=== PATIENT | female | born 1985 | race Caucasian/White ===

== ENCOUNTER 2022-12-08 10:40 | Emergency (ER) | payer MEDICAID, SELFPAY ==
[2022-12-08 10:57] VITALS: BP 109/76; PULSE 78; RESP 18; TEMP 36.9; O2SAT 99; BMI 34.8
[2022-12-08 11:38] LABS: Basophils Absolute Auto 0.1 10^3/uL (0.0-0.1); Basophils Percent Auto 0.9 % (0.2-2.0); Eosinophils Absolute Auto 0.1 10^3/uL (0.0-0.7); Eosinophils Percent Auto 1.9 % (0.9-7.0); Hematocrit 39.5 % (36.0-48.0); Hemoglobin 13.2 g/dL (12.0-16.0); Immature Granulocytes Abs Auto 0.02 10^3/uL (0.00-0.03); Immature Granulocytes Pct Auto 0.3 % (0.0-0.5); Lymphocytes Absolute Auto 1.8 10^3/uL (1.2-3.8); Lymphocytes Percent Auto 26.2 % (20.5-60.0); Mean Corpuscular HGB Conc 33.4 g/dL (29.9-35.2); Mean Corpuscular Hemoglobin 32.4 pg (26.7-34.0); Mean Corpuscular Volume 96.8 fL (81.0-99.0); Mean Platelet Volume 9.4 fL (9.5-13.5); Monocytes Absolute Auto 0.5 10^3/uL (0.3-0.8); Monocytes Percent Auto 7.5 % (1.7-12.0); Neutrophils Absolute Auto 4.2 10^3/uL (1.4-6.5); Neutrophils Percent Auto 63.2 % (43.0-75.0); Platelet Count 359 10^3/uL (150-450); Red Blood Count 4.08 10^6/uL (4.20-5.40); Red Cell Distribution Width 11.9 % (11.0-15.0); White Blood Count 6.7 10^3/uL (4.0-11.0)
[2022-12-08 11:55] LABS: Alanine Aminotransferase 17 U/L (14-59); Albumin Globulin Ratio 0.9; Albumin Level 3.6 g/dL (3.4-5.0); Alkaline Phosphatase 73 U/L (46-116); Aspartate Amino Transferase 15 U/L (15-37); BUN Creatinine Ratio 9.9; Bilirubin Total 0.8 mg/dL (0.2-1.0); Calcium 9.1 mg/dL (8.5-10.1); Carbon Dioxide 28.8 mmol/L (21.0-32.0); Chloride 105 mmol/L (98-107); Estimated GFR (African America >60 (>=60); Estimated GFR (Non-African Ame 51 (>=60); Globulin 3.9 g/dL; Glucose 95 mg/dL (74-106); Potassium 3.8 mmol/L (3.5-5.1); Sodium 139 mmol/L (136-145); Total Protein 7.5 g/dL (6.4-8.2)
--- NOTE | 2022-12-08 12:35 | ED.GENADUL1 ---
HPI - General Adult General Chief complaint: Urogenital-Female Stated complaint: VAGINAL PAIN NUMBNESS IN HANDS & ARMS Time Seen by Provider: 12/08/22 12:35 Source: patient Mode of arrival: walk-in Limitations: no limitations History of Present Illness HPI narrative: Patient is a 37-year-old female who is presenting to the Emergency Room with chief complaint of dysfunctional uterine bleeding since August. Patient had an IUD taken out in August. Patient on no blood thinners, she is on no hormone therapy or control. Patient is a , 3 vaginal deliveries with no complications. She's had 3 miscarriages as well. Patient's been having heavier bleeding since August, she is Already had her menses once today and she is starting to bleed again yesterday and today with more pain and cramping. Patient denies any type of trauma. No traumatic intercourse. No falls, car accidents, or any other type of pelvic trauma. Patient Is not lightheaded or dizzy. Patient is getting intermittent Numbness and tingling in her arms or hands, intermittent cramping. Patient says that she is not hyperventilating. Patient's concern is that she is bleeding more and more to the months, becoming more painful. Chief concern from patient and cousin at bedside as cancer. There has been different types of female cancers in the family. Related Data Previous Rx's Medication Instructions Recorded hydrocodone 5 mg-acetaminophen 325 1 tab PO Q6H PRN pain #7 tabs 12/08/22 mg tablet megestrol 20 mg tablet 20 mg PO BID #30 tabs 12/08/22 Allergies Allergy/AdvReac Type Severity Reaction Status Date / Time Penicillins Allergy Unknown Verified 12/08/22 10:56 prednisolone Allergy Unknown Verified 12/08/22 10:56 Review of Systems ROS Narrative All systems are negative except as noted/marked. All systems reviewed and otherwise negative. Exam Narrative Exam Narrative: Nurses note and vital signs reviewed and patient is not hypoxic. General: The patient appears well and in no apparent distress. Patient is resting comfortably on cart. Patient is not toxic, lethargic, or listless Skin: Warm, dry, no pallor noted. There is no rash noted. No petechiae, purpura. Head: Normocephalic, atraumatic Eye: Normal conjunctiva, no drainage, EOMI. PERRL Ears, Nose, Mouth, and Throat: oral mucosa is moist. Cardiovascular: Regular Rate and Rhythm, no murmur, gallop, rub Respiratory: Patient is in no distress, no accessory muscle use, lungs are clear to auscultation, no wheezing, rales or rhonchi Back: non-tender, no CVA tenderness bilaterally to percussion. No CT LS midline pain GI: soft, Mild to moderate diffuse tenderness to palpation, Slightly more localized to the right and left lower quadrant and suprapubic area, no flank pain bilateral, no CVA tenderness bilateral, no masses appreciated. No rebound, guarding, or rigidity noted. No flank pain bilateral, No distention Musculoskeletal: Patient has full range of motion of all of the extremities, no motor, sensory, or focal neurological deficits Neurological: A&O x3, normal speech Psychiatric: Cooperative Constitutional Vital Signs - 24 hr 12/08/22 10:57 Temperature 98.4 F Pulse Rate [Monitor] 78 Respiratory Rate 18 Blood Pressure [Left Arm] 109/76 Pulse Oximetry 99 Oxygen Delivery Method Room Air Course Vital Signs Vital signs: Vital Signs Temperature 98.4 F 12/08/22 10:57 Pulse Rate 78 12/08/22 10:57 Respiratory Rate 18 12/08/22 10:57 Blood Pressure 109/76 12/08/22 10:57 Pulse Oximetry 99 12/08/22 10:57 Oxygen Delivery Method Room Air 12/08/22 10:57 Temperature 98.4 F 12/08/22 10:57 Pulse Rate 78 12/08/22 10:57 Respiratory Rate 18 12/08/22 10:57 Blood Pressure 109/76 12/08/22 10:57 Pulse Oximetry 99 12/08/22 10:57 Oxygen Delivery Method Room Air 12/08/22 10:57 Medical Decision Making [facility] Narrative Medical decision making narrative: [address] Raymundo, patient's [employer]. Patient was recommended to start Megace 20 mg a day for 30 days until she is seen in the office. Patient also was recommended to have ultrasound of the pelvis since patient will not be seen for another month in the office. Patient's labs show no acute changes, creatinine is 1.21. 1340 Patient's ultrasound showed a small fibroid, otherwise no acute findings.Patient was given a prescription for Megace 20 mg daily until she follows up with Dr. Raymundo in the office, #30 has been prescribed. Patient be sent home and [place] to use if needed. No questions at discharge. Patient feels better after 1 L of IV fluid as well. Lab Data Lab results reviewed: Yes I reviewed the patient's lab results Labs: Lab Results 12/08/22 12/08/22 12/08/22 Range/Units 11:30 12:38 12:49 WBC 6.7 (4.0-11.0) 10^3/uL RBC 4.08 L (4.20-5.40) 10^6/uL Hgb 13.2 (12.0-16.0) g/dL Hct 39.5 (36.0-48.0) % MCV 96.8 (81.0-99.0) fL MCH 32.4 (26.7-34.0) pg MCHC 33.4 (29.9-35.2) g/dL RDW 11.9 (11.0-15.0) % Plt Count 359 (150-450) 10^3/uL MPV 9.4 L (9.5-13.5) fL Neut % (Auto) 63.2 (43.0-75.0) % Lymph % (Auto) 26.2 (20.5-60.0) % [place] % (Auto) 7.5 (1.7-12.0) % Eos % (Auto) 1.9 (0.9-7.0) % Baso % (Auto) 0.9 (0.2-2.0) % Neut # (Auto) 4.2 (1.4-6.5) 10^3/uL Lymph # (Auto) 1.8 (1.2-3.8) 10^3/uL [place] # (Auto) 0.5 (0.3-0.8) 10^3/uL Eos # (Auto) 0.1 (0.0-0.7) 10^3/uL Baso # (Auto) 0.1 (0.0-0.1) 10^3/uL Abs Immat Gran (auto) 0.02 (0.00-0.03) 10^3/uL Imm/Tot Granulo (auto) 0.3 (0.0-0.5) % Sodium 139 (136-145) mmol/L Potassium 3.8 (3.5-5.1) mmol/L Chloride 105 (98-107) mmol/L Carbon Dioxide 28.8 (21.0-32.0) mmol/L Anion Gap 9.0 BUN 12.0 (7.0-18.0) mg/dL Creatinine 1.21 H (0.55-1.02) mg/dL Est GFR ( Amer) >60 (>=60) Est GFR (Non-Af Amer) 51 L (>=60) BUN/Creatinine Ratio 9.9 Glucose 95 (74-106) mg/dL Calcium 9.1 (8.5-10.1) mg/dL Total Bilirubin 0.8 (0.2-1.0) mg/dL AST 15 (15-37) U/L ALT 17 (14-59) U/L Alkaline Phosphatase 73 (46-116) U/L Total Protein 7.5 (6.4-8.2) g/dL Albumin 3.6 (3.4-5.0) g/dL Globulin 3.9 g/dL Albumin/Globulin Ratio 0.9 Urine Color Lt. yellow (YELLOW) Urine Clarity Sl cloudy (CLEAR) Urine pH 7.5 (5.0-9.0) Ur Specific [place] 1.020 (1.005-1.025) Urine Protein Negative (NEG/TRACE) mg/dL Urine Glucose (UA) Negative (NEGATIVE) mg/dL Urine Ketones Negative (NEGATIVE) mg/dL Urine Occult Blood Large A (NEGATIVE) Urine Nitrite Negative (NEGATIVE) Urine Bilirubin Negative (NEGATIVE) Urine Urobilinogen 0.2 (0.2-1.0) EU/dL Ur Leukocyte Esterase Negative (NEGATIVE) Urine RBC >100 A (0-2) #/HPF Urine WBC 0-2 A (NONE SEEN) #/HPF Ur Squamous Epith Cells Rare (NONE/RARE) #/LPF Urine Crystals None seen (None Seen) #/HPF Urine Bacteria None seen (NONE SEEN) #/HPF Urine Casts None seen (NONE SEEN) #/LPF Urine Mucus None seen (NONE SEEN) Ur Culture Indicated? No Discharge Plan Discharge Chief Complaint: Urogenital-Female Clinical Impression: DUB (dysfunctional uterine bleeding), Pelvic pain, Dehydration Patient Disposition: Home, Self-Care Time of Disposition Decision: 13:41 Condition: Fair Prescriptions / Home Meds: New megestrol 20 mg tablet 20 mg PO BID Qty: 30 0RF hydrocodone-acetaminophen 5-325 mg tablet 1 tab PO Q6H PRN (Reason: pain) Qty: 7 0RF Instructions: Abnormal (Dysfunctional) Uterine Bleeding (ED), Dehydration (ED) Additional Instructions: Start taking Megace today. Use [place] as needed. Follow-up with Dr. Raymundo if any other acute concerns. Continue to increase fluids. Here creatinine level was slightly elevated at 1.21, uric given 1 bag of IV fluids to help hydrate. Do not take [place] with Tylenol, he could actually take too much [place] together. Stand Alone Forms: Portal Instructions Referrals: Gabriela Craig [Primary Care Provider] - 1 week
--- NOTE | 2022-12-08 12:40 | US_ITS ---
The [address] [address] Patient Name: STACY SHELDON MRN: [id number] date: 1985 Sex: F Assigned Patient Location: ER Current Patient Location: Accession/Order Number: [id number] Exam Date: 12/08/2022 13:00 Report Date: 12/08/2022 14:09 At the request of: LETICIA WHEATLEY Procedure: US pelvis transvaginal US pelvis transvaginal CLINICAL HISTORY: Dysfunctional uterine bleeding. Intrauterine device thickening of several months ago with heavy cycles. Pain. COMPARISON: None Available. TECHNIQUE: Transvaginal transverse and longitudinal real-time grayscale echograms of the pelvis is performed. Color duplex and doppler spectral analysis performed. FINDINGS: The uterus measures 7.7 x 4.2 x 4.5 cm in size. Uterus is retroverted. The endometrial stripe thickness is 4 mm. Hypoechoic rounded focus in the posterior uterine fundus measures 1.2 x 1.1 x 1.3 cm and lies near the endometrial stripe. Nonvascular and probable fibroid. The right ovary measures 3.2 x 2.3 x 2.0 cm and has normal appearance for age with a few tiny follicles. Normal intraovarian blood flow. The left ovary measures 1.7 x 1.5 x 1.6 cm and has normal appearance for age with a few tiny follicles. Normal intraovarian blood flow. There is no free fluid in the posterior cul-de-sac. IMPRESSION: Hypoechoic rounded focus in the uterine fundus posteriorly lies near the upper endometrial stripe and probably represents a submucosal fibroid. Recommend follow-up. Endometrial stripe itself is normal thickness. Otherwise normal for age pelvic ultrasound. Ovaries unremarkable. Electronically authenticated by: IVAN NEGRETE Date: 12/08/2022 14:09
[2022-12-08 12:49] LABS: Bilirubin Urine NEGATIVE (NEGATIVE); Blood Urine LARGE (NEGATIVE); Clarity Urine SL CLOUDY (CLEAR); Color Urine LT. YELLOW (YELLOW); Glucose Urine UA NEGATIVE (NEGATIVE); Ketones Urine NEGATIVE (NEGATIVE); Leukocyte Esterase Urine NEGATIVE (NEGATIVE); Nitrite Urine NEGATIVE (NEGATIVE); Protein Urine NEGATIVE (NEG/TRACE); Urine Microscopic Indicated YES; Urobilinogen Urine 0.2 EU/dL (0.2-1.0); pH Urine 7.5 (5.0-9.0)
[2022-12-08] MEDS: 0.9 % SODIUM CHLORIDE 1,000 ML 1000 ML IV (12:52)
[2022-12-08] MEDS: HYDROCODONE/ACETAMINOPHEN 5-325 MG TABLET 1 TAB PO (12:52)
[2022-12-08 12:57] LABS: Bacteria Urine NONE SEEN #/HPF (NONE SEEN); Cast Seen? NONE SEEN #/LPF (NONE SEEN); Crystals Seen? None Seen #/HPF (None Seen); Mucus Urine NONE SEEN (NONE SEEN); RBC Urine >100 #/HPF (0-2); Squamous Epithelial Cell Urine RARE #/LPF (NONE/RARE); Urine Culture Indicated NO; WBC Urine 0-2 #/HPF (NONE SEEN)
== END 2022-12-08 13:56 | disposition home or self-care (01) ==
PROVIDERS: Emergency Provider Emergency Medicine; PCP Nurse Practitioner
DX: E86.0 Dehydration (principal); N93.8 Other specified abnormal uterine and vaginal bleeding; R10.2 Pelvic and perineal pain
CPT/HCPCS: 36415; 76830; 80048; 80053; 81003; 81015; 85025; 99284

== ENCOUNTER 2023-01-11 10:04 | Outpatient (OUT) | payer MEDICAID, SELFPAY ==
--- NOTE | 2023-01-11 10:07 | US_ITS ---
The [address] [address] Patient Name: STACY SHELDON MRN: [id number] date: 1985 Sex: F Assigned Patient Location: US Current Patient Location: US Accession/Order Number: [id number] Exam Date: 01/11/2023 10:28 Report Date: 01/11/2023 14:14 At the request of: TAMMY BARRIGA Procedure: US pelvis w/ transvaginal EXAMINATION: US pelvis w/ transvaginal HISTORY: Irregular Cycle N92.6 COMPARISON: No relevant comparison available. FINDINGS: The uterus is normal in size, contour and echotexture measuring 7.9 x 4.5 x 4.5 cm. Retroverted. Area of hypoechogenicity in the posterior myometrium measuring 1.1 x 1.3 x 0.9 cm, a fibroid is favored. The endometrium measures 7 mm, normal. The right ovary measures 3.2 x 2.7 x 1.8 cm. Areas of anechoic echogenicity, normal follicles. Normal color and Doppler flow The left ovary measures 3.1 x 2.5 x 1.9 cm. Cystic area with peripheral hypoechogenicity and central anechoic echogenicity measuring 2.3 x 2.2 x 1.6 cm. Normal color and Doppler flow in the ovary No free fluid US/US pelvis w/ transvaginal IMPRESSION: 2.3 cm left ovarian complex cystic structure. A collapsing functional cyst is favored Electronically authenticated by: EVAN NAQVI Date: 01/11/2023 14:14
[2023-01-11 11:24] LABS: Basophils Absolute Auto 0.1 10^3/uL (0.0-0.1); Eosinophils Absolute Auto 0.1 10^3/uL (0.0-0.7); Eosinophils Percent Auto 1.5 % (0.9-7.0); Immature Granulocytes Abs Auto 0.03 10^3/uL (0.00-0.03); Immature Granulocytes Pct Auto 0.4 % (0.0-0.5); Lymphocytes Absolute Auto 1.9 10^3/uL (1.2-3.8); Lymphocytes Percent Auto 25.3 % (20.5-60.0); Mean Corpuscular HGB Conc 33.3 g/dL (29.9-35.2); Mean Corpuscular Hemoglobin 31.9 pg (26.7-34.0); Mean Corpuscular Volume 95.7 fL (81.0-99.0); Mean Platelet Volume 9.3 fL (9.5-13.5); Monocytes Absolute Auto 0.6 10^3/uL (0.3-0.8); Monocytes Percent Auto 8.2 % (1.7-12.0); Neutrophils Absolute Auto 4.7 10^3/uL (1.4-6.5); Neutrophils Percent Auto 63.6 % (43.0-75.0); Platelet Count 362 10^3/uL (150-450); Red Blood Count 4.39 10^6/uL (4.20-5.40); Red Cell Distribution Width 11.7 % (11.0-15.0); White Blood Count 7.3 10^3/uL (4.0-11.0)
[2023-01-11 11:39] LABS: INR <0.93; Partial Thromboplastin Time 27.1 sec (22.3-36.2); Prothrombin Time 9.8 sec (9.0-11.6)
[2023-01-11 12:20] LABS: Estimated Average Glucose 105 mg/dL; Glycohemoglobin A1C 5.3 % (4.5-6.2)
[2023-01-11 12:28] LABS: HCG Quantitative <1 mIU/mL
[2023-01-11 12:30] LABS: Free T4 0.94 ng/dL (0.76-1.46)
== END 2023-01-11 10:05 | disposition home or self-care (01) ==
LOC: US 10:05
PROVIDERS: PCP Nurse Practitioner; Visit Provider Obstetrics & Gynecology
DX: N92.6 Irregular menstruation, unspecified (principal); N83.292 Other ovarian cyst, left side
CPT/HCPCS: 36415; 76830; 76856; 83036; 84439; 84443; 84702; 85025; 85610; 85730

== ENCOUNTER 2023-02-09 11:00 | Outpatient (OUT) | payer MEDICAID, SELFPAY ==
--- NOTE | 2023-02-09 11:03 | ECG_ITS ---
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
[2023-02-09 13:33] LABS: Anion Gap 12.5; BUN Creatinine Ratio 18.6; Calcium 8.9 mg/dL (8.5-10.1); Carbon Dioxide 26.6 mmol/L (21.0-32.0); Chloride 102 mmol/L (98-107); Estimated GFR (African America >60 (>=60); Estimated GFR (Non-African Ame >60 (>=60); Glucose 94 mg/dL (74-106); Potassium 4.1 mmol/L (3.5-5.1); Sodium 137 mmol/L (136-145)
== END 2023-02-09 11:01 | disposition home or self-care (01) ==
LOC: PST 11:00
PROVIDERS: PCP Nurse Practitioner; Visit Provider Obstetrics & Gynecology
DX: Z01.810 Encounter for preprocedural cardiovascular examination (principal); Z01.812 Encounter for preprocedural laboratory examination; N92.0 Excessive and frequent menstruation with regular cycle; N93.9 Abnormal uterine and vaginal bleeding, unspecified; R10.2 Pelvic and perineal pain; I10 Essential (primary) hypertension
CPT/HCPCS: 36415; 80048; 93005

== ENCOUNTER 2023-02-15 20:37 | Outpatient (REF) | payer MEDICAID, SELFPAY ==
[2023-02-22 12:09] LABS: Age Gdln ACOG Testing Note (.); HPV Aptima Negative (Negative); IGP, Aptima HPV, rfx 16/18,45 Note (.)
== END 2023-02-15 20:38 | disposition home or self-care (01) ==
LOC: LAB 20:37
PROVIDERS: PCP Nurse Practitioner; Visit Provider Obstetrics & Gynecology
DX: Z12.4 Encounter for screening for malignant neoplasm of cervix (principal)
CPT/HCPCS: 87624; G0145

== ENCOUNTER 2023-02-23 07:39 | Day surgery (SDC) | payer MEDICAID, SELFPAY ==
[2023-02-09 11:22] VITALS: BP 112/79; PULSE 76; RESP 14; TEMP 36.4; O2SAT 98; BMI 36.1
[2023-02-23] VITALS (11 sets, daily range): BP systolic 97–117; BP diastolic 63–76; PULSE 54–82; RESP 12–16; TEMP 36–36.2; O2SAT 93–99; BMI 36.4
[2023-02-23] MEDS: LACTATED RINGER'S SOLUTION 1,000 ML 50 ML IV (08:04)
[2023-02-23 08:12] LABS: HCG Quantitative <1 mIU/mL
[2023-02-23 08:49] LABS: Basophils Absolute Auto 0.1 10^3/uL (0.0-0.1); Basophils Percent Auto 0.9 % (0.2-2.0); Eosinophils Absolute Auto 0.1 10^3/uL (0.0-0.7); Eosinophils Percent Auto 2.1 % (0.9-7.0); Hematocrit 40.3 % (36.0-48.0); Hemoglobin 13.2 g/dL (12.0-16.0); Immature Granulocytes Abs Auto 0.03 10^3/uL (0.00-0.03); Immature Granulocytes Pct Auto 0.4 % (0.0-0.5); Lymphocytes Absolute Auto 2.8 10^3/uL (1.2-3.8); Lymphocytes Percent Auto 40.9 % (20.5-60.0); Mean Corpuscular HGB Conc 32.8 g/dL (29.9-35.2); Mean Corpuscular Hemoglobin 31.3 pg (26.7-34.0); Mean Corpuscular Volume 95.5 fL (81.0-99.0); Mean Platelet Volume 9.4 fL (9.5-13.5); Monocytes Absolute Auto 0.6 10^3/uL (0.3-0.8); Monocytes Percent Auto 8.9 % (1.7-12.0); Neutrophils Absolute Auto 3.2 10^3/uL (1.4-6.5); Neutrophils Percent Auto 46.8 % (43.0-75.0); Platelet Count 377 10^3/uL (150-450); Red Blood Count 4.22 10^6/uL (4.20-5.40); White Blood Count 6.8 10^3/uL (4.0-11.0)
--- NOTE | 2023-02-23 10:07 | PM.ONB ---
Brief Operative Note Date of procedure: 02/23/23 Pre-op diagnosis: menorrhagia Post-op diagnosis: same as pre-op Procedure: NAME OF PROCEDURE:[ blanquita endometrial ablation with hysteroscopy] PROCEDURE: The patient was taken back to the OR where she was prepped and draped in the normal sterile fashion after being placed in the dorsal lithotomy position, after being placed under general anesthesia without difficulty. The anterior lip was grasped with a single tooth tenaculum. The patient was then gently sounds. The patient was gently sounded using Hegar dilators and the hysteroscope was passed through the cervix into the uterus where both ostia were seen. No gross evidence of polyps, fibroids or malignancy. A weighted speculum was placed in the patient?s vagina, the anterior tip of the cervix was identified and grasped with a single tooth tenaculum. The patient was gently sounded to roughly 10 cm. The cervical length was noted to be 5 cm. The Blanquita ablation apparatus was set to approximately 5 in length. This was placed in through the cervix and into the uterus. After the seal was tested, at that time the total ablation of 120 seconds was performed with the Blanquita without difficulty. All instruments were removed from the vagina. Anesthesia: BUSHRA Surgeon: Orlando Raymundo Estimated blood loss (mL): 5 Pathology: none sent Condition: stable Disposition: PACU
== END 2023-02-23 11:44 | disposition home or self-care (01) ==
PROVIDERS: PCP Nurse Practitioner; Visit Provider Obstetrics & Gynecology
PROC: (CPT 952; principal; 2023-02-23 09:05)
DX: N92.0 Excessive and frequent menstruation with regular cycle (principal); R10.2 Pelvic and perineal pain; N93.9 Abnormal uterine and vaginal bleeding, unspecified; I10 Essential (primary) hypertension; Z90.49 Acquired absence of other specified parts of digestive tract; Z98.51 Tubal ligation status
CPT/HCPCS: 58563; 36415; 84702; 85025; J2704

== ENCOUNTER 2023-03-24 08:42 | Outpatient (OUT) | payer MEDICAID, SELFPAY ==
--- NOTE | 2023-03-24 | CT_ITS ---
The [address] [address] Patient Name: STACY SHELDON MRN: [id number] date: 1985 Sex: F Assigned Patient Location: CT Current Patient Location: Accession/Order Number: [id number] Exam Date: 03/24/2023 09:01 Report Date: 03/26/2023 08:43 At the request of: MEGAN AKERS Procedure: CT chest w con CT chest w con CLINICAL HISTORY: lung nodule R91.1 COMPARISON: 07/26/[address] abdomen/pelvis. 07/08/2022 CT abdomen/pelvis. TECHNIQUE: Axial CT images obtained from lung apices through lung bases, following intravenous administration of 99 mL of Omnipaque 300. Coronal and sagittal MIP reconstructions performed. Dose reduction techniques were achieved by using automated exposure control and/or adjustment of mA and/or kV according to patient size and/or use of iterative reconstruction technique. FINDINGS: Lower thyroid unremarkable. No axillary adenopathy. Minimal thoracic spondylosis without acute bony process. Visualized upper abdomen unremarkable except for a small unchanged probable flash fill hemangioma at the right hepatic dome of approximately 8 mm vaguely seen on exam from July 2022. Liver is not cirrhotic. No splenomegaly or ascites. Normal heart and great vessel sizes. No pericardial effusion. No mediastinal adenopathy. A few unchanged partially calcified subcarinal nodes. Posteromedial right middle lobe 12 mm nodule is stable in size and exhibits central calcification. A miniscule adjacent satellite nodularities are stable. Overall most consistent with benign granuloma not requiring further follow-up. Tiny linear scarring at the left lower lobe is stable. No active airspace opacities or effusions. No chronic interstitial lung disease or pulmonary emphysema. CT/CT chest w con IMPRESSION: Old benign right middle lobe granuloma is centrally calcified and does not require further follow-up. Minimal scarring left lower lobe without acute process. Enhancing nodule at the right hepatic dome similar to July 2022 in a noncirrhotic liver and probably represents flash filling hemangioma. Electronically authenticated by: IVAN NEGRETE Date: 03/26/2023 08:43
== END 2023-03-24 08:43 | disposition home or self-care (01) ==
LOC: CT 08:42
PROVIDERS: PCP Nurse Practitioner; Visit Provider Nurse Practitioner
DX: R91.1 Solitary pulmonary nodule (principal); K76.9 Liver disease, unspecified
CPT/HCPCS: 71260; Q9967

== ENCOUNTER 2023-04-11 13:35 | Emergency (ER) | payer OTHER, MEDICAID, SELFPAY ==
[2023-04-11 13:42] VITALS: BP 119/72; PULSE 82; RESP 18; O2SAT 99; BMI 37.2
--- NOTE | 2023-04-11 13:52 | ED_ITS ---
HPI - Female Genitourinary General Chief complaint: Urogenital-Female Stated complaint: UTI SYMPTOMS Time Seen by Provider: 04/11/23 13:36 Source: patient and family Mode of arrival: walk-in Limitations: no limitations History of Present Illness HPI Narrative: 37-year-old female presents for hematuria. She has had two urinary tract infection in the past few months and is scheduled to see her doctor tomorrow. She states when she urinates blood comes out but it's deftly not vaginal bleeding. She has some mild lower back pain but no fever or vomiting. She had a CAT scan a few months ago at another hospital. Related Data Home Medications Medication Instructions Recorded Confirmed hydrochlorothiazide 25 mg tablet 25 mg PO QDAY 02/09/23 02/23/23 lisinopril 10 mg tablet 10 mg PO QDAY 02/09/23 02/23/23 Allergies Allergy/AdvReac Type Severity Reaction Status Date / Time Penicillins Allergy Unknown Hives Verified 04/11/23 13:47 prednisolone Allergy Unknown dyspnea Verified 04/11/23 13:47 azithromycin Allergy Hives Verified 04/11/23 13:47 Review of Systems ROS Narrative A ten point review of systems is negative except as noted above. [facility] Medical History (Updated 04/11/23 @ 14:42 by Arden Mejia MD) Abnormal uterine bleeding ?N93.9 - Abnormal uterine and vaginal bleeding, unspecified (ICD-10) Anxiety ?F41.9 - Anxiety disorder, unspecified (ICD-10) Back pain ?M54.9 - Dorsalgia, unspecified (ICD-10) COVID-19 ?U07.1 - COVID-19 (ICD-10) Depression ?F32.A - Depression, unspecified (ICD-10) Fibromyalgia ?M79.7 - Fibromyalgia (ICD-10) Hypertension ?I10 - Essential (primary) hypertension (ICD-10) Irregular heart beat ?I49.9 - Cardiac arrhythmia, unspecified (ICD-10) Kidney stones ?N20.0 - Calculus of kidney (ICD-10) Menorrhagia ?N92.0 - Excessive and frequent menstruation with regular cycle (ICD-10) Postoperative nausea and vomiting ?R11.2 - Nausea with vomiting, unspecified (ICD-10) ?Z98.890 - Other specified postprocedural states (ICD-10) Surgical History (Updated 02/09/23 @ 11:18 by Lakesha Knight NP) H/O lumpectomy ?Z98.890 - Other specified postprocedural states (ICD-10) History of cholecystectomy ?Z90.49 - Acquired absence of other specified parts of digestive tract (ICD- 10) History of hernia repair ?Z98.890 - Other specified postprocedural states (ICD-10) ?Z87.19 - Personal history of other diseases of the digestive system (ICD-10) History of surgical removal of ganglion cyst ?Z98.890 - Other specified postprocedural states (ICD-10) History of tubal ligation ?Z98.51 - Tubal ligation status (ICD-10) Family History (Updated 02/09/23 @ 11:18 by Lakesha Knight NP) Other Family history of DVT Family history of bleeding or clotting disorder Family history of breast cancer Family history of diabetes mellitus Family history of heart disease Family history of hypertension Family history of kidney cancer Family history of lung cancer Family history of myocardial infarction Social History (Updated 02/09/23 @ 11:13 by Lakesha Knight NP) Within the past year, how often did you have a drink containing alcohol: monthly or less Smoking status: Never smoker Non-prescribed substance use: denies use Previous occupational history: [employer] Highest level of school completed/degree received: high school graduate Exam Narrative Exam Narrative: Nurses note and vital signs reviewed and patient is not hypoxic. General: The patient appears well and in no apparent distress. Patient is resting comfortably on cart. Skin: Warm, dry, no pallor noted. There is no rash noted. Head: Normocephalic, atraumatic Eye: Normal conjunctiva, no drainage Ears, Nose, Mouth, and Throat: oral mucosa is moist. Nares patent. Cardiovascular: Regular Rate and Rhythm Respiratory: Patient is in no distress, no accessory muscle use, lungs are clear to auscultation, no wheezing, rales or rhonchi Back: non-tender, no CVA tenderness bilaterally to percussion. GI: soft and nontender Musculoskeletal: The patient has no evidence of calf tenderness, no pitting edema, symmetrical pulses noted bilaterally Neurological: A&O, normal speech Psychiatric: Cooperative Constitutional Vital Signs, click to edit/add: Last Vital Signs Pulse 82 04/11/23 13:42 Resp 18 04/11/23 13:42 BP 119/72 04/11/23 13:42 Pulse Ox 99 04/11/23 13:42 O2 Del Method Room Air 04/11/23 13:42 Course Vital Signs Vital signs: Vital Signs Pulse Rate 82 04/11/23 13:42 Respiratory Rate 18 04/11/23 13:42 Blood Pressure 119/72 04/11/23 13:42 Pulse Oximetry 99 04/11/23 13:42 Oxygen Delivery Method Room Air 04/11/23 13:42 Pulse Rate 82 04/11/23 13:42 Respiratory Rate 18 04/11/23 13:42 Blood Pressure 119/72 04/11/23 13:42 Pulse Oximetry 99 04/11/23 13:42 Oxygen Delivery Method Room Air 04/11/23 13:42 MDM - Female Genitourinary MDM Narrative Medical decision making narrative: Urinalysis is negative. No RBCs or WBCs present. CAT scan report obtained from 01/21/2023 from [facility]. She had aa negative CAT scan. For five years ago the patient had urethral rupture and dilatation and at that time of course it seen a urologist. She is going to see her PCP tomorrow and will discuss referral to urology at that point. Treatment diagnosis and follow-up were discussed with the patient. No further treatment is needed at this point. Differential Diagnosis Differential diagnosis: Likely urinary tract infection and other (kidney stone, hematuria) Lab Data Attestation: I reviewed the patient's lab results. Labs: Lab Results 04/11/23 04/11/23 Range/Units 13:53 14:00 WBC 6.4 (4.0-11.0) 10^3/uL RBC 4.06 L (4.20-5.40) 10^6/uL Hgb 12.8 (12.0-16.0) g/dL Hct 39.0 (36.0-48.0) % MCV 96.1 (81.0-99.0) fL MCH 31.5 (26.7-34.0) pg MCHC 32.8 (29.9-35.2) g/dL RDW 11.8 (11.0-15.0) % Plt Count 344 (150-450) 10^3/uL MPV 9.2 L (9.5-13.5) fL Neut % (Auto) 58.2 (43.0-75.0) % Lymph % (Auto) 32.1 (20.5-60.0) % [place] % (Auto) 7.4 (1.7-12.0) % Eos % (Auto) 1.4 (0.9-7.0) % Baso % (Auto) 0.6 (0.2-2.0) % Neut # (Auto) 3.7 (1.4-6.5) 10^3/uL Lymph # (Auto) 2.1 (1.2-3.8) 10^3/uL [place] # (Auto) 0.5 (0.3-0.8) 10^3/uL Eos # (Auto) 0.1 (0.0-0.7) 10^3/uL Baso # (Auto) 0.0 (0.0-0.1) 10^3/uL Abs Immat Gran (auto) 0.02 (0.00-0.03) 10^3/uL Imm/Tot Granulo (auto) 0.3 (0.0-0.5) % Sodium 139 (136-145) mmol/L Potassium 3.3 L (3.5-5.1) mmol/L Chloride 100 (98-107) mmol/L Carbon Dioxide 30.0 (21.0-32.0) mmol/L Anion Gap 12.3 BUN 10.0 (7.0-18.0) mg/dL Creatinine 0.84 (0.55-1.02) mg/dL Est GFR ( Amer) >60 (>=60) Est GFR (Non-Af Amer) >60 (>=60) BUN/Creatinine Ratio 11.9 Glucose 103 (74-106) mg/dL Calcium 9.1 (8.5-10.1) mg/dL Urine Color Straw (YELLOW) Urine Clarity Clear (CLEAR) Urine pH 6.5 (5.0-9.0) Ur Specific [place] <=1.005 A (1.005-1.025) Urine Protein Negative (NEG/TRACE) mg/dL Urine Glucose (UA) Negative (NEGATIVE) mg/dL Urine Ketones Negative (NEGATIVE) mg/dL Urine Occult Blood Small A (NEGATIVE) Urine Nitrite Negative (NEGATIVE) Urine Bilirubin Negative (NEGATIVE) Urine Urobilinogen 0.2 (0.2-1.0) EU/dL Ur Leukocyte Esterase Negative (NEGATIVE) Urine RBC None seen (0-2) #/HPF Urine WBC None seen (NONE SEEN) #/HPF Ur Squamous Epith Cells Rare (NONE/RARE) #/LPF Urine Crystals None seen (None Seen) #/HPF Urine Bacteria None seen (NONE SEEN) #/HPF Urine Casts None seen (NONE SEEN) #/LPF Urine Mucus None seen (NONE SEEN) Urine HCG, Qual Negative (NEGATIVE) Discharge Plan Discharge Chief Complaint: Urogenital-Female Clinical Impression: Hematuria Patient Disposition: Home, Self-Care Time of Disposition Decision: 14:42 Condition: Good Mode of Transportation: Private Vehicle Prescriptions / Home Meds: No Action hydrochlorothiazide 25 mg tablet 25 mg PO QDAY lisinopril 10 mg tablet 10 mg PO QDAY Instructions: Hematuria (ED) Stand Alone Forms: Portal Instructions Referrals: Gabriela Craig [Primary Care Provider] - 1 week
[2023-04-11 14:08] LABS: Basophils Percent Auto 0.6 % (0.2-2.0); Eosinophils Absolute Auto 0.1 10^3/uL (0.0-0.7); Eosinophils Percent Auto 1.4 % (0.9-7.0); Hemoglobin 12.8 g/dL (12.0-16.0); Immature Granulocytes Abs Auto 0.02 10^3/uL (0.00-0.03); Immature Granulocytes Pct Auto 0.3 % (0.0-0.5); Lymphocytes Absolute Auto 2.1 10^3/uL (1.2-3.8); Lymphocytes Percent Auto 32.1 % (20.5-60.0); Mean Corpuscular HGB Conc 32.8 g/dL (29.9-35.2); Mean Corpuscular Hemoglobin 31.5 pg (26.7-34.0); Mean Corpuscular Volume 96.1 fL (81.0-99.0); Mean Platelet Volume 9.2 fL (9.5-13.5); Monocytes Absolute Auto 0.5 10^3/uL (0.3-0.8); Monocytes Percent Auto 7.4 % (1.7-12.0); Neutrophils Absolute Auto 3.7 10^3/uL (1.4-6.5); Neutrophils Percent Auto 58.2 % (43.0-75.0); Platelet Count 344 10^3/uL (150-450); Red Blood Count 4.06 10^6/uL (4.20-5.40); Red Cell Distribution Width 11.8 % (11.0-15.0); White Blood Count 6.4 10^3/uL (4.0-11.0)
[2023-04-11 14:10] LABS: Bilirubin Urine NEGATIVE (NEGATIVE); Blood Urine SMALL (NEGATIVE); Clarity Urine CLEAR (CLEAR); Glucose Urine UA NEGATIVE (NEGATIVE); Ketones Urine NEGATIVE (NEGATIVE); Leukocyte Esterase Urine NEGATIVE (NEGATIVE); Nitrite Urine NEGATIVE (NEGATIVE); Protein Urine NEGATIVE (NEG/TRACE); Specific Gravity Urine <=1.005 (1.005-1.025); Urobilinogen Urine 0.2 EU/dL (0.2-1.0); pH Urine 6.5 (5.0-9.0)
[2023-04-11 14:11] LABS: Color Urine STRAW (YELLOW)
[2023-04-11 14:12] LABS: HCG Qualitative Urine* NEGATIVE (NEGATIVE)
[2023-04-11 14:17] LABS: Anion Gap 12.3; BUN Creatinine Ratio 11.9; Calcium 9.1 mg/dL (8.5-10.1); Chloride 100 mmol/L (98-107); Estimated GFR (African America >60 (>=60); Estimated GFR (Non-African Ame >60 (>=60); Glucose 103 mg/dL (74-106); Potassium 3.3 mmol/L (3.5-5.1); Sodium 139 mmol/L (136-145)
[2023-04-11 14:19] LABS: Bacteria Urine NONE SEEN #/HPF (NONE SEEN); Cast Seen? NONE SEEN #/LPF (NONE SEEN); Crystals Seen? None Seen #/HPF (None Seen); Mucus Urine NONE SEEN (NONE SEEN); RBC Urine NONE SEEN #/HPF (0-2); Squamous Epithelial Cell Urine RARE #/LPF (NONE/RARE); WBC Urine NONE SEEN #/HPF (NONE SEEN)
== END 2023-04-11 14:52 | disposition home or self-care (01) ==
PROVIDERS: Emergency Provider Emergency Medicine; PCP Nurse Practitioner
DX: R31.9 Hematuria, unspecified (principal); Z79.899 Other long term (current) drug therapy; F41.9 Anxiety disorder, unspecified; Z86.16 Personal history of COVID-19; F32.A Depression, unspecified; M79.7 Fibromyalgia; I10 Essential (primary) hypertension; Z87.442 Personal history of urinary calculi; Z90.49 Acquired absence of other specified parts of digestive tract; Z98.51 Tubal ligation status; Z98.890 Other specified postprocedural states
CPT/HCPCS: 36415; 80048; 81001; 84703; 85025; 87086; 99284

== ENCOUNTER 2024-02-20 19:39 | Outpatient (REF) | payer OTHER, MEDICAID, SELFPAY ==
--- OUTSIDE RECORDS SUMMARY | 2024-02-20 19:45 | XMS_ITS | CCD ---
Author Organization [facility] Care Team Providers Care Habilitative Interventionist Name Role Phone NAGARAJA, RAYNE Unavailable Unavailable NAGARAJA, RAYNE Unavailable Unavailable NAGARAJA, RAYNE Unavailable Unavailable [facility] Unavailable Unavailable AICHHOLZ, MASH GRINDER GABRIELA Admitting Unavailable AICHHOLZ, MASH GRINDER GABRIELA Attending Unavailable AICHHOLZ, MASH GRINDER GABRIELA Primary Care Unavailable AICHHOLZ, MASH GRINDER GABRIELA Consulting Unavailable DR OSWALD GAR Consulting Unavailable AICHHOLZ, MASH GRINDER GABRIELA Admitting Unavailable AICHHOLZ, MASH GRINDER GABRIELA Attending Unavailable AICHHOLZ, MASH GRINDER GABRIELA Primary Care Unavailable AICHHOLZ, MASH GRINDER GABRIELA Consulting Unavailable AICHHOLZ, MASH GRINDER GABRIELA Admitting Unavailable AICHHOLZ, MASH GRINDER GABRIELA Attending Unavailable AICHHOLZ, MASH GRINDER GABRIELA Primary Care Unavailable AICHHOLZ, MASH GRINDER GABRIELA Consulting Unavailable AICHHOLZ, MASH GRINDER GABRIELA Primary Care Unavailable DR SALAS HARRIS Admitting Unavailvannessa HARRIS, DR SALAS Borrego Attending Unavailabl e KIMBERLY, DR SALAS Borrego Consulting UnavailGABY Jiang Consulting Unavailable FLO DODD Consulting Unavailable Aichholz ON SITE MANAGER-Gabriela FARIAS Primary Care Provider AICHHOLZ, GABRIELA Attending Unavailable AICHHOLZ, GABRIELA Attending Unavailable AICHHOLZ, GABRIELA Attending Unavailable AICHHOLZ, GABRIELA Attending Unavailable Allergies Allergy Classification Reported Allergen(s) Allergy Type Date of Onset Reaction(s) Facility (1 source) erythromycin Drug Allergy 4 [facility]ository (2 sources) Penicillins Drug allergy (disorder) 4 [facility] (1 source) predniSONE Drug Allergy 4 [facility] (1 source) Erythromycin Drug Allergy [facility] (1 source) predniSONE Drug Allergy [facility] (1 source) Erythromycin Drug Allergy 7 [facility] (1 source) Penicillins Propensity to adverse reactions to drug 7 [facility] (1 source) predniSONE Drug Allergy 7 [facility] Medications Current Medications Medication Drug Class(es) Dates Sig (Normalized) Sig (Original) acetaminophen 500 mg oral tablet (1 source) Start: 02-02-20 22 take 2 tablets by mouth every six hours as needed for pain acetaminophen (TYLENOL EXTRA STRENGTH) 500 mg tablet Take 2 tablets (1,000 mg total) by mouth every 6 (six) hours as needed for pain. 30 tablet 0 02/01/2022 Active benzonatate 100 mg oral capsule (1 source) Non-narcotic Antitussive Start: 02-02-20 22 take 1 capsule by mouth every eight hours benzonatate (TESSALON PERLES) 100 mg capsule Take 1 capsule (100 mg total) by mouth every 8 (eight) hours. 21 capsule 0 02/01/2022 Active hydroCHLOROthiazide 25 mg oral tablet (1 source) Thiazide Diuretic take 1 tablet by mouth once daily hydroCHLOROthiazide (HYDRODIURIL) 25 mg tablet Take 1 tablet (25 mg total) by mouth daily. 0 Active ketorolac tromethamine 10 mg oral tablet (1 source) Nonsteroidal Anti-inflammatory Drug, Cyclooxygenase Inhibitor take 1 tablet by mouth every six hours as needed for pain ketorolac (TORADOL) 10 mg tablet Take 1 tablet (10 mg total) by mouth every 6 (six) hours as needed for pain. 0 Active lisinopril 10 mg oral tablet (1 source) Angiotensin Converting Enzyme Inhibitor take 1 tablet by mouth in the morning lisinopriL (PRINIVIL,ZESTRIL) 10 mg tablet Take 1 tablet (10 mg total) by mouth in the morning. 0 Active tamsulosin hydrochloride 0.4 mg oral capsule (1 source) alpha-Adrenergic Gold take 1 capsule by mouth in the morning tamsulosin (FLOMAX) 0.4 mg capsule Take 1 capsule (0.4 mg total) by mouth in the morning. 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; Translations: [OTH HALFWAY CURRENT DRUG THERAPY] Onset: 2022 Episodic Other female genital disorders (4 sources) Abnormal uterine and vaginal bleeding, unspecified; Translations: [ABNORMAL UTERINE VAGINAL BLEED UNS] Onset: 07-08-2022 Chronic Other lower respiratory disease (4 sources) Solitary pulmonary nodule; Translations: [SOLITARY PULMONARY NODULE] Onset: 07-26-2022 Episodic Other screening for suspected conditions (not mental disorders or infectious disease) (2 sources) Abnormal findings on diagnostic imaging of other abdominal regions, including retroperitoneum; Translations: [Other specified abnormal findings of blood chemistry] Onset: 02-22-2022 Episodic Unclassified (1 source) COUGH, UNSPECIFIED; Translations: [COUGH, UNSPECIFIED] Onset: 07-29-2022 Past or Other Problems Problem Classification Problem Date Documented Da te Episodic/Chronic Diabetes mellitus without complication (1 source) Hyperglycemia, unspecified; Translations: [HYPERGLYCEMIA UNSPECIFIED] Onset: 02-22-2022 Episodic Genitourinary symptoms and ill-defined conditions (1 source) Zay hematuria; Translations: [Gross hematuria] Onset: 12-29-2020 05-16-2023 Episodic Results Test Name Value Interpretation Reference Range Facil ity CT CHEST W CONon 07-26-2022 CT CHEST W CON EXAMINATION: CT CHEST W CON, CT ABD/PELV W CON HISTORY: Solitary nodule of lung ; acute intermittent cough, consider for pancreatic head mass on prior study COMPARISON: CT abdomen pelvis 07/08/2022 TECHNIQUE: Axial, Coronal, and Sagittal CT images were obtained without and/or with IV contrast as indicated by examination type. Dose reduction techniques were achieved by using automated exposure control and/or adjustment of mA and/or kV according to patient size and/or use of iterative reconstruction technique. FINDINGS: LUNGS: Stable 12 mm nodule within right middle lobe adjacent the mediastinum and diaphragm. Lungs are otherwise clear. PLEURA: No mass or effusion. VASCULATURE: No visible pulmonary arterial thrombus or attenuation. ESTELLA: No mass or adenopathy. MEDIASTINUM: No mass or adenopathy. CARDIAC: No enlargement, pericardial thickening, or pericardial effusion. CHEST WALL: No mass or axillary adenopathy. LIVER: No enlargement, atrophy, abnormal density, or significant focal lesion. BILIARY: Cholecystectomy. PANCREAS: No lesion, fluid collection, ductal dilatation, or atrophy. SPLEEN: No enlargement or focal lesion. ADRENALS: No mass or enlargement. KIDNEYS: No mass, obstruction, or calcification. BOWEL/MESENTERY: No visible mass, obstruction, or bowel wall thickening. AORTA/VASCULAR: No aneurysm. RETROPERITONEUM: No mass or adenopathy. LYMPH NODES: No adenopathy. URINARY BLADDER: No visible focal wall thickening, lesion, or calculus. PELVIC ORGANS: IUD within endometrial cavity. No visible mass. Pelvic organs appropriate for patient age. ABDOMINAL WALL: No mass or hernia. BONES: No bony lesion or fracture. OTHER: Negative. IMPRESSION: 1. Nonspecific 12 mm nodule within right middle lobe, but not overtly suspicious. Given patient's age this most likely represents a noncalcified granuloma. Consider follow-up imaging in 6-12 months to document stability. 2. Unremarkable pancreas. No mass or suspicious findings. Electronically authenticated by: OSWALD GAR Date: 2022-07-26 14:23 Normal [facility] CBC AUTO DIFFon 07-08-2022 BASO # 0.1 103/ul Normal 0.0-0.1 [facility] Comment on above: Performed By: #### C BC ####[facility] [address] [place] [id number]. Joseph Edwards Basophils/100 WBC (Bld) 0.7 % Normal 0.2-2.0 [facility] Comment on above: Performed By: #### C BC ####[facility] [address] [place] [id number]. Joseph Edwards EO # 0.1 103/ul Normal 0.0-0.7 [facility] Comment on above: Performed By: #### C BC ####[facility] [address] [place] [id number]. Joseph Edwards Eosinophils/100 WBC (Bld) 1.7 % Normal 0.9-7.0 [facility] Comment on above: Performed By: #### C BC ####[facility] [address] [place] [address]Dr. Joseph Edwards Erythrocyte distribution width (RBC) [Ratio] 12.2 % Normal 11.0-15.0 [facility] Comment on above: Performed By: #### C BC ####[facility] [address] [place], [place] [address]Dr. Joseph Edwards Hematocrit (Bld) [Volume fraction] 37.0 % Normal 36.0-48.0 [facility] Comment on above: Performed By: #### C BC ####[facility] [address] [place], [place] [address]Dr. Joseph Edwards Hemoglobin (Bld) [Mass/Vol] 12.5 g/dL Normal 12.0-16.0 [facility] Comment on above: Performed By: #### C BC ####[facility] [address] [place], [place] [address]Dr. Joseph Edwards IG # 0.02 10e3/ul Normal 0.00-0.03 [facility] Comment on above: Performed By: #### C BC ####[facility] [address] [place], [place] [address]Dr. Joseph Edwards IG % 0.3 % Normal 0.0-0.5 [facility] Comment on above: Performed By: #### C BC ####[facility] [address] [place], [place] [address]Dr. Joseph Edwards LYMPH # 2.7 103/ul Normal 1.2-3.8 [facility] Comment on above: Performed By: #### C BC ####[facility] [address] [place], [place] [address]Dr. Joseph Edwards Lymphocytes/100 WBC (Bld) 37.4 % Normal 20.5-60.0 [facility] Comment on above: Performed By: #### C BC ####[facility] [address] [place], [place] [address]Dr. Joseph Edwards MANUAL DIFF REQ NO Normal [facility] Comment on above: Performed By: #### C BC ####[facility] [address] [place] [address]Dr. Joseph Edwards MCH (RBC) [Entitic mass] 32.3 pg Normal 26.7-34.0 [facility] Comment on above: Performed By: #### C BC ####[facility] [address] [place] [address]Dr. Joseph Edwards MCHC (RBC) [Mass/Vol] 33.8 g/dL Normal 29.9-35.2 [facility] Comment on above: Performed By: #### C BC ####[facility] [address] [place], [place] [id number]. Joseph Edwards MCV (RBC) [Entitic vol] 95.6 fL Normal 81.0-99.0 [facility] Comment on above: Performed By: #### C BC ####[facility] [address] [place], [place] [address]Dr. Joseph Edwards MONO # 0.6 103/ul Normal 0.3-0.8 [facility] Comment on above: Performed By: #### C BC ####[facility] [address] [place], [place] [address]Dr. Joseph Jerry Monocytes/100 WBC (Bld) 7.8 % Normal 1.7-12.0 [facility] Comment on above: Performed By: #### C BC ####[facility] [address] [place], [place] [address]Dr. Joseph Edwards NEUT # 3.7 103/ul Normal 1.4-6.5 [facility] Comment on above: Performed By: #### C BC ####[facility] [address] [place], [place] [id number]. Joseph Edwards Neutrophils/100 WBC (Bld) 52.1 % Normal 43.0-75.0 [facility] Comment on above: Performed By: #### C BC ####[facility] [address] [place], [place] [address]Dr. Joseph Edwards Platelet mean volume (Bld) [Entitic vol] 9.2 fL Critically low 9.5-13.5 [facility] Comment on above: Performed By: #### C BC ####[facility] [address] [place], [place] [address]Em. Joseph Edwards PLT 332 103/ul Normal 150-450 [facility] Comment on above: Performed By: #### C BC ####[facility] [address] [place], [place] [address]Ld. Joseph Edwards RBC 3.87 106/ul Critically low 4.20-5.40 [facility] Comment on above: Performed By: #### C BC ####[facility] [address] [place], [place] [address]Xn. Joseph Edwards WBC 7.1 103/ul Normal 4.0-11.0 [facility] Comment on above: Performed By: #### C BC ####[facility] [address] [place], [place] [address]Hv. Joseph Edwards CT ABD/PELVIS WO CONon 07-08 CT ABD/PELVIS WO CON EXAM: CT SCAN OF E ABDOMEN AND PELVIS WITHOUT IV CONTRAST DATE OF EXAM: 07/08/2022 7:26 PM EST HISTORY: 36-year-old female with low back pain bilateral flank pain, vaginal spotting abdominal pressure for 3 days. Patient has a Mirena. Patient is not . Patient has a history of kidney stones. COMPARISON: Ultrasound dated 06/13/2020 TECHNIQUE: CT examination of the abdomen and pelvis with sagittal and coronal reformations was performed without intravenous contrast. CT dose lowering techniques were used, to include: automated exposure control, adjustment for patient size, and/or use of iterative reconstruction. CONTRAST: None. Note: The exam is limited because some types of pathology may not be adequately demonstrated due to lack of contrast enhancement. FINDINGS: Lower Chest: On axial image 4 of series 4, within the right middle lobe there is a nodule that measures 9.5 x 12.4 mm. Free Air: None. Liver: The liver is enlarged Gallbladder: Removed Common Bile Duct: Normal Pancreas: On axial image 58 of series 4, and coronal image 32 of series 6, the pancreatic head is mildly prominent (although this is most likely due to volume averaging from unopacified duodenum overlying the pancreatic head) underlying pathology cannot be excluded. Spleen: Normal Adrenal Glands: Normal Kidneys: Right Kidney: Normal. Right Ureter: Portions of the right ureter which are visualized measure within normal. Left Kidney: Normal. Left Ureter: Portions of the left ureter which are visualized measure within normal limits. GI Tract: Stomach: Normal Small Bowel: Normal Appendix: Normal on coronal image 38 Large Bowel: There is moderate retention of stool seen throughout the large bowel. Mesentery/Peritoneum : Normal Vasculature: Normal Lymph Nodes: Subcentimeter lymph nodes are demonstrated in the mesentery. Abdominal Wall: Normal Bladder: Normal for the amount of distention. Reproductive: Uterus is retroflexed with a IUD. Evaluation of ovaries is limited due to overlying bowel gas. Musculoskeletal: Normal Free Fluid: None. IMPRESSION: 1. 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 Please correlate with patient's clinical history. If patient is a smoker or if there is any other clinical concern, outpatient low dose CT scan of the chest as an outpatient is recommended to better evaluate for other nodules. 2. Moderate retention of stool throughout the large bowel. 3. Normal appendix. 4. Hepatomegaly with mild intrahepatic biliary prominence. Please correlate with patient's LFTs. 5. Pancreatic head is mildly prominent (on axial image 58 of series 4, and coronal image 32 of series 6) although this is most likely due to volume averaging from unopacified duodenum overlying the pancreatic head. (Although underlying pathology can not be excluded.) Please correlate with patient's medical history and pancreatic labs. If clinically indicated, follow-up imaging with oral contrast and IV contrast is recommended. No significant alannah-pancreatic inflammation. Electronically authenticated by: FLO DODD Date: 2022-07-08 20:54 Normal [facility] ER URINE PROFILEon 3 Bilirubin Ql (U) Negative Normal NEGATIVE [facility] Comment on above: Performed By: #### E FOREST LIENRO #### [facility] [address] [place], [place] [address] Dr. Joseph Edwards Clarity (U) CLEAR Normal CLEAR [facility] Comment on above: Performed By: #### E FOREST FLORENTIN #### [facility] [address] [place], [place] [address] Dr. Joseph Edwards Color (U) LT. YELLOW Normal YELLOW [facility] Comment on above: Performed By: #### JEROD JEREZICRO #### [facility] [address] [place] [address] Dr. Joseph HOUSE A micrscopic examination will be performed if indicated. Normal [facility] Comment on above: Performed By: #### JEROD JEREZICRO #### [facility] [address] [place] [address] Dr. Joseph Edwards Glucose Ql (U) Negative Normal NEGATIVE [facility] Comment on above: Performed By: #### Jay GARG UMICRO #### [facility] [address] [place] [address] Dr. Joseph Edwards Hemoglobin Ql (U) SMALL Abnormal NEGATIVE [facility] Comment on above: Performed By: #### Jay GARG UMICRO #### [facility] [address] [place] [address] Dr. Joseph Edwards Ketones Ql (U) Negative Normal NEGATIVE [facility] Comment on above: Performed By: #### Jay GARG UMICRO #### [facility] [address] [place] [address] Dr. Joseph Edwards LEUKOCYTES Negative Normal NEGATIVE [facility] Comment on above: Performed By: #### LUCIE JEREZRO #### [facility] [address] [place] [address] Dr. Joseph Edwards Nitrite Ql (U) Negative Normal NEGATIVE [facility] Comment on above: Performed By: #### JEROD JEREZICRO #### [facility] [address] [place] [address] Dr. Joseph Edwards pH (U) 5.5 [pH] Normal 5-9 [facility] Comment on above: Performed By: #### JEROD JEREZICRO #### [facility] [address] [place] [address] Dr. Joseph Edwards SPEC GRAVITY 1.015 Normal 1.005-<=1.025 [facility] Comment on above: Performed By: #### LUCIE JEREZRO #### [facility] [address] [place] [address] Dr. Joseph Edwards UA PROTEIN Negative Normal NEGATIVE/ TRACE [facility] Comment on above: Performed By: #### VANNESA JEREZ #### [facility] [address] [place] [address] Dr. Joseph Edwards UR MICRO IND INDICATED Normal [facility] Comment on above: Performed By: #### LUCIE JEREZRO #### [facility] [address] [place] [address] Dr. Joseph Edwards Urobilinogen Qn (U) 0.2 {Ijeoma'U}/dL Normal 0.2 - 1. 0 [facility] Comment on above: Performed By: #### VANNESA JEREZ #### [facility] [address] [place] [address] Dr. Joseph Edwards LIPASEon 07-08-2022 Lipase [Catalytic activity/Vol] 94.0 U/L Normal 73.0-393.0 [facility] Comment on above: Performed By: #### L IPA, BMP #### [facility] [address] [place] [address] Dr. Joseph Edwards LIVER PROFILEon 07-08-2022 Albumin [Mass/Vol] 3.7 g/dL Normal 3.4-5.0 [facility] Comment on above: Performed By: #### L IVER ####[facility] [address] [place] [address]DrAlis Edwards Albumin/Globulin [Mass ratio] 1.1 {ratio} Normal [facility] Comment on above: Performed By: #### L IVER ####[facility] [address] [place] [address]DrAlis Edwards ALP [Catalytic activity/Vol] 79 U/L Normal 46-116 [facility] Comment on above: Performed By: #### L IVER ####[facility] [address] [place] [address]DrAlis Edwards ALT [Catalytic activity/Vol] 16 U/L Normal 14-59 [facility] Comment on above: Performed By: #### L IVER ####[facility] [address] [place] [id number]. Joseph Edwards AST [Catalytic activity/Vol] 14 U/L Critically low 15-37 [facility] Comment on above: Performed By: #### L IVER ####[facility] [address] [place] [id number]. Joseph Edwards BILI, CONJUGATED 0.1 mg/dL Normal 0.0-0.2 [facility] Comment on above: Performed By: #### L IVER ####[facility] [address] [place] [id number] Edwards Bilirubin [Mass/Vol] 0.6 mg/dL Normal 0.2-1.0 [facility] Comment on above: Performed By: #### L IVER ####[facility] [address] [place] [id number] Edwards Globulin (S) [Mass/Vol] 3.4 g/dL Normal [facility] Comment on above: Performed By: #### L IVER ####[facility] [address] [place] [id number] Edwards Protein [Mass/Vol] 7.1 g/dL Normal 6.4-8.2 [facility] Comment on above: Performed By: #### L IVER ####[facility] [address] [place] [id number] Edwards URon 07-08-2022 , QUAL Negative Normal NEGATIVE [facility] Comment on above: Performed By: #### P REGU ####[facility] [address] [place] [id number] Edwards PROF CHEM 8 (BAS METB)on Anion gap [Moles/Vol] 10.0 mmol/L Normal [facility] Comment on above: Performed By: #### L IPA, BMP #### [facility] [address] [place], [place] [address] Dr. Joseph Edwards Calcium [Mass/Vol] 9.4 mg/dL Normal 8.5-10.1 [facility] Comment on above: Performed By: #### L IPA, BMP #### [facility] [address] [place] [address] [address] Joseph Edwards Chloride [Moles/Vol] 102 mmol/L Normal 98-107 [facility] Comment on above: Performed By: #### L IPA, BMP #### [facility] [address] [place] [address] [address] Joseph Edwards CO2 [Moles/Vol] 30.3 mmol/L Normal 21.0-32.0 [facility] Comment on above: Performed By: #### L IPA, BMP #### [facility] [address] [place] [address] [address] Joseph Edwards Creatinine [Mass/Vol] 0.79 mg/dL Normal 0.55-1.02 [facility] Comment on above: Performed By: #### L IPA, BMP #### [facility] [address] [place] [address] [address] Joseph Edwards EGFR-AF ARMENIAN >60 Normal >=60 [facility] Comment on above: Performed By: #### L IPA, BMP #### [facility] [address] [place] [address] [address] Joseph Edwards EGFR-NON AF ARMENIAN >60 Normal >=60 [facility] Comment on above: Performed By: #### L IPA, BMP #### [facility] [address] [place] [address] [address] Joseph Edwards Glucose [Mass/Vol] 105 mg/dL Normal 74-106 [facility] Comment on above: Performed By: #### L IPA, BMP #### [facility] [address] [place] [address] [address] Joseph Edwards Potassium [Moles/Vol] 3.3 mmol/L Critically low 3.5-5.1 [facility] Comment on above: Performed By: #### L IPA, BMP #### [facility] [address] [place] [address] [address] Joseph Edwards Sodium [Moles/Vol] 139 mmol/L Normal 136-145 [facility] Comment on above: Performed By: #### L IPA, BMP #### [facility] [address] [place] [address] [address] Joseph Edwards Urea nitrogen [Mass/Vol] 15.0 mg/dL Normal 7.0-18.0 [facility] Comment on above: Performed By: #### L IPA, BMP #### [facility] [address] [place] [address] [address] Joseph Edwards Urea nitrogen/Creatinine [Mass ratio] 19.0 mg/mg Normal [facility] Comment on above: Performed By: #### L IPA, BMP #### [facility] [address] [place] [address] [address] Joseph Edwards URINE MICROSCOPIC ONLYon BACTERIA NONE SEEN Normal NONE SEEN [facility] Comment on above: Performed By: #### Jay GARG UMICRO ####[facility] [address] [place] [address]Dr. Joseph Edwards Bacteria identified Cx Nom (U) NOT INDICATED Normal [facility] Comment on above: Performed By: #### Jay GARG UMICRO ####[facility] [address] [place] [address]Dr. Joseph Edwards CAST NONE SEEN Normal NONE SEEN [facility] Comment on above: Performed By: #### Jay GARG UMICRO ####[facility] [address] [place] [address]Dr. Joseph Edwards Crystals LM Nom (Urine sed) NONE SEEN Normal NONE SEEN [facility] Comment on above: Performed By: #### Jay GARG UMICRO ####[facility] [address] [place] [address]Dr. Joseph Edwards Epithelial cells LM Ql (Urine sed) FEW Abnormal NONE SEEN /RARE [facility] Comment on above: Performed By: #### Jay GARG UMICRO ####[facility] [address] [place] [address]Dr. Joseph Edwards MUCOUS NONE SEEN Normal NONE SEEN [facility] Comment on above: Performed By: #### Jay GARG UMICRO ####[facility] [address] [place] [address]Dr. Joseph Edwards RBC 0-2 Normal 0-2 [facility] Comment on above: Performed By: #### VANNESA JEREZ ####[facility] Esqkerzsrx[address] [place], [place] [address]Dr. Joseph Edwards WBC 0-2 Abnormal NONE SEEN [facility] Comment on above: Performed By: #### VANNESA JEREZ ####[facility] Utyjnuf[address] [place], [place] [address]Dr. Joseph Edwards PROF CHEM 8 (BAS METB)on Anion gap [Moles/Vol] 8.8 mmol/L Normal [facility] Comment on above: Performed By: #### B MP ####[facility] F[address] [place], [place] [address]Dr. Joseph Edwards Calcium [Mass/Vol] 8.9 mg/dL Normal 8.5-10.1 [facility] Comment on above: Performed By: #### B MP ####[facility] Antcdj[address] [place], [place] [address]Dr. Joseph Edwards Chloride [Moles/Vol] 104 mmol/L Normal 98-107 [facility] Comment on above: Performed By: #### B MP ####[facility] Zaodplwyis[address] [place], [place] [address]Dr. Joseph Edwards CO2 [Moles/Vol] 30.8 mmol/L Normal 21.0-32.0 The [facility] Comment on above: Performed By: #### B MP ####[facility] [address] [place], [place] [address]Dr. Joseph Edwards Creatinine [Mass/Vol] 0.75 mg/dL Normal 0.55-1.02 [facility] Comment on above: Performed By: #### B MP ####[facility] [address] [place], [place] [address]Dr. Joseph Edwards EGFR-AF ARMENIAN >60 Normal >=60 The [facility] Comment on above: Performed By: #### B MP ####[facility] [address] [place], [place] [address]Dr. Joseph Edwards EGFR-NON AF ARMENIAN >60 Normal >=60 [facility] Comment on above: Performed By: #### B MP ####[facility] [address] [place] [address]DrAlis Edwards Glucose [Mass/Vol] 97 mg/dL Normal 74-106 [facility] Comment on above: Performed By: #### B MP ####[facility] [address] [place] [address]DrAlis Edwards Potassium [Moles/Vol] 3.6 mmol/L Normal 3.5-5.1 [facility] Comment on above: Performed By: #### B MP ####[facility] [address] [place] [address]DrAlis Edwards Sodium [Moles/Vol] 140 mmol/L Normal 136-145 [facility] Comment on above: Performed By: #### B MP ####[facility] [address] [place] [address]DrAlis Edwards Urea nitrogen [Mass/Vol] 7.0 mg/dL Normal 7.0-18.0 [facility] Comment on above: Performed By: #### B MP ####[facility] [address] [place], [place] [address]DrAlis Edwards Urea nitrogen/Creatinine [Mass ratio] 9.3 mg/mg Normal [facility] Comment on above: Performed By: #### B MP ####[facility] [address] [place] [address]Dr. Joseph Edwards CBC AUTO DIFFon 02-21-2022 BASO # 0.1 103/ul Normal 0.0-0.1 [facility] Comment on above: Performed By: #### C BC #### [facility] [address] [address] [address] Joseph Edwards Basophils/100 WBC (Bld) 0.9 % Normal 0.2-2.0 [facility] Comment on above: Performed By: #### C BC #### [facility] [address] [address] [address] Joseph Edwards EO # 0.1 103/ul Normal 0.0-0.7 [facility] Comment on above: Performed By: #### C BC #### [facility] [address] [place] [address] Dr. Joseph Edwards Eosinophils/100 WBC (Bld) 1.4 % Normal 0.9-7.0 [facility] Comment on above: Performed By: #### C BC #### [facility] [address] [place] [address] Dr. Joseph Edwards Erythrocyte distribution width (RBC) [Ratio] 11.6 % Normal 11.0-15.0 [facility] Comment on above: Performed By: #### C BC #### [facility] [address] [place] [address] Dr. Joseph Edwards Hematocrit (Bld) [Volume fraction] 41.0 % Normal 36.0-48.0 [facility] Comment on above: Performed By: #### C BC #### [facility] [address] [place] [address] Dr. Joseph Edwards Hemoglobin (Bld) [Mass/Vol] 13.6 g/dL Normal 12.0-16.0 [facility] Comment on above: Performed By: #### C BC #### [facility] [address] [place] [address] Dr. Joseph Edwards IG # 0.04 10e3/ul Critically high 0.00-0.03 [facility] Comment on above: Performed By: #### C BC #### [facility] [address] [place] [address] Dr. Joseph Edwards IG % 0.5 % Normal 0.0-0.5 [facility] Comment on above: Performed By: #### C BC #### [facility] [address] [place] [address] Dr. Joseph Edwards LYMPH # 2.5 103/ul Normal 1.2-3.8 [facility] Comment on above: Performed By: #### C BC #### [facility] [address] [place] [address] Dr. Joseph Edwards Lymphocytes/100 WBC (Bld) 28.1 % Normal 20.5-60.0 [facility] Comment on above: Performed By: #### C BC #### [facility] [address] [place] [address] Dr. Joseph Edwards MANUAL DIFF REQ NO Normal [facility] Comment on above: Performed By: #### C BC #### [facility] [address] [place] [address] Dr. Joseph Edwards MCH (RBC) [Entitic mass] 32.0 pg Normal 26.7-34.0 [facility] Comment on above: Performed By: #### C BC #### [facility] [address] [place] [address] Dr. Joseph Edwards MCHC (RBC) [Mass/Vol] 33.2 g/dL Normal 29.9-35.2 [facility] Comment on above: Performed By: #### C BC #### [facility] [address] [place] [address] Dr. Joseph Edwards MCV (RBC) [Entitic vol] 96.5 fL Normal 81.0-99.0 [facility] Comment on above: Performed By: #### C BC #### [facility] [address] [place] [address] Dr. Joseph Edwards MONO # 0.5 103/ul Normal 0.3-0.8 [facility] Comment on above: Performed By: #### C BC #### [facility] [address] [place] [address] Dr. Joseph Edwards Monocytes/100 WBC (Bld) 6.2 % Normal 1.7-12.0 [facility] Comment on above: Performed By: #### C BC #### [facility] [address] [place] [address] Dr. Joseph Edwards NEUT # 5.5 103/ul Normal 1.4-6.5 [facility] Comment on above: Performed By: #### C BC #### [facility] [address] [place] [address] Dr. Joseph Edwards Neutrophils/100 WBC (Bld) 62.9 % Normal 43.0-75.0 [facility] Comment on above: Performed By: #### C BC #### [facility] [address] [address] [address] Joseph Edwards Platelet mean volume (Bld) [Entitic vol] 10.0 fL Normal 9.5-13.5 [facility] Comment on above: Performed By: #### C BC #### [facility] [address] [address] [address] Joseph Edwards PLT 357 103/ul Normal 150-450 [facility] Comment on above: Performed By: #### C BC #### [facility] [address] [address] [address] Joseph Edwards RBC 4.25 106/ul Normal 4.20-5.40 [facility] Comment on above: Performed By: #### C BC #### [facility] [address] [address] [address] Joseph Edwards WBC 8.8 103/ul Normal 4.0-11.0 [facility] Comment on above: Performed By: #### C BC #### [facility] [address] [place] [address] Dr. Joseph Edwards FREE T4on 02-21-2022 Free T4 [Mass/Vol] 0.96 ng/dL Normal 0.76-1.46 [facility] Comment on above: Performed By: #### F T4 ####[facility] [address] [id number]. Joseph Edwards GLYCOHEMOGLOBIN A1Con 2021 ADA RECOMMENDATION SEE BELOW Normal [facility] Comment on above: Result Comment: ADA RECOMMENDED LIMIT 4.0 - 6.0 ADA THERAPEUTIC TARGET < 7.0 ACTION SUGGESTED > 7.0 Performed By: #### A 1C #### [facility] [address] [address] [address] Joseph Edwards Glucose [Mass/Vol] 111 mg/dL Normal [facility] Comment on above: Performed By: #### A 1C #### [facility] [address] [place] [address] Dr. Joseph Edwards HbA1c (Bld) [Mass fraction] 5.5 % Normal 4.5-6.2 [facility] Comment on above: Performed By: #### A 1C #### [facility] [address] [address] [address] Joseph Edwards LIPID PROFILEon 02-21-2022 CHOL-HDL RATIO NORM SEE BELOW Normal [facility] Comment on above: Result Comment: 3.3 - 4.4 LOW RISK 4.4 - 7.1 AVERAGE RISK 7.1 - 11.0 MODERATE RISK >11.0 HIGH RISK Performed By: #### L IPID, CMP, TSH #### [facility] [address] [address] [address] Joseph Edwards Cholesterol [Mass/Vol] 153 mg/dL Normal <=200 [facility] Comment on above: Performed By: #### L IPID, CMP, TSH #### [facility] [address] [address] [address] Joseph Edwards Cholesterol in HDL [Mass/Vol] 66 mg/dL Critically high 40-60 [facility] Comment on above: Performed By: #### L IPID, CMP, TSH #### [facility] [address] [address] [address] Joseph Edwards Cholesterol in LDL [Mass/Vol] 71.0 mg/dL Normal [facility] Comment on above: Performed By: #### L IPID, CMP, TSH #### [facility] [address] [address] [address] Joseph Edwards Cholesterol.total/Cho lesterol in HDL [Mass ratio] 2.3 {ratio} Normal [facility] Comment on above: Performed By: #### L IPID, CMP, TSH #### [facility] [address] [address] [address] Joseph Edwards HDL NORMAL > or = 60 mg/dl - LOW CARDIOVASCULAR RISK <40 mg/dl - HIGH CARDIOVASCULAR RISK Normal [facility] Comment on above: Performed By: #### L IPID, CMP, TSH #### [facility] [address] [address] [address] Joseph Edwards LDL CALC NORMAL SEE BELOW Normal [facility] Comment on above: Result Comment: <100 mg/dl OPTIMAL 100 - 129 mg/dl NEAR OR ABOVE OPTIMAL 130 - 159 mg/dl BORDERLINE HIGH 160 - 189 mg/dl HIGH >190 mg/dl VERY HIGH Performed By: #### L IPID, CMP, TSH #### [facility] [address] [address] [address] Joseph Edwards Triglyceride [Mass/Vol] 80 mg/dL Normal <=150 [facility] Comment on above: Performed By: #### L IPID, CMP, TSH #### [facility] [address] [address] [address] Joseph Edwards VLDL CALC 16.0 mg/dL Normal [facility] Comment on above: Performed By: #### L IPID, CMP, TSH #### [facility] [address] [address] [address] Joseph Edwards PROF 14(COMP METB)on 022 Albumin [Mass/Vol] 4.0 g/dL Normal 3.4-5.0 [facility] Comment on above: Performed By: #### L IPID, CMP, TSH #### [facility] [address] [address] [address] Joseph Edwards Albumin/Globulin [Mass ratio] 1.1 {ratio} Normal [facility] Comment on above: Performed By: #### L IPID, CMP, TSH #### [facility] [address] [address] [address] Joseph Edwards ALP [Catalytic activity/Vol] 89 U/L Normal 46-116 [facility] Comment on above: Performed By: #### L IPID, CMP, TSH #### [facility] [address] [address] [address] Joseph Edwards ALT [Catalytic activity/Vol] 19 U/L Normal 14-59 [facility] Comment on above: Performed By: #### L IPID, CMP, TSH #### [facility] [address] [address] [address] Joseph Edwards Anion gap [Moles/Vol] 11.3 mmol/L Normal [facility] Comment on above: Performed By: #### L IPID, CMP, TSH #### [facility] [address] [address] [address] Joseph Edwards AST [Catalytic activity/Vol] 12 U/L Critically low 15-37 [facility] Comment on above: Performed By: #### L IPID, CMP, TSH #### [facility] [address] [address] [address] Joseph Edwards Bilirubin [Mass/Vol] 1.3 mg/dL Critically high 0.2-1.0 [facility] Comment on above: Performed By: #### L IPID, CMP, TSH #### [facility] [address] [place] [address] Dr. Joseph Edwards Calcium [Mass/Vol] 8.9 mg/dL Normal 8.5-10.1 [facility] Comment on above: Performed By: #### L IPID, CMP, TSH #### [facility] [address] [address] [address] Joseph Edwards Chloride [Moles/Vol] 104 mmol/L Normal 98-107 [facility] Comment on above: Performed By: #### L IPID, CMP, TSH #### [facility] [address] [address] [address] Joseph Edwards CO2 [Moles/Vol] 27.7 mmol/L Normal 21.0-32.0 [facility] Comment on above: Performed By: #### L IPID, CMP, TSH #### [facility] [address] [address] [address] Joseph Edwards Creatinine [Mass/Vol] 0.86 mg/dL Normal 0.55-1.02 [facility] Comment on above: Performed By: #### L IPID, CMP, TSH #### [facility] [address] [place] [address] Dr. Joseph Edwards EGFR-AF ARMENIAN >60 Normal >=60 [facility] Comment on above: Performed By: #### L IPID, CMP, TSH #### [facility] [address] [place] [address] Dr. Joseph Edwards EGFR-NON AF ARMENIAN >60 Normal >=60 [facility] Comment on above: Performed By: #### L IPID, CMP, TSH #### [facility] [address] [address] [address] Joseph Edwards Globulin (S) [Mass/Vol] 3.5 g/dL Normal [facility] Comment on above: Performed By: #### L IPID, CMP, TSH #### [facility] [address] [address] [address] Joseph Edwards Glucose [Mass/Vol] 93 mg/dL Normal 74-106 [facility] Comment on above: Performed By: #### L IPID CMP, TSH #### [facility] [address] [address] [address] Joseph Edwards Potassium [Moles/Vol] 4.0 mmol/L Normal 3.5-5.1 [facility] Comment on above: Performed By: #### L IPID, CMP, TSH #### [facility] [address] [place] [address] Dr. Joseph Edwards Protein [Mass/Vol] 7.5 g/dL Normal 6.4-8.2 [facility] Comment on above: Performed By: #### L IPID CMP, TSH #### [facility] [address] [address] [address] Joseph Edwards Sodium [Moles/Vol] 139 mmol/L Normal 136-145 [facility] Comment on above: Performed By: #### L IPID, CMP, TSH #### [facility] [address] [address] [address] Joseph Edwards Urea nitrogen [Mass/Vol] 12.0 mg/dL Normal 7.0-18.0 [facility] Comment on above: Performed By: #### L IPID, CMP, TSH #### [facility] [address] [address] [address] Joseph Edwards Urea nitrogen/Creatinine [Mass ratio] 14.0 mg/mg Normal [facility] Comment on above: Performed By: #### L IPID, CMP, TSH #### [facility] [address] [address] [address] Joseph Edwards TSHon 02-21-2022 TSH 1.879 uIU/mL Normal 0.358-3.740 [facility] Comment on above: Performed By: #### L IPID, CMP, TSH #### [facility] [address] [address] [address] Joseph Edwards UA RANDOM W/MICROSCOPICon BACTERIA NONE SEEN Normal NONE SEEN [facility] Comment on above: Performed By: #### U AMIC ####[facility] [address] [place] [address]Dr. Joseph Edwards Bilirubin Ql (U) Negative Normal NEGATIVE [facility] Comment on above: Performed By: #### U AMIC ####[facility] [address] [place] [address]Dr. Joseph Edwards CAST NONE SEEN Normal NONE SEEN [facility] Comment on above: Performed By: #### U AMIC ####[facility] [address] [place] [address]Dr. Joseph Edwards Clarity (U) CLEAR Normal CLEAR [facility] Comment on above: Performed By: #### U AMIC ####[facility] [address] [place] [address]Dr. Joseph Edwards Color (U) LT. YELLOW Normal YELLOW [facility] Comment on above: Performed By: #### U AMIC ####[facility] [address] [place] [address]Dr. Joseph Edwards Crystals LM Nom (Urine sed) NONE SEEN Normal NONE SEEN [facility] Comment on above: Performed By: #### U AMIC ####[facility] [address] [place] [address]Dr. Joseph Edwards Epithelial cells LM Ql (Urine sed) FEW Abnormal NONE SEEN /RARE [facility] Comment on above: Performed By: #### U AMIC ####[facility] [address] [place] [address]Dr. Joseph Edwards Glucose Ql (U) Negative Normal NEGATIVE [facility] Comment on above: Performed By: #### U AMIC ####[facility] [address] [place] [address]Dr. Joseph Edwards Hemoglobin Ql (U) TRACE-INTACT Abnormal NEGATIVE [facility] Comment on above: Performed By: #### U AMIC ####[facility] [address] [place] [address]Dr. Joseph Edwards Ketones Ql (U) Negative Normal NEGATIVE [facility] Comment on above: Performed By: #### U AMIC ####[facility] [address] [place], [place] [address]Dr. Joseph Edwards LEUKOCYTES Negative Normal NEGATIVE [facility] Comment on above: Performed By: #### U AMIC ####[facility] [address] [place], [place] [address]Dr. Joseph Edwards MUCOUS NONE SEEN Normal NONE SEEN [facility] Comment on above: Performed By: #### U AMIC ####[facility] [address] [place], [place] [address]Dr. Joseph Edwards Nitrite Ql (U) Negative Normal NEGATIVE [facility] Comment on above: Performed By: #### U AMIC ####[facility] [address] [place], [place] [address]Dr. Joseph Edwards pH (U) 6.0 [pH] Normal 5-9 [facility] Comment on above: Performed By: #### U AMIC ####[facility] [address] [place], [place] [address]Dr. Joseph Edwards RBC 0-2 Normal 0-2 [facility] Comment on above: Performed By: #### U AMIC ####[facility] [address] [place], [place] [address]Dr. Joseph Edwards SPEC GRAVITY 1.020 Normal 1.005-<=1.025 [facility] Comment on above: Performed By: #### U AMIC ####[facility] [address] [place], [place] [address]Dr. Joseph Edwards UA PROTEIN Negative Normal NEGATIVE/ TRACE [facility] Comment on above: Performed By: #### U AMIC ####[facility] [address] [place], [place] [address]Nl. Joseph Edwards Urobilinogen Qn (U) 0.2 {Ijeoma'U}/dL Normal 0.2 - 1. 0 [facility] Comment on above: Performed By: #### U AMIC ####[facility] [address] [place], [place] [address]Fp. Cheriruba Edwards WBC NONE SEEN Normal NONE SEEN [facility] Comment on above: Performed By: #### U AMIC ####[facility] [address] [place], [place] [address]Yb. Joseph Jerry Encounters Encounter Date Encounter Type Care Provider Facility Start: 10-25-2023 End: 10-25-2023 ambulatory GABRIELA AICHHOLZ Not Available Start: 09-13-2023 End: 09-13-2023 ambulatory GABRIELA AICHHOLZ Not Available Start: 08-16-2023 End: 08-16-2023 ambulatory GABRIELA AICHHOLZ Not Available Start: 06-28-2023 End: 06-28-2023 ambulatory GABRIELA AICHHOLZ Not Available Start: 05-21-2023 End: 05-21-2023 ambulatory GABRIELA AICHHOLZ Not Available Start: 05-16-2023 Telephone encounter Zina TEE Work Phone: [facility] Start: 07-26-2022 End: 07-27-2022 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 MASH GRINDER GABRIELA AICHHOLZ Facility:[facility] Start: 07-08-2022 End: 07-09-2022 ambulatory MASH GRINDER GABRIELA AICHHOLZ Facility:[facility] Start: 03-15-2022 End: 03-16-2022 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 MASH GRINDER GABRIELA AICHHOLZ Facility:[facility] Start: 02-21-2022 End: 02-22-2022 ambulatory MASH GRINDER GABRIELA AICHHOLZ Facility:[facility] Start: 08-02-2016 End: 08-03-2016 Ambulatory RAYNE COREAS Facility:[facility] Plan of Treatment Date Care Activity Detail Author Start: 01-06-2027 DTaP,Tdap and Td Vaccines (3 - Td or Tdap) DTaP,Tdap and Td Vaccines (3 - Td or Tdap) [facility] Start: 05-16-2024 Adult BMI Screening Adult BMI Screen ing [facility] Start: 05-16-2024 Tobacco Screening Tobacco Screening [facility] Start: 02-23-2023 Influenza vaccination Influenza Vacc ine [facility] Start: 2008 Screening for malign ant neoplasm of cervix Pap Smear [facility] Start: 2005 Adult BMI Follow Up Plan Adult BMI Follow Up Plan [facility] Start: 1999 Depression Screening Depression Scre ening [facility] Immunizations Immunization Date Immunization Notes Care Provider Fa matt 01-06-2017 tetanus toxoid, redu johnnie diphtheria toxoid, and acellular pertussis vaccine, adsorbed Zina TEE Work Phone: [facility] Payers Date Payer Category Payer Private Health Insurance [facility] PLUS [id number] 2023-Present [phone] [address] [address] [place] [address] [id number] 2023 Private Health Insurance [id number] 2022 Medicaid [id number] 2022 Medicaid [facility] MEDICAID [id number] 2022-Present [address] [place] [address] [id number] 1987 Unknown [id number]. 593 1987 Unknown [id number] [id number]. 593 1987 Unknown [id number] [id number]. 593 1987 Unknown [id number] [id number]. 593 1987 Unknown [id number] [id number]. 1259 1987 Unknown [id number] [id number]. 1259 1987 Unknown [id number] [id number]. 1259 1987 Unknown [id number] [id number]. 1259 1987 Unknown [id number] [id number]. 1259 1959 Unknown [id number] Unknown [id number] Social History Date Type Detail Facility Start: 05-16-2023 Tobacco smoking stat [facility] Never smoked tobacco [facility] Start: 05-16-2023 Tobacco use and exposure Smokeless tobacco non-user [facility] Start: 05-16-2023 Alcohol intake Current drinke r of alcohol (finding) [facility] Start: 08-05-2020 End: 05-16-2023 History of Social function [facility] Start: 08-05-2020 End: 05-16-2023 Tobacco use panel [facility] Childcare Unknown [facility] Start: 07-23-2018 Alcohol Comment Occassional [facility] Start: 1987 Sex Assigned At Not on file P [facility] Medical Equipment Procedure Code Equipment Code Equipment Origin al Text Equipment Identifier Dates Mesh Pco Vntrl P tch 8.6cm Rpl [id number] - [facility] - [id number] Start: 12-03-2018 Note 05-16-2023 Telephone Encounter - RANDAL Benitez - 05/16/2023 4:42 PM ESTTelephone Encounter - Elizabeth Dominguez - 05/16/2023 4:42 PM ESTTelephone Encounter - Elizabeth Dominguez - 05/16/2023 4:42 PM EST Note Date & Type Note Facility 05-16-2023 Miscellaneous Notes Formattin g of this note might be different from the original. Please schedule her for cystoscopy/bilateral retrograde pyelograms/possible biopsy/U of M instillation under MAC anesthesia with Dr. Brown in [place]. Diagnosis: Gross hematuria LMOM 05/24/2023 @ 351PM Lmom 07/06/2023 @ 338pm Pt has not returned messages to schedule Please send a letter. If she still does not respond, send a certified letter. Thank you Letter mailed 07/27/2023 Faxed to pcp documented in this encounter [employer] [facility] Telephone encounter Note 05-16-2023 Telephone Encounter - RANDAL Benitez - 05/16/2023 4:42 PM EST Note Date & Type Note Facility 05-16-2023 Telephone encounter Note Please schedule her for cystoscopy/bilateral retrograde pyelograms/possible biopsy/[facility] of M instillation under MAC anesthesia with Dr. Brown in [place]. Diagnosis: Gross hematuria [facility] Telephone encounter Note 05-16-2023 Telephone Encounter - Elizabeth Dominguez - 05/16/2023 4:42 PM EST Note Date & Type Note Facility 05-16-2023 Telephone encount er Note LMOM 05/24/2023 @ 351PM [facility] Telephone encounter Note 05-16-2023 Telephone Encounter - Elizabeth Dominguez - 05/16/2023 4:42 PM EST Note Date & Type Note Facility 05-16-2023 Telephone encount er Note Lmom 07/06/2023 @ 338pm [facility] Telephone encounter Note 05-16-2023 Telephone Encounter - Elizabeth Dominguez - 05/16/2023 4:42 PM EST Note Date & Type Note Facility 05-16-2023 Telephone encount er Note Pt has not returned messages to schedule [facility] Telephone encounter Note 05-16-2023 Telephone Encounter - RANDAL Benitez - 05/16/2023 4:42 PM EST Note Date & Type Note Facility 05-16-2023 Telephone encount er Note Please send a letter. If she still does not respond, send a certified letter. Thank you [facility] Telephone encounter Note 05-16-2023 Telephone Encounter - Elizabeth Ellises - 05/16/2023 4:42 PM EST Note Date & Type Note Facility 05-16-2023 Telephone encount er Note Letter mailed 07/27/2023 Faxed to pcp [facility] Instructions Note Date & Type Note Facility Instructions Not on filedocumented in this en counter [facility] Summary Purpose Family History No Family History Records FoundNo Family History Records FoundNo Family History Records Found Advance Directives No Advanced Directives Records FoundNo Advanced Directives Records FoundNo Advanced Directives Records Found Additional Source Comments INFORMATION SOURCE (unrecogn ized section and content) DATE CREATED AUTHOR 12/17/2017 [facility] DATE CREATED AUTHOR 'S ORGANIZ ATION 07/31/2022 [facility] DATE CREATED AUTHOR AUTHOR'S ORGANBREN ATION 10/27/2023 [facility] Care Teams (unrecognized sec tion and content) Habilitative Interventionist Relationship Specialty Start Date End Date Gabriela Craig, [employer]ITE MANAGER[employer] [address] [place] [phone] PCP - General Nurse Practitioner 12/27/20 FOR RECORDS PERTAINING TO PATIENTS WHO ARE OR HAVE BEEN ENROLLED IN A CHEMICAL DEPENDENCY/SUBSTANCEABUSE PROGRAM, SOME INFORMATION MAY BE OMITTED. This clinical summary was aggregated from multiple sources. Caution should be exercised in using it in the provision of clinical care. This summary normalizes information from multiple sources, and as a consequence, information in this document may materially change the coding, format and clinical context of patient data. In addition, data may be omitted in some cases. CLINICAL DECISIONS SHOULD BE BASED ON THE PRIMARY CLINICAL RECORDS. [employer] provides no warranty or guarantee of the accuracy or completeness of information in this document.
[2024-02-25 10:07] LABS: Age Gdln ACOG Testing Note (.); HPV Aptima Negative (Negative); IGP, Aptima HPV, rfx 16/18,45 Note (.)
== END 2024-02-20 19:40 | disposition home or self-care (01) ==
LOC: LAB 19:39
PROVIDERS: PCP Nurse Practitioner; Visit Provider Physician Assistant
DX: Z01.419 Encounter for gynecological examination (general) (routine) without abnormal findings (principal)
CPT/HCPCS: 87624; 88175

== ENCOUNTER 2024-06-20 08:44 | Outpatient (OUT) | payer OTHER, MEDICAID, SELFPAY ==
--- NOTE | 2024-06-20 08:52 | ECG_ITS ---
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
--- OUTSIDE RECORDS SUMMARY | 2024-06-20 08:58 | XMS_ITS | CCD ---
Author Organization [facility] Care Team Providers Care Snuff Drier Name Role Phone NAGARAJA, RAYNE Unavailable Unavailable NAGARAJA, RAYNE Unavailable Unavailable NAGARAJA, RAYNE Unavailable Unavailable [facility] Unavailable Unavailable AICHHOLZ, PHOTOGRAPHIC EQUIPMENT TECHNICIAN GABRIELA Admitting Unavailable AICHHOLZ, PHOTOGRAPHIC EQUIPMENT TECHNICIAN GABRIELA Attending Unavailable AICHHOLZ, PHOTOGRAPHIC EQUIPMENT TECHNICIAN GABRIELA Primary Care Unavailable AICHHOLZ, PHOTOGRAPHIC EQUIPMENT TECHNICIAN GABRIELA Consulting Unavailable DR OSWALD GAR Consulting Unavailable AICHHOLZ, PHOTOGRAPHIC EQUIPMENT TECHNICIAN GABRIELA Admitting Unavailable AICHHOLZ, PHOTOGRAPHIC EQUIPMENT TECHNICIAN GABRIELA Attending Unavailable AICHHOLZ, PHOTOGRAPHIC EQUIPMENT TECHNICIAN GABRIELA Primary Care Unavailable AICHHOLZ, PHOTOGRAPHIC EQUIPMENT TECHNICIAN GABRIELA Consulting Unavailable AICHHOLZ, PHOTOGRAPHIC EQUIPMENT TECHNICIAN GABRIELA Admitting Unavailable AICHHOLZ, PHOTOGRAPHIC EQUIPMENT TECHNICIAN GABRIELA Attending Unavailable AICHHOLZ, PHOTOGRAPHIC EQUIPMENT TECHNICIAN GABRIELA Primary Care Unavailable AICHHOLZ, PHOTOGRAPHIC EQUIPMENT TECHNICIAN GABRIELA Consulting Unavailable AICHHOLZ, PHOTOGRAPHIC EQUIPMENT TECHNICIAN GABRIELA Primary Care Unavailable KIMBERLY, DR SALAS Borrego Admitting Unavailabl e KIMBERLY, DR SALAS Borrego Attending Unavailabl e KIMBERLY, DR SALAS Borrego Consulting Unavailabl e GABY WOODS Consulting Unavailable FLO DODD Consulting Unavailable [employer] COMPUTER SYSTEMS TECHNOLOGY INSTRUCTOR-JARRETT, Gabriela Angel Primary Care Provider Philip Milligan MD Primary Care Provider [phone] AICHHOLZ, GABRIELA Attending Unavailable AICHHOLZ, GABRIELA Attending Unavailable AICHHOLZ, GABRIELA Attending Unavailable NOHEMI GOODWIN Attending Unavailable TAMMY RAYMUNDO Attending Unavailable Allergies Allergy Classification Reported Allergen(s) Allergy Type Date of Onset Reaction(s) Facility (1 source) erythromycin Drug Allergy 4 [facility] Repository (2 sources) Penicillins Drug allergy (disorder) 4 [facility]ository (1 source) predniSONE Drug Allergy 4 [facility] Repository (1 source) Erythromycin Drug Allergy [facility] Repository (1 source) predniSONE Drug Allergy [facility] Repository (9 sources) Erythromycin Drug Allergy 7 Hives, Anaphylaxis [facility] (1 source) Penicillins Propensity to adverse reactions to drug 7 Hives [facility] (1 source) predniSONE Drug Allergy 7 Tachycardia [facility] (8 sources) Azithromycin Drug Allergy 3 [facility] (8 sources) Penicillins Drug Allergy 7 Anaphylaxis [facility] (8 sources) Prednisone Allergy to substance 7 Palpitations [facility] Medications Current Medications Medication Drug Class(es) Dates Sig (Normalized) Sig (Original) acetaminophen 500 mg oral tablet (1 source) Start: 2 take 2 tablets by mouth every six hours as needed for pain acetaminophen (TYLENOL EXTRA STRENGTH) 500 mg tablet Take 2 tablets (1,000 mg total) by mouth every 6 (six) hours as needed for pain. 30 tablet 0 02/01/2022 Active [id number] 200 actuat albuterol 0.09 mg/actuat metered dose inhaler (7 sources) beta2-Adrenergi c Agonist Start: 4 albuterol HFA 90 mcg/act inhaler 01/29/2024 Active benzonatate 100 mg oral capsule (1 source) Non-narcotic Antitussive Start: 2 take 1 capsule by mouth every eight hours benzonatate (TESSALON PERLES) 100 mg capsule Take 1 capsule (100 mg total) by mouth every 8 (eight) hours. 21 capsule 0 02/01/2022 Active hydroCHLOROthiazide 25 mg oral tablet (17 sources) Thiazide Diuretic Start: 4 hydroCHLOROthiazide (HYDRODiuril) 12.5 MG tablet Indications: Bilateral lower extremity edema May take dose 1 pill up to three times per week for swelling in legs 12 tablet 1 08/16/2023 Active Start: 05-28-2023 End: 09-11-2024 take 1 tablet by mouth once daily hydroCHLOROthiazide (HYDRODiuril) 25 MG tablet Indications: Primary hypertension (CMS/HCC) Take 1 tablet (25 mg) by mouth Daily 90 tablet 06/13/2024 09/11/2024 Active ketorolac tromethamine 10 mg oral tablet (1 source) Nonsteroidal Anti-inflammatory Drug, Cyclooxygenase Inhibitor take 1 tablet by mouth every six hours as needed for pain ketorolac (TORADOL) 10 mg tablet Take 1 tablet (10 mg total) by mouth every 6 (six) hours as needed for pain. 0 Active lisinopril 10 mg oral tablet (9 sources) Angiotensin Converting Enzyme Inhibitor Start: 08-16-19 End: 09-12-19 take 1 tablet by mouth once daily lisinopril 10 MG tablet Indications: Primary hypertension (CMS/HCC) Take 1 tablet (10 mg) by mouth 1 (one) time each day at the same time Take 10 mg by mouth 1 (one) time each day at the same time. 90 tablet 06/13/2024 09/11/2024 Active take 1 tablet by michaela th in the morning lisinopriL (PRINIVIL,ZESTRIL) 10 mg tabl et Take 1 tablet (10 mg total) by mouth in the morning. 0 Active oseltamivir 75 mg oral capsule (7 sources) Neuraminidase Inhibitor Start: 09-03-2023 oseltamivir (Tamiflu) 75 MG capsule 09/03/2023 Active phentermine hydrochloride 37.5 mg oral tablet (3 sources) Sympathomimetic Amine Anorectic Start: 10-29-2023 End: 02-20-2024 take 1 tablet by mouth before mealtime phentermine (Adipex-P) 37.5 MG tablet Indications: Abnormal weight gain , Obesity (BMI 30-39.9) Take 1 tablet (37.5 mg) by mouth in the morning. Take before meals. 30 tablet 10/29/2023 02/20/2024 Discontinued (Other) tamsulosin hydrochloride 0.4 mg oral capsule (1 source) alpha-Adrenergic Gold take 1 capsule by mouth in the morning tamsulosin (FLOMAX) 0.4 mg capsule Take 1 capsule (0.4 mg total) by mouth in the morning. 0 Active valACYclovir 1000 mg oral tablet (7 sources) Herpesvirus Nucleoside Analog DNA Polymerase Inhibitor, Herpes Simplex Virus Nucleoside Analog DNA Polymerase Inhibitor, Herpes Zoster Virus Nucleoside Analog DNA Polymerase Inhibitor Start: 02-14-2024 valACYclovir (Valtrex) 1 g tablet 02/14/2024 Active Problems Active Problems Problem Classification Problem Date Documented Da te Episodic/Chronic Abdominal pain (2 sources) Unspecified abdominal pain; Translations: [Pain in female pelvis] Onset: 2022 06-05-2024 Episodic Essential hypertension (13 sources) Essential (primary) hypertension; Translations: [Hypertensive disorder] Onset: 03-15-2022 Chronic Joint disorders and dislocations; trauma-related (8 sources) Derangement of knee; Translations: [Unspecified internal derangement of unspecified knee] Onset: 03-07-2014 05-21-2023 Chronic Menstrual disorders (10 sources) Menometrorrhagia; Translations: [Excessive and frequent menstruation with irregular cycle] Onset: 08-16-2023 08-16-2023 Chronic Other aftercare (1 source) Other terminal supervisor (current) drug therapy; Translations: [OTH [facility] CURRENT DRUG THERAPY] Onset: 2022 Episodic Other female genital disorders (4 sources) Abnormal uterine and vaginal bleeding, unspecified; Translations: [ABNORMAL UTERINE VAGINAL BLEED UNS] Onset: 07-08-2022 Chronic Other female genital disorders (1 source) Pain in female genitalia on intercourse; Translations: [Unspecified dyspareunia] 06-05-2024 Chronic Other lower respiratory disease (4 sources) Solitary pulmonary nodule; Translations: [SOLITARY PULMONARY NODULE] Onset: 07-26-2022 Episodic Other nutritional; endocrine; and metabolic disorders (8 sources) Body mass index 30+ - obesity; Translations: [Obesity, unspecified] Onset: 05-21-2023 05-21-2023 Chronic Other screening for suspected conditions (not mental disorders or infectious disease) (2 sources) Abnormal findings on diagnostic imaging of other abdominal regions, including retroperitoneum; Translations: [Other specified abnormal findings of blood chemistry] Onset: 02-22-2022 Episodic Other upper respiratory disease (8 sources) Seasonal allergy; Translations: [Other seasonal allergic rhinitis] Onset: 05-21-2023 05-21-2023 Chronic Other upper respiratory disease (8 sources) Allergic disposition; Translations: [Other allergic rhinitis] Onset: 08-16-2023 08-16-2023 Chronic Residual codes; unclassified (8 sources) Obstructive sleep apnea syndrome; Translations: [Obstructive sleep apnea (adult) (pediatric)] Onset: 05-21-2023 3 Chronic Rheumatoid arthritis and related disease (8 sources) Inflammatory polyarthropathy; Translations: [Inflammatory polyarthropathy] Onset: 05-21-2023 05-21-2023 Chronic Thyroid disorders (8 sources) Hypothyroidism; Translations: [Hypothyroidism, unspecified] Onset: 05-21-2023 05-21-2023 Chronic Unclassified (1 source) COUGH, UNSPECIFIED; Translations: [COUGH, UNSPECIFIED] Onset: 07-29-2022 Past or Other Problems Problem Classification Problem Date Documented Date Episodic/Chronic Biliary tract disease (8 sources) Gallbladder calculus with acute cholecystitis and no obstruction; Translations: [Calculus of gallbladder with acute and chronic cholecystitis without obstruction] Onset: 05-21-2023 05-21-2023 Episodic Calculus of urinary tract (8 sources) Kidney stone; Translations: [Calculus of kidney] Onset: 08-16-2023 08-16-2023 Episodic Diabetes mellitus without complication (1 source) Hyperglycemia, unspecified; Translations: [HYPERGLYCEMIA UNSPECIFIED] Onset: 02-22-2022 Episodic Genitourinary symptoms and ill-defined conditions (9 sources) Zay hematuria; Translations: [Gross hematuria] Onset: 12-29-2020 05-16-2023 Episodic Nonmalignant breast conditions (8 sources) Lump of axillary tail of left breast; Translations: [Unspecified lump in axillary tail of the left breast] Onset: 05-21-2023 05-21-2023 Episodic Other connective tissue disease (8 sources) Primary fibromyalgia syndrome; Translations: [Fibromyalgia] Onset: 05-21-2023 05-21-2023 Episodic Other infections; including parasitic (8 sources) H/O: viral illness; Translations: [Personal history of other infectious and parasitic diseases] Onset: 05-21-2023 05-21-2023 Episodic Other lower respiratory disease (8 sources) Nodule of lung; Translations: [Solitary pulmonary nodule] Onset: 05-21-2023 05-21-2023 Episodic Other non-traumatic joint disorders (8 sources) Joint pain; Translations: [Pain in unspecified joint] Onset: 03-04-2014 05-21-2023 Episodic Other nutritional; endocrine; and metabolic disorders (8 sources) Abnormal weight gain; Translations: [Abnormal weight gain] Onset: 06-28-2023 06-28-2023 Episodic Residual codes; unclassified (8 sources) Bilateral lower limb edema; Translations: [Localized edema] Onset: 08-16-2023 08-16-2023 Episodic Spondylosis; intervertebral disc disorders; other back problems (8 sources) Low back pain; Translations: [Low back pain] Onset: 03-07-2014 05-21-2023 Episodic Results Test Name Value Interpretation Reference Range Facility IGP,APTIMA HPV,AGE GDLNon AGE GDLN ACOG TESTING Note . [facility] Comment on above: TESTS RESULT FLAG UN ITS REF RANGE LAB Clinician Provided Cytology Information Source.............Cervix;Endocervix No. of containers..01 ThinPrep Vial Age Algo ACOG Aixa... 30-65 01 FLAG LEGEND: L-Low Normal,H-High Normal,LL-Alert Low,HH-Alert High <-Panic Low,>-Panic High,A-Abnormal,AA-Critical Abnormal Performed at: 01 =G [address] [id number] Shirley Roblero MD, HPV APTIMA Negative Negative [facility] Comment on above: This nucleic acid am plification test detects fourteen high- risk HPV types (16,18,31,33,35,39,45,51,52,56,58,59,66,68) without differentiation. Performed at: =G - [facility] [address], [place] [id number] Account Manager Trainee: Shirley Roblero MD, Phone: [phone] Performed at: - [facility], [place] [id number] Account Manager Trainee: Shirley Roblero MD, Phone: [phone] IGP, APTIMA HPV, RFX 16/18,45 Note . [facility] Comment on above: TESTS RESULT FLAG UN ITS REF RANGE LAB DIAGNOSIS: 02 NEGATIVE FOR INTRAEPITHELIAL LESION OR MALIGNANCY. FUNGAL ORGANISMS MORPHOLOGICALLY CONSISTENT WITH KARAN SPECIES ARE PRESENT. Specimen adequacy: 02 Satisfactory for evaluation. No endocervical component is identified. Performed by: 02 Malinda Munoz, Student Accounts Coordinator ([facility]) . 02 Note: Note 02 The Pap smear is a screening test designed to aid in the detection of premalignant and malignant conditions of the uterine cervix. It is not a diagnostic procedure and should not be used as the sole means of detecting cervical cancer. Both false-positive and false-negative reports do occur. Test Methodology: Note 02 This liquid based ThinPrep(R) pap test was screened with the use of an image guided system. HPV Genotype Reflex Note 02 Criteria not met, HPV Genotype not performed. FLAG LEGEND: L-Low Normal,H-High Normal,LL-Alert Low,HH-Alert High <-Panic Low,>-Panic High,A-Abnormal,AA-Critical Abnormal Performed at: [address] [facility] [place] [address] Shirley Roblero MD, BRUSH-SPATULA CERVIX ENDOCERVIX [facility] CT CHEST W CONon 07-26-2022 CT CHEST W CON EXAMINATION: CT CHES T W CON, CT ABD/PELV W CON HISTORY: [...] OSWALD GAR Date: 2022-07-26 14:23 Normal [facility] CBC AUTO DIFFon 07-08-2022 BASO # 0.1 103/ul Normal 0.0-0.[address] [facility] Comment on above: Performed By: #### C BC ####[facility] [address] [place] [address]Dr. Joseph Edwards Basophils/100 WBC (Bld) 0.7 % Normal 0.2-2.[address] [facility] Comment on above: Performed By: #### C BC ####[facility] [address] [place], [place] [address]Dr. Cheriruba Jerry EO # 0.1 103/ul Normal 0.0-0.[address] [facility] Comment on above: Performed By: #### C BC ####[facility] [address] [place], [place] [address]Dr. Joseph Jerry Eosinophils/100 WBC (Bld) 1.7 % Normal 0.9-7.[address] [facility] Comment on above: Performed By: #### C BC ####[facility] [address] [place], [place] [address]Dr. Joseph Edwards Erythrocyte distribution width (RBC) [Ratio] 12.2 % Normal 11.0-15.[address] [facility] Comment on above: Performed By: #### C BC ####[facility] [address] [place], [place] [address]Dr. Joseph Edwards Hematocrit (Bld) [Volume fraction] 37.0 % Normal 36.0-48.[address] [facility] Comment on above: Performed By: #### C BC ####[facility] [address] [place], [place] [address]Dr. Cheriruba Edwards Hemoglobin (Bld) [Mass/Vol] 12.5 g/dL Normal 12.0-16.[address] [facility] Comment on above: Performed By: #### C BC ####[facility] I[address] [place], [place] [address]Dr. Joseph Edwards IG # 0.02 10e3/ul Normal 0.00-0.[address] [facility] Comment on above: Performed By: #### C BC ####[facility] [address] [place] [address]Dr. Joseph Edwards IG % 0.3 % Normal 0.0-0.5 [facility] Comment on above: Performed By: #### C BC ####[facility] [address] [address]Dr. Joseph Edwards LYMPH # 2.7 103/ul Normal 1.2-3.[address] [facility] Comment on above: Performed By: #### C BC ####[facility] [address] [place], [place] [address]Dr. Joseph Edwards Lymphocytes/100 WBC (Bld) 37.4 % Normal 20.5-60.[address] [facility] Comment on above: Performed By: #### C BC ####[facility] T[address] [place], [place] [address]DrAlis Edwards MANUAL DIFF REQ NO Normal [facility] Comment on above: Performed By: #### C BC ####[facility] [address] [place], [place] [address]Dr. Joseph Edwards MCH (RBC) [Entitic mass] 32.3 pg Normal 26.7-34.[address] [facility] Comment on above: Performed By: #### C BC ####[facility] O[address] [place], [place] [address]DrAlis Cheriruba Edwards MCHC (RBC) [Mass/Vol] 33.8 g/dL Normal 29.9-35.[address] [facility] Comment on above: Performed By: #### C BC ####[facility] [address] [place], [place] [address]DrAlis Edwards MCV (RBC) [Entitic vol] 95.6 fL Normal 81.0-99.[address] [facility] Comment on above: Performed By: #### C BC ####[facility] [address] [place], [place] [address]DrAlis Edwards MONO # 0.6 103/ul Normal 0.3-0.[address] [facility] Comment on above: Performed By: #### C BC ####[facility] [address] [place], [place] [address]DrAlis Edwards Monocytes/100 WBC (Bld) 7.8 % Normal 1.7-12.[address] [facility] Comment on above: Performed By: #### C BC ####[facility] [address] [place] [place] [address]Dr. Joseph Edwards NEUT # 3.7 103/ul Normal 1.4-6.[address] [facility] Comment on above: Performed By: #### C BC ####[facility] [address] [place] [address]Dr. Joseph Edwards Neutrophils/100 WBC (Bld) 52.1 % Normal 43.0-75.[address] [facility] Comment on above: Performed By: #### C BC ####[facility] [address] [place] [address]Dr. Joseph Edwards Platelet mean volume (Bld) [Entitic vol] 9.2 fL Critically low 9.5-13.[address] [facility] Comment on above: Performed By: #### C BC ####[facility] [address] [place] [place] [address]Dr. Joseph Edwards PLT 332 103/ul Normal 150-[address] [facility] Comment on above: Performed By: #### C BC ####[facility] [address] [place], [place] [address]Dr. Joseph Edwards RBC 3.87 106/ul Critically low 4.20-5.40 The [facility] Comment on above: Performed By: #### C BC ####[facility] [address] [place], [place] [address]Dr. Joseph Edwards WBC 7.1 103/ul Normal 4.0-11.[address] [facility] Comment on above: Performed By: #### C BC ####[facility] Ysz[address]inflc[address] [place], [place] [address]Dr. Joseph Edwards CT ABD/PELVIS WO CONon 07-08 CT ABD/PELVIS WO CON EXAM: CT SCAN OF TH E ABDOMEN AND PELVIS WITHOUT IV CONTRAST [...] of stool seen throughout the large bowel. Mesentery/Peritoneum: Normal Vasculature: Normal Lymph Nodes: Subcentimeter lymph [...] FLO DODD Date: 2022-07-08 20:54 Normal [facility] ER URINE PROFILEon 3 Bilirubin Ql (U) Negative Normal NEGATIVE The [facility] Comment on above: Performed By: #### Jay GARG UMICRO #### [facility] [address] [place] [address] Dr. Joseph Edwards Clarity (U) CLEAR Normal CLEAR [facility] Comment on above: Performed By: #### Jay GARG UMICRO #### [facility] [address] [place] [address] Dr. Joseph Edwards Color (U) LT. YELLOW Normal YELLOW [facility] Comment on above: Performed By: #### Jay GARG UMICRO #### [facility] [address] [place] [address] Dr. Joseph Edwards ERUAHD A micrscopic examination will be performed if indicated. Normal [facility] Comment on above: Performed By: #### Jay GARG UMICRO #### [facility] [address] [place] [address] Dr. Joseph Edwards Glucose Ql (U) Negative Normal NEGATIVE [facility] Comment on above: Performed By: #### Jay GARG UMICRO #### [facility] [address] [place] [address] Dr. Joseph Edwards Hemoglobin Ql (U) SMALL Abnormal NEGATIVE [facility] Comment on above: Performed By: #### Jay GARG UMICRO #### [facility] [address] [place] [address] Dr. Joseph Edwards Ketones Ql (U) Negative Normal NEGATIVE [facility] Comment on above: Performed By: #### Jay GARG UMICRO #### [facility] [address] [place] [address] Dr. Joseph Edwards LEUKOCYTES Negative Normal NEGATIVE The [facility] Comment on above: Performed By: #### E FOREST, UMICRO #### [facility] [address] [place] [address] Dr. Joseph Edwards Nitrite Ql (U) Negative Normal NEGATIVE [facility] Comment on above: Performed By: #### E FOREST, UMICRO #### [facility] [address] [place] [address] Dr. Joseph Edwards pH (U) 5.5 [pH] Normal 5-9 [facility] Comment on above: Performed By: #### E FOREST UMICRO #### [facility] [address] [place] [address] Dr. Joseph Edwards SPEC GRAVITY 1.015 Normal 1.005-<=1.025 [facility] Comment on above: Performed By: #### Jay GARG, UMICRO #### [facility] [address] [place] [address] Dr. Joseph Edwards UA PROTEIN Negative Normal NEGATIVE/ TRACE [facility] Comment on above: Performed By: #### Jay GARG UMICRO #### [facility] [address] [place] [address] Dr. Joseph Edwards UR MICRO IND INDICATED Normal [facility] Comment on above: Performed By: #### E FOREST, UMICRO #### [facility] [address] [place] [address] Dr. Joseph Edwards Urobilinogen Qn (U) 0.2 {Ijeoma'U}/dL Normal 0.2 - 1. 0 [facility] Comment on above: Performed By: #### E FOREST UMICRO #### [facility] [address] [place] [address] Dr. Joseph Edwards LIPASEon 07-08-2022 Lipase [Catalytic activity/Vol] 94.0 U/L Normal 73.0-393.0 [facility] Comment on above: Performed By: #### L IPA, BMP #### [facility] [address] [place] [address] Dr. Joseph Edwards LIVER PROFILEon 07-08-2022 Albumin [Mass/Vol] 3.7 g/dL Normal 3.4-5.0 [facility] Comment on above: Performed By: #### L IVER ####[facility] [address] [place], [place] [address]Dr. Joseph Edwards Albumin/Globulin [Mass ratio] 1.1 {ratio} Normal [facility] Comment on above: Performed By: #### L IVER ####[facility] [address] [place], [place] [address]Dr. Joseph Edwards ALP [Catalytic activity/Vol] 79 U/L Normal 46-[address] [facility] Comment on above: Performed By: #### L IVER ####[facility] [address] [place], [place] [address]Dr. Joseph Edwards ALT [Catalytic activity/Vol] 16 U/L Normal 14-59 [facility] Comment on above: Performed By: #### L IVER ####[facility] [address] [place], [place] [address]Dr. Joseph Edwards AST [Catalytic activity/Vol] 14 U/L Critically low 15-37 [facility] Comment on above: Performed By: #### L IVER ####[facility] Ez[address] [place], [place] [address]Dr. Joseph Edwards BILI, CONJUGATED 0.1 mg/dL Normal 0.0-0.2 [facility] Comment on above: Performed By: #### L IVER ####[facility] [address] [place], [place] [address]Dr. Joseph Edwards Bilirubin [Mass/Vol] 0.6 mg/dL Normal 0.2-1.0 [facility] [facility] Comment on above: Performed By: #### L IVER ####[facility] [address] [place], [place] [address]Dr. Joseph Edwards Globulin (S) [Mass/Vol] 3.4 g/dL Normal [facility] Comment on above: Performed By: #### L IVER ####[facility] [address] [place], [place] [address]Dr. Joseph Edwards Protein [Mass/Vol] 7.1 g/dL Normal 6.4-8.2 [facility] Comment on above: Performed By: #### L IVER ####[facility] [address] [address]Dr. Joseph Edwards URon 07-08-2022 , QUAL Negative Normal NEGATIVE [facility] Comment on above: Performed By: #### P REGU ####[facility] [address] [address]Dr. Joseph Edwards PROF CHEM 8 (BAS METB)on Anion gap [Moles/Vol] 10.0 mmol/L Normal [facility] Comment on above: Performed By: #### L IPA, BMP #### [facility] [address] [address] [address] Joseph Edwards Calcium [Mass/Vol] 9.4 mg/dL Normal 8.5-10.1 [facility] Comment on above: Performed By: #### L IPA, BMP #### [facility] [address] [address] [address] Joseph Edwards Chloride [Moles/Vol] 102 mmol/L Normal 98-[address] [facility] Comment on above: Performed By: #### L IPA, BMP #### [facility] [address] [address] [address] Joseph Edwards CO2 [Moles/Vol] 30.3 mmol/L Normal 21.0-32.0 The [facility] Comment on above: Performed By: #### L IPA, BMP #### [facility] [address] [address] [address] Joseph Edwards Creatinine [Mass/Vol] 0.79 mg/dL Normal 0.55-1.[address] [facility] Comment on above: Performed By: #### L IPA, BMP #### [facility] [address] [address] [address] Joseph Edwards EGFR-AF UZBEK >60 Normal >=60 [facility] Comment on above: Performed By: #### L IPA, BMP #### [facility] [address] [address] [address] Joseph Edwards EGFR-NON AF UZBEK >60 Normal >=60 [facility] Comment on above: Performed By: #### L IPA, BMP #### [facility] [address] [address] [address] Joseph Edwards Glucose [Mass/Vol] 105 mg/dL Normal 74-106 [facility] Comment on above: Performed By: #### L IPA, BMP #### [facility] [address] [address] [address] Joseph Edwards Potassium [Moles/Vol] 3.3 mmol/L Critically low 3.5-5.1 [facility] Comment on above: Performed By: #### L IPA, BMP #### [facility] [address] [place] [address] Dr. Joseph Edwards Sodium [Moles/Vol] 139 mmol/L Normal 136-145 [facility] Comment on above: Performed By: #### L IPA, BMP #### [facility] [address] [place] [address] Dr. Joseph Edwards Urea nitrogen [Mass/Vol] 15.0 mg/dL Normal 7.0-18.0 [facility] Comment on above: Performed By: #### L IPA, BMP #### [facility] [address] [place] [address] Dr. Joseph Edwards Urea nitrogen/Creatinine [Mass ratio] 19.0 mg/mg Normal [facility] Comment on above: Performed By: #### L IPA, BMP #### [facility] [address] [place] [address] Dr. Joseph Edwards URINE MICROSCOPIC ONLYon BACTERIA NONE SEEN Normal NONE SEEN The [facility] Comment on above: Performed By: #### VANNESA JEREZ ####[facility] [address] [address]Dr. Joseph Edwards Bacteria identified Cx Nom (U) NOT INDICATED Normal [facility] Comment on above: Performed By: #### LUCIE JEREZRO ####[facility] [address] [id number]. Joseph Edwards CAST NONE SEEN Normal NONE SEEN The [facility] Comment on above: Performed By: #### Jay GARG UMICRO ####[facility] [address] [address]Dr. Joseph Edwards Crystals LM Nom (Urine sed) NONE SEEN Normal NONE SEEN The [facility] Comment on above: Performed By: #### Jay GARG UMICRO ####[facility] [address] [address]Dr. Joseph Edwards Epithelial cells LM Ql (Urine sed) FEW Abnormal NONE SEEN /RARE The [facility] Comment on above: Performed By: #### Jay GARG UMICRO ####[facility] [address] [address]Dr. Joseph Edwards MUCOUS NONE SEEN Normal NONE SEEN The [facility] Comment on above: Performed By: #### Jay GARG UMICRO ####[facility] [address] [address]Dr. Joseph Edwards RBC 0-2 Normal 0-2 [facility] Comment on above: Performed By: #### Jay GARG UMICRO ####[facility] [address] [address]Dr. Joseph Edwards WBC 0-2 Abnormal NONE SEEN The [facility] Comment on above: Performed By: #### Jay GARG UMICRO ####[facility] [address] [address]Dr. Joseph Edwards PROF CHEM 8 (BAS METB)on Anion gap [Moles/Vol] 8.8 mmol/L Normal [facility] Comment on above: Performed By: #### B MP ####[facility] [address] [place], [place] [address]Dr. Joseph Edwards Calcium [Mass/Vol] 8.9 mg/dL Normal 8.5-10.1 [facility] Comment on above: Performed By: #### B MP ####[facility] [address] [address]Dr. Joseph Edwards Chloride [Moles/Vol] 104 mmol/L Normal 98-[address] [facility] Comment on above: Performed By: #### B MP ####[facility] [address] [address]Dr. Joseph Edwards CO2 [Moles/Vol] 30.8 mmol/L Normal 21.0-32.0 [facility] Comment on above: Performed By: #### B MP ####[facility] [address] [address]Dr. Cheriruba Jerry Creatinine [Mass/Vol] 0.75 mg/dL Normal 0.55-1.[address] [facility] Comment on above: Performed By: #### B MP ####[facility] [address] [place], [place] [address]Dr. Cheriruba Jerry EGFR-AF UZBEK >60 Normal >=60 [facility] Comment on above: Performed By: #### B MP ####[facility] [address] [place], [place] [address]Dr. Joseph Edwards EGFR-NON AF UZBEK >60 Normal >=[address] [facility] Comment on above: Performed By: #### B MP ####[facility] [address] [place], [place] [address]Dr. Cheriruba Jerry Glucose [Mass/Vol] 97 mg/dL Normal 74-106 [facility] Comment on above: Performed By: #### B MP ####[facility] [address] [place], [place] [address]Dr. Joseph Edwards Potassium [Moles/Vol] 3.6 mmol/L Normal 3.5-5.[address] [facility] Comment on above: Performed By: #### B MP ####[facility] [address] [place], [place] [address]Dr. Joseph Edwards Sodium [Moles/Vol] 140 mmol/L Normal 136-145 [facility] Comment on above: Performed By: #### B MP ####[facility] [address] [place], [place] [address]Dr. Joseph Edwards Urea nitrogen [Mass/Vol] 7.0 mg/dL Normal 7.0-18.[address] [facility] Comment on above: Performed By: #### B MP ####[facility] [address] [place] [id number]. Joseph Edwards Urea nitrogen/Creatinine [Mass ratio] 9.3 mg/mg Normal [facility] Comment on above: Performed By: #### B MP ####[facility] [address] [place] [id number]. Joseph Edwards CBC AUTO DIFFon 02-21-2022 BASO # 0.1 103/ul Normal 0.0-0.1 [facility] Comment on above: Performed By: #### C BC #### [facility] [address] [address] [address] Joseph Edwards Basophils/100 WBC (Bld) 0.9 % Normal 0.2-2.0 [facility] Comment on above: Performed By: #### C BC #### [facility] [address] [address] [address] Joseph Edwards EO # 0.1 103/ul Normal 0.0-0.7 [facility] Comment on above: Performed By: #### C BC #### [facility] [address] [address] [address] Joseph Edwards Eosinophils/100 WBC (Bld) 1.4 % Normal 0.9-7.0 [facility] Comment on above: Performed By: #### C BC #### [facility] [address] [address] [address] Joseph Edwards Erythrocyte distribution width (RBC) [Ratio] 11.6 % Normal 11.0-15.0 [facility] Comment on above: Performed By: #### C BC #### [facility] [address] [address] [address] Joseph Edwards Hematocrit (Bld) [Volume fraction] 41.0 % Normal 36.0-48.0 [facility] Comment on above: Performed By: #### C BC #### [facility] [address] [address] [address] Joseph Edwards Hemoglobin (Bld) [Mass/Vol] 13.6 g/dL Normal 12.0-16.0 [facility] Comment on above: Performed By: #### C BC #### [facility] [address] [address] [address] Joseph Edwards IG # 0.04 10e3/ul Critically high 0.00-0.03 [facility] Comment on above: Performed By: #### C BC #### [facility] [address] [place] [address] Dr. Joseph Edwards IG % 0.5 % Normal 0.0-0.5 [facility] Comment on above: Performed By: #### C BC #### [facility] [address] [place] [address] Dr. Joseph Edwards LYMPH # 2.5 103/ul Normal 1.2-3.8 [facility] Comment on above: Performed By: #### C BC #### [facility] [address] [place] [address] Dr. Joseph Edwards Lymphocytes/100 WBC (Bld) 28.1 % Normal 20.5-60.0 [facility] Comment on above: Performed By: #### C BC #### [facility] [address] [place] [address] Dr. Joseph Edwards MANUAL DIFF REQ NO Normal [facility] Comment on above: Performed By: #### C BC #### [facility] [address] [place] [address] Dr. Joseph Edwards MCH (RBC) [Entitic mass] 32.0 pg Normal 26.7-34.0 [facility] Comment on above: Performed By: #### C BC #### [facility] [address] [place] [address] Dr. Joseph Edwards MCHC (RBC) [Mass/Vol] 33.2 g/dL Normal 29.9-35.2 [facility] Comment on above: Performed By: #### C BC #### [facility] [address] [place] [address] Dr. Joseph Edwards MCV (RBC) [Entitic vol] 96.5 fL Normal 81.0-99.0 [facility] Comment on above: Performed By: #### C BC #### [facility] [address] [place] [address] Dr. Joseph Edwards MONO # 0.5 103/ul Normal 0.3-0.8 [facility] Comment on above: Performed By: #### C BC #### [facility] [address] [place] [address] Dr. Joseph Edwards Monocytes/100 WBC (Bld) 6.2 % Normal 1.7-12.0 [facility] Comment on above: Performed By: #### C BC #### [facility] [address] [place] [address] Dr. Joseph Edwards NEUT # 5.5 103/ul Normal 1.4-6.5 [facility] Comment on above: Performed By: #### C BC #### [facility] [address] [place] [address] Dr. Joseph Edwards Neutrophils/100 WBC (Bld) 62.9 % Normal 43.0-75.0 [facility] Comment on above: Performed By: #### C BC #### [facility] [address] [place] [address] Dr. Joseph Edwards Platelet mean volume (Bld) [Entitic vol] 10.0 fL Normal 9.5-13.5 [facility] Comment on above: Performed By: #### C BC #### [facility] [address] [place] [address] Dr. Joseph Edwards PLT 357 103/ul Normal 150-[address] [facility] Comment on above: Performed By: #### C BC #### [facility] [address] [place] [address] Dr. Joseph Edwards RBC 4.25 106/ul Normal 4.20-5.[address] [facility] Comment on above: Performed By: #### C BC #### [facility] [address] [place] [address] Dr. Joseph Edwards WBC 8.8 103/ul Normal 4.0-11.0 [facility] Comment on above: Performed By: #### C BC #### [facility] [address] [place] [address] Dr. Joseph Edwards FREE T4on 02-21-2022 Free T4 [Mass/Vol] 0.96 ng/dL Normal 0.76-1.46 [facility] Comment on above: Performed By: #### F T4 ####[facility] [address] [address]Dr. Joseph Edwards GLYCOHEMOGLOBIN A1Con 2021 ADA RECOMMENDATION SEE BELOW Normal [facility] Comment on above: Result Comment: ADA RECOMMENDED LIMIT 4.0 - 6.0 ADA THERAPEUTIC TARGET < 7.0 ACTION SUGGESTED > 7.0 Performed By: #### A 1C #### [facility] [address] [address] [address] Joseph Edwards Glucose [Mass/Vol] 111 mg/dL Normal [facility] Comment on above: Performed By: #### A 1C #### [facility] [address] [address] [address] Joseph Edwards HbA1c (Bld) [Mass fraction] 5.5 % Normal 4.5-6.2 [facility] Comment on above: Performed By: #### A 1C #### [facility] [address] [address] [address] Joseph Edwards LIPID PROFILEon 02-21-2022 CHOL-HDL RATIO NORM SEE BELOW Normal [facility] Comment on above: Result Comment: 3.3 - 4.4 LOW RISK 4.4 - 7.1 AVERAGE RISK 7.1 - 11.0 MODERATE RISK >11.0 HIGH RISK Performed By: #### L IPID, CMP, TSH #### [facility] [address] [address] [address] Joseph Edwards Cholesterol [Mass/Vol] 153 mg/dL Normal <=200 [facility] Comment on above: Performed By: #### L IPID, CMP, TSH #### [facility] [address] [address] [address] Joseph Edwards Cholesterol in HDL [Mass/Vol] 66 mg/dL Critically high 40-60 [facility] Comment on above: Performed By: #### L IPID, CMP, TSH #### [facility] [address] [address] [address] Joseph Edwards Cholesterol in LDL [Mass/Vol] 71.0 mg/dL Normal [facility] Comment on above: Performed By: #### L IPID, CMP, TSH #### [facility] [address] [address] [address] Joseph Edwards Cholesterol.total/Ch olesterol in HDL [Mass ratio] 2.3 {ratio} Normal [facility] Comment on above: Performed By: #### L IPID, CMP, TSH #### [facility] [address] [address] [address] Joseph Edwards HDL NORMAL > or = 60 mg/dl - LO W CARDIOVASCULAR RISK <40 mg/dl - HIGH CARDIOVASCULAR RISK Normal [facility] Comment on above: Performed By: #### L IPID, CMP, TSH #### [facility] [address] [address] [address] Joseph Edwards LDL CALC NORMAL SEE BELOW Normal [facility] Comment on above: Result Comment: <100 mg/dl OPTIMAL 100 - 129 mg/dl NEAR OR ABOVE OPTIMAL 130 - 159 mg/dl BORDERLINE HIGH 160 - 189 mg/dl HIGH >190 mg/dl VERY HIGH Performed By: #### L IPID, CMP, TSH #### [facility] [address] [address] [address] Joseph Edwards Triglyceride [Mass/Vol] 80 mg/dL Normal <=150 [facility] Comment on above: Performed By: #### L IPID, CMP, TSH #### [facility] [address] [address] [address] Joseph Edwards VLDL CALC 16.0 mg/dL Normal [facility] Comment on above: Performed By: #### L IPID, CMP, TSH #### [facility] [address] [address] [address] Joseph Edwards PROF 14(COMP METB)on 022 Albumin [Mass/Vol] 4.0 g/dL Normal 3.4-5.0 [facility] Comment on above: Performed By: #### L IPID, CMP, TSH #### [facility] [address] [address] [address] Joseph Edwards Albumin/Globulin [Mass ratio] 1.1 {ratio} Normal [facility] Comment on above: Performed By: #### L IPID, CMP, TSH #### [facility] [address] [address] [address] Joseph Edwards ALP [Catalytic activity/Vol] 89 U/L Normal 46-116 [facility] Comment on above: Performed By: #### L IPID, CMP, TSH #### [facility] [address] [address] [address] Joseph Edwards ALT [Catalytic activity/Vol] 19 U/L Normal 14-59 [facility] Comment on above: Performed By: #### L IPID, CMP, TSH #### [facility] [address] [place] [address] Dr. Joseph Edwards Anion gap [Moles/Vol] 11.3 mmol/L Normal [facility] Comment on above: Performed By: #### L IPID, CMP, TSH #### [facility] [address] [address] [address] Joseph Edwards AST [Catalytic activity/Vol] 12 U/L Critically low 15-37 [facility] Comment on above: Performed By: #### L IPID, CMP, TSH #### [facility] [address] [address] [address] Joseph Edwards Bilirubin [Mass/Vol] 1.3 mg/dL Critically high 0.2-1.0 [facility] Comment on above: Performed By: #### L IPID, CMP, TSH #### [facility] [address] [address] [address] Joseph Edwards Calcium [Mass/Vol] 8.9 mg/dL Normal 8.5-10.1 [facility] Comment on above: Performed By: #### L IPID, CMP, TSH #### [facility] [address] [address] [address] Joseph Edwards Chloride [Moles/Vol] 104 mmol/L Normal 98-107 [facility] Comment on above: Performed By: #### L IPID, CMP, TSH #### [facility] [address] [address] [address] Joseph Edwards CO2 [Moles/Vol] 27.7 mmol/L Normal 21.0-32.0 [facility] Comment on above: Performed By: #### L IPID, CMP, TSH #### [facility] [address] [address] [address] Joseph Edwards Creatinine [Mass/Vol] 0.86 mg/dL Normal 0.55-1.02 [facility] Comment on above: Performed By: #### L IPID, CMP, TSH #### [facility] [address] [address] [address] Joseph Edwards EGFR-AF UZBEK >60 Normal >=60 [facility] Comment on above: Performed By: #### L IPID, CMP, TSH #### [facility] [address] [address] [address] Joseph Edwards EGFR-NON AF UZBEK >60 Normal >=60 [facility] Comment on above: Performed By: #### L IPID, CMP, TSH #### [facility] [address] [address] [address] Joseph Edwards Globulin (S) [Mass/Vol] 3.5 g/dL Normal [facility] Comment on above: Performed By: #### L IPID, CMP, TSH #### [facility] [address] [address] [address] Joseph Edwards Glucose [Mass/Vol] 93 mg/dL Normal 74-106 [facility] Comment on above: Performed By: #### L IPID, CMP, TSH #### [facility] [address] [address] [address] Joseph Edwards Potassium [Moles/Vol] 4.0 mmol/L Normal 3.5-5.1 [facility] Comment on above: Performed By: #### L IPID, CMP, TSH #### [facility] [address] [address] [address] Joseph Edwards Protein [Mass/Vol] 7.5 g/dL Normal 6.4-8.2 [facility] Comment on above: Performed By: #### L IPLUKE CMP, TSH #### [facility] [address] [address] [address] Joseph Edwards Sodium [Moles/Vol] 139 mmol/L Normal 136-145 [facility] Comment on above: Performed By: #### L IPID CMP, TSH #### [facility] [address] [address] [address] Joseph Edwards Urea nitrogen [Mass/Vol] 12.0 mg/dL Normal 7.0-18.0 [facility] Comment on above: Performed By: #### L IPSHASHANK BUTLER, TSH #### [facility] [address] [address] [address] Joseph Edwards Urea nitrogen/Creatinine [Mass ratio] 14.0 mg/mg Normal [facility] Comment on above: Performed By: #### L SHASHANK KNIGHT, TSH #### [facility] [address] [address] [address] Joseph Edwards TSHon 02-21-2022 TSH 1.879 uIU/mL Normal 0.358-3.740 [facility] Comment on above: Performed By: #### L SHASHANK KNIGHT, TSH #### [facility] [address] [place] [address] Dr. Joseph Edwards UA RANDOM W/MICROSCOPICon BACTERIA NONE SEEN Normal NONE SEEN [facility] Comment on above: Performed By: #### U AMIC ####[facility] [address] [address]Dr. Joseph Edwards Bilirubin Ql (U) Negative Normal NEGATIVE [facility] Comment on above: Performed By: #### U AMIC ####[facility] [address] [address]Dr. Joseph Edwards CAST NONE SEEN Normal NONE SEEN [facility] Comment on above: Performed By: #### U AMIC ####[facility] [address] [address]Dr. Yilan Edwards Clarity (U) CLEAR Normal CLEAR [facility] Comment on above: Performed By: #### U AMIC ####[facility] [address] [address]Dr. Joseph Edawrds Color (U) LT. YELLOW Normal YELLOW [facility] Comment on above: Performed By: #### U AMIC ####[facility] [address] [address]Dr. Joseph Edwards Crystals LM Nom (Urine sed) NONE SEEN Normal NONE SEEN [facility] Comment on above: Performed By: #### U AMIC ####[facility] [address] [address]Dr. Joseph Edwards Epithelial cells LM Ql (Urine sed) FEW Abnormal NONE SEEN /RARE [facility] Comment on above: Performed By: #### U AMIC ####[facility] [address] [place], [place] [address]Dr. Joseph Edwards Glucose Ql (U) Negative Normal NEGATIVE [facility] Comment on above: Performed By: #### U AMIC ####[facility] [address] [place], [place] [address]Dr. Joseph Edwards Hemoglobin Ql (U) TRACE-INTACT Abnormal NEGATIVE [facility] Comment on above: Performed By: #### U AMIC ####[facility] [address] [place], [place] [address]Dr. Joseph Edwards Ketones Ql (U) Negative Normal NEGATIVE [facility] Comment on above: Performed By: #### U AMIC ####[facility] [address] [place], [place] [address]Dr. Joseph Edwards LEUKOCYTES Negative Normal NEGATIVE [facility] Comment on above: Performed By: #### U AMIC ####[facility] [address] [place], [place] [address]Dr. Joseph Edwards MUCOUS NONE SEEN Normal NONE SEEN [facility] Comment on above: Performed By: #### U AMIC ####[facility] X[address] [place], [place] [address]Dr. Joseph Edwards Nitrite Ql (U) Negative Normal NEGATIVE [facility] Comment on above: Performed By: #### U AMIC ####[facility] [address] [place] [id number]. Joseph Edwards pH (U) 6.0 [pH] Normal 5-[address] [facility] Comment on above: Performed By: #### U AMIC ####[facility] [address] [place] [address]Dr. Joseph Edwards RBC 0-2 Normal 0-[address] [facility] Comment on above: Performed By: #### U AMIC ####[facility] [address] [place] [address]Dr. Joseph Edwards SPEC GRAVITY 1.020 Normal 1.005-<=1.025 The [facility] Comment on above: Performed By: #### U AMIC ####[facility] [address] [place] [address]Dr. Joseph Edwards UA PROTEIN Negative Normal NEGATIVE/ TRACE [facility] Comment on above: Performed By: #### U AMIC ####[facility] [address] [place] [address]Dr. Joseph Edwards Urobilinogen Qn (U) 0.2 {Ijeoma'U}/dL Normal 0.2 - 1. [address] [facility] Comment on above: Performed By: #### U AMIC ####[facility] [address] [place] [address]Dr. Joseph Edwards WBC NONE SEEN Normal NONE SEEN The [facility] Comment on above: Performed By: #### U AMIC ####[facility] N[address] [place], [place] [address]Dr. Joseph Edwards Vital Signs Date Time Vital Sign Value Performing Clinician Vilma reyes 06-05-2024 09:03-0500 Body mass index (BMI) [Ratio] 38.94 kg/m2 [facility] Zackary Loftware Work Phone: [facility] 06-05-2024 09:03-0500 Body weight 99.7 kg Tammy Zackary Loftware Work Phone: [facility] 06-05-2024 09:03-0500 Diastolic blood pressure 74 mm[Hg] Tammy Zackary DO Work Phone: [facility] 06-05-2024 09:03-0500 Systolic blood pressure 114 mm[Hg] Tammy Zackary DO Work Phone: [facility] 02-20-2024 10:03-0400 Body mass index (BMI) [Ratio] 38.16 kg/m2 Nohemi TEE Work Phone: [facility] 02-20-2024 10:03-0400 Body weight 97.7 kg Nohemi TEE Work Phone: [facility] 02-20-2024 10:03-0400 Diastolic blood pressure 80 mm[Hg] Nohemi TEE Work Phone: [facility] 02-20-2024 10:03-0400 Systolic blood pressure 116 mm[Hg] Nohemi TEE Work Phone: [facility] Encounters Encounter Date Encounter Type Care Provider Facility Start: 06-13-2024 End: 06-13-2024 Refill Gabriela Craig NP Work Phone: [facility] Comment on above: Primary hypertension (CMS/HCC) Start: 06-05-2024 End: 06-05-2024 Bamboo flowsheet Tammy Zackary DO Work Phone: [facility] Start: 06-05-2024 End: 06-05-2024 Bamboo flowsheet Tammy Zackary DO Work Phone: [facility] Start: 06-05-2024 End: 06-05-2024 Office outpatient visit 15 minutes Tammy Zackary DO Work Phone: [facility] Comment on above: Preop examination; Menorrhagia with regular cycle; Pelvic pain in female; Dyspareunia in female; Dysmenorrhea Start: 06-05-2024 End: 06-05-2024 Preprocedural examination done Tammy Zackary DO Work Phone: [facility] Work Phone: Start: 06-05-2024 End: 06-05-2024 ambulatory TAMMY HENSONO Not Available Start: 05-14-2024 End: 05-14-2024 Telephone encounter Gabriela Craig BAG MACHINE SET UP OPERATOR Work Phone: [facility] Start: 02-20-2024 End: 02-20-2024 Bamboo flowsheet Nohemi TEE Work Phone: [facility] Start: 02-20-2024 End: 02-25-2024 Clinisync Result Encounter Generic External Data Provider [facility] Unsolicited Start: 02-20-2024 End: 02-25-2024 Clinisync Result Encounter Generic External Data Provider [facility] Unsolicited Start: 02-20-2024 End: 02-20-2024 Patient encounter procedure Nohemi TEE Work Phone: [facility] Work Phone: Start: 02-20-2024 End: 02-20-2024 Periodic preventive med est patient 18-39 yrs Nohemi ETE Work Phone: [facility] Comment on above: Well woman exam with routine gynecological exam Start: 02-20-2024 End: 02-20-2024 ambulatory NOHEMI GOODWIN Not Available Start: 10-25-2023 End: 10-25-2023 ambulatory GABRIELA AICHHOLZ Not Available Start: 09-13-2023 End: 09-13-2023 ambulatory GABRIELA AICHHOLZ Not Available Start: 08-16-2023 End: 08-16-2023 ambulatory GABRIELA AICHHOLZ Not Available Start: 06-28-2023 End: 06-28-2023 ambulatory GABRIELA AICHHOLZ Not Available Start: 05-16-2023 Telephone encounter Zina TEE Work Phone: [facility] Start: 07-26-2022 End: 07-27-2022 ambulatory PHOTOGRAPHIC EQUIPMENT TECHNICIAN GABRIELA AICHHOLZ Facility:[facility] Start: 07-08-2022 End: 07-09-2022 ambulatory PHOTOGRAPHIC EQUIPMENT TECHNICIAN GABRIELA AICHHOLZ Facility:[facility] Start: 03-15-2022 End: 03-16-2022 ambulatory PHOTOGRAPHIC EQUIPMENT TECHNICIAN GABRIELA AICHHOLZ Facility:[facility] Start: 02-21-2022 End: 02-22-2022 ambulatory PHOTOGRAPHIC EQUIPMENT TECHNICIAN GABRIELA CRAIG Facility:[facility] Start: 08-02-2016 End: 08-03-2016 Ambulatory RAYNE COREAS Facility:[facility] Procedures Date Procedure Procedure Detail Performing Clinician Start: 02-20-2024 IGP,APTIMA HPV,AGE GDLN Nohemi Goodwin PA Work Phone: Start: 02-20-2024 Microscopic observat ion [Identifier] in Cervix by Cyto stain Gabriela Dubosereaganneel BAG MACHINE SET UP OPERATOR Work Phone: Plan of Treatment Date Care Activity Detail Author Start: 02-19-2027 Screening for malign ant neoplasm of cervix [facility] Start: 01-06-2027 DTaP,Tdap and Td Vaccines (3 - Td or Tdap) DTaP,Tdap and Td Vaccines (3 - Td or Tdap) [facility] Start: 06-23-2024 End: 06-23-2024 Patient encounter procedure 06/23/2024 5:30 PM EST Office Visit [facility] [address] [place] [address] Gabriela Craig, RASHAAD [address] [place] [address] [facility] Start: 06-05-2024 End: 06-05-2024 Patient encounter procedure [facility] Comment on above: Arrived Start: 05-16-2024 Adult BMI Screening Adult BMI Screen ing [facility] Start: 05-16-2024 Tobacco Screening Tobacco Screening [facility] Start: 02-24-2024 Influenza vaccination Influenza Vacc ine (#1) [facility] Start: 02-20-2024 End: 02-20-2024 Patient encounter procedure 02/20/2024 10:00 AM EDT Office Visit [facility] [address] [place] [id number] Nohemi Goodwin, PA [address] [place] [address] Arrived [facility] Comment on above: Arrived Start: 02-23-2023 Influenza vaccination Influenza Vacc ine [facility] Start: 2017 Screening for malign ant neoplasm of cervix [facility] Start: 2008 Screening for malign ant neoplasm of cervix Pap Smear [facility] Start: 2005 Adult BMI Follow Up Plan Adult BMI Follow Up Plan [facility] Start: 1999 Depression Screening Depression Scre ening [facility] Cytology Cervical or vaginal smear or scraping study Pap Smear Pathology and Cytology Routine Well woman exam with routine gynecological exam Ordered: 02/20/2024 [facility] Work Phone: Comment on above: Ordered: 02/20/2024 Human papilloma viru s DNA [Presence] in Unspecified specimen by Probe with amplification HPV DNA probe, amplified Microbiology Routine Well woman exam with routine gynecological exam Ordered: 02/20/2024 [facility] Comment on above: Ordered: 02/20/2024 Immunizations Immunization Date Immunization Notes Care Provider Fa [facility] 01-06-2017 tetanus toxoid, redu johnnie diphtheria toxoid, and acellular pertussis vaccine, adsorbed Zina Cantrell PA Work Phone: [facility] 11-05-2014 tetanus toxoid, redu johnnie diphtheria toxoid, and acellular pertussis vaccine, adsorbed Nohemi TEE Work Phone: [facility] Payers Date Payer Category Payer Private Health Insurance [id number] 2023 Private Health Insurance [id number] 2022 Medicaid [id number] 2022 Medicaid [id number] 1987 Unknown [id number] 2.16.84 [id number] 1987 Unknown [id number] 2.16.84 [id number] 1987 Unknown [id number] 2.16.84 [id number] 1987 Unknown [id number] 2.16.84 [id number] 1987 Unknown [id number] 2.16.84 [id number] 1987 Unknown [id number] 2.16.84 [id number] 1987 Unknown [id number] 2.16.84 [id number] 1987 Unknown [id number] 2.16.84 [id number] 1987 Unknown [id number] 2.16.84 [id number] 1987 Unknown [id number] 1959 Unknown [id number] Unknown [id number] Social History Date Type Detail Facility Start: 05-16-2023 End: 05-21-2023 Tobacco smoking status KYIS Never smoked tobacco [facility] Start: 05-16-2023 End: 05-21-2023 Tobacco use and exposure Smokeless tobacco non-user [facility] Start: 05-16-2023 Alcohol intake Current drinker of alcohol (finding) [facility] Start: 05-16-2023 End: 06-21-2023 History of Social function [facility] Start: 05-16-2023 End: 06-21-2023 Tobacco use panel [facility] Childcare Unknown [facility] Start: 07-23-2018 Alcohol Comment Occassional [facility] Start: 1987 Sex Assigned At Not on file [facility] Start: 09-13-2023 End: 06-05-2024 Alcoholic beverage intake Defer [facility] Within the last year , have you been afraid of your partner or ex-partner? No [facility] Do you belong to any clubs or organizations such as orthodox groups, unions, fraternal or athletic groups, or school groups? Yes [facility] Are you now , , , , never or living with a partner? [facility] How often to you hav e a drink containing alcohol? Monthly or less [facility] How many standard dr inks containing alcohol do you have on a typical day? 1 or 2 [facility] How often do you hav e 6 or more drinks on 1 occasion? Never [facility] How hard is it for y ou to pay for the very basics like food, housing, medical care, and heating Not very hard [facility] Do you feel stress - tense, restless, nervous, or anxious, or unable to sleep at night because your mind is troubled all the time - these days [OSQ] Only a little [facility] (I/We) worried wheth er (my/our) food would run out before (I/we) got money to buy more. Never true [facility] Start: 01-24-2023 Alcohol Comment Caffeine: 2-3 cups/day [facility] Medical Equipment Procedure Code Equipment Code Equipment Origin al Text Equipment Identifier Dates Mesh Pco Vntrl P tch 8.6cm [facility] [id number] - Sna - [id number] Start: 12-03-2018 Clinical Notes 05-16-2023 to 06-05-2024 Ritu Donahue - 06/05/2024 8:40 AM ESTTelephone Encounter - Gabriela Craig NP - 05/14/2024 6:55 PM ESTTelephone Encounter - Gabriela Craig NP - 05/14/2024 6:55 PM EST Note Date & Type Note Facility 06-05-2024 History of Presen t illness Narrative Reason for Appointment: Patient ID: Emily Klein is a 38 y.o. female who presents for Pre-op Visit Patient presents today for Pre Op appointment. Patient is scheduled to undergo Da Sarmad assisted Laparoscopic Hysterectomy, possible exploratory laparotomy, possible BSO, possible cystoscopy on 07/02/[address] Raymundo at [facility]. MEDICATIONS Current Outpatient Medications Medication Instructions albuterol HFA 90 mcg/act inhaler hydroCHLOROthiazide (HYDRODiuril) 12.5 MG tablet May take dose 1 pill up to three times per week for swelling in legs hydroCHLOROthiazide (HYDRODIURIL) 25 mg, Oral, Daily lisinopril 10 mg, Oral, Every 24 hours, Take 10 mg by mouth 1 (one) time each day at the same time. oseltamivir (Tamiflu) 75 MG capsule valACYclovir (Valtrex) 1 g tablet ALLERGIES Allergies Allergen Reactions Erythromycin Anaphylaxis Other Reaction(s): Hives Penicillins Anaphylaxis Other Reaction(s): Hives, Skin Rashes Zithromax [Azithromycin] Prednisone Palpitations Other Reaction(s): Comments: tachycardia PROBLEMS Active Ambulatory Problems Diagnosis Date Noted Calculus of gallbladder with acute on chronic cholecystitis without obstruction 05/21/2023 Derangement of knee 03/07/2014 Hematuria, gross 12/29/2020 Inflammatory polyarthropathy (CMS/HCC) 05/21/2023 Joint pain 03/04/2014 Low back pain 03/07/2014 Primary fibromyalgia syndrome 05/21/2023 HTN (hypertension) (CMS/HCC) 05/21/2023 Seasonal allergies 05/21/2023 Hypothyroid (CMS/HCC) 05/21/2023 Mass of axillary tail of left breast 05/21/2023 Lung nodule 05/21/2023 KEKE (obstructive sleep apnea) 05/21/2023 H/O cold sores 05/21/2023 Obesity (BMI 30-39.9) 05/21/2023 Abnormal weight gain 06/28/2023 Kidney stone 08/16/2023 Menometrorrhagia 08/16/2023 Environmental and seasonal allergies 08/16/2023 Bilateral lower extremity edema 08/16/2023 Resolved Ambulatory Problems Diagnosis Date Noted No Resolved Ambulatory Problems Past Medical History: Diagnosis Date Abdominal hernia Abnormal computed tomography angiography (CTA) of abdomen and pelvis Abnormal thyroid blood test Chest pain DUB (dysfunctional uterine bleeding) Elevated blood uric acid level Elevated serum glucose Fibromyalgia Headache History of abnormal cervical Pap smear History of hernia repair Hypothyroidism (CMS/HCC) IUD check up Left anterior shoulder pain Lump of axillary tail of left breast Recurrent cold sores HISTORY PAST MEDICAL HISTORY SOCIAL HISTORY Past Medical History: Diagnosis Date Abdominal hernia Abnormal computed tomography angiography (CTA) of abdomen and pelvis Abnormal thyroid blood test Abnormal weight gain Chest pain DUB (dysfunctional uterine bleeding) Elevated blood uric acid level Elevated serum glucose Environmental and seasonal allergies 08/16/2023 Fibromyalgia Headache Hematuria, gross History of abnormal cervical Pap smear ASCUS History of hernia repair HTN (hypertension) (CMS/HCC) Hypothyroidism (CMS/HCC) IUD check up Kidney stone 08/16/2023 Left anterior shoulder pain Lump of axillary tail of left breast Lung nodule Menometrorrhagia 08/16/2023 Recurrent cold sores Social History Tobacco Use Smoking status: Never Smokeless tobacco: Never Vaping Use Vaping status: Never Used Substance Use Topics Alcohol use: Defer Comment: Caffeine: 2-3 cups/day Drug use: Never FAMILY HISTORY Family History Problem Relation Name Age of Onset Lung cancer Mother Heart disease Mother No Known Problems Father Cancer Maternal Grandmother Breast cancer Maternal Grandmother SURGICAL HISTORY Past Surgical History: Procedure Laterality Date ABDOMINAL HERNIA REPAIR 12/03/2018 BREAST LUMPECTOMY Left 02/2019 Not malignant CHOLECYSTECTOMY 06/2018 CYSTOSCOPY W/ RETROGRADES Bilateral 01/31/2021 Bilateral retrograde pyelogrmas, urethral dilation GANGLION CYST EXCISION Left hand HM MAMMOGRAPHY 11/27/2018 bx of left breast PAP SMEAR 11/14/2017 negative MD LAP,CHOLECYSTECTOMY 2019 TUBAL LIGATION REVIEW OF SYSTEMS Review of Systems: Review of Systems Constitutional: Negative. HENT: Negative. Eyes: Negative. Respiratory: Negative. Cardiovascular: Negative. Gastrointestinal: Negative. Genitourinary: Positive for dyspareunia, menstrual problem and pelvic pain. Musculoskeletal: Negative. Skin: Negative. Neurological: Negative. All other systems reviewed and are negative. Hematological: Negative. Endocrine: Negative. Allergic/Immunologic: Negative. OBJECTIVE Objective: Physical Exam Constitutional: Appearance: Normal appearance. She is well-developed. Cardiovascular: Rate and Rhythm: Normal rate and regular rhythm. Pulmonary: Effort: Pulmonary effort is normal. Breath sounds: Normal breath sounds. Abdominal: General: Bowel sounds are normal. There is no distension. Palpations: Abdomen is soft. Tenderness: There is no abdominal tenderness. There is no guarding or rebound. Musculoskeletal: General: No swelling. Normal range of motion. Right lower leg: No edema. Left lower leg: No edema. Neurological: Mental Status: She is alert and oriented to person, place, and time. Skin: General: Skin is warm and dry. Psychiatric: Mood and Affect: Mood normal. Behavior: Behavior normal. Vitals and nursing note reviewed. Exam conducted with a solar installation technician present. Vitals: Estimated body mass index is 38.94 kg/m as calculated from the following: Height as of 24: 5' 3 . Weight as of this encounter: 219 lb 12.8 oz. BP: 114/74 No LMP recorded. ASSESSMENT & PLAN ICD-10-CM 1. Preop examination Z01.818 2. Menorrhagia with regular cycle N92.0 3. Pelvic pain in female R10.2 4. Dyspareunia in female N94.10 5. Dysmenorrhea N94.6 Pre Op: Patient is doing well but has complaints of pelvic pain, menorrhagia, dyspareunia, and dysmenorrhea. I have discussed conservative management vs. surgical management with the patient in detail and patient desires surgical management at this time. Patient will undergo Da Sarmad assisted Laparoscopic Hysterectomy, possible exploratory laparotomy, possible BSO, possible cystoscopy on 07/02/2024. Surgical consents were signed, mmc was reviewed, and patient is to proceed to [facility]. Follow Up: Patient is to follow up at 1 & 6 weeks post operative to assess proper healing and recovery from procedure. Documented by Radha Ferrera LPN on behalf of: Tammy Raymundo DO documented in this encounter [facility] 05-14-2024 Telephone encount er Note Needs scheduled an appt for her chronic conditions and blood pressure [place] [facility] 05-14-2024 Miscellaneous Notes Formattin g of this note might be different from the original. Needs scheduled an appt for her chronic conditions and blood pressure [place] documented in this encounter [facility] 02-20-2024 History of Presen t illness Narrative Reason for Appointment: Patient ID: Emily Klein is a 38 y.o. female who presents for Well Women Visit Patient presents today for Annual Exam. MEDICATIONS Current Outpatient Medications Medication Instructions albuterol HFA 90 mcg/act inhaler hydroCHLOROthiazide (HYDRODiuril) 12.5 MG tablet May take dose 1 pill up to three times per week for swelling in legs hydroCHLOROthiazide (HYDRODIURIL) 25 mg, Oral, Daily lisinopril 10 mg, Oral, Every 24 hours, Take 10 mg by mouth 1 (one) time each day at the same time. oseltamivir (Tamiflu) 75 MG capsule valACYclovir (Valtrex) 1 g tablet ALLERGIES Allergies Allergen Reactions Erythromycin Anaphylaxis Other Reaction(s): Hives Penicillins Anaphylaxis Other Reaction(s): Hives, Skin Rashes Zithromax [Azithromycin] Prednisone Palpitations Other Reaction(s): Comments: tachycardia PROBLEMS Active Ambulatory Problems Diagnosis Date Noted Calculus of gallbladder with acute on chronic cholecystitis without obstruction 05/21/2023 Derangement of knee 03/07/2014 Hematuria, gross 12/29/2020 Inflammatory polyarthropathy (CMS/HCC) 05/21/2023 Joint pain 03/04/2014 Low back pain 03/07/2014 Primary fibromyalgia syndrome 05/21/2023 HTN (hypertension) (CMS/HCC) 05/21/2023 Seasonal allergies 05/21/2023 Hypothyroid (CMS/HCC) 05/21/2023 Mass of axillary tail of left breast 05/21/2023 Lung nodule 05/21/2023 KEKE (obstructive sleep apnea) 05/21/2023 H/O cold sores 05/21/2023 Obesity (BMI 30-39.9) 05/21/2023 Abnormal weight gain 06/28/2023 Kidney stone 08/16/2023 Menometrorrhagia 08/16/2023 Environmental and seasonal allergies 08/16/2023 Bilateral lower extremity edema 08/16/2023 Resolved Ambulatory Problems Diagnosis Date Noted No Resolved Ambulatory Problems Past Medical History: Diagnosis Date Abdominal hernia Abnormal computed tomography angiography (CTA) of abdomen and pelvis Abnormal thyroid blood test Chest pain DUB (dysfunctional uterine bleeding) Elevated blood uric acid level Elevated serum glucose Fibromyalgia Headache History of abnormal cervical Pap smear History of hernia repair Hypothyroidism (CMS/HCC) IUD check up Left anterior shoulder pain Lump of axillary tail of left breast Recurrent cold sores HISTORY PAST MEDICAL HISTORY SOCIAL HISTORY Past Medical History: Diagnosis Date Abdominal hernia Abnormal computed tomography angiography (CTA) of abdomen and pelvis Abnormal thyroid blood test Abnormal weight gain Chest pain DUB (dysfunctional uterine bleeding) Elevated blood uric acid level Elevated serum glucose Environmental and seasonal allergies 08/16/2023 Fibromyalgia Headache Hematuria, gross History of abnormal cervical Pap smear ASCUS History of hernia repair HTN (hypertension) (CMS/HCC) Hypothyroidism (CMS/HCC) IUD check up Kidney stone 08/16/2023 Left anterior shoulder pain Lump of axillary tail of left breast Lung nodule Menometrorrhagia 08/16/2023 Recurrent cold sores Social History Tobacco Use Smoking status: Never Smokeless tobacco: Never Vaping Use Vaping status: Never Used Substance Use Topics Alcohol use: Defer Comment: Caffeine: 2-3 cups/day Drug use: Never FAMILY HISTORY Family History Problem Relation Name Age of Onset Lung cancer Mother Heart disease Mother No Known Problems Father Cancer Maternal Grandmother Breast cancer Maternal Grandmother SURGICAL HISTORY Past Surgical History: Procedure Laterality Date ABDOMINAL HERNIA REPAIR 12/03/2018 BREAST LUMPECTOMY Left 02/2019 Not malignant CHOLECYSTECTOMY 06/2018 CYSTOSCOPY W/ RETROGRADES Bilateral 01/31/2021 Bilateral retrograde pyelogrmas, urethral dilation GANGLION CYST EXCISION Left hand HM MAMMOGRAPHY 11/27/2018 bx of left breast PAP SMEAR 11/14/2017 negative MD LAP,CHOLECYSTECTOMY 2019 TUBAL LIGATION REVIEW OF SYSTEMS Review of Systems: Review of Systems Constitutional: Negative. HENT: Negative. Eyes: Negative. Respiratory: Negative. Cardiovascular: Negative. Gastrointestinal: Negative. Musculoskeletal: Negative. Skin: Negative. Neurological: Negative. Psychiatric/Behavioral: Negative. All other systems reviewed and are negative. Hematological: Negative. Endocrine: Negative. OBJECTIVE Objective: Physical Exam Constitutional: Appearance: Normal appearance. Genitourinary: Right Adnexa: not tender and no mass present. Left Adnexa: not tender and no mass present. No cervical discharge. Breasts: Breasts are soft. Right: Normal. Left: Normal. HENT: Head: Normocephalic. Nose: Nose normal. Mouth/Throat: Mouth: Mucous membranes are moist. Cardiovascular: Rate and Rhythm: Normal rate. Pulmonary: Effort: Pulmonary effort is normal. Abdominal: General: Bowel sounds are normal. Palpations: Abdomen is soft. Musculoskeletal: General: Normal range of motion. Cervical back: Normal range of motion. Neurological: General: No focal deficit present. Mental Status: She is alert. Skin: General: Skin is warm and dry. Psychiatric: Mood and Affect: Mood normal. Vitals and nursing note reviewed. Exam conducted with a solar installation technician present. Vitals: Estimated body mass index is 38.16 kg/m as calculated from the following: Height as of 24: 5' 3 . Weight as of this encounter: 215 lb 6.4 oz. BP: 116/80 No LMP recorded. ASSESSMENT & PLAN ICD-10-CM 1. Well woman exam with routine gynecological exam Z01.419 Pap Smear HPV DNA probe, amplified Annual Exam: Patient presents today for an annual exam. Patient states she is doing well but states her periods are still abnormal and she is experiencing more breast pain and hormonal issues. Patient desires a total hysterectomy as her ablation has failed after a year. Pap was obtained without difficulty. Orders Placed This Encounter Procedures HPV DNA probe, amplified Follow Up: Patient is to return for preop hyterectomy Documented by Elise Herrera LPN on behalf of: RANDAL Mackay documented in this encounter [facility] 05-16-2023 Miscellaneous Notes Formattin g of this note might be different from the original. Please schedule her for cystoscopy/bilateral retrograde pyelograms/possible biopsy/U of M instillation under MAC anesthesia with Dr. Brown in [place]. Diagnosis: Gross hematuria LMOM 05/24/2023 @ 351PM Lmom 07/06/2023 @ 338pm Pt has not returned messages to schedule Please send a letter. If she still does not respond, send a certified letter. Thank you Letter mailed 07/27/2023 Faxed to pcp documented in this encounter [facility] 05-16-2023 Telephone encount er Note Please schedule her for cystoscopy/bilateral retrograde pyelograms/possible biopsy/U of M instillation under MAC anesthesia with Dr. Brown in [place]. Diagnosis: Gross hematuria [facility] 05-16-2023 Telephone encount er Note LMOM 05/24/2023 @ 351PM [facility] 05-16-2023 Telephone encount er Note Lmom 07/06/2023 @ 338pm [facility] 05-16-2023 Telephone encount er Note Pt has not returned messages to schedule [facility] 05-16-2023 Telephone encount er Note Please send a letter. If she still does not respond, send a certified letter. Thank you [facility] 05-16-2023 Telephone encount er Note Letter mailed 07/27/2023 Faxed to pcp [facility] Evaluation note Diagnosis Hematuria, gross- Primary Gross hematuria Obesity (BMI 30-39.9) Primary hypertension (CMS/HCC) Unspecified essential hypertension Inflammatory polyarthropathy (CMS/HCC) Unspecified inflammatory polyarthropathy Abnormal weight gain- Primary Obesity (BMI 30-39.9) Bilateral lower extremity edema- Primary Primary hypertension (CMS/HCC) Unspecified essential hypertension Obesity (BMI 30-39.9) Abnormal weight gain Primary hypertension (CMS/HCC)- Primary Unspecified essential hypertension Bilateral lower extremity edema Abnormal weight gain Obesity (BMI 30-39.9) Preop examination Unspecified pre-operative examination Menorrhagia with regular cycle Pelvic pain in female Unspecified symptom associated with female genital organs Dyspareunia in female Dysmenorrhea documented in this encounter [facility] HealthcareEvaluation note* Diagnosis Well woman exam with routine gynecological exam Routine gynecological examination documented in this encounter [facility] HealthcareEvaluation note* Diagnosis Hematuria, gross- Primary Gross hematuria Obesity (BMI 30-39.9) Primary hypertension (CMS/HCC) Unspecified essential hypertension Inflammatory polyarthropathy (CMS/HCC) Unspecified inflammatory polyarthropathy Abnormal weight gain- Primary Obesity (BMI 30-39.9) Bilateral lower extremity edema- Primary Primary hypertension (CMS/HCC) Unspecified essential hypertension Obesity (BMI 30-39.9) Abnormal weight gain Primary hypertension (CMS/HCC)- Primary Unspecified essential hypertension Bilateral lower extremity edema Abnormal weight gain Obesity (BMI 30-39.9) Primary hypertension (CMS/HCC) Unspecified essential hypertension documented in this encounter [facility] Purpose Family History No Family History Records FoundNo Family History Records FoundNo Family History Records Found Advance Directives No Advanced Directives Records FoundNo Advanced Directives Records FoundNo Advanced Directives Records Found Additional Source Comments INFORMATION SOURCE (unrecogn ized section and content) DATE CREATED AUTHOR 12/17/2017 [facility] DATE CREATED AUTHOR AUTHOR'S ORGANIZ ATION 07/31/2022 [facility] DATE CREATED AUTHOR AUTHOR'S ORGANIZ ATION 06/08/2024 [facility] EPIC Care Teams (unrecognized sec tion and content) Snuff Drier Relationship Specialty Start Date End Date Gabriela Craig, COMPUTER SYSTEMS TECHNOLOGY INSTRUCTOR-PHOTOGRAPHIC EQUIPMENT TECHNICIAN [address] [place] [address] PCP - General Nurse Practitioner 12/27/20 Snuff Drier Relationship Specialty Start Date End Date Philip Milligan MD [address] [place] [address] PCP - General [facility] 08/16/23 Snuff Drier Relationship Specialty Start Date End Date Philip Milligan MD [address] [place] [phone] PCP - [facility] 08/16/23 Snuff Drier Relationship Specialty Start Date End Date Philip Milligan MD [address] [place] [phone] PCP - [facility] 08/16/23 Snuff Drier Relationship Specialty Start Date End Date [place] Milligan MD [address] [place] [phone] PCP - [facility] 08/16/23 Snuff Drier Relationship Specialty Start Date End Date Philip Milligan MD [address] [place] [phone] PCP - [facility] 08/16/23 Snuff Drier Relationship Specialty Start Date End Date Philip Milligan MD [address] [place] [phone] PCP - [facility] Medicine 08/16/23 Reason for Visit (unrecogniz ed section and content) Reason Comments Pre-op Visit Reason Comments Well Women Visit Reason Onset Date Comments Med Refill 06/13/2024 FOR RECORDS PERTAINING TO PATIENTS WHO ARE [...] BE BASED ON THE PRIMARY CLINICAL RECORDS. [facility]. provides no warranty or guarantee of the accuracy or completeness of information in this document.
[2024-06-20 09:45] LABS: Basophils Absolute Auto 0.1 10^3/uL (0.0-0.1); Basophils Percent Auto 0.9 % (0.2-2.0); Eosinophils Absolute Auto 0.1 10^3/uL (0.0-0.7); Eosinophils Percent Auto 1.3 % (0.9-7.0); Hematocrit 40.7 % (36.0-48.0); Hemoglobin 13.7 g/dL (12.0-16.0); Immature Granulocytes Abs Auto 0.03 10^3/uL (0.00-0.03); Immature Granulocytes Pct Auto 0.4 % (0.0-0.5); Lymphocytes Percent Auto 28.7 % (20.5-60.0); Mean Corpuscular HGB Conc 33.7 g/dL (29.9-35.2); Mean Corpuscular Hemoglobin 32.5 pg (26.7-34.0); Mean Corpuscular Volume 96.7 fL (81.0-99.0); Mean Platelet Volume 9.3 fL (9.5-13.5); Monocytes Absolute Auto 0.5 10^3/uL (0.3-0.8); Monocytes Percent Auto 7.9 % (1.7-12.0); Neutrophils Absolute Auto 4.1 10^3/uL (1.4-6.5); Neutrophils Percent Auto 60.8 % (43.0-75.0); Platelet Count 343 10^3/uL (150-450); Red Blood Count 4.21 10^6/uL (4.20-5.40); Red Cell Distribution Width 11.8 % (11.0-15.0); White Blood Count 6.8 10^3/uL (4.0-11.0)
[2024-06-20 09:56] LABS: INR 0.98; Partial Thromboplastin Time 29.3 sec (22.3-36.2); Prothrombin Time 10.4 sec (9.0-11.6)
[2024-06-20 10:17] LABS: Alanine Aminotransferase 19 U/L (14-59); Albumin Level 3.7 g/dL (3.4-5.0); Alkaline Phosphatase 71 U/L (46-116); Anion Gap 12.4; Aspartate Amino Transferase 14 U/L (15-37); BUN Creatinine Ratio 9.1; Bilirubin Direct 0.2 mg/dL (0.0-0.2); Bilirubin Total 1.1 mg/dL (0.2-1.0); Calcium 8.9 mg/dL (8.5-10.1); Carbon Dioxide 27.8 mmol/L (21.0-32.0); Chloride 104 mmol/L (98-107); Estimated GFR (African America >60 (>=60 mL/min/1.73m^2); Estimated GFR (Non-African Ame >60 (>=60 mL/min/1.73m^2); Globulin 3.6 g/dL; Glucose 106 mg/dL (74-106); Potassium 4.2 mmol/L (3.5-5.1); Sodium 140 mmol/L (136-145); Total Protein 7.3 g/dL (6.4-8.2)
== END 2024-06-20 08:45 | disposition home or self-care (01) ==
LOC: PST 08:45
PROVIDERS: PCP Nurse Practitioner; Visit Provider Obstetrics & Gynecology
DX: Z01.810 Encounter for preprocedural cardiovascular examination (principal); Z01.812 Encounter for preprocedural laboratory examination; N92.0 Excessive and frequent menstruation with regular cycle; R10.2 Pelvic and perineal pain; N94.6 Dysmenorrhea, unspecified
CPT/HCPCS: 36415; 80048; 80076; 85610; 85730; 86850; 86900; 86901; 93005

== ENCOUNTER 2024-07-02 14:57 | Inpatient (IN) | payer OTHER, MEDICAID, SELFPAY ==
[2024-06-20 09:32] VITALS: BP 114/77; PULSE 76; TEMP 36.4; O2SAT 99; BMI 38.3
[2024-07-02] VITALS (23 sets, daily range): BP systolic 96–126; BP diastolic 59–75; PULSE 71–120; TEMP 36.1–36.7; O2SAT 94–100; BMI 38.6
[2024-07-02 06:24] LABS: Basophils Absolute Auto 0.1 10^3/uL (0.0-0.1); Eosinophils Absolute Auto 0.1 10^3/uL (0.0-0.7); Eosinophils Percent Auto 1.5 % (0.9-7.0); Hematocrit 39.7 % (36.0-48.0); Hemoglobin 13.1 g/dL (12.0-16.0); Immature Granulocytes Abs Auto 0.02 10^3/uL (0.00-0.03); Immature Granulocytes Pct Auto 0.3 % (0.0-0.5); Lymphocytes Absolute Auto 2.2 10^3/uL (1.2-3.8); Lymphocytes Percent Auto 30.3 % (20.5-60.0); Mean Corpuscular Hemoglobin 31.6 pg (26.7-34.0); Mean Corpuscular Volume 95.7 fL (81.0-99.0); Mean Platelet Volume 9.3 fL (9.5-13.5); Monocytes Absolute Auto 0.7 10^3/uL (0.3-0.8); Monocytes Percent Auto 9.6 % (1.7-12.0); Neutrophils Absolute Auto 4.1 10^3/uL (1.4-6.5); Neutrophils Percent Auto 57.3 % (43.0-75.0); Platelet Count 353 10^3/uL (150-450); Red Blood Count 4.15 10^6/uL (4.20-5.40); Red Cell Distribution Width 11.4 % (11.0-15.0); White Blood Count 7.2 10^3/uL (4.0-11.0)
[2024-07-02] MEDS: LACTATED RINGER'S SOLUTION 1,000 ML 50 ML IV ×3 (06:47→11:19)
[2024-07-02] MEDS: CIPROFLOXACIN 400 MG/200 ML D5W PREMIX 200 MG IV (06:48)
[2024-07-02 07:18] LABS: HCG Quantitative <1 mIU/mL
[2024-07-02] MEDS: FAMOTIDINE/PF 20 MG/2 ML VIAL IV (07:27)
[2024-07-02] MEDS: SCOPOLAMINE 1 MG/3 DAYS TRANSDERM PATCH 1 PATCH TD (07:27)
[2024-07-02] MEDS: METRONIDAZOLE/SODIUM CHLORIDE 500 MG/100 ML PREMIX 100 MG IV ×2 (07:27→14:21)
--- NOTE | 2024-07-02 10:55 | PM.ONB ---
Brief Operative Note Date of procedure: 07/02/24 Pre-op diagnosis general: menorrhagia, pelvic pain, dyspareunia, dysmenorrhea Post-op diagnosis: same as pre-op Procedure: NAME OF PROCEDURE: ? Robotic assisted laparoscopic hysterectomy with cystoscopy, partial bilateral salpingectomy was converted to total abdominal hysterectomy with partial bilateral tubal ligation with cystoscopy PROCEDURE:? The patient was taken back to the operating room, where she was prepped and draped in the normal sterile fashion after being placed in the dorsal lithotomy position.? Patient?s anesthesia was found to be adequate.? Surgical timeout was performed using two patient identifiers.? SCDs were on and in place.? Two grams of Ancef were given prior to the surgery.? Sterile Maguire catheter was inserted.? Standard size VCare was secured to the uterine cervix and the surgeon changed gloves.? Attention then was turned to the patient's abdomen, where a supraumbilical incision was then made.? Two S retractors were used to identify the patient?s fascia.? The fascia was then tented up using Jimmy clamps and the patient?s fascia was incised sharply.? Patient?s abdomen was identified and entered bluntly.? The patient had the trocar placed and a pneumoperitoneum was obtained.? Approximately 4 liters of CO2 gas was used.? The camera was then placed through the trocar.? At this time, two robot trocars were placed in the patient?s left and right side, two hand widths from the midline, and this was placed under direct visualization.? Due to significant adhesions and prior hernia repair with mesh visualization was very difficult and needed to be converted to open hysterectomy, . A Pfannenstiel skin incision was then made 2 cm above the symphysis and pubis and carried down to underlying rectus fascia using a Bovie. The fascia was incised in the midline and extended bilaterally using Cook scissors. Two Jimmy clamps were placed on the superior aspect of the fascia and dissected off the underlying rectus muscle. The same was performed on the inferior aspect as well. The muscle was then in the midline. The peritoneum was identified and entered bluntly. Peritoneum was then extended superiorly and inferiorly with good visualization of the bladder. An Maricruz'Fiohsflv-Z-Aqeybx retractor was placed into the patient's abdomen. The bowel was packed away with moist laparotomy sponges and the bladder blade was inserted. A Leahey tenaculum was placed on the patient's uterus and used for retraction. LigaSure apparatus was then used to come across the mesosalpingx from the fimbriated end to the uteroovarian ligament on the patient's right side which was then cauterized and transected. TThis wascarried down serially through the broad ligament and across the round ligament. The bladder flap was then created using the Metzenbaum scissors, and thebladder was easily dissected off the patient's lower uterine segment. A curved Estefany was placed across the uterine artery on the right side which was clamped, transected, and suture ligated using #0 Monocryl. This was performed on the contralateral side as well. The bladder was further dissected and a Zeppelin clamp was then placed across the uterosacral and cardinal ligaments. This was transected and suture ligated using #0 Monocryl. This was performed on the contralateral side as well. The uterus was then amputated using Neto scissors. The patient's cuff was closed using #0 PDS in a running locked fashion and this was transfixed to the ipsilateral uterosacral and cardinal ligaments. Excellent hemostasis was assured. The patient's abdomen wascopiously irrigated using warm saline. Cystoscopy was performed. Bladder was intact. Efflux was noted from both ostia. Cystoscope was removed.After excellent hemostasis was assured, all instruments were removed from the patient's abdomen. The patient's peritoneum was closed using 3-0 Vicryl in a running fashion. The patient's fascia was closed using #0 Vicryl in a running fashion. The patient's skin was closed using 4-0 vicryl on a ciro needle. The patient tolerated the procedure well. Sponge, lap, and needle counts were correct times two. Patient taken to the Recovery Room in stable condition Anesthesia: BUSHRA Surgeon: Orlando Raymundo Electronic Systems Technician: Meka Tyler Estimated blood loss (mL): 50 Pathology: other (cervix uterus and tubes) Condition: stable Disposition: PACU Urinary Catheter Management Urinary Catheter Management Urethral: Cath placed during this visit: no
[2024-07-02] MEDS: ONDANSETRON PF 4 MG/2 ML VIAL IV (11:46)
--- NOTE | 2024-07-02 11:54 | PC.NURSE ---
2112 PATIENT HAD AND EMESIS MEDIUM AFTER TAKING SIPS OF WATER. GAVE ZOFRAN ORDERED BY DR PIPER. PATIENT IS SLEEPING AT THIS TIME
[2024-07-02] MEDS: HALOPERIDOL LACTATE 5 MG/ML VIAL IV (12:00)
--- NOTE | 2024-07-02 12:06 | PC.NURSE ---
ADMINISTERED HALDOL AT [address] PIPER FOR NAUSEA STILL HAD AFTER ZOFRAN. PATIENT IS ASLEEP NOW
[2024-07-02] MEDS: HYDROMORPHONE HCL 0.5 MG/0.5 ML SYRINGE IV (12:13)
[2024-07-02] MEDS: KETOROLAC TROMETHAMINE 30 MG/ML VIAL IVP (14:22)
[2024-07-02] MEDS: HYDROCODONE/ACET 5-325 MG TABLET 2 TAB PO (15:48)
[2024-07-02] MEDS: CIPROFLOXACIN IN 5 % DEXTROSE 400 MG/200 ML PREMIX 125 MG IV (17:05)
[2024-07-02] MEDS: SIMETHICONE 80 MG TAB.CHEW PO ×2 (17:53→21:39)
[2024-07-02] MEDS: LACTATED RINGER'S SOLUTION 1,000 ML 125 ML IV (18:03)
[2024-07-02] MEDS: HYDROCODONE/ACET 5-325 MG TABLET 1 TAB PO (23:20)
[2024-07-03 04:38] VITALS: BP 116/75; PULSE 77; TEMP 36.8; O2SAT 95
[2024-07-03] MEDS: ENOXAPARIN SODIUM 40 MG/0.4 ML SYRINGE SUBQ (06:11)
[2024-07-03] MEDS: HYDROCODONE/ACET 5-325 MG TABLET 1 TAB PO (06:13)
[2024-07-03 06:22] LABS: Basophils Percent Auto 0.2 % (0.2-2.0); Eosinophils Percent Auto 0.2 % (0.9-7.0); Hematocrit 37.9 % (36.0-48.0); Hemoglobin 12.4 g/dL (12.0-16.0); Immature Granulocytes Abs Auto 0.05 10^3/uL (0.00-0.03); Immature Granulocytes Pct Auto 0.5 % (0.0-0.5); Lymphocytes Absolute Auto 2.2 10^3/uL (1.2-3.8); Lymphocytes Percent Auto 19.9 % (20.5-60.0); Mean Corpuscular HGB Conc 32.7 g/dL (29.9-35.2); Mean Corpuscular Hemoglobin 31.5 pg (26.7-34.0); Mean Corpuscular Volume 96.2 fL (81.0-99.0); Mean Platelet Volume 9.5 fL (9.5-13.5); Monocytes Absolute Auto 0.8 10^3/uL (0.3-0.8); Monocytes Percent Auto 7.2 % (1.7-12.0); Neutrophils Absolute Auto 7.8 10^3/uL (1.4-6.5); Platelet Count 332 10^3/uL (150-450); Red Blood Count 3.94 10^6/uL (4.20-5.40); Red Cell Distribution Width 11.8 % (11.0-15.0); White Blood Count 10.8 10^3/uL (4.0-11.0)
[2024-07-03 07:44] VITALS: BP 110/64; PULSE 72; TEMP 36.7; O2SAT 96
[2024-07-03] MEDS: MAGNESIUM HYDROXIDE 2,400 MG/10 ML ORAL.SUSP 2400 MG PO (08:56)
[2024-07-03] MEDS: SIMETHICONE 80 MG TAB.CHEW PO ×2 (08:56→11:36)
[2024-07-03] MEDS: KETOROLAC TROMETHAMINE 30 MG/ML VIAL IVP (12:32)
[2024-07-03] MEDS: DOCUSATE SODIUM 100 MG CAPSULE PO (12:40)
[2024-07-03 12:42] VITALS: BP 118/73; PULSE 69; TEMP 36.9; O2SAT 99
--- NOTE | 2024-07-03 12:54 | PM.GYNPN2 ---
SHIELD INSTALLER - PN: Subj Post-Op Subjective: patient has no complaints, patient desires discharge, pain is well controlled and patient is tolerating oral intake Exam Constitutional Vital Signs, click to edit/add: Last Vital Signs Temp 98.5 F 07/03/24 12:42 Pulse 69 07/03/24 12:42 Resp 18 07/03/24 12:42 BP 118/73 07/03/24 12:42 Pulse Ox 99 07/03/24 12:42 O2 Del Method Room Air 07/03/24 12:42 Documenting provider has reviewed patient's vital signs: yes Common normals: no apparent distress Respiratory Common normals: normal respiratory effort and clear to auscultation bilaterally Cardio Common normals: regular rate and regular rhythm GI Common normals: Normal to inspection, nondistended, normoactive bowel sounds present Extremity Common normals: no clubbing, cyanosis or edema and no calf tenderness Results Labs Labs: Short CBC 07/03/24 Range/Units 05:50 WBC 10.8 (4.0-11.0) 10^3/uL Hgb 12.4 (12.0-16.0) g/dL Hct 37.9 (36.0-48.0) % Plt Count 332 (150-450) 10^3/uL SHIELD INSTALLER - A/P Postoperative Procedures: Procedures Operation Date: 07/02/24 07:30 Actual Procedure Side Surgeon p Laparoscopic Davinci assisted Hysterectomy diverted to Open Hysterectomy, partial bilateral salpingectomy, cystoscopy Not Applicable Orlando Raymundo DO Postoperative day: 1 Postoperative status SHIELD INSTALLER: doing well Post-operative plan SHIELD INSTALLER: routine post-op care, discharge and other (precautions given, rx on chart, fu 1wk) Fall Risk Details Perez fall scale risk level: Low Fall Risk Current medications: Current Medications Hydrocodone Bitart/Acetaminophen (Hydrocodone/Acet 5-325 Mg Tablet) 2 tab PO Q6H PRN PRN Reason: Pain Scale 7-10 Last Admin: 07/02/24 15:48 Dose: 2 tab Hydrocodone Bitart/Acetaminophen (Hydrocodone/Acet 5-325 Mg Tablet) 1 tab PO Q6H PRN PRN Reason: Pain Last Admin: 07/03/24 06:13 Dose: 1 tab Docusate Sodium (Docusate Sodium 100 Mg Capsule) 100 mg PO BID PRN PRN Reason: Constipation Last Admin: 07/03/24 12:40 Dose: 100 mg Enoxaparin Sodium (Enoxaparin Sodium 40 Mg/0.4 Ml Syringe) 40 mg SUBQ Q24H [facility] Last Admin: 07/03/24 06:11 Dose: 40 mg Lactated Ringer's (Lactated Ringers) 1,000 mls @ 125 mls/hr IV .Q8H [facility] Last Admin: 07/03/24 11:19 Dose: Not Given Promethazine HCl 25 mg/ Sodium (Chloride) 51 mls @ 204 mls/hr IV Q6H PRN PRN Reason: Nausea And Vomiting Ibuprofen (Ibuprofen 400 Mg Tablet) 800 mg PO Q6H PRN PRN Reason: Pain Ketorolac Tromethamine (Ketorolac Tromethamine 30 Mg/Ml Vial) 30 mg IVP Q6H PRN PRN Reason: Pain Last Admin: 07/03/24 12:32 Dose: 30 mg Ondansetron HCl (Ondansetron Pf 4 Mg/2 Ml Vial) 4 mg IV Q6H PRN PRN Reason: Nausea Simethicone (Simethicone 80 Mg Tab.Chew) 80 mg PO PCHS PRN PRN Reason: Abdominal Distention Last Admin: 07/03/24 11:36 Dose: 80 mg Temazepam (Temazepam 15 Mg Capsule) 30 mg PO QHS PRN PRN Reason: Sleep Time Spent With Patient Time: Total time spent is greater than 50% in coordination of care (as documented) at patient's floor/unit and/or counseling patient: Time with patient: less than 15 minutes Urinary Catheter Management Urinary Catheter Management Urethral: Cath placed during this visit: yes, but has since been removed by the nurse Removal date: 07/03/24 Removal time: 05:14
[2024-07-03] MEDS: BISACODYL 10 MG RECTAL SUPPOSITORY PR (13:32)
== END 2024-07-03 15:18 | disposition home or self-care (01) | DRG 743 ==
LOC: SURGOUT 07-03 07:48 → MS 07-03 07:48
PROVIDERS: Admitting Provider Obstetrics & Gynecology; PCP Nurse Practitioner; Visit Provider Obstetrics & Gynecology
PROC: 0UT90ZZ Resection of Uterus, Open Approach (ICD-10-PCS; principal; 2024-07-02 07:30)
DX: N92.0 Excessive and frequent menstruation with regular cycle (principal); R10.2 Pelvic and perineal pain; N94.10 Unspecified dyspareunia; N94.6 Dysmenorrhea, unspecified; Z53.31 Laparoscopic surgical procedure converted to open procedure; Z90.49 Acquired absence of other specified parts of digestive tract; Z98.51 Tubal ligation status; E03.9 Hypothyroidism, unspecified; I10 Essential (primary) hypertension; J45.909 Unspecified asthma, uncomplicated
CPT/HCPCS: 36415; 84702; 85025; 88307; 94667; J0131; J0744; J1100; J1171; J1630; J1650; J1836; J1885; J2250; J2371; J2405; J2704; J3010

== ENCOUNTER 2025-05-19 20:53 | Outpatient (OUT) | payer OTHER, MEDICAID, SELFPAY ==
--- OUTSIDE RECORDS SUMMARY | 2024-08-06 10:15 | XMS_ITS ---
Author Organization [facility] Address [facility] [place] [facility] [place] [id number] Care Team Providers Care Poly Operator Name Role Phone Madhu Alfredo Unavailable [phone] Maryse Sapp Unavailable [phone] REASON FOR VISIT CANCEL- Rest #14-OL Social History Sex Assigned At : Social History Observation Description Sex Assigned At Female Encounters Encounter Location Date Provider Diagnosis [facility] [address] [place] [phone] 08/06/2024 Maryse Sapp Plan Of Treatment Next Appt Details Provider Name:Maryse Sapp , 07/17/2025 03:00:00 PM, [address] [place] [address], [phone], Progress Notes * ERNIEEmily MERCERDOB:1985 ( 39 yo F)Acc No.[id number]:08/06/2024 Patient:?Emily Klein :?Maryse Sapp DMDDOB:1985???Age:39 Y ???Sex:FemaleDate:08/06/2024Phone:[phone]:[facility] [id number] Subjective: * Chief Complaints: * C ANCEL- Rest #14-OL * Electronic signature of Maryse Sapp DMD on 05/19/2025 at 09:00 PM ESTSign off status: Pending * Provider: Angel Sapp DMD Date: 0 08/06/2024 Generated for Printing/Faxing/eTransmitting on:?05/19/2025 09:00 PM EST
--- OUTSIDE RECORDS SUMMARY | 2025-05-06 12:36 | XMS_ITS | Continuity of Care Document ---
Author Organization [facility] Address [address] [place] [address] Phone Care Team Providers Care Librarian School Name Role Phone Gabriela Craig [employer]TER OPERATOR-C Primary Care Provider [phone] Gabriela Craig [employer] OPERATOR-C Attending Provider Care Teams Patient Care Team Team Status: Active Member Role/Relationship Status Dates Gabriela Craig [employer] OPERATOR-C Primary Care Provider Active Visit Care Team Team Status: Inactive Member Role/Relationship Status Dates Gabriela Craig [employer]TER OPERATOR-C Primary Care Provider Active Start: March 25, 2025 End: March 25, 2025Gabriela Craig C[employer]TER OPERATOR-CAttending ProviderActiveStart: March 25, 2025 End: March 25, 2025 Patient Care Team Team Status: Inactive Member Role/Relationship Status Dates Gabriela Craig [employer] OPERATOR-C Primary Care Provider Active Start: May 06, 2025 End: May 06, 2025Gabriela Craig C[employer]TER OPERATOR-CAttenbecca ProviderActiveStart: May 06, 2025 End: May 06, 2025 Chief Complaint and Reason for Visit Chief Complaint Admit Date 6W March 25, 2025 5: 31pm 6W May 06, 2025 4:56pm Reason for Visit Admit Date Edema of both lower extremities March 25, 2025 5:31pm Fatigue March 25, 2025 5: 31pm Hypertension March 25, 2025 5: 31pm Hypothyroidism March 25, 2025 5: 31pm Obesity March 25, 2025 5: 31pm Tachycardia March 25, 2025 5: 31pm Edema of both lower extremities May 06, 2025 4:56pm Hypertension May 06, 2025 4:56pm Hypothyroidism May 06, 2025 4:56pm Obesity May 06, 2025 4:56pm Tachycardia May 06, 2025 4:56pm Thyroid antibody positive May 06, 2025 4:56pm Allergies, Adverse Reactions, Alerts Allergen Type Severity Reaction Last Updated Verified Status erythromycin base Allergy Severe Anaphylaxis 2024 12:43pm Yes Active Penicillins Allergy Severe Anaphylaxis March 222024 12:43pm Yes Active azithromycin Allergy Unknown Unknown Reaction 2024 12:43pm Yes Active prednisone Allergy Unknown Palpitations March 222024 12:43pm Yes Active Social History Smoking Status Unknown if ever smoked Observation Status Observation Response Date of Response Legal Sex [facility] (finding) [facility] Problems Active Problems Problem Diagnosis/Recorded Date Onset Date Stat Edema of both lower extremities March 09, 2025 1 2:04pm Unknown Active Liver lesion March 22, 2025 12:45pm Unknown Active KEKE (obstructive sleep apnea) March 22, 2025 12: 45pm Unknown Active Calculus of gallbladder March 22, 2025 12:44pm U nknown Active Herpes labialis March 22, 2025 12:44pm Unknown Active Fatigue March 25, 2025 5:06pm Unknown Act babatunde Colitis March 22, 2025 12:44pm Unknown Active Fibromyalgia March 22, 2025 12:45pm Unknown Active Hypothyroidism March 22, 2025 12:45pm Unknown Active Kidney stone March 22, 2025 12:45pm Unknown Active Pulmonary nodule March 22, 2025 12:45pm Unknown Active Environmental and seasonal allergies March 22, 025 12:44pm Unknown Active Gross hematuria March 22, 2025 12:44pm Unknown Active Thyroid antibody positive April 08, 2025 11:43am U nknown Active Tachycardia March 22, 2025 12:46pm Unknown Active Hypertension March 09, 2025 12:04pm Unknown Active Obesity March 09, 2025 12:05pm Unknown Active Medications Medication Status Dose Units Route Directions Qty Days Refills S tart Date Stop Date End Date Reason(s) Instructions Adherence Lisinopril 10 mg tablet Active 10 MG PO Daily 90 1Sept2024 11:00pmHypertension Essential (primary) hypertensionComplies with drug therapyHydrochlorothiazide 25 mg luaaffKtuvtd84HNKJFssol963Jbyexzjjn 2024 11:00pmHypertension Edema of both lower extremities Essential (primary) hypertension Localized edemaComplies with drug therapyPhentermine (Adipex-P) 37.5 mg tablet Dyarllfvlsuw06.3OQXIAdool25941Gzknlcfmu 2024 11:00pmOctober 2024 5:11pmObesity Obesity, unspecifiedmust administer 30 minutes before or 1-2 hours after breakfastAlbuterol Sulfate 90 mcg/actuation HFA aerosol ykawnxbZonjab2OPOG INHALATIONEVERY 4-6 HOURS as neededSeptember 2024 11:00pmComplies with drug therapyCholecalciferol (Vitamin D3) 25 mcg (1,000 unit) bzbevsMpwrho20DMDHA DailySept2024 11:00pmComplies with drug therapyHydrochlorothiazide 12.5 mg heftkeQjzgaa45.5MGPOEvery morning as neededSept2024 11:00pm Complies with drug therapyPhentermine (Adipex-P) 37.5 mg txwpakNtisgs79.5MGPO Dzame98291Idinown 2024 5:10pmObesity Obesity, unspecifiedmust administer 30 minutes before or 1-2 hours after breakfastComplies with drug therapyAtenolol 25 mg mspznlLdsjxdwezdku90KQDGClfmu 900Sept2024 11:00pmNovember 2024 5:30pmTachycardia Tachycardia, unspecified Vital Signs Vital Reading Result Reference Range Collection Date/Time Height 63 [in_i] March 25, 2025 4:30seLkayez06.72 kgOctober 2024 4:47pmBody Temperature 97.5 [degF]97.6-99.0October 2024 4:47pmHeart Rate83 /jwh23-083Hqzterw 1st, 2025 4:47pmRespiratory rate16 /zmn75-44Tmdjibp 1st, 2025 4:47pmOxygen saturation by Pulse uadexwya27 %95-100October 2024 4:47pmBP Slxjigqu951 mm[Hg]100-140 March 25, 2025 4:47pmBP Supxfapif83 mm[Hg]60-100October 2024 4:47pmBMI (Body Mass Index)37.8 kg/x0Ipfggph2024 4:34hgZfizzg39 [in_i]May 06, 2025 5:06htDbvfxe80.57 kgMay 06, 2025 5:07pmBody Xbuvgvayxqc77.5 [degF] 97.6-99.0May 06, 2025 5:07pmHeart Rate75 /phw42-048LrpsbbfnMay 06, 2025 5:07pmRespiratory rate18 /bnr90-71OgwsdwvxMay 06, 2025 5:07pmOxygen saturation by Pulse yljulsvn56 %95-100May 06, 2025 5:07pmBP Ghdbhztz656 mm[Hg]100-140 May 06, 2025 5:07pmBP Hjfkdsyai66 mm[Hg]60-100Nov2024 5:07pm BMI (Body Mass Index)38.1 kg/h8Qgmgquwm2024 5:07pm Advance Directives Advance Directive Response Recorded Date/ Time Advance Directives No July 31, 2024 7:34am Insurance Providers Guarantor Emily Klein Address [address] [place], [place] [address]Contact Info.Home Phone: Coverage Status Update:2025 Payer Group Member ID Coverage Type Subscriber Relationship to Subscriber Effective Date Expiration Date [facility] [id number] Noé Klein Id: [id number] [address] [place] [id number] Home Phone: Email: [email or web address] Encounters Encounter Location(s) Arrival/Admit Date Discharge/Departure Date Discharge/Departure Disposition Provider(s) Departed Physician/ Provider Office Visit -[facility] [place] March 25, 2025 5:31pm March 25, 2025 6:10pm Discharged to home care or self care (routine discharge) MARIA FERNANDA Carrillo Departed Physician/ Provider Office Visit -[facility] May 06, 2025 4:56pm May 06, 2025 5:36pm Discharged to home care or self care (routine discharge) MARIA FERNANDA Carrillo Recent Diagnosis Onset Date Admit Date Edema of both lower extremities Unknown March 25, 2025 5:31pm Fatigue Unknown March 25 5:31pm Hypertension Unknown March 25 5:31pm Hypothyroidism Unknown March 25 5:31pm Obesity Unknown March 25 5:31pm Tachycardia Unknown March 25 5:31pm Edema of both lower extremities Unknown May 06, 2025 4:56pm Hypertension Unknown May 06, 025 4:56pm Hypothyroidism Unknown May 06, 4:56pm Obesity Unknown May 06, 4:56pm Tachycardia Unknown May 06 4:56pm Thyroid antibody positive Unknown Novemb er 2024 4:56pm Assessments Diagnosis Onset Date Resolution Status Admit Date Edema of both lower extremities acuteOctober 2024 5:31pmFatigueacuteOctober 2024 5:31pmHypertension acuteOctober 2024 5:31pmHypothyroidismacuteOctober 2024 5:31pmObesity acuteOctober 2024 5:31pmTachycardiaacuteOctober 2024 5:31pmEdema of both lower extremitiesacuteNovember 2024 4:56pmHypertensionacuteNovember 2024 4:56pmHypothyroidismacuteNovember 2024 4:56pmObesityacute May 06, 2025 4:56pmTachycardiaacuteNovember 2024 4:56pmThyroid antibody positiveacuteNovember 2024 4:56pm Plan of Treatment Author Gabriela Craig [facility] CenterAuthoredOctober 2024 5:18pmPlease check blood pressure daily and record DASH diet Limit caffeine Take medication as directed Contact office if chest pain, pressures, dizziness, shortness of breath, swelling in the legs Recommend slow position changes if you develop dizziness with position changes current meds: HCTZ, lisinopril metoprolol review of holter monitor showed ST 41% of time, range 61-160 no afib/svt did not tolerate metoprolol d/t fatigue worsening we will trial atenolol Discussed with patient their BMI (actual vs recommended). We have discussed lifestyle modifications: attempts to perform phsyical activity as chronic conditions allow, monitor dietary intake: increasing protein/fruits/veggies and lowering carb intake (unless contraindicated). Limit sodas, juices, sugary drinks, as well as alcohol consumption. Pt meets qualifications of OAC 4731-04-28 for weight loss. BMI >30 or >27 with comorbid conditions. Notify office with any symptoms of chest pain, dyspnea, heart palpitations, or any anxiety symptoms. F/U in 4 weeks to document weight loss. Increase physical activity as tolerated, and lower caloric intake to 1600 calories daily if no contraindications. months completed: 4 start weight 225 today's weight: 213 OARRS reviewed will prescribe month #5 on HCTZ hx of this, no recent meds for this will check TSH, free t4 and t3, as well as antibodies check labs, check sleep study again Author Gabriela Craig [facility] CenterAuthoredNovember 2024 7:11amPlease check blood pressure daily and record DASH diet Limit caffeine Take medication as directed Contact office if chest pain, pressures, dizziness, shortness of breath, swelling in the legs Recommend slow position changes if you develop dizziness with position changes current meds: HCTZ, lisinopril metoprolol review of holter monitor showed ST 41% of time, range 61-160 no afib/svt did not tolerate metoprolol d/t fatigue worsening we will trial atenolol Discussed with patient their BMI (actual vs recommended). We have discussed lifestyle modifications: attempts to perform phsyical activity as chronic conditions allow, monitor dietary intake: increasing protein/fruits/veggies and lowering carb intake (unless contraindicated). Limit sodas, juices, sugary drinks, as well as alcohol consumption. Pt meets qualifications of OAC 4731-04-28 for weight loss. BMI >30 or >27 with comorbid conditions. Notify office with any symptoms of chest pain, dyspnea, heart palpitations, or any anxiety symptoms. F/U in 4 weeks to document weight loss. Increase physical activity as tolerated, and lower caloric intake to 1600 calories daily if no contraindications. months completed: 4 start weight 225 today's weight: OARRS reviewed will prescribe month on HCTZ hx of this, no recent meds for this did have + antibody was referred to endo was referred to endo Future Tests Future scheduled test information is unavailable Pending Tests Pending diagnostic test information is unavailable Future Visits Future appointment information is unavailable Future Procedures Procedure Name Ordered Date Scheduled Date Basic Metabolic Panel March 25, 2025 5:13pm Complete Blood Count Auto DiffOct5 5:13pmErythrocyte Sedimentation RateOctober 2024 5:13pmIronOctober 2024 5:13pmHepatic PanelOctober 2024 5:13pmMagnesiumOctober 2024 5:13pmTriiodothyronine (T3) Free March 25, 2025 5:13pmFree T4 (Free Thyroxine)March 25, 2025 5:13pmThyroid Antibodies TPO+Tg AbOctober 2024 5:13pmThyroid Stimulating HormoneOctober 2024 5:13pmVit. B12/Folate ProfileOctober 2024 5:13pm Future Medications Future medication information is unavailable Patient Instructions Patient instructions are unavailable
--- OUTSIDE RECORDS SUMMARY | 2025-05-13 15:10 | XMS_ITS | Encounter Summary ---
Author Organization [facility] Address [address] [place] [address] Care Team Providers Care Senior Copywriter Name Role Phone Philip Milligan MD Primary Care Provider [phone] Reason for Visit * ReasonCommentsThyroid ProblemNEW REF/LAB * Other Medical (Routine) - ClosedSpecialtyDiagnoses / ProceduresReferred By ContactReferred To ContactEndocrinology Diagnoses Other specified abnormal immunological findings in serum Other specified abnormal findings of blood chemistry Procedures SD OFFICE/OUTPATIENT NEW MODERATE MDM 45 MINUTES Gabriela Craig, RASHAAD [address] [place] [place] [address] Phone: tel: fax: Shani Dunaway MD [address] [place] [address] Phone: tel: fax: Referral IDStatusReasonStart DateExpiration DateVisits RequestedVisits [id number]/22/20254/ Encounter Details DateTypeDepartmentCare Team (Latest Contact Info)Ljdbfbuwvdo09/19/2025 3:10 PM ESTOffice Visit [facility] [address] [place] [address] Shani Dunaway MD [address] [place] [address] Nonspecific abnormal results of thyroid function study (Primary Dx); Primary hypertension Social History Tobacco UseTypesPacks/DayYears UsedDateSmoking Tobacco: NeverSmokeless Tobacco: NeverAlcohol UseStandard Drinks/WeekCommentsDefer0 (1 standard drink = 0.6 oz pure alcohol)Caffeine: 2-3 cups/repJ6185 Health LiteracyAnswerDate RecordedHow often do you need to have someone help you when you read instructions, pamphlets, or other written material from your doctor or pharmacy?Never 11/19/2024Humiliation, Afraid, Rape, and Kick questionnaireAnswerDate Recorded Within the last year, have you been afraid of your partner or ex-partner?No 11/19/2024Within the last year, have you been humiliated or emotionally abused in other ways by your partner or ex-partner?No11/19/2024Within the last year, have you been kicked, hit, slapped, or otherwise physically hurt by your partner or ex-partner?No11/19/2024Within the last year, have you been raped or forced to have any kind of sexual activity by your partner or ex-partner?No11/19/2024 Social Connection and Isolation PanelAnswerDate RecordedIn a typical week, how many times do you talk on the phone with family, friends, or neighbors?Three times a week11/19/2024How often do you get together with friends or relatives? Twice a week11/19/2024How often do you attend rastafarian or jainism services?1 to 4 times per year11/19/2024Do you belong to any clubs or organizations such as rastafarian groups, unions, fraternal or athletic groups, or school groups?Yes 11/19/2024How often do you attend meetings of the clubs or organizations you belong to?More than 4 times per year11/19/2024re you , , , , never , or living with a partner?Yazeqhkw65/28/2025 AUDIT-CAnswerDate RecordedQ1: How often do you have a drink containing alcohol? 2-4 times a month11/19/2024Q2: How many drinks containing alcohol do you have on a typical day when you are drinking?1 or Q3: How often do you have six or more drinks on one occasion?Less than yvivtsk4911/19/2024Overall Financial Resource Strain (CARDIA)AnswerDate RecordedHow hard is it for you to pay for the very basics like food, housing, medical care, and heating?Not hard at all 11/19/2024Finintermountain medical center [place] of Occupational Health - Occupational Stress QuestionnaireAnswerDate RecordedDo you feel stress - tense, restless, nervous, or anxious, or unable to sleep at night because yourmind is troubled all the time - these days?To some whqpsb8411/19/2024Exercise Vital SignAnswerDate Recorded On average, how many days per week do you engage in moderate to strenuous exercise (like a brisk walk)?3 days11/19/2024On average, how many minutes do you engage in exercise at this level?60 min11/19/2024Hunger Vital SignAnswerDate RecordedWithin the past 12 months, you worried that your food would run out before you got the money to buymore.Never true11/19/2024Within the past 12 months, the food you bought just didn't last and you didn't have money to get more.Never true11/19/2024PRAPARE - TransportationAnswerDate RecordedIn the past 12 months, has lack of transportation kept you from medical appointments or from getting medications?No11/19/2024In the past 12 months, has lack of transportation kept you from meetings, work, or from getting things needed for daily living?No11/19/2024Housing Stability Vital SignAnswerDate RecordedIn the last 12 months, was there a time when you were not able to pay the mortgage or rent on time?No06/21/2023In the last 12 months, how many places have you lived?1 06/21/2023In the last 12 months, was there a time when you did not have a steady place to sleep or slept in [place] (including now)?No06/21/2023Housing Stability Vital SignAnswerDate RecordedIn the last 12 months, was there a time when you were not able to pay the mortgage or rent on time?No11/19/2024Number of Times Moved in the Last YearNot on file11/19/2024t any time in the past 12 months, were you homeless or living in a long-term (including now)?No11/19/2024 CommentsUnknownSex and Gender InformationValueDate RecordedSex Assigned at BirthNot on fileLegal ZfdNgmjvq29/15/2023 8:28 PM EDTGender IdentityNot on fileSexual OrientationNot on filedocumented as of this encounter Last Filed Vital Signs Vital SignReadingTime TakenCommentsBlood Havfzgig206/7005/13/2025 2:56 PM EST Juqer480905/13/2025 2:56 PM ESTTemperature--Respiratory Xjfb280707/13/2024 2:56 PM ESTOxygen Qkjuzmwgtm35%05/13/2025 2:56 PM ESTInhaled Oxygen Concentration-- Jywsig07.5 kg (215 lb)05/13/2025 2:56 PM CUXCrjrzy861 cm (5' 3 )05/13/2025 2:56 PM ESTBody Mass Index38.0905/13/2025 2:56 PM ESTdocumented in this encounter Progress Notes * Shani Dunaway MD - 05/13/2025 3:10 PM EST Emily Klein is a 39 y.o. female Gabriela Craig NP presents with chief complaint of Thyroid Problem (NEW REF/LAB) HPI: 04/2025 History of Present Illness The patient is a 39-year-old female who presents as a new patient referred by Gabriela RODRIGUEZ for abnormal thyroid antibodies, TG antibodies 5 (less than normal 4) and TPO 1. TSH 1.39, free T4 0.95 (normal range 0.61 to 1.6), free T3 2.93. She has extensive family history of thyroid disease with mother having possible Graves' disease and niece also having thyroid issues. She came because of more mixed symptoms. She has signs of agitation and palpitation. She is on blood pressure medication and also she is complaining of fatigue and weight gain. FAMILY HISTORY She has an extensive family history of thyroid disease, with her mother possibly having Graves' disease and her niece also having thyroid issues. Results Laboratory Studies TG antibodies 5 (less than normal 4) and TPO 1. TSH 1.39, free T4 0.95 (normal range 0.61 to 1.6), free T3 2.93. SUBJECTIVE: MEDICATIONS: Current Outpatient Medications Medication Instructions albuterol HFA 90 mcg/act inhaler 2 puffs, Inhalation, Every 6 hours PRN cholecalciferol (VITAMIN D-3) 25 mcg, Daily cyanocobalamin (VITAMIN B-12) 1,000 mcg, Daily hydroCHLOROthiazide (HYDRODiuril) 12.5 MG tablet May take dose 1 pill up to three times per week for swelling in legsMay take dose 1 pill up to three times per week for swelling in legs hydroCHLOROthiazide (HYDRODIURIL) 25 mg, Oral, Daily ibuprofen 800 MG tablet lisinopril 10 mg, Oral, Every 24 hours metoprolol succinate XL (TOPROL-XL) 12.5 mg, Daily RT phentermine (ADIPEX-P) 37.5 mg, Oral, Daily before breakfast triamcinolone (Kenalog) 0.1 % cream ALLERGIES: Allergies[1] Medical History[2] Surgical History[3] REVIEW OF SYMPTOMS: 14 POINT OF SYSTEM REVIEWED AND NEGATIVE OBJECTIVE: 08/20/2024 5:12 PM 11/19/2024 5:32 PM 12/22/2024 5:40 PM 01/29/2025 11:27 AM 01/29/2025 12:02 PM 02/09/2025 6:15 PM 05/13/2025 2:56 PM Vitals BMI 39.79 kg/m2 39.89 kg/m2 39.11 kg/m2 37.8 kg/m2 38.16 kg/m2 38.09 kg/m2 BSA (m2) 2.13 m2 2.13 m2 2.11 m2 2.07 m2 2.08 m2 2.08 m2 Systolic 108 106 120 112 104 102 Diastolic 80 76 80 82 78 70 Heart Rate 88 72 75 97 84 75 85 SpO2 97 % 97 % 98 % 98 % 99 % 95 % Temp 99.2 ??F 97.8 ??F 97.5 ??F 98.5 ??F 97.8 ??F Resp 18 18 18 18 Height (in) 5' 3 Weight (lb) 224.6 225.2 220.8 213.4 215.4 215 Visit Report Report Report Report Report Report Report Report Physical Exam Constitutional: Appearance: Normal appearance. She is normal weight. HENT: Head: Normocephalic and atraumatic. Right Ear: External ear normal. Nose: Nose normal. Mouth/Throat: Pharynx: Oropharynx is clear. Eyes: Extraocular Movements: Extraocular movements intact. Pupils: Pupils are equal, round, and reactive to light. Cardiovascular: Rate and Rhythm: Normal rate and regular rhythm. Pulmonary: Effort: Pulmonary effort is normal. Abdominal: General: Abdomen is flat. Palpations: Abdomen is soft. Musculoskeletal: General: Normal range of motion. Skin: General: Skin is warm. Neurological: General: No focal deficit present. Mental Status: She is alert. Psychiatric: Mood and Affect: Mood normal. Behavior: Behavior normal. ASSESSMENT AND PLAN: Assessment/Plan Diagnoses and all orders for this visit: Nonspecific abnormal results of thyroid function study - T3, free; Future - T4, free; Future - TSH; Future Primary hypertension Assessment & Plan 1. Abnormal thyroid antibodies: - Mixed symptoms including agitation, palpitations, fatigue, and weight gain. Extensive family history of thyroid disease. - TSH 1.39, Free T4 0.95, Free T3 2.93. TG antibodies <5, TPO <1. - No need for medication. Repeat thyroid function test in 1 year. Contact office if symptoms worsen. - Symptoms of hypothyroidism and hyperthyroidism explained. Follow-up: Repeat thyroid function test in 1 year. Follow up in about 1 year (around 05/13/2026). [1] Allergies Allergen Reactions Erythromycin Anaphylaxis Other Reaction(s): Hives Penicillins Anaphylaxis Other Reaction(s): Hives, Skin Rashes Zithromax [Azithromycin] Prednisone Palpitations Other Reaction(s): Comments: tachycardia [2] Past Medical History: Diagnosis Date Abdominal hernia Abnormal computed tomography angiography (CTA) of abdomen and pelvis Abnormal thyroid blood test Abnormal weight gain Chest pain DUB (dysfunctional uterine bleeding) Elevated blood uric acid level Elevated serum glucose Environmental and seasonal allergies 08/16/2023 Fibromyalgia Headache Hematuria, gross History of abnormal cervical Pap smear ASCUS History of hernia repair HTN (hypertension) Hypothyroidism IUD check up Kidney stone 08/16/2023 Left anterior shoulder pain Lump of axillary tail of left breast Lung nodule Menometrorrhagia 08/16/2023 Recurrent cold sores [3] Past Surgical History: Procedure Laterality Date ABDOMINAL HERNIA REPAIR 12/03/2018 BREAST LUMPECTOMY Left 02/2019 Not malignant CHOLECYSTECTOMY 06/2018 CYSTOSCOPY W/ RETROGRADES Bilateral 01/31/2021 Bilateral retrograde pyelogrmas, urethral dilation GANGLION CYST EXCISION Left hand HM MAMMOGRAPHY 11/27/2018 bx of left breast PAP SMEAR 11/14/2017 negative SD LAP,CHOLECYSTECTOMY 2019 TUBAL LIGATION documented in this encounter Plan of Treatment DateTypeDepartmentCare Team (Latest Contact Info)Nyyvyikzayq07/18/2026 3:00 PM ESTOffice Visit [facility] [address] [place] [address] Shani Dunaway MD [address] [place] [address] NameTypePriorityAssociated DiagnosesOrder ScheduleT3, freeLabRoutine Nonspecific abnormal results of thyroid function study Expected: 05/13/2025 (Approximate), Expires: 05/13/2026T4, freeLabRoutine Nonspecific abnormal results of thyroid function study Expected: 05/13/2025 (Approximate), Expires: 05/13/2026TSHLabRoutine Nonspecific abnormal results of thyroid function study Expected: 05/13/2025 (Approximate), Expires: 05/13/2026documented as of this encounter Visit Diagnoses Diagnosis Nonspecific abnormal results of thyroid function study- Primary Primary hypertension Unspecified essential hypertension documented in this encounter Care Teams Team MemberRelationshipSpecialtyStart DateEnd Date Philip Milligan MD [address] [place] [address] PCP - GeneralFamily Medicine08/16/23documented as of this encounter
--- OUTSIDE RECORDS SUMMARY | 2025-05-19 20:59 | XMS_ITS | CCD ---
Author Organization [facility] Care Team Providers Care Clinical Pharmacy Specialist Name Role Phone NAGARAJA, RAYNE Unavailable Unavailable NAGARAJA, RAYNE Unavailable Unavailable NAGARAJA, RAYNE Unavailable Unavailable [facility] Unavailable Unavailable AICHHOLZ, ELECTRIC ORGAN CHECKER GABRIELA Admitting Unavailable AICHHOLZ, ELECTRIC ORGAN CHECKER GABRIELA Attending Unavailable AICHHOLZ, ELECTRIC ORGAN CHECKER GABRIELA Primary Care Unavailable AICHHOLZ, ELECTRIC ORGAN CHECKER GABRIELA Consulting Unavailable DR OSWALD GAR Consulting Unavailable AICHHOLZ, ELECTRIC ORGAN CHECKER GABRIELA Admitting Unavailable AICHHOLZ, ELECTRIC ORGAN CHECKER GABRIELA Attending Unavailable AICHHOLZ, ELECTRIC ORGAN CHECKER GABRIELA Primary Care Unavailable AICHHOLZ, ELECTRIC ORGAN CHECKER GABRIELA Consulting Unavailable AICHHOLZ, ELECTRIC ORGAN CHECKER GABRIELA Admitting Unavailable AICHHOLZ, ELECTRIC ORGAN CHECKER GABRIELA Attending Unavailable AICHHOLZ, ELECTRIC ORGAN CHECKER GABRIELA Primary Care Unavailable AICHHOLZ, ELECTRIC ORGAN CHECKER GABRIELA Consulting Unavailable AICHHOLZ, ELECTRIC ORGAN CHECKER GABRIELA Primary Care Unavailable DR SALAS HARRIS Admitting Unavailvannessa HARRIS, DR SALAS Borrego Attending Unavailvannessa HARRIS, DR SALAS Borrego Consulting UnavailGABY Jiang Consulting Unavailable FLO DODD Consulting Unavailable Philip Milligan MD Primary Care Provider Orlando Raymundo DO Attending Provider [phone] Orlando Raymundo Attending Unavailable Orlando Raymundo Admitting Unavailable Aichholz GRAPE PICKER-JARRETT, Gabriela Angel Primary Care Provider Aichholz GRAPE PICKER-JARRETT, Gabriela J Primary Care Provider MARYSE MOREJON Attending Unavailable RAFA GABRIELA J Referring Unavailable AICHHOLZ, GABRIELA J Primary Care Unavailable Aichholz GRAPE PICKER-JARRETT, Gabriela J Primary Care Provider NOHEMI SUAREZ Attending Unavailable AICHHOLZ, GABRIELA Attending Unavailable AICHHOLZ, GABRIELA Attending Unavailable AICHHOLZ, GABRIELA Attending Unavailable AICHHOLZ, GABRIELA Attending Unavailable AICHHOLZ, GABRIELA Attending Unavailable NOHEMI SUAREZ Attending Unavailable ORLANDO RAYMUNDO Attending Unavailable AICHHOLZ, GABRIELA Attending Unavailable NOHEMI SUAREZ Attending Unavailable Aichholz GRAPE PICKER-ELECTRIC ORGAN CHECKER, Gabriela Ortiz Primary Care Provider Aichholz BOIL OFF MACHINE OPERATOR CLOTH-C, Gabriela J Primary Care Provider Aichholz BOIL OFF MACHINE OPERATOR CLOTH-C, Gabriela J Attending Provider AICHHOLZ, GABRIELA J Primary Care Unavailable CLAUDIA CORTEZ Attending Unavailable AICHHOLZ, GABRIELA J Referring Unavailable AICHHOLZ, GABRIELA J Primary Care Unavailable AICHHOLZ, GABRIELA J Referring Unavailable AICHHOLZ, GABRIELA J Primary Care Unavailable SHERMAN KAUR Admitting Unavailable SHERMAN KAUR Attending Unavailable SHERMAN KAUR M Referring Unavailable AICHHOLZ, GABRIELA J Primary Care Unavailable AICHHOLZ, GABRIELA J Primary Care Unavailable SHAY FLORES Attending Unavailable AICHHOLZ, GABRIELA Angel Primary Care Unavailable SHAY FLORES Attending Unavailable SHAY FLORES Referring Unavailable AICHHOLZ, GABRIELA Angel Primary Care Unavailable AICHHOLZ, GABRIELA J Referring Unavailable AICHHOLZ, GABRIELA J Primary Care Unavailable Philip Milligan MD Primary Care Provider Allergies Allergy ClassificationReported Allergen(s)Allergy TypeDate of OnsetReaction(s) Facility (3 sources)erythromycin; Translations: [ERYTHROMYCIN]Drug Vsllbnj46-67-5721Eor [facility] Repository (7 sources)Penicillins; Translations: [PENICILLINS]Drug allergy (disorder) 63-35-2065GqeqdZmj [facility] Repository (4 sources)predniSONE; Translations: [PREDNISONE]Drug Cviztqr16-10-3735 PalpitationsThe [facility] (2 sources)ErythromycinDrug Vsiruun40-03-0056DohoaxyzrvvUyr [facility] Repository (1 source)predniSONEDrug AllergyThe [facility] (20 sources)AzithromycinDrug Ebwudhz38-22-0368Opywmwf ReactionChildren's Mercy Northland (20 sources)ErythromycinDrug Vcaprzg67-79-3839Lwohpzvtzso, HivesChildren's Mercy Northland Work Phone: (20 sources)PenicillinsDrug Zimymsh17-84-3294QuxkwolcypkNCYB Healthcare (20 sources)PrednisoneAllergy to qptgruviv23-06-8616ImqwnnsgixjyICZO Healthcare (1 source)PenicillinsPropensity to adverse reactions to luow94-19-8940Mwpxt [facility] (4 sources)predniSONEDrug Wiovxqz66-16-4049JyghhbrqyzwWgzHaudto [facility] (1 source)PenicillinsPropensity to adverse reactions to mevt24-05-9304Okdbw [facility] Medications Current Medications MedicationDrug Class(es)DatesSig (Normalized)Sig (Original)[id number] 200 actuat albuterol 0.09 mg/actuat metered dose inhaler (20 sources)beta2-Adrenergic AgonistStart: 72-11-0225qzkw 1 puff(s) by inhalation every four to six hours as neededAlbuterol Sulfate 90 mcg/actuation HFA aerosol inhaler Active 2 PUFF INHALATION EVERY 4-6 HOURS as needed March 22, 2025 12:00am Complies with drug therapyStart: 08-20-2024 End: 13-54-2705ortl 2 puff(s) by inhalation every six hours for wheezing albuterol HFA 90 mcg/act inhaler Indications: Flu-like symptoms Inhale 2 puffs every 6 (six) hours if needed for wheezing or shortness of breath 18 g 08/20/2024 ActiveStart: 08-20-2024 End: 76-51-7602nwft 2 puff(s) by inhalation every six hours as neededalbuterol (PROVENTIL HFA;VENTOLIN HFA) 90 mcg/actuation inhaler Inhale 2 puffs every 6 (six) hours as needed. 08/20/2024 09/19/2024 ActiveStart: 01-29-2024 End: 04-98-5401lswjgdcyd HFA 90 mcg/act inhaler 01/29/2024 08/20/2024 Discontinued (Reorder)cephalexin 500 mg oral capsule (3 sources)Cephalosporin AntibacterialStart: 01-20-2025 End: 89-66-6084gurl 1 capsule by mouth in the morningcephalexin (Keflex) 500 MG capsule Take 500 mg by mouth in the morning and 500 mg in the evening. 01/29/2025 Discontinued (Therapy completed)cholecalciferol 0.025 mg oral tablet (20 sources)Vitamin DStart: 36-56-5826iyud 1 tablet by mouth once daily Cholecalciferol (Vitamin D3) 25 mcg (1,000 unit) tablet Active 25 MCG PO Daily March 222:00am Complies with drug therapytake 1 tablet by mouth in the morningcholecalciferol 1,000 units tablet Take 1 tablet (1,000 Units total) by mouth in the morning. Activetake 1 tablet by mouth once dailycholecalciferol (Vitamin D-3) 25 MCG tablet Take 25 mcg by mouth Daily Activecyanocobalamin, vitamin B-12, (VITAMIN B-12 ORAL) (3 sources)take 1 tablet by mouth in the morningcyanocobalamin, vitamin B-12, (VITAMIN B-12 ORAL) Take 1 tablet by mouth in the morning. Active hydroCHLOROthiazide 12.5 mg oral tablet (20 sources)Thiazide DiureticStart: 66-18-4106tuaq 1 tablet by mouth once daily in the morning as neededHydrochlorothiazide 12.5 mg tablet Active 12.5 MG PO Every morning as needed March 22, 2025 12:00am Complies with drug therapy Start: 38-31-5158ztrf 1 tablet by mouth once dailyHydrochlorothiazide 25 mg tablet Active 25 MG PO Daily 90 March 09, 2025 12:00am Complies with drug therapyStart: 08-16-2023 End: 82-82-6824tpkrkLZFZMWahgwsdft (HYDRODiuril) 12.5 MG tablet Indications: Bilateral lower extremity edema May take dose 1 pill up to three times per week for swelling in legsMay take dose 1 pill up to three times per week for swelling in legs 12 tablet 1 12/24/2024 ActiveStart: 05-28-2023 End: 32-06-0416wobg 1 tablet by mouth once dailyhydroCHLOROthiazide (HYDRODiuril) 25 MG tablet Indications: Primary hypertension Take 1 tablet (25 m g) by mouth Daily 90 tablet 1 11/19/2024 02/17/2025 Activeibuprofen 800 mg oral tablet (20 sources)Nonsteroidal Anti-inflammatory DrugStart: 78-16-2834mhrbmnrgv 800 MG tablet 07/03/2024 Activelisinopril 10 mg oral tablet (20 sources)Angiotensin Converting Enzyme InhibitorStart: 63-36-5777itkm 1 tablet by mouth once dailyLisinopril 10 mg tablet Active 10 MG PO Daily March 09, 2025 12:00am Complies with drug therapyStart: 08-16-2023 End: 74-84-5569sooo 1 tablet by mouth once dailylisinopril 10 MG tablet Indications: Primary hypertension Take 1 tablet (10 mg) by mouth 1 (one) time each day at the same time 90 tablet 1 11/19/2024 02/17/2025 Qdyvnk65 hr metoprolol succinate 25 mg extended release oral tablet (7 sources)beta-Adrenergic BlockerStart: 01-19-2025 End: 25-25-1067urgn 1 tablet by mouth every twenty-four hours in the morning metoprolol succinate XL (Toprol-XL) 25 MG 24 hr tablet Take 12.5 mg by mouth in the morning. 01/19/2025 02/18/2025 Activepeg 3350-sod sulf,goab-ehs-wfu 178.7-7.3-0.5 gram recon soln (1 source)Start: 09-11-2024 End: 79-17-3941sik 3350-sod sulf,duit-ety-bhn 178.7-7.3-0.5 gram recon soln Indications: Abnormal CT scan, gastrointestinal tract , Colitis Take 1 kit by mouth once daily for 1 dose. Please see instructional sheet given by physicians office. 1 each 09/11/2024 09/12/2024 Activephentermine hydrochloride 37.5 mg oral tablet (20 sources)Sympathomimetic Amine AnorecticStart: 11-19-2024 End: 36-98-8548bubh 1 tablet by mouth once daily 30 minutes after breakfast Phentermine (Adipex-P) 37.5 mg tablet Active 37.5 MG PO Daily March 09, 2025 12:00am must administer 30 minutes before or 1-2 hours after breakfast Complies with drug therapyStart: 10-29-2023 End: 07-23-1038xvio 1 tablet by mouth before mealtimephentermine (Adipex-P) 37.5 MG tablet Indications: Abnormal weight gain , Obesity (BMI 30-39.9) Take 1 tablet (37.5 mg) by mouth in the morning. Take before meals. 30 tablet 10/29/2023 02/20/2024 Discontinued (Other)triamcinolone acetonide 1 mg/ml topical cream (16 sources)CorticosteroidStart: 06-24-1863vlamjzneuijfb (Kenalog) 0.1 % cream 11/03/2024 ActivevalACYclovir 1000 mg oral tablet (20 sources)Herpesvirus Nucleoside Analog DNA Polymerase Inhibitor, Herpes Simplex Virus Nucleoside Analog DNA Polymerase Inhibitor, Herpes Zoster Virus Nucleoside Analog DNA Polymerase InhibitorStart: 11-19-2024 End: 99-78-4719ybjq 2 tablets by mouth in the morningvalACYclovir (Valtrex) 1 g tablet Indications: Herpes labialis Take 2 tablets (2,000 mg) by mouth in the morning and 2 tablets (2,000 mg) before bedtime. Do all this for 1 day. 4 tablet 2 11/19/2024 11/20/2024 ActiveStart: 02-14-2024 End: 26-18-6723cgyYREmqzsqw (Valtrex) 1 g tablet 02/14/2024 11/19/2024 Discontinued (Reorder)vitamin b12 1 mg oral tablet (16 sources)Vitamin V07mxkm 1 tablet by mouth once dailycyanocobalamin (Vitamin B-12) 1000 MCG tablet Take 1,000 mcg by mouth Daily Active Completed/Discontinued Medications MedicationDrug Class(es)DatesSig (Normalized)Sig (Original)acetaminophen 500 mg oral tablet (2 sources)Start: 02-01-2022 End: 02-56-3696jthr 2 tablets by mouth every six hours as needed for pain acetaminophen (TYLENOL EXTRA STRENGTH) 500 mg tablet Take 2 tablets (1,000 mg total) by mouth every6 (six) hours as needed for pain. 30 tablet 02/01/2022 09/11/2024 Discontinued (Therapy completed)acetaminophen 325 mg / HYDROcodone bitartrate 5 mg oral tablet (6 sources)Opioid AgonistStart: 08-10-2024 End: 09-79-5428NWSWHgbydcm-acetaminophen (Riggins) 5-325 MG tablet 08/10/2024 11/19/2024 Discontinued (Therapy completed)benzonatate 100 mg oral capsule (2 sources)Non-narcotic AntitussiveStart: 02-01-2022 End: 66-34-3146waoc 1 capsule by mouth every eight hoursbenzonatate (TESSALON PERLES) 100 mg capsule Take 1 capsule (100 mg total) by mouth every 8 (eight) hours. 21 capsule 02/01/2022 09/11/2024 Discontinued (Therapy completed) ciprofloxacin 500 mg oral tablet (5 sources)Quinolone AntimicrobialStart: 08-09-2024 End: 22-54-4725xjshcuwxvbtha (Cipro) 500 MG tablet 08/09/2024 08/20/2024 Discontinued (Therapy completed)doxycycline hyclate 100 mg oral tablet (8 sources)Tetracycline-class DrugStart: 01-27-2025 End: 17-60-3127hjzn 1 tablet by mouth in the morningdoxycycline (Vibra-Tabs) 100 MG tablet Indications: URI, acute Take 1 tablet (100 mg) by mouth in the morning and 1 tablet (100 mg) before bedtime. Do all this for 10 days. Take with a full glass of water and do not lie down for at least 30 minutes after. 20 tablet 01/27/2025 02/09/2025 Discontinued (Therapy completed)Start: 08-20-2024 End: 50-16-4720nrmivqlaumz (Vibra-Tabs) 100 MG tablet Indications: Acute non- recurrent maxillary sinusitis Take 1 tablet (100 mg) by mouth in the morning and 1 tablet (100 mg) before bedtime. Do all this for 7 days. Take with a full glass of water and do not lie down for at least 30 minutes after.. 14 tablet 08/20/2024 08/27/2024 Activeketorolac tromethamine 10 mg oral tablet (2 sources)Nonsteroidal Anti-inflammatory Drug, Cyclooxygenase Inhibitor End: 91-67-6300aiwz 1 tablet by mouth every six hours as needed for pain ketorolac (TORADOL) 10 mg tablet Take 1 tablet (10 mg total) by mouth every 6 (six) hours as neededfor pain. 09/11/2024 Discontinued (Therapy completed) metroNIDAZOLE 500 mg oral tablet (4 sources)Nitroimidazole AntimicrobialStart: 08-09-2024 End: 64-48-9547xxxnrSKAWCYQG (Flagyl) 500 MG tablet Take 500 mg by mouth in the morning and 500 mg at noon and 500mg in the evening. 08/09/2024 08/20/2024 Discontinued (Therapy completed)ondansetron 4 mg disintegrating oral tablet (6 sources)Serotonin-3 Receptor AntagonistStart: 07-03-2024 End: 80-84-3938bdtjusxhamz ODT (Zofran-ODT) 4 MG disintegrating tablet 07/03/2024 11/19/2024 Discontinued (Therapycompleted)oseltamivir 75 mg oral capsule (10 sources)Neuraminidase InhibitorStart: 09-03-2023 End: 04-77-2115mqneqidiavw (Tamiflu) 75 MG capsule 09/03/2023 06/23/2024 Discontinued (Therapy completed)tamsulosin hydrochloride 0.4 mg oral capsule (2 sources)alpha-Adrenergic Adriane End: 23-49-3223qupv 1 capsule by mouth in the morningtamsulosin (FLOMAX) 0.4 mg capsule Take 1 capsule (0.4 mg total) by mouth in the morning. 09/11/2024 Discontinued (Therapy completed) Problems Active Problems Problem ClassificationProblemDateDocumented DateEpisodic/ChronicCardiac dysrhythmias (15 sources)Tachycardia; Translations: [Tachycardia, unspecified]Onset: 022292-07-0753KbfttehfNcqogejee hypertension (20 sources)Essential (primary) hypertension; Translations: [Hypertensive disorder]Onset: 49-49-1287PvrzyrlChiucwbg; including migraine (1 source)HeadacheOnset: 58-25-4242AvxvrqneNttcf disorders and dislocations; trauma-related (20 sources)Derangement of knee; Translations: [Unspecified internal derangement of unspecified knee]Onset: 170881-11-8972WjxdvxkBskwsoe and fatigue (3 sources)Fatigue; Translations: [Other fatigue]Onset: 771595-66-1742 EpisodicMenstrual disorders (20 sources)Menometrorrhagia; Translations: [Excessive and frequent menstruation with irregular cycle]Onset: 669530-08-9697SpkmhnlHazuj aftercare (1 source)Other custodial (current) drug therapy; Translations: [OTH CUTTING AND BONING SUPERVISOR CURRENT DRUG THERAPY]Onset: 09-66-4574BfwvfaypGddyt aftercare (4 sources)Surgical follow-up; Translations: [Encounter for follow-up examination after completed treatment for conditions other than malignant neoplasm]43-82-1865MgxtxkziEtjhd connective tissue disease (1 source)Fibromyalgia; Translations: [Fibromyalgia]89-50-4078HwpczvevFdqgi female genital disorders (4 sources)Abnormal uterine and vaginal bleeding, unspecified; Translations: [ABNORMAL UTERINE VAGINAL BLEED UNS]Onset: 20-65-7983WcbtkmqYiape female genital disorders (1 source)Pain in female genitalia on intercourse; Translations: [Unspecified dyspareunia]14-98-4007AzsnxraNurlf liver diseases (20 sources)Lesion of liver; Translations: [Liver disease, unspecified]Onset: 133131-82-4780TgtbxhcCshga liver diseases (1 source)Liver disease, unspecified; Translations: [Liver disease, unspecified] Onset: 11-81-9541IbgoedgPorzi lower respiratory disease (4 sources)Solitary pulmonary nodule; Translations: [SOLITARY PULMONARY NODULE] Onset: 78-13-6399HqwyvndnEjwox lower respiratory disease (1 source)Shortness of breathOnset: 75-96-6090SkrxdbazAfkcz nervous system disorders (1 source)NumbnessOnset: 90-24-9555SxwcxlesOherb nutritional; endocrine; and metabolic disorders (20 sources)Body mass index 30+ - obesity; Translations: [Obesity, unspecified] Onset: 977948-00-8750DvzuqgeHpavn nutritional; endocrine; and metabolic disorders (20 sources)Obesity caused by energy imbalance; Translations: [Morbid (severe) obesity due to excess calories]Onset: 942221-27-1039SbmajlqYlxcd nutritional; endocrine; and metabolic disorders (2 sources)Obesity; Translations: [Obesity, unspecified]22-66-2973TgwstjyIyyas nutritional; endocrine; and metabolic disorders (1 source)Obesity, unspecified; Translations: [Obesity, unspecified]Onset: 92-95-3403GmyvjutVposb screening for suspected conditions (not mental disorders or infectious disease) (4 sources)Abnormal findings on diagnostic imaging of other abdominal regions, including retroperitoneum; Translations: [Other specified abnormal findings of blood chemistry]Onset: 380554-41-8602ColtrhiiAwtab upper respiratory disease (20 sources)Seasonal allergy; Translations: [Other seasonal allergic rhinitis] Onset: 765597-29-1485YotiketQlbzk upper respiratory disease (20 sources)Allergic disposition; Translations: [Other allergic rhinitis]Onset: 362235-85-0058WhmzvmsVzsei upper respiratory disease (1 source)Pain in throatOnset: 02-88-6738VwpqtjezNhurz upper respiratory infections (20 sources)Acute maxillary sinusitis; Translations: [Acute maxillary sinusitis, unspecified]Onset: 210443-44-2848PmdcwqnrZizkfbrq enteritis and ulcerative colitis (1 source)Ulcerative colitisOnset: 74-07-6199YyobgfaBycpcxcq codes; unclassified (20 sources)Obstructive sleep apnea syndrome; Translations: [Obstructive sleep apnea (adult) (pediatric)]Onset: 002071-60-8392LlgxgufEgmojsbb codes; unclassified (1 source)Localized edema; Translations: [Localized edema]Onset: 04-06-2025 EpisodicResidual codes; unclassified (1 source)Personal history of other specified conditions; Translations: [Personal history of other specified conditions]Onset: 12-95-6763Wuexunnv Rheumatoid arthritis and related disease (20 sources)Inflammatory polyarthropathy; Translations: [Inflammatory polyarthropathy]Onset: 861046-93-9103QucaxtpJvddjgq disorders (20 sources)Hypothyroidism; Translations: [Hypothyroidism, unspecified]Onset: 828908-94-8029AxwdjiwWabxklhkurlv (1 source)COUGH, UNSPECIFIED; Translations: [COUGH, UNSPECIFIED]Onset: 07-29-2022 Past or Other Problems Problem ClassificationProblemDateDocumented DateEpisodic/ChronicAbdominal pain (4 sources)Unspecified abdominal pain; Translations: [Pain in female pelvis] Onset: 274064-31-8289LbvdiqytDmiqpwt tract disease (20 sources)Gallbladder calculus with acute cholecystitis and no obstruction; Translations: [Calculus of gallbladder with acute and chronic cholecystitis without obstruction]Onset: 586674-83-9465PilyhpnbVtbmfnyz of urinary tract (20 sources)Kidney stone; Translations: [Calculus of kidney]Onset: 08-16-2023 55-48-7725YkczvtjfYiadrapp mellitus without complication (1 source)Hyperglycemia, unspecified; Translations: [HYPERGLYCEMIA UNSPECIFIED] Onset: 18-73-7311ApgjtdfjMtiruyscjqbxo symptoms and ill-defined conditions (20 sources)Zay hematuria; Translations: [Gross hematuria]Onset: 12-29-2020 31-80-9537CvdkspajIcsaweuvxzjku gastroenteritis (20 sources)Colitis; Translations: [Noninfective gastroenteritis and colitis, unspecified]Onset: 659388-45-2486NguewzchYqdntscayufr breast conditions (20 sources)Lump of axillary tail of left breast; Translations: [Unspecified lump in axillary tail of the left breast]Onset: 219537-21-0738Oyyusodr Other connective tissue disease (20 sources)Primary fibromyalgia syndrome; Translations: [Fibromyalgia]Onset: 684578-54-3306XntvhsosHgmkx gastrointestinal disorders (1 source)ConstipationOnset: 79-06-8649JdnypnzkEjcie infections; including parasitic (20 sources)H/O: viral illness; Translations: [Personal history of other infectious and parasitic diseases]Onset: 784046-75-4567IrofwdyjThdqi lower respiratory disease (20 sources)Nodule of lung; Translations: [Solitary pulmonary nodule]Onset: 660069-04-2247CelihpqzXyvpd non-traumatic joint disorders (20 sources)Joint pain; Translations: [Pain in unspecified joint]Onset: 182164-91-3368YrfgusosSejil nutritional; endocrine; and metabolic disorders (20 sources)Abnormal weight gain; Translations: [Abnormal weight gain]Onset: 895406-14-3510NaawailxPykjcxff codes; unclassified (20 sources)Bilateral lower limb edema; Translations: [Localized edema]Onset: 949741-90-4159TpmtiieoLncacvky codes; unclassified (20 sources)Viral syndrome; Translations: [Other general symptoms and signs] Onset: 692909-86-5454OueaefmoFhcbjkqjnna; intervertebral disc disorders; other back problems (20 sources)Low back pain; Translations: [Low back pain]Onset: 03-07-2014 44-64-1202GmkkkfwyOfxlo infection (20 sources)Herpes labialis; Translations: [Herpesviral vesicular dermatitis] Onset: 264569-62-8668Cwanfedf Results Test NameValueInterpretationReference RangeFacilityBASIC METABOLIC PANELon 72-67-6899Mjena gap [Moles/Vol]6 mmol/LNormal5-15[facility] Comment on above:Performed By: #### NUM #### [facility] ([id number]) [address] [place] [address], [place] [address]Cgjgylc [Mass/Vol]9.5 mg/dLNormal8.5-10.5PHarrison Community HospitalComment on above:Performed By: #### NUM #### [facility] ([id number]) [address] [place] [address], [place] [address]Afxursae [Moles/Vol]101 mmol/EKkhvya52-938UhxWtewksBaylor Scott & White Medical Center – MckinneyComment on above:Performed By: #### NUM #### [facility] ([id number]) [address] [place] [address], [place] [address]TK9 [Moles/Vol]31 mmol/AKuxdwl91-48KtuJrioliHarrison Community Hospital Comment on above:Performed By: #### NUM #### [facility] ([id number]) [address] [place] [address], [place] [address]Tqwbrecflr [Mass/Vol]0.82 mg/dLNormal0.40-1.00[facility] HospitalComment on above:Result Comment: METHOD TRACEABLE TO IDMS STANDARD Performed By: #### NUM #### [facility] ([id number]) [address] [place] [address] 33649BHPD (CKD-EPI) NON-RACE DEPENDENT>^90Normal>=60[facility] HospitalComment on above:Result Comment: Reported eGFR is based on the CKD-EPI 2020 equation that does not use a race coefficient.Performed By: #### NUM #### [facility] ([id number]) [address] [place] [address] 587[address]Fdywuxn [Mass/Vol]117 mg/jLMxwb35-91GkpGpbxmjBrecksville VA [facility] Comment on above:Performed By: #### NUM #### [facility] ([id number]) [address] [place] [address] 284[address]Hbswikmnh [Moles/Vol]3.6 mmol/LNormal3.5-5.0ProBaylor Scott & White Medical Center – MckinneyComment on above:Performed By: #### NUM #### [facility] ([id number]) [address] [place] [address] 11783Xcwsos [Moles/Vol]138 mmol/YOmtbgn409-750PctEshgtu [facility] HospitalComment on above:Performed By: #### NUM #### [facility] ([id number]) [address] [place] [address] 95248Fmpi nitrogen [Mass/Vol]12 mg/dLNormal5-23ProBaylor Scott & White Medical Center – MckinneyComment on above:Performed By: #### NUM #### [facility] ([id number]) [address] [place] [address] 86850LCD WITH AUTO DIFFERENTIALon 09-16-6686JMOTJJSCI ABSOLUTE COUNT (10*3/UL) BY AUTOMATED COUNT0.1 10*3/uLNormal0.0-0.2PHarrison [facility] Comment on above:Performed By: #### NUM #### [facility] ([id number]) [address] [place] [address] 06709VSODWZTYG RELATIVE PERCENT BY AUTOMATED COUNT0.8 %Normal [facility] HospitalComment on above:Performed By: #### NUM #### [facility] ([id number]) [address] [place] [address] 44339DUJCWGLVLNZ DIFFERENTIAL TYPEAUTOMATED DIFFERENTIALNormal [facility] HospitalComment on above:Performed By: #### NUM #### [facility] ([id number]) [address] [place] [address] 33767Qilltexfkzk (Bld) [#/Vol]0.1 10*3/uLNormal0.0-0.4[facility] HospitalComment on above:Performed By: #### NUM #### [facility] ([id number]) [address] [place] [address] 10117FKERSMFCXIU RELATIVE PERCENT BY AUTOMATED COUNT0.9 %Normal [facility] Crille HospitalComment on above:Performed By: #### NUM #### [facility] ([id number]) [address] [place] [address] 35331Teiaxoavxwa distribution width (RBC) [Ratio]12.4 %Rlorxf92.5-15 [facility] Crille HospitalComment on above:Performed By: #### NUM #### [facility] ([id number]) [address] [place] [address] 21926Bupjcexzyu (Bld) [Volume fraction]37.5 %Illgdy19-57PtvXqmtsjBaylor Scott & White Medical Center – MckinneyComment on above:Performed By: #### NUM #### [facility] ([id number]) [address] [place] [address] 51032Rhkftqqdpl (Bld) [Mass/Vol]12.6 g/hWHvdkdb28.7-15.5ProMedica [facility] Regional Medical CenterComment on above:Performed By: #### NUM #### [facility] ([id number]) [address] [place] [address] 32731XHOORWIQIWF ABSOLUTE COUNT (10*3/UL) BY AUTOMATED COUNT2.0 10*3/uLNormal1.0-3.5PHarrison Community HospitalComment on above:Performed By: #### NUM #### [facility] ([id number]) [address] [place] [address] 60349KDGMJORJHFT RELATIVE PERCENT BY AUTOMATED COUNT20.9 %Normal [facility]ille HospitalComment on above:Performed By: #### NUM #### [facility] ([id number]) [address] [place] [address] 08785NCK (RBC) [Entitic mass]31.8 ggGphpma26-18TlbHsuvbvBrecksville VA / Crille HospitalComment on above:Performed By: #### NUM #### [facility] ([id number]) [address] [place] [address] 29303ZYBW (RBC) [Mass/Vol]33.6 g/gRUekvyh59-73TcvPqpmlyBaylor Scott & White Medical Center – MckinneyComment on above:Performed By: #### NUM #### [facility] ([id number]) [address] [place] [address] 35890SJH (RBC) [Entitic vol]95 zFEelthe02-830BojOrjgfy [facility] HospitalComment on above:Performed By: #### NUM #### [facility] ([id number]) [address] [place] [address] 20574TAYKWVNDI ABSOLUTE COUNT (10*3/UL) BY AUTOMATED COUNT0.6 10*3/uLNormal0.0-0.9[facility] HospitalComment on above:Performed By: #### NUM #### [facility] ([id number]) [address] [place] [address] 68627NNBBGZWMM RELATIVE PERCENT BY AUTOMATED COUNT5.9 %Normal [facility] HospitalComment on above:Performed By: #### NUM #### [facility] ([id number]) [address] [place] [address] 33122QOOJHYYDOEM ABSOLUTE COUNT BY AUTOMATED COUNT6.9 10*3/uLHigh 1.5-6.6[facility] HospitalComment on above:Performed By: #### NUM #### [facility] ([id number]) [address] [place] [address] 43626FKIBDFDVRGF RELATIVE PERCENT BY AUTOMATED COUNT71.5 %Normal [facility] Cr[facility] HospitalComment on above:Performed By: #### NUM #### [facility] ([id number]) [address] [place] [address] 40232Ojakrmpd mean volume (Bld) [Entitic vol]8.2 fLNormal7-12 [facility] Cr[facility] HospitalComment on above:Performed By: #### NUM #### [facility] ([id number]) [address] [place] [address] 64698Vadtnuoed (Bld) [#/Vol]335 10*3/dGQltpli778-724AlaVqyosx [facility] HospitalComment on above:Performed By: #### NUM #### [facility] ([id number]) [address] [place] [address] 10670VLU COUNT3.96 X10E12/LNormal3.8-5.2PHarrison Community Hospital Comment on above:Performed By: #### NUM #### [facility] ([id number]) [address] [place] [address] 81698SHW (Bld) [#/Vol]9.7 10*3/uLNormal4-11[facility] HospitalComment on above:Performed By: #### NUM #### [facility] ([id number]) [address] [place] [address] 10479UPCCKQSZDAN SEDIMENTATION RATE (ESR)on 22-41-4685ICX, ERYTHROCYTE SEDIMENTATION RATE20 mm/hNormal0-20ProBaylor Scott & White Medical Center – MckinneyComment on above:Performed By: #### NUM #### [facility] ([id number]) [address] [place] [address], [place] [address]CXLZOOKRao 97-91-3394Wpxaoers [Mass/Vol]173 ng/qUUlqovn15-681 ProMVan Ness campusComment on above:Performed By: #### NUM #### [facility] ([id number]) [address] [place] [address], [place] [address]NFPTDFui 57-88-2515SXYPB ACID9.2 ng/mLNormal>5.8ProBaylor Scott & White Medical Center – MckinneyComment on above:Performed By: #### NUM #### [facility] ([id number]) [address] [place] [address], [place] [address]MRWZsh 23-28-0185Flzx [Mass/Vol]51 ug/cEWgkxvt83-774QtjQcuqplBrecksville VA / Crille HospitalComment on above:Performed By: #### NUM #### [facility] ([id number]) [address] [place] [address], [place] [address]VIUHY PANELon 13-99-0648Rinxlok [Mass/Vol]4.1 g/dLNormal3.2-5.3 [facility] HospitalComment on above:Performed By: #### NUM #### [facility] ([id number]) [address] [place] [address], [place] [address]LZH [Catalytic activity/Vol]80 U/YMetmcy09-808RfkQqkblcBaylor Scott & White Medical Center – MckinneyComment on above:Performed By: #### NUM #### [facility] ([id number]) [address] [place] [address], [place] 484[address]WRX [Catalytic activity/Vol]15 U/LNormal<=31ProMedLancaster Community HospitalComment on above:Performed By: #### NUM #### [facility] ([id number]) [address] [place] [address] 64554VUT [Catalytic activity/Vol]16 U/LNormal<=41ProBaylor Scott & White Medical Center – MckinneyComment on above:Performed By: #### NUM #### [facility] ([id number]) [address] [place] [address] 28239Apqsardrj [Mass/Vol]0.5 mg/dLNormal0.3-1.2ProMedLancaster Community HospitalComment on above:Performed By: #### NUM #### [facility] ([id number]) [address] [place] [address] 56753Lpspbmmdn.indirect [Mass/Vol]0.1 mg/dLNormal<=0.4ProBaylor Scott & White Medical Center – MckinneyComment on above:Performed By: #### NUM #### [facility] ([id number]) [address] [place] [address] 55245Zkulxsv [Mass/Vol]7.1 g/dLNormal6.0-8.0ProBaylor Scott & White Medical Center – MckinneyComment on above:Performed By: #### NUM #### [facility] ([id number]) [address] [place] [address] 92944KBPLUNNQGqb 37-56-9339Xdttvhbir [Mass/Vol]2.0 mg/dLNormal 1.8-2.6ProBaylor Scott & White Medical Center – MckinneyComment on above:Performed By: #### NUM #### [facility] ([id number]) [address] [place] [address] 56956R3, FREEon 97-87-1882Hulz T3 [Mass/Vol]2.97 pg/mLNormal 2.50-3.90ProBaylor Scott & White Medical Center – MckinneyComment on above:Performed By: #### NUM #### [facility] ([id number]) [address] [place] [address] 32396QEFMKMB ANTIBODIES INCLUDES TPO AND TGABon 04-06-2025 Thyroglobulin Ab Qn5 [IU]/mLHigh<4ProBaylor Scott & White Medical Center – MckinneyComment on above: Performed By: #### THYRAB ####[facility] ([facility])[address] [address] VIRTPO Ab Qn[IU]/mLNormal<10ProBaylor Scott & White Medical Center – MckinneyComment on above:Performed By: #### THYRAB ####[facility] ([facility])[address] [address] VIRTHYROID PROFILE INCLUDES TSH FT4on 25-54-2961Omgt T4 [Mass/Vol]0.95 ng/dLNormal0.61-1.60 [facility] HospitalComment on above:Performed By: #### NUM #### [facility] ([id number]) [address] [place] [address] 13977ZQU0.39 uIU/mLNormal0.49-4.67ProBaylor Scott & White Medical Center – MckinneyComment on above:Performed By: #### NUM #### [facility] ([id number]) [address] [place] [address] 72143WKVZITM B12on 67-42-0810Znnslicei (Vitamin B12) [Mass/Vol]432 pg/zDZaadox674-183FnhBuuulc [facility] HospitalComment on above:Performed By: #### B12 ####[facility] ([facility])[address] [address] VIRPOCT RAPID STREP Aon 01-20-2025S. pyogenes Ag IA Ql (Unsp spec) NegativeNormalNegativeProBaylor Scott & White Medical Center – MckinneyComment on above:Performed By: #### CMP, CBCA #### [facility] ([id number]) [address] [place] [address] 12417RYHK/FLU A+B/RSV BY NAAT/MOLECULAR (M4RT COLLECTION TUBE)on 96-16-3840LIOU/FLU A+B/RSV BY NAAT/MOLECULAR (M4RT COLLECTION TUBE)FLU A PCR Negative FLU B PCR Negative RSV BY PCR Negative SARS COV 2 BY PCR Not DetectedNormalNot DetectedProBaylor Scott & White Medical Center – MckinneyComment on above:Order Comment: The Xpert Xpress SARS-CoV-2/Flu/RSV Plus test is a rapid, multiplexed real-time RT-PCR test intended for the simultaneous qualitative detection and differentiation of SARS-CoV-2, influenza A, influenza B and respiratory syncytial virus (RSV) viral RNA from individuals suspected of respiratory viral infection consistent with COVID-19 by Their healthcare provider. This test has not been validated in asymptomatic patients. The Xpert Xpress SARS-CoV-2 test is intended for use by qualified and trained operators who are performing tests using either [employer] or [employer] and is limited to laboratories that meet the CLIA requirements to perform high and moderate complexity tests. The Xpert Xpress SARS-CoV-2/Flu/RSV Plus is only for use under the Food and Drug Administration's Emergency Use Authorization. Results are for the simultaneous detection and differentiation of SARS-CoV-2, influenza A, influenza B and RSV nucleic acids in clinical specimens. SARS-CoV-2, influenza A, influenza B and RSV RNA identified by this test are generally detectable in upperrespiratory samples during the acute phase of infection. Positive results are Indicative of the presence of the identified virus, but do not rule out bacterial infection or co-infection with other pathogens not detected by this test. Clinical correlation with patient history and other diagnostic information is necessary to determine patient infection status. The agent detected may not be the definite cause of disease. Negative results do not preclude SARS-CoV-2, influenza A, influenza B and RSVinfection and should not be used as the sole basis for treatment or other patient management decisions. Negative results must be combined with clinical observations, patient history and epidemiological information. An Invalid result may occur with specimen-associated inhibition unable to be resolved with specimen repeat.Fact Sheet for Healthcare Providers:https://www.fda.gov/media/731927/downloadFact Sheet for Patients:https://www.fda.gov/media/266085/downloadPerformed By: #### CMP, CBCA #### [facility] ([id number]) [address] [place] [address]-28-2025aPTT Coag (Bld) [Time]28 tPkgvnp74-70OxfKbzrujBaylor Scott & White Medical Center – MckinneyComment on above:Performed By: #### CMP, CBCA #### [facility] ([id number]) [address] [place] [address], [place], [place] [address]P-EZZY NATRIURETIC PEPTIDEon 93-55-2498Xhldohvxwzy peptide B (Bld) [Mass/Vol]16 pg/mLNormal<=100ProBaylor Scott & White Medical Center – MckinneyComment on above: Performed By: #### CMP, CBCA #### [facility] ([id number]) [address] [place] [address] 64888VOM WITH AUTO DIFFERENTIALon 95-39-9396ZSCYKMGPP ABSOLUTE COUNT (10*3/UL) BY AUTOMATED COUNT0.1 10*3/uLNormal0.0-0.2PHarrison [facility] Hospital Comment on above:Performed By: #### CBCA #### [facility] ([address] [address] VIRBASOPHILS RELATIVE PERCENT BY AUTOMATED COUNT0.6 %Normal [facility] HospitalComment on above:Performed By: #### CBCA #### [facility] ([address] [address] VIRCELLAVISION DIFFERENTIAL TYPEAUTOMATED DIFFERENTIALNormal [facility] HospitalComment on above:Performed By: #### CBCA #### [facility] ([address] [address] VIREosinophils (Bld) [#/Vol]0.0 10*3/uLNormal0.0-0.4ProBaylor Scott & White Medical Center – MckinneyComment on above:Performed By: #### CBCA #### [facility] ([address] [address] VIREOSINOPHILS RELATIVE PERCENT BY AUTOMATED COUNT0.2 %Normal [facility] HospitalComment on above:Performed By: #### CBCA #### [facility] ([address] [place] [address] VIRErythrocyte distribution width (RBC) [Ratio]12.2 %Normal 11.5-15ProChildren'S Hospital For Rehabilitationca [facility]ney Regional Medical CenterComment on above:Performed By: #### CBCA #### [facility] ([address] [place] [address] VIRHematocrit (Bld) [Volume fraction]38.6 %Cswskp83-14 [facility] HospitalComment on above:Performed By: #### CBCA #### [facility] ([address] [place] [address] VIRHemoglobin (Bld) [Mass/Vol]13.2 g/vJLiyjcd25.7-15.5 [facility] HospitalComment on above:Performed By: #### CBCA #### [facility] ([address] [place] [address] VIRLYMPHOCYTES ABSOLUTE COUNT (10*3/UL) BY AUTOMATED COUNT1.9 10*3/uLNormal1.0-3.5Pro[facility] Regional Medical CenterComment on above:Performed By: #### CBCA #### [facility] ([address] [place] [address] VIRLYMPHOCYTES RELATIVE PERCENT BY AUTOMATED COUNT12.7 %Normal [facility] HospitalComment on above:Performed By: #### CBCA #### [facility] ([address] [place] [address] VIRMCH (RBC) [Entitic mass]31.1 daEhegqr76-46FtbRkjrhv [facility] Medical CenterComment on above:Performed By: #### CBCA #### [facility] ([address] [place] [address] VIRMCHC (RBC) [Mass/Vol]34.2 g/kKHriwah36-41BhcKrzzeqBaylor Scott & White Medical Center – MckinneyComment on above:Performed By: #### CBCA #### [facility] ([address] [place] [address] VIRMCV (RBC) [Entitic vol]91 hJPgohnw51-371MzpSlyajm [facility] HospitalComment on above:Performed By: #### CBCA #### [facility] ([address] [place] [address] VIRMONOCYTES ABSOLUTE COUNT (10*3/UL) BY AUTOMATED COUNT0.9 10*3/uLNormal0.0-0.9[facility] Crille HospitalCommclaren thumb region on above:Performed By: #### CBCA #### [facility] ([address] [place] [address] VIRMONOCYTES RELATIVE PERCENT BY AUTOMATED COUNT6.2 %Normal [facility] HospitalComment on above:Performed By: #### CBCA #### [facility] ([address] [place] [address] VIRNEUTROPHILS ABSOLUTE COUNT BY AUTOMATED COUNT11.7 10*3/uL High1.5-6.6ProBaylor Scott & White Medical Center – MckinneyComment on above:Performed By: #### CBCA #### [facility] ([address] [place] [address] VIRNEUTROPHILS RELATIVE PERCENT BY AUTOMATED COUNT80.3 %Normal [facility] HospitalComment on above:Performed By: #### CBCA #### [facility] ([address] [place] [address] VIRPlatelet mean volume (Bld) [Entitic vol]7.6 fLNormal7-12 [facility] HospitalComment on above:Performed By: #### CBCA #### [facility] ([address] [place] [address] VIRPlatelets (Bld) [#/Vol]363 10*3/tUHknbaz438-164ZovEmhefg [facility] HospitalComment on above:Performed By: #### CBCA #### [facility] ([address] [address] VIRRBC COUNT4.24 X10E12/LNormal3.8-5.2PHarrison Community HospitalComment on above:Performed By: #### CBCA #### [facility] ([address] [address] VIRWBC (Bld) [#/Vol]14.6 10*3/uLHigh4-11ProBaylor Scott & White Medical Center – MckinneyComment on above:Performed By: #### CBCA #### [facility] ([address] [place] [address] VIRCOMPREHENSIVE METABOLIC PANELon 45-00-1559Wlmbxpl [Mass/Vol]4.3 g/dLNormal3.2-5.3PHarrison Community HospitalComment on above: Performed By: #### CMP #### [facility] ([address] [place] [address] VIRALP [Catalytic activity/Vol]85 U/PJdoxzg04-041CukKqetzzBaylor Scott & White Medical Center – MckinneyComment on above:Performed By: #### CMP #### [facility] ([address] [address] VIRALT [Catalytic activity/Vol]21 U/LNormal<=31PHarrison Community HospitalComment on above:Performed By: #### CMP #### [facility] ([place] [address] [place] [address] VIRAnion gap [Moles/Vol]12 mmol/LNormal5-15ProBaylor Scott & White Medical Center – MckinneyComment on above:Performed By: #### CMP #### [facility] ([place]) [address] [place] [address] [place] [address] VIRAST [Catalytic activity/Vol]22 U/LNormal<=41ProBaylor Scott & White Medical Center – MckinneyComment on above:Performed By: #### CMP #### [facility] ([facility]) [address] [place] [address] [place] [address] VIRBilirubin [Mass/Vol]1.1 mg/dLNormal0.3-1.2PHarrison Community HospitalComment on above:Performed By: #### CMP #### [facility] ([address] [place] [address] VIRCalcium [Mass/Vol]9.1 mg/dLNormal8.5-10.5PHarrison Community HospitalComment on above:Performed By: #### CMP #### [facility] ([address] [place] [address] VIRChloride [Moles/Vol]96 mmol/FMve01-639HydLoedmvBaylor Scott & White Medical Center – MckinneyComment on above:Performed By: #### CMP #### [facility] ([address] [place] [address] VIRCO2 [Moles/Vol]23 mmol/MYvblbs46-21XxeTxfrveHarrison Community HospitalComment on above:Performed By: #### CMP #### [facility] ([address] [place] [address] VIRCreatinine [Mass/Vol]1.05 mg/dLHigh0.40-1.00ProBaylor Scott & White Medical Center – MckinneyComment on above:Result Comment: METHOD TRACEABLE TO IDMS STANDARDPerformed By: #### CMP #### [facility] ([address] [place] [address] VIRGFR/1.73 sq M.predicted among non-blacks MDRD (S/P/Bld) [Vol rate/Area]70 mL/min/{1.73_m2}Normal>=60ProBaylor Scott & White Medical Center – MckinneyComment on above:Result Comment: eGFR not reported due to non-numeric value for Creatinine. Reported eGFR is based on the CKD-EPI 2020 equation that does not use a race coefficient.Performed By: #### CMP #### [facility] ([address] [place] [address] VIRGlucose [Mass/Vol]148 mg/xEUamz63-57OpvVmoucbBaylor Scott & White Medical Center – MckinneyComment on above:Performed By: #### CMP #### [facility] ([address] [place] [address] VIRPotassium [Moles/Vol]3.3 mmol/LLow3.5-5.0ProBaylor Scott & White Medical Center – MckinneyComment on above:Performed By: #### CMP #### [address] [place] [address] VIRProtein [Mass/Vol]7.8 g/dLNormal6.0-8.0[facility] Crille HospitalComment on above:Performed By: #### CMP #### [facility] ([address] [place] [address] VIRSodium [Moles/Vol]131 mmol/GXjz029-062YipFodxlnBaylor Scott & White Medical Center – MckinneyComment on above:Performed By: #### CMP #### [address] [place] [address] VIRUrea nitrogen [Mass/Vol]12 mg/dLNormal5-23ProBaylor Scott & White Medical Center – MckinneyComment on above:Performed By: #### CMP #### [address] [place] [address] VIRD-DIMERon 01-19-2025D DIMER<^522Sznjgw8-267DfpDivsnk [facility] HospitalComment on above:Result Comment: Results <255 ng/mL DDU: The presensence of a VTE can safely be excluded with a negative D-Dimer result and Wells score. A negative result doesn't exclude the possibility of DIC. The test should be repeated along with other diagnostic tests if the patient's symptoms persist or worsen.Performed By: #### CMP, CBCA #### [facility] ([id number]) [address] [place] [address]YORZGHJ W/ REFLEXon 74-67-8372ISLRPDP W/REFLEX2.6 mmol/LHigh 0.4-2.0ProBaylor Scott & White Medical Center – MckinneyComment on above:Performed By: #### LACTS #### [facility] ([facility]) [address] [place] [address] VIRMAGNESIUMon 74-07-8419Etjwdptoo [Mass/Vol]1.5 mg/dLLow 1.8-2.6ProBaylor Scott & White Medical Center – MckinneyComment on above:Performed By: #### MG #### [facility] ([address] [address] VIRPOCT NURSING URINE MACROSCOPIC UAon 01-13-6598BGFCJZHWU JUAN MIGUEL NegativeNormalNegMercy Health St. Charles HospitalComment on above:Performed By: #### CMP, CBCA #### [facility] ([id number]) [address] [place] [address] 69754PRSSH/HGB NURTraceAbnormalNegMercy Health St. Charles Hospital Comment on above:Performed By: #### CMP, CBCA #### [facility] ([id number]) [address] [place] [address] [place] [address]PRZNLHX NURNegativeNormalNegativeBrecksville VA / Crille Hospital Comment on above:Performed By: #### CMP, CBCA #### [facility] ([id number]) [address] [place] [address] 85356IAIRMFT NURNegativeNormalNegativeBrecksville VA / [facility]ille Hospital Comment on above:Performed By: #### CMP, CBCA #### [facility] ([id number]) [address] [place] [address] [place] [address]BOGFEHAEC ESTERASE NURNegativeNormalNegativeBrecksville VA / Crille HospitalComment on above:Performed By: #### CMP, CBCA #### [facility] ([id number]) [address] [place] [address] 66471VDDGALC NURNegativeNormalNegativeBrecksville VA / [facility]ille Hospital Comment on above:Performed By: #### CMP, CBCA #### [facility] ([id number]) [address] [place] [address] 84[address]JS NUR7.2Sufzvs5.0, 6.0, 6.5, 7.0, 7.5, 8.0, 8.5, 5.5ProMedica Downey Regional Medical CenterComment on above:Performed By: #### CMP, CBCA #### [facility] ([id number]) [address] [place] [address] 92709JFJCETR NURNegativeNormalNegativeBrecksville VA / [facility]ille Hospital Comment on above:Performed By: #### CMP, CBCA #### [facility] ([id number]) [address] [place] [address] 95[address]TIMDUOOX GRAVITY NUR1.567Dmscvn7.010, 1.015, 1.020, 1.025 Pro[facility]ica [facility] Regional Medical CenterComment on above:Performed By: #### CMP, CBCA #### [facility] ([id number]) [address] [place] [address] 40344XQZACOGZCXJP NUR0.2 E.U./dLNormalBrecksville VA / [facility]ille Hospital Comment on above:Performed By: #### CMP, CBCA #### [facility] ([id number]) [address] [place] [address] 09[address]FATN , URINE (NUCG)on 07-17-4611Pajm HCG ( test) Ql (U)NegativeNormalNegative, IndeterminateBrecksville VA / Crille Hospital Comment on above:Performed By: #### CMP, CBCA #### [facility] ([id number]) [address] [place] [address] 706[address]DEGETVD AND INRon 87-15-9736AWB4.4Xzguip8.9-1.2PHarrison Community HospitalComment on above:Performed By: #### SHASHANK, CBCA #### [facility] ([id number]) [address] [place] [address] [id number] Coag (PPP) [Time]12.0 sNormal9.8-13.2PHarrison Community HospitalComment on above:Performed By: #### SHASHANK CBCA #### [facility] ([id number]) [address] [place] [address] [id number] PROFILE INCLUDES TSH FT4on 05-34-5882Oaer T4 [Mass/Vol] 0.88 ng/dLNormal0.61-1.60ProBaylor Scott & White Medical Center – MckinneyComment on above:Performed By: #### SHASHANK, CBCA #### [facility] ([id number]) [address] [place] [address] 08489DUM8.11 uIU/mLNormal0.49-4.67ProBaylor Scott & White Medical Center – MckinneyComment on above:Performed By: #### SHASHANK, CBCA #### [facility] ([id number]) [address] [place] [address] [id number] I, HIGH SENSITIVITY 0 HOURon [id number] I, HIGH SENSITIVITY<^2Normal<16ProBaylor Scott & White Medical Center – MckinneyComment on above:Performed By: #### [id number] #### [facility] ([facility]) [address] [place] [address] [id number] VIRXR CHEST 1 VWon [id number] CHEST 1 VWXR CHEST 1 VW CLINICAL HISTORY: Shortness of breath and numbness Comparison: 02/01/2022 Views: 1 view FINDINGS: * No acute infiltrate. No volume loss nor consolidation. There is no pleural effusion, pneumothorax, nor volume loss. Heart and mediastinal structures are unremarkable. Pulmonary vasculature stable. IMPRESSION: * No active disease nor significant interval change Finalized by Frank Maddox MD on 01/19/2025 7:22 [facility] MR ABDOMEN W WO CONTon [id number] ABDOMEN W WO CONTMR ABDOMEN W WO CONT MR ABDOMEN W WO CONT Clinical history:Liver lesion liver mass Comparison: None. TECHNIQUE: Multiplanar multisequence MRI of the abdomen performed prior to and following demonstration of ProHance intravenous contrast. Findings: No pleural or pericardial effusion. No abdominal ascites. Prior cholecystectomy. There is no biliary dilatation. There is loss of signal within the liver on opposed phase imaging compatible with hepatic steatosis. There is no diffusion-weighted abnormality identified. There is a hypervascular right hepatic dome lesion likely related to a flash filling hemangioma measuring 15 mm there is a subcapsular small right hepatic cyst measuring 3 to 4 mm. No renal collecting system dilatation. The abdominal aorta is normal caliber. Impression: Right hepatic dome lesion most compatible with a flash filling hemangioma. No biliary dilatation postcholecystectomy. No acute process identified. Finalized by Gregory Carreon MD on 09/22/2024 11:24 AMNCleveland Clinic Mercy HospitalLaboratory - Microbiology and Antimicrobial susceptibilityon 08-20-2024 SARS-CoV-2 (COVID-19) RNA TRE+probe Ql (Unsp spec)NegativeNOSalem Memorial District HospitalNo Panel Informationon [id number] ANegativeNOMS HealthcareFLU BNegativeNOPA HealthcareInterpretation and review of laboratory resultsNormalChildren's Mercy Northland NOMS HealthcareCBC AND AUTO DIFFon [id number] BASOPHIL0.0 X10E9/LNormal 0.0-0.2PHarrison Community HospitalComment on above:Performed By: #### CMP CBCA #### [facility] ([id number]) [address] [place] [address], FIRST FLOOR [place], [place] [address]LTSYUGVM NEUTROPHIL5.7 X10E9/LNormal1.5-6.6B[facility]ksville [facility] / Crille HospitalComment on above:Performed By: #### CMP CBCA #### [facility] ([id number]) [address] [place] [address] 55198Vkrycfdwj/100 WBC (Bld)0.5 %NormalBrecksville VA / Crille Hospital Comment on above:Performed By: #### CMP, CBCA #### [facility] ([id number]) [address] [place] [address] 74157Mhdbaklfnby (Bld) [#/Vol]0.1 10*3/uLNormal0.0-0.4Brecksville [facility] / Crille HospitalComment on above:Performed By: #### CMP, CBCA #### [facility] ([id number]) [address] [place] [address] 88544Etpofewdzkt/100 WBC (Bld)0.9 %[facility] Comment on above:Performed By: #### CMP, CBCA #### [facility] ([id number]) [address] [place] [address] 70121Zdhqnuzlyla distribution width (RBC) [Ratio]12.7 %Normal 11.5-15.0Brecksville [facility] / Crille HospitalComment on above:Performed By: #### CMP, CBCA #### [facility] ([id number]) [address] [place] [address] 46895Vpxajfdghw (Bld) [Volume fraction]38.2 %Tpujxo85-07RfrWmmpukBaylor Scott & White Medical Center – MckinneyComment on above:Performed By: #### CMP, CBCA #### [facility] ([id number]) [address] [place] [address] 70835Qzmvoomhnv (Bld) [Mass/Vol]12.9 g/sEFnewxi77.7-15.5PHarrison Community HospitalComment on above:Performed By: #### CMP, CBCA #### [facility] ([id number]) [address] [place] [address] 18996Jiezbnddmyl (Bld) [#/Vol]2.0 10*3/uLNormal1.0-3.5PSt. Charles Parish Hospitalica Downey Regional Medical CenterComment on above:Performed By: #### CMP, CBCA #### [facility] ([id number]) [address] [place] [address] 57345Fvkxzudnjvu/100 WBC (Bld)23.5 %NormalBrecksville VA / Crille Hospital Comment on above:Performed By: #### CMP, CBCA #### [facility] ([id number]) [address] [place] [address] 10380LIR (RBC) [Entitic mass]32.1 ufBjkhys26-56IjjGzmbthBrecksville VA / Crille HospitalComment on above:Performed By: #### CMP, CBCA #### [facility] ([id number]) [address] [place] [address] 84870JDMZ (RBC) [Mass/Vol]33.7 g/oGCyzlyk79-48LkeIetduzBaylor Scott & White Medical Center – MckinneyComment on above:Performed By: #### CMP, CBCA #### [facility] ([id number]) [address] [place] [address] 28303PJT (RBC) [Entitic vol]95 eNEdpcuu42-400FgmFjwgatBrecksville VA / Crille HospitalComment on above:Performed By: #### CMP, CBCA #### [facility] ([id number]) [address] [place] [address] 48128Swhvicfwe (Bld) [#/Vol]0.5 10*3/uLNormal0-0.9Brecksville [facility] / Crille HospitalComment on above:Performed By: #### CMP, CBCA #### [facility] ([id number]) [address] [place] [address] 26578Grgrfglyo/100 WBC (Bld)6.6 %NormalBrecksville VA / Crille Hospital Comment on above:Performed By: #### CMP, CBCA #### [facility] ([id number]) [address] [place] [address] 47806Lescylgyjje/100 WBC (Bld)68.5 %NormalBrecksville VA / Crille Hospital Comment on above:Performed By: #### CMP, CBCA #### [facility] ([id number]) [address] [place] [address] 88670Xxuaoiec mean volume (Bld) [Entitic vol]7.4 fLNormal7-12 ProMedicSierra Nevada Memorial HospitalComment on above:Performed By: #### CMP, CBCA #### [facility] ([id number]) [address] [place] [address] 31925Mjjhaochi (Bld) [#/Vol]382 10*3/gDJbzyex452-875JbqUplnkt [facility] HospitalComment on above:Performed By: #### CMP, CBCA #### [facility] ([id number]) [address] [place] [address] 36539AWG COUNT4.02 X10E12/LNormal3.80-5.20[facility] Comment on above:Performed By: #### CMP, CBCA #### [facility] ([id number]) [address] [place] [address] 92167XSQ (Bld) [#/Vol]8.3 10*3/uLNormal4.0-11.0Brecksville [facility] / Crille HospitalComment on above:Performed By: #### CMP, CBCA #### [facility] ([id number]) [address] [place] [address] 31662BFDPVTPQVKQBF METABOLIC PANELon 21-62-9872Prmxqjf [Mass/Vol]4.3 g/dLNormal3.2-5.3PHarrison Community HospitalComment on above:Performed By: #### CMP, CBCA #### [facility] ([id number]) [address] [place] [address], [place] [address]IPT [Catalytic activity/Vol]77 U/MKttbjv85-947ZuxXcwqteBaylor Scott & White Medical Center – MckinneyComment on above:Performed By: #### CMP, CBCA #### [facility] ([id number]) [address] [place] [address], [place] [address]OHO [Catalytic activity/Vol]17 U/LNormal0-31PEast [facility] HospitalComment on above:Performed By: #### CMP, CBCA #### [facility] ([id number]) [address] [place] [address], [place] [address]Ttnsw gap [Moles/Vol]8 mmol/LNormal5-15ProBaylor Scott & White Medical Center – MckinneyComment on above:Performed By: #### CMP, CBCA #### [facility] ([id number]) [address] [place] [address], [place] [address]YDR [Catalytic activity/Vol]15 U/LNormal0-41ProBaylor Scott & White Medical Center – MckinneyComment on above:Performed By: #### CMP, CBCA #### [facility] ([id number]) [address] [place] [address], [place] [address]Iuorebsrq [Mass/Vol]1.2 mg/dLNormal0.3-1.2PHarrison Community HospitalComment on above:Performed By: #### CMP, CBCA #### [facility] ([id number]) [address] [place] [address], [place] [address]Ksqkfgy [Mass/Vol]9.1 mg/dLNormal8.5-10.5PHarrison Community HospitalComment on above:Performed By: #### CMP, CBCA #### [facility] ([id number]) [address] [place] [address], [place] [address]Uscpygwq [Moles/Vol]103 mmol/YLqqsek72-224TosJypsus [facility]ont HospitalComment on above:Performed By: #### CMP, CBCA #### [facility] ([id number]) [address] [place] [address] 55689CZ3 [Moles/Vol]27 mmol/GXxcrin06-39SnxIlmuipHarrison Community Hospital Comment on above:Performed By: #### MARIA ANTONIA ENCARNACION #### [facility] ([id number]) [address] [place] [address] 67369Smlylbiflj [Mass/Vol]0.91 mg/dLNormal0.40-1.00B[facility]ville VA / Crille HospitalComment on above:Result Comment: METHOD TRACEABLE TO IDMS STANDARD Performed By: #### MARIA ANTONIA ENCARNACION #### [facility] ([id number]) [address] [place] [address] 61909XVM/1.73 sq M.predicted among non-blacks MDRD (S/P/Bld) [Vol rate/Area]83 mL/min/{1.73_m2}Normal>59Brecksville VA / Crille HospitalComment on above:Result Comment: Reported eGFR is based on the CKD-EPI 2021 equation that does not use a race coefficient.Performed By: #### MARIA ANTONIA ENCARNACION #### [facility] ([id number]) [address] [place] [address] 11034Nxwigck [Mass/Vol]109 mg/jUByfa74-50AoxIrebboBrecksville VA / Crille Hospital Comment on above:Performed By: #### MARIA ANTONIA ENCARNACION #### [facility] ([id number]) [address] [place] [address] 04370Cdtmqqgro [Moles/Vol]3.6 mmol/LNormal3.5-5.0B[facility] / Cr[facility] HospitalComment on above:Performed By: #### MARIA ANTONIA ENCARNACION #### [facility] ([id number]) [address] [place] [address] 20078Wanzunp [Mass/Vol]7.8 g/dLNormal6.0-8.0B[facility] Cr[facility] HospitalComment on above:Performed By: #### JEREMIE ENCARNACIONA #### [facility] ([id number]) [address] [place], [place] [address]Koaerr [Moles/Vol]138 mmol/IIqgypn661-714CvdOlakrj [facility] HospitalComment on above:Performed By: #### CMP, CBCA #### [facility] ([id number]) [address] [place], [place] [address]Drry nitrogen [Mass/Vol]11 mg/dLNormal5-23ProBaylor Scott & White Medical Center – MckinneyComment on above:Performed By: #### CMP, CBCA #### [facility] ([id number]) [address] [place] [address] 99696VB ABDOMEN AND PELVIS W CONTon 27-46-4398DR ABDOMEN AND PELVIS W CONTCT ABDOMEN AND PELVIS W CONT ABDOMEN AND PELVIS CT WITH CONTRAST HISTORY: Constipation, abdominal pain. Status post hysterectomy. COMPARISON: CT 01/21/2023 TECHNIQUE: CT abdomen and pelvis was performed. Axial images were obtained following the uneventfuladministration of 100 cc Omnipaque 300 nonionic intravenous contrast. Coronal and sagittal reformatted images were obtained and reviewed. Automated exposure control was utilized. FINDINGS: 1.8 cm hyperdense lesion within the hepatic dome. Status post cholecystectomy. There is no intrahepatic or extra hepatic biliary duct dilatation. Gallbladder surgically absent. Spleen, pancreas, and adrenals are unremarkable. 3 mm and 2 mm calcification within the left upper pole kidney. Likely related none project renal calculi. No hydronephrosis or hydroureter. Small bowel is nondilated. Air and stool are seen distally and a nonobstructive bowel gas pattern. There is diffuse long segment wall thickening involving the sigmoid colon. Appendix is visualized and unremarkable. Moderate colonic stool burden. Ventral hernia defect within the abdominal wall containing fat. No abdominal aortic aneurysm. Lung bases are clear. Osseous structures are unremarkable. IMPRESSION: * Diffuse wall thickening involving the sigmoid colon, concerning for colitis. Consider direct visualization with colonoscopy after treatment. * 1.8 cm hypodense lesion within the hepatic dome, likely a hemangioma. Consider CT or MRI liver protocol for definitive characterization. * Ventral hernia defect within the lower abdominal wall containing fat. * 3 mm and 2 mm calcifications within the left upper renal pole likely related to nonobstructive renal calculi. All CT scans at this facility use dose modulation, iterative reconstruction, and/or weight based dosing when appropriate to reduce radiation dose to as low as reasonably achievable. Finalized by Froilan Gregg on 08/09/2024 5:39 PMNormalBrecksville VA / Crille Hospital URN MACROSCOPIC NURon 09-09-5150JHRUDJTDC NURNegativeNormalNEGProBaylor Scott & White Medical Center – MckinneyComment on above:Performed By: #### NUM #### [facility] ([id number]) [address] [place] [address] 87600SAHZN/HGB NURTraceAbnormalNEGBrecksville VA / Crille HospitalComment on above:Performed By: #### NUM #### [facility] ([id number]) [address] [place] [address] 47741BBXBQHC NURNegativeNormalNEGBrecksville VA / Crille HospitalComment on above:Performed By: #### NUM #### [facility] ([id number]) [address] [place] [address] 46752OJYIBBT NUR15 mg/dLAbnormalNEGBrecksville VA / Crille HospitalComment on above:Performed By: #### NUM #### [facility] ([id number]) [address] [place] [address] 86373ZXQBCBKBI ESTERASE NURNegativeNormalNEGProBaylor Scott & White Medical Center – MckinneyComment on above:Performed By: #### NUM #### [facility] ([id number]) [address] [place] [address] 14827ICACOJU NURNegativeNormalNEGProBaylor Scott & White Medical Center – MckinneyComment on above:Performed By: #### NUM #### [facility] ([id number]) [address] [place] [address] 74250QM NUR6.5Egtirm9.0-8.5ProMedica Downey Regional Medical CenterComment on above:Performed By: #### NUM #### [facility] ([id number]) [address] [place] [address] 21241APWBGNZ NUR30 mg/dLAbnormalNEGProBaylor Scott & White Medical Center – MckinneyComment on above:Performed By: #### NUM #### [facility] ([id number]) [address] [place] [address] 43383CMZAEAOP GRAVITY NUR1.277Axbdju6.003-1.035ProBaylor Scott & White Medical Center – MckinneyComment on above:Performed By: #### NUM #### [facility] ([id number]) [address] [place] [address] 44685EIXOFOUGKGOM NUR0.2 eu/dLNormal<1.1PHarrison Community Hospital Comment on above:Performed By: #### NUM #### [facility] ([id number]) [address] [place] [address] 92804UJK CBC WITH AUTO DIFFon 75-84-7126FASSVNWKI ABSOLUTE JNGI8PXKR HealthcareBasophils/100 WBC (Bld)0.2 %0.2 - 2.0 %NOMS HealthcareEosinophils/100 WBC (Bld)0.2 %Low0.9 - 7.0 %NOMS HealthcareErythrocyte distribution width (RBC) [Ratio]11.8 %11.0 - 15.0 %NOMS HealthcareHematocrit (Bld) [Volume fraction]37.9 %36.0 - 48.0 %NOMS HealthcareHemoglobin (Bld) [Mass/Vol]12.4 g/dL12.0 - 16.0 g/dLNOMS HealthcareIMMATURE GRANULOCYTES ABS AUTO0.05HighNOMS HealthcareImmature granulocytes/100 WBC (Bld)0.5 %0.0 - 0.5 %NOMS HealthcareInterpretation and review of laboratory resultsAbnormalNOMS HealthcareLYMPHOCYTES ABSOLUTE AUTO2.2 NOMS HealthcareLymphocytes/100 WBC (Bld)19.9 %Low20.5 - 60.0 %NOMS HealthcareMCH (RBC) [Entitic mass]31.5 pg26.7 - 34.0 pgNOSaint John's HospitalHC (RBC) [Mass/Vol] 32.7 g/dL29.9 - 35.2 g/dLChildren's Mercy NorthlandMCV (RBC) [Entitic vol]96.2 fL81.0 - 99.0 fLChildren's Mercy NorthlandMONOCYTES ABSOLUTE AUTO0.8NOMS HealthcareMonocytes/100 WBC (Bld)7.2 %1.7 - 12.0 %NOMS HealthcareNEUTROPHILS ABSOLUTE AUTO7.8HighNOPA HealthcareNeutrophils/100 WBC (Bld)72 %43.0 - 75.0 %NOM HealthcarePlatelet mean volume (Bld) [Entitic vol]9.5 fL9.5 - 13.5 fLChildren's Mercy NorthlandTBH EO #0NOMS [facility] [id number] hospital springfield RBC3.94LowNOMercy hospital springfield WBC10.8NOSalem Memorial District HospitalCLINISYNCNALLIANCEHEALTH DURANT – DURANT HealthcareALL CBC WITH AUTO DIFFon 80-65-0874JKBUSPAIR ABSOLUTE AUTO0.1NOMS HealthcareBasophils/100 WBC (Bld)1 %0.2 - 2.0 %NOMS HealthcareEosinophils/100 WBC (Bld)1.5 %0.9 - 7.0 %[facility] HealthcareErythrocyte distribution width (RBC) [Ratio]11.4 %11.0 - 15.0 %NOM HealthcareHematocrit (Bld) [Volume fraction]39.7 %36.0 - 48.0 %NOMKansas City Va Medical CenterHemoglobin (Bld) [Mass/Vol]13.1 g/dL12.0 - 16.0 g/dLChildren's Mercy NorthlandIMMATURE GRANULOCYTES ABS AUTO 0.02NOSalem Memorial District HospitalImmature granulocytes/100 WBC (Bld)0.3 %0.0 - 0.5 %NOM HealthcareInterpretation and review of laboratory resultsAbnormalChildren's Mercy Northland LYMPHOCYTES ABSOLUTE AUTO2.2NOMS [facility]. Elizabeth HospitalLymphocytes/100 WBC (Bld)30.3 %20.5 - 60.0 %[facility] Psych[facility] HospitalH (RBC) [Entitic mass]31.6 pg26.7 - 34.0 pgNOSaint John's HospitalHC (RBC) [Mass/Vol]33 g/dL29.9 - 35.2 g/dLNOMS HealthcareMCV (RBC) [Entitic vol]95.7 fL81.0 - 99.0 fLNOMS HealthcareMONOCYTES ABSOLUTE AUTO0.7NOMS HealthcareMonocytes/100 WBC (Bld)9.6 %1.7 - 12.0 %NOMS HealthcareNEUTROPHILS ABSOLUTE AUTO4.1NOMS HealthcareNeutrophils/100 WBC (Bld)57.3 %43.0 - 75.0 %NOMS HealthcarePlatelet mean volume (Bld) [Entitic vol]9.3 fLLow9.5 - 13.5 fLNOMS HealthcareTBH EO #0.1NOMS HealthcareTBH [id number] HealthcareTBH RBC4.15LowNOMS HealthcareTBH WBC7.2NOMS HealthcareCLINISYNCNOMS HealthcareLon 07-02-2024 Specimen: [id number] Received: 07/03/24 Status: LJ Vaughan Num: [id number] Spec Type: Surgical Subm Dr: Orlando Raymundo Tissues: A Uterus w/ or w/o tubes ovaries except neoplastic or prolap (UTERUS,CERVIX, Procedures: HE/Josephine, Gross/Micro L5 Age/ Patient Sex Location Account Attending Physician Stacy Klein 38/F LABELL [id number] Orlando Raymundo SPEC NUM: [id number] RECD: 07/03/24-1258 STATUS: LJ VAUGHAN NUM: [id number] DIAN: 07/02/24- SUBM DR: Orlando Raymundo ENTERED: 07/03/24-1300 [facility] DR: Rios,Lab SPEC TYPE: Surgical DEPT: DEO FELDMAN ENTERED BY: [id number] RECV BY: [id number] ORDERED: HE/8, Gross/Micro L5 ORDERED: HE/8, Gross/Micro L5 Pathological Diagnosis Uterus with cervix and partial bilateral fallopian tube, total hysterectomy partial bilateral salpingectomy: - Cervix with no significant histopathology. - Adenomyosis and intramural leiomyoma - Serosa with no significant histopathology. - Bilateral fallopian tube with no significant histopathology. Clinical Information Menorrhagia, pelvic pain, dyspareunia, dysmenorrhea Gross Description Part A is received in formalin labeled with the patients name, date of , and uterus and cervix and partial bilateral fallopian tubes Is a 73 g hysterectomy specimen, which consists of a uterine corpus with attached cervix, resected with detached bilateral fallopian tubes and without bilateral ovaries I here you have the night off tonight would you like to grab dinner out. The uterine corpus is symmetrical, 3 cm cornu to cornu, 3.7 cm anterior to posterior and 8.4 cm fundus to ectocervical face. The serosa is dale- pink, smooth and glistening. The ectocervical face is 1 cm in length by up to 3.2 cm in diameter, and exhibits dale-pink, smooth, glistening mucosa. The cervical os is slitlike, up to 0.8 cm in diameter. The specimen is opened to reveal a dale-pink, wrinkled and glistening endocervical canal. Specimen: [id number] Received: 07/03/24 Status: LJ Vaughan Num: [id number] Spec Type: Surgical Subm Dr: Orlando Raymundo Tissues: A Uterus w/ or w/o tubes ovaries except neoplastic or prolap (UTERUS,CERVIX, Procedures: , Gross/Micro L5 Patient: ErnieStacy A [id number] (Continued) Specimen: [id number] Received: 07/03/24 (Continued) Gross Description (Continued) Signed (signature on file) Robel Quezada MD 07/04/24 1037 Specimen: [id number] Received: 07/03/24 Status: LJ Vaughan Num: [id number] Spec Type: Surgical Subm Dr: Orlando Raymundo Tissues: A Uterus w/ or w/o tubes ovaries except neoplastic or prolap (UTERUS,CERVIX, Procedures: HE/8, Gross/Micro L5 Patient: ErnieStacy [id number] (Continued) Specimen: [id number] Received: 07/03/24 (Continued) Gross Description (Continued) The endometrial cavity is dale-pink, focally erythematous, glistening, distorted and somewhat ovoid, 2.5 x 1.3 cm with possible endometrium, up to 0.1 cm in thickness. Within the posterior endometrial cavity is a well-circumscribed, 0.6 cm in greatest dimension submucosal nodule. The cut surfaces of the nodule are white, whirled, rubbery and uniform with no hemorrhage or degeneration identified. The myometrium is dale-pink and trabecular, up to 2.5 cm in thickness. The bilateral fallopian tubes with fimbriated distal ends are received detached, unoriented. The shorter tube is 2 cm in length by 0.7 cm in diameter, and the longer tube is 2.2 cm in length by 0.7 cm in diameter. The serosa is edwards-purple, smooth and glistening. Serial sections reveal pinpoint lumen within each segment. Cassettes: A1 Cervix A2 Serosa (to include posterior cul-de-sac) A3-A4 Full-thickness cross-sections of anterior endomyometrium A5-A6 Full-thickness cross-sections of posterior endomyometrium (to include submucosal nodule) A7 Entirety of trisected fimbriated end and remaining cross-sections from shorter fallopian tube A8 Entirety of trisected fimbriated end and remaining cross-sections from longer fall (more contentnot included)...NormalAdventhealth Palm Coast Physician GroupECG 12-LEAD on 58-93-8536Wpq [place] [address] Electrocardiograph Report Signed Patient: STACY KLEIN MR#: [id number] : 1985 Acct:[id number] Age/Sex: 38 / F ADM Date: 06/20/24 Loc: [facility] Attending Dr: Orlando Raymundo D.O. Ordering Physician: Orlando Raymundo D.O. Date of Service: 06/20/24 Procedure(s): ECG 12 lead Accession Number(s): [id number] cc: [facility] Test Date: 2024-06-20 Pat Name: STACY KLEIN Department: Room: - Gender: Female Pharmacy Resource Tech: : 1985 Requested By: ORLANDO RAYMUNDO Order Number: [id number] Reading MD: JAMIE CASEY Measurements Intervals [place] Rate: 63 P: 62 HI: 167 QRS: 55 QRSD: 91 T: 54 QT: 379 QTc: 391 Interpretive Statements SINUS RHYTHM Compared to ECG 02/09/2023 11:27:44 Sinus arrhythmia no longer present Electronically Signed On 06-22-2024 7:38:39 EST by JAMIE CASEY Dictated By: Jamie Casey D.O. Signed By: 06/22/24 0738 DD/ 0930 TD/TT: Hog Tender:TBHRadiology, Radiologist, - 06/22/2024 [place] [address] Electrocardiograph Report Signed Patient: STACY KLEIN MR#: [id number] : 1985 Acct:[id number] Age/Sex: 38 / F ADM Date: 06/20/24 Loc: [facility] Attending Dr: Orlando Raymundo D.O. Ordering Physician: Orlando Raymundo D.O. Date of Service: 06/20/24 Procedure(s): ECG 12 lead Accession Number(s): [id number] cc: [facility] Test Date: 2024-06-20 Pat Name: STACY KLEIN Department: Room: - Gender: Female Pharmacy Resource Tech: : 1985 Requested By: ORLANDO RAYMUNDO Order Number: [id number] Reading MD: JAMIE CASEY Measurements Intervals [place] Rate: 63 P: 62 HI: 167 QRS: 55 QRSD: 91 T: 54 QT: 379 QTc: 391 Interpretive Statements SINUS RHYTHM Compared to ECG 02/09/2023 11:27:44 Sinus arrhythmia no longer present Electronically Signed On 06-22-2024 7:38:39 EST by JAMIE CASEY Dictated By: Jamie Casey D.O. Signed By: 06/22/24 0738 DD/ 0930 TD/TT: Hog Tender: JEFF HarrisECG 12-LEADOrdered By: Radiologist Radiology on [id number]'s Mercy Northland Work Phone: all CBC WITH AUTO DIFFon 31-55-5646DFEVDMHAF ABSOLUTE AUTO0.1NOMS HealthcareBasophils/100 WBC (Bld)0.9 %0.2 - 2.0 %NOM Healthcare Eosinophils/100 WBC (Bld)1.3 %0.9 - 7.0 %NOMS HealthcareErythrocyte distribution width (RBC) [Ratio]11.8 %11.0 - 15.0 %NOMS HealthcareHematocrit (Bld) [Volume fraction]40.7 %36.0 - 48.0 %NOMS HealthcareHemoglobin (Bld) [Mass/Vol]13.7 g/dL 12.0 - 16.0 g/dLNOPA HealthcareIMMATURE GRANULOCYTES ABS AUTO0.03NOSalem [facility] Hospital Immature granulocytes/100 WBC (Bld)0.4 %0.0 - 0.5 %NOMS HealthcareInterpretation and review of laboratory resultsAbnormalNOPA HealthcareLYMPHOCYTES ABSOLUTE [id number] HealthcareLymphocytes/100 WBC (Bld)28.7 %20.5 - 60.0 %[facility] MCH (RBC) [Entitic mass]32.5 pg26.7 - 34.0 pgChildren's Mercy NorthlandMCHC (RBC) [Mass/Vol]33.7 g/dL29.9 - 35.2 g/dLChildren's Mercy NorthlandMCV (RBC) [Entitic vol]96.7 fL 81.0 - 99.0 fLChildren's Mercy NorthlandMONOCYTES ABSOLUTE AUTO0.5[facility] Monocytes/100 WBC (Bld)7.9 %1.7 - 12.0 %[facility] Mercy NorthlandNEUTROPHILS ABSOLUTE AUTO 4.1NOMS HealthcareNeutrophils/100 WBC (Bld)60.8 %43.0 - 75.0 %[facility] Platelet mean volume (Bld) [Entitic vol]9.3 fLLow9.5 - 13.5 fLChildren's Mercy NorthlandTBH EO #0.1NOMS HealthcareTBH [id number] [facility] HospitalTBH RBC4.21[facility] HospitalTB WBC 6.8[facility] HospitalCLINISYNCNOMS HealthcareECG 12-LEADon [id number] Study observation (narrative)[facility] NorthlandIGP,APTIMA HPV,AGE GDLNon 02-25-2024 AGE GDLN ACOG TESTINGNote.[facility] HealthcareComment on above:TESTS RESULT FLAG UNITS REF RANGE LAB Clinician Provided Cytology Information Source.............Cervix;Endocervix No. of containers..01 ThinPrep Vial Age Algo ACOG Aixa... FLAG LEGEND: L-Low Normal,H-High Normal,LL-Alert Low,HH-Alert High <-Panic Low,>-Panic High,A-Abnormal,AA-Critical Abnormal Performed at: 01 =[address] [phone] Shirley Roblero MD, HPV APTIMANegativeNegativeNOMS HealthcareComment on above:This nucleic acid amplification test detects fourteen high- risk HPV types (16,18,31,33,35,39,45,51,52,56,58,59,66,68) without differentiation. Performed at: =[address] [id number] Folder Gluer Operator: Shirley Roblero MD, Phone: [phone] Performed at: [address] [id number] Folder Gluer Operator: Shirley Roblero MD, Phone: [phone] IGP, APTIMA HPV, RFX 16/18,45Note.NOMS HealthcareComment on above:TESTS RESULT FLAG UNITS REF RANGE LAB DIAGNOSIS: 02 NEGATIVE FOR INTRAEPITHELIAL LESION OR MALIGNANCY. FUNGAL ORGANISMS MORPHOLOGICALLY CONSISTENT WITH KARAN SPECIES ARE PRESENT. Specimen adequacy: 02 Satisfactory for evaluation. No endocervical component is identified. Performed by: Dick Munoz, Transmitter Tester ([facility]) . 02 Note: Note 02 The Pap [...] <-Panic Low,>-Panic High,A-Abnormal,AA-Critical Abnormal Performed at: 02 [address] [facility] [address] [phone] Shirley Roblero MD, BRUSH-SPATULA CERVIX ENDOCERVIX CLINISYNCNOMS HealthcareCT CHEST W CONon [id number] CHEST W CONEXAMINATION: CT CHEST W CON, CT ABD/PELV W [...] Electronically authenticated by: OSWALD GAR Date: 2022-07-26 14:23[facility] AUTO DIFFon [id number] #0.1 103/ulNormal0.0-0.1The [facility] HospitalComment on above:Performed By: #### CBC ####[facility] [address] [id number].Yilan ChangBasophils/100 WBC (Bld)0.7 %Normal0.2-2.0The [facility] HospitalComment on above:Performed By: #### CBC ####[facility] Ztgunaps[address] [place], [place] [address]Dr.Yilan ChangEO #0.1 103/ulNormal0.0-0.7The [facility] HospitalComment on above:Performed By: #### CBC ####[facility] Snngrnzlhr[address] [place], [place] [address]Dr.Yilan ChangEosinophils/100 WBC (Bld)1.7 %Normal 0.9-7.0The [facility] HospitalComment on above:Performed By: #### CBC ####[facility] [address] [address]Dr.Cherilan Edwards Erythrocyte distribution width (RBC) [Ratio]12.2 %Hvcmpn49.0-15.0The [facility] HospitalComment on above:Performed By: #### CBC ####[facility] [address]ty[address]uh[address] [address]Dr.Joseph EdwardsHematocrit (Bld) [Volume fraction]37.0 %Etvgbb40.0-48.0The [facility] HospitalComment on above:Performed By: #### CBC ####[facility] [address] [address]Dr.Joseph EdwardsHemoglobin (Bld) [Mass/Vol]12.5 g/dL Hvxvws79.0-16.0The [facility] HospitalComment on above:Performed By: #### CBC ####[facility] Weumexcvfc[address] [place], [place] [address]Dr. Cherilan ChangIG #0.02 10e3/ulNormal0.00-0.03The [facility] HospitalComment on above: Performed By: #### CBC ####[facility] Slsir[address] [place], [place] [address]Dr.Joseph ChangIG %0.3 %Normal0.0-0.5The [facility] HospitalComment on above:Performed By: #### CBC ####[facility] Zhvkcywrhp[address] [place], [place] [address]Dr.Joseph ChangLYMPH #2.7 103/ulNormal1.2-3.8The [facility] HospitalComment on above:Performed By: #### CBC ####[facility] Nrdbfgcmxq[address] [place], [place] [address]Dr. Cheriruba EdwardsLymphocytes/100 WBC (Bld)37.4 %Emmvcb26.5-60.0The [facility] Comment on above:Performed By: #### CBC ####[facility] Cyisbvfzmg[address] [place], [place] [address]Dr.Cherilan ChangMANUAL DIFF REQNONormalThe [facility] HospitalComment on above:Performed By: #### CBC ####[facility] Xtwktkcpva[address] [place], [place] [address]Dr.Cheriruba EdwardsMCH (RBC) [Entitic mass]32.3 lcUvvusm04.7-34.0The [facility] HospitalComment on above: Performed By: #### CBC ####[facility] [address] [address]Dr.Joseph JerryMCHC (RBC) [Mass/Vol]33.8 g/dLNormal 29.9-35.2The [facility] HospitalComment on above:Performed By: #### CBC ####[facility] Ojyeiqpuzm[address] [place], [place] [address]Dr. Joseph EdwardsMCV (RBC) [Entitic vol]95.6 tWWgacje32.0-99.0The [facility] Comment on above:Performed By: #### CBC ####[facility] Xxxrosfzyc[address] [place], [place] [address]Dr.Joseph EdwardsMONO #0.6 103/ulNormal0.3-0.8 The [facility] HospitalComment on above:Performed By: #### CBC ####[facility] Pgimsozhej[address] [place], [place] [address]Dr.Cheriruba Ewdards Monocytes/100 WBC (Bld)7.8 %Normal1.7-12.0The [facility] HospitalComment on above: Performed By: #### CBC ####[facility] Noaybbxgmc[address] [place], [place] [address]Dr.Joseph EdwardsNEUT #3.7 103/ulNormal1.4-6.5The [facility] HospitalComment on above:Performed By: #### CBC ####[facility] Wlmsijutws[address] [place], [place] [address]Dr.Joseph EdwardsNeutrophils/100 WBC (Bld)52.1 %Rmrnde22.0-75.0The [facility] HospitalComment on above:Performed By: #### CBC ####[facility] Wfeokphrkw[address] [place], [place] [address]Dr.Joseph EdwardsPlatelet mean volume (Bld) [Entitic vol]9.2 fLCritically low 9.5-13.5The [facility] HospitalComment on above:Performed By: #### CBC ####[facility] Uiqeccdooh[address] [place], [place] [address]Dr. Joseph EdwardsPLT332 103/ejYuibxb130-613Okt [facility] HospitalComment on above: Performed By: #### CBC ####[facility] Rjwfmjdhoo[address] [place], [place] [address]Zo.Joseph EdwardsRBC3.87 106/ulCritically low4.20-5.40The [facility] HospitalComment on above:Performed By: #### CBC ####[facility] Nkpdqpmzxz3[address] [place], [place] [address]Du.Joseph ChangWBC7.1 103/ul Normal4.0-11.0The [facility] HospitalComment on above:Performed By: #### CBC ####[facility] Ebwysvfsdr40[address] [place], [place] [address]Qs. Joseph ChangCT ABD/PELVIS WO CONon [id number] ABD/PELVIS WO CONEXAM: CT SCAN OF THE ABDOMEN AND PELVIS WITHOUT IV CONTRAST DATE [...] Electronically authenticated by: FLO DODD Date: 2022-07-08 20:54[facility] URINE PROFILEon 56-61-0979Terdukinm Ql (U)NegativeNormal NEGATIVEThe [facility] Union Hospitalment on above:Performed By: #### LEFTY UMICRO #### [facility] [address] [address] [address] Joseph Mcadams (U)CLEARNormalCLEARThe [facility] HospitalCommclaren thumb region on above: Performed By: #### LUCIE OLEARO #### [facility] [address] [address] [address] Joseph Paul (U)LT. YELLOWNormalYELLOWThe [facility] on above:Performed By: #### LUCIE OLEARO #### [facility] [address] [address] [address] Joseph Peck micrscopic examination will be performed if indicated. NormalThe [facility] HospitalComment on above:Performed By: #### LEFTY UMLIENRO #### [facility] [address] [place] [address] Dr. Joseph EdwardsGlucose Ql (U)NegativeNormalNEGATIVEMarion Hospital HospitalComment on above:Performed By: #### LEFTY UMICRO #### [facility] [address] [place] [address] Dr. Joseph EdwardsHemoglobin Ql (U)SMALLAbnormalNEGATIVEAdams County Hospital Comment on above:Performed By: #### LEFTY UMLIENRO #### [facility] [address] [place] [address] Dr. Joseph EdwardsKetones Ql (U)NegativeNormalNEGATIVEAdams County HospitalComment on above:Performed By: #### LEFTY UMICRO #### [facility] [address] [place] [address] Dr. Joseph EdwardsLEUKOCYTESNegativeNormalNEGATIVEAdams County HospitalComment on above:Performed By: #### LEFTY UMLIENRO #### [facility] [address] [place] [address] Dr. Joseph EdwardsNitrite Ql (U)NegativeNormalNEGATIVEAdams County HospitalComment on above:Performed By: #### LEFTY UMICRO #### [facility] [address] [place] [address] Dr. Joseph EdwardspH (U)5.5 [pH]Normal5-9The [facility] HospitalComment on above: Performed By: #### LEFTY UMICRO #### [facility] [address] [place] [address] Dr. Joseph EdwardsSPEC GRAVITY1.053Esdfkd4.005-<=1.025The [facility] HospitalComment on above:Performed By: #### LEFTY UMLIENRO #### [facility] [address] [place] [address] Dr. Joseph Fitzpatrick PROTEINNegativeNormalNEGATIVE/ TRACEThe [facility] Comment on above:Performed By: #### VANNESA OLEA #### [facility] [address] [place] [address] Dr. Joseph Kemp MICRO INDINDICATEDNormalThe [facility] HospitalComment on above: Performed By: #### VANNESA OLEA #### [facility] [address] [place] [address] Dr. Joseph Aranabilinogen Qn (U)0.2 {Ijeoma'U}/dLNormal0.2 - 1.0The [facility] HospitalComment on above:Performed By: #### VANNESA OLEA #### [facility] [address] [place] [address] Dr. Joseph EdwardsLIPASEon 22-14-0660Ythjue [Catalytic activity/Vol]94.0 U/LNormal 73.0-393.0The [facility] HospitalComment on above:Performed By: #### LIPA, BMP #### [facility] [address] [place] [address] Dr. Joseph EdwardsLIBARB PROFILEon 26-17-1044Ymjyybh [Mass/Vol]3.7 g/dLNormal3.4-5.0 The [facility] HospitalComment on above:Performed By: #### LIVER ####[facility] [address] [address]Dr. Joseph Edwards Albumin/Globulin [Mass ratio]1.1 {ratio}NormalThe [facility] HospitalComment on above:Performed By: #### LIVER ####[facility] [address] [address]DrAlis EdwardsALP [Catalytic activity/Vol]79 U/L Rwxbgu23-932Qce [facility] HospitalComment on above:Performed By: #### LIVER ####[facility] I[address]qdys[address] [address]DrAlis EdwardsALT [Catalytic activity/Vol]16 U/UIbvuwn60-22Ygc [facility] Comment on above:Performed By: #### LIVER ####[facility] [address]axnyx[address]ki[address] [address]Dr. Cheriruba ChangAST [Catalytic activity/Vol] 14 U/LCritically zll36-99Bgu [facility] HospitalComment on above:Performed By: #### LIVER ####[facility] [address] [address]Dr. Cherilan ChangBILI, CONJUGATED0.1 mg/dLNormal0.0-0.2The [facility] Comment on above:Performed By: #### LIVER ####[facility] Lozokerdin[address] [address]Dr. Joseph ChangBilirubin [Mass/Vol]0.6 mg/dL Normal0.2-1.0The [facility] HospitalComment on above:Performed By: #### LIVER ####[facility] Dmjwnq[address]fg[address] [address]Dr. Joseph EdwardsGlobulin (S) [Mass/Vol]3.4 g/dLNormalThe [facility] HospitalComment on above:Performed By: #### LIVER ####[facility] Yrsv[address]abjab[address] [address]Dr. Joseph EdwardsProtein [Mass/Vol]7.1 g/dLNormal6.4-8.2 The [facility] HospitalComment on above:Performed By: #### LIVER ####[facility] Wfeifocycs[address] [address]Dr. Joseph Edwards URon 90-29-3154UCLYTIDYG, QUALNegativeNormalNEGATIVEThe [facility] HospitalComment on above:Performed By: #### PREGU ####[facility] Q[address]xublupz[address] [address]Dr. Joseph EdwardsPROF CHEM 8 (BAS METB)on 20-61-2441Ecpeu gap [Moles/Vol]10.0 mmol/LNormalThe [facility] HospitalComment on above:Performed By: #### LIPA, BMP #### [facility] [address] [id number] [address] Joseph EdwardsCalcium [Mass/Vol]9.4 mg/dLNormal8.5-10.1The [facility] Comment on above:Performed By: #### LIPA, BMP #### [facility] [address] [place] [address] Dr. Joseph EdwardsChloride [Moles/Vol]102 mmol/PEgdiix47-409Ivw [facility] Comment on above:Performed By: #### LIPA, BMP #### [facility] [address] [place] [address] Dr. Joseph EdwardsCO2 [Moles/Vol]30.3 mmol/GYejcbn40.0-32.0The [facility] Comment on above:Performed By: #### LIPA, BMP #### [facility] [address] [place] [address] Dr. Joseph EdwardsCreatinine [Mass/Vol]0.79 mg/dLNormal0.55-1.02The [facility] HospitalComment on above:Performed By: #### LIPA, BMP #### [facility] [address] [place] [address] Dr. Joseph CastanedaGFR-AF UKRAINIAN>60Normal>=60The [facility] HospitalComment on above:Performed By: #### LIPA, BMP #### [facility] [address] [place] [address] Dr. Joseph CastanedaGFR-NON AF UKRAINIAN>60Normal>=60The [facility] HospitalComment on above:Performed By: #### LIPA, BMP #### [facility] [address] [place] [address] Dr. Joseph EdwradsGlucose [Mass/Vol]105 mg/pHJmyluf43-638Tfv [facility] Comment on above:Performed By: #### LIPA, BMP #### [facility] [address] [place] [address] Dr. Joseph EdwardsPotassium [Moles/Vol]3.3 mmol/LCritically low3.5-5.1The [facility] HospitalComment on above:Performed By: #### LIPA, BMP #### [facility] [address] [place] [address] Dr. Joseph Grovesum [Moles/Vol]139 mmol/LTzwypl759-318Xpc [facility] Comment on above:Performed By: #### JOHAN JUAN #### [facility] [address] [address] [address] Joseph Renteria nitrogen [Mass/Vol]15.0 mg/dLNormal7.0-18.0The [facility] HospitalComment on above:Performed By: #### DRAKE BMP #### [facility] [address] [address] [address] Joseph Renteria nitrogen/Creatinine [Mass ratio]19.0 mg/mgNoHarrison Community HospitalComment on above:Performed By: #### JOHAN JUAN #### [facility] [address] [address] [address] Joseph Mendez MICROSCOPIC ONLYon 06-48-1851PDUFSCCWGVWY SEENNormalNONE SEENThe [facility] HospitalComment on above:Performed By: #### LUCIE OLEARO ####[facility] Flipxuifsh[address] Joseph EdwardsBacteria identified Cx Nom (U)NOT INDICATEDNoHarrison Community HospitalComment on above:Performed By: #### LUCIE OLEARO ####[facility] [address] [address]Dr. Joseph EdwardsCASTNONE SEEN NormalNONE SEENThe [facility] HospitalComment on above:Performed By: #### LUCIE OLEARO ####[facility] [address]asj[address] [address]DrAlis EdwardsCrystals LM Nom (Urine sed)NONE SEENNormalNONE SEENAdams County HospitalComment on above:Performed By: #### LEFTY UMICRO ####[facility] [address]ib[address] [address]Dr. Joseph Edwards Epithelial cells LM Ql (Urine sed)FEWAbnormalNONE SEEN /RAREThe [facility] HospitalComment on above:Performed By: #### LEFTY UMICRO ####[facility] Ypafbdjeli[address] [place], [place]Dr. Yilan ChangMUCOUSNONE SEEN NormalNONE SEENThe [facility] on above:Performed By: #### VANNESA OLEA ####[facility] [address]toiapwzb[address] [place], [place] [address]Dr. Yilan BjpwqPRB9-3Sykgkg6-7Uwp [facility] HospitalCommclaren thumb region on above: Performed By: #### VANNESA OLEA ####[facility] Ygargrhaxc[address] [place], [place] [address]Dr. Yilan ChangWBC0-2AbnormalNONE SEENThe [facility] HospitalCommclaren thumb region on above:Performed By: #### VANNESA OLEA ####[facility] [address]usig[address] [place], [place] [address]Dr. Yilan ChangPROF CHEM 8 (BAS METB)on 73-64-4229Woxsw gap [Moles/Vol]8.8 mmol/LNormalThe [facility] HospitalCommclaren thumb region on above:Performed By: #### BMP ####[facility] Zsvygqgezk[address] [place], [place] [address]Dr.Yilan ChangCalcium [Mass/Vol]8.9 mg/dLNormal8.5-10.1The [facility] HospitalCommclaren thumb region on above:Performed By: #### BMP ####[facility] [address]jax[address]rst[address] [place], [place] [address]Dr.Yilan ChangChloride [Moles/Vol]104 mmol/GCyzgis61-255Oas [facility] HospitalCommclaren thumb region on above:Performed By: #### BMP ####[facility] Jeaiafzwkf[address] [place], [place] [address]Dr.Yilan ChangCO2 [Moles/Vol] 30.8 mmol/KJcwctj79.0-32.0The [facility] HospitalCommclaren thumb region on above:Performed By: #### BMP ####[facility] Ivlivpahry[address] [place], [place] [address]Dr.Yilan ChangCreatinine [Mass/Vol]0.75 mg/dLNormal0.55-1.02The [facility] HospitalComment on above:Performed By: #### BMP ####[facility] [address]azk[address] [address]Dr.Yilan ChangEGFR-AF UKRAINIAN>60Normal>=60The [facility] HospitalCommclaren thumb region on above:Performed By: #### BMP ####[facility] Alrnlrxcjf[address] [place], [place] [address]Dr. Yilan ChangEGFR-NON AF UKRAINIAN>60Normal>=60The [facility] HospitalComment on above:Performed By: #### BMP ####[facility] R[address]xywiako[address] [place], [place] [address]Dr.Yilan ChangGlucose [Mass/Vol]97 mg/tITrimiu50-673 The [facility] HospitalCommclaren thumb region on above:Performed By: #### BMP ####[facility] Lkegypzokb[address] [place], [place] [address]Dr.Yilan Edwards Potassium [Moles/Vol]3.6 mmol/LNormal3.5-5.1The [facility] HospitalCommclaren thumb region on above:Performed By: #### BMP ####[facility] Dpxendzsqu[address] [place], [place] [address]Dr.Yilan ChangSodium [Moles/Vol]140 mmol/LNormal 136-145The [facility] on above:Performed By: #### BMP ####[facility] Zgdnplwglx[address] [place], [place] [address]Dr.Yilan ChangUrea nitrogen [Mass/Vol]7.0 mg/dLNormal7.0-18.0The [facility] on above: Performed By: #### BMP ####[facility] Enkjtyzmqu[address] [place], [place] [address]Dr.Yilan ChangUrea nitrogen/Creatinine [Mass ratio]9.3 mg/mgNormalThe [facility] HospitalCommclaren thumb region on above:Performed By: #### BMP ####[facility] Pubnxzsbjj[address] [place], [place] [address]Dr. Yilan ChangCBC AUTO DIFFon 05-94-3142IAMJ #0.1 103/ulNormal0.0-0.1The [facility] HospitalComment on above:Performed By: #### CBC #### [facility] [address] [address] [address] Joseph EdwardsBasophils/100 WBC (Bld)0.9 %Normal0.2-2.0The [facility] Comment on above:Performed By: #### CBC #### [facility] [address] [place] [address] Dr. Joseph Berkowitz #0.1 103/ulNormal0.0-0.7The [facility] HospitalComment on above: Performed By: #### CBC #### [facility] [address] [place] [address] Dr. Joseph Castanedaosinophils/100 WBC (Bld)1.4 %Normal0.9-7.0The [facility] Comment on above:Performed By: #### CBC #### [facility] [address] [place] [address] Dr. Joseph Castanedarythrocyte distribution width (RBC) [Ratio]11.6 %Cjajkz48.0-15.0 [facility] HospitalComment on above:Performed By: #### CBC #### [facility] [address] [place] [address] Dr. Joseph EdwardsHematocrit (Bld) [Volume fraction]41.0 %Nafhih66.0-48.0The [facility] HospitalComment on above:Performed By: #### CBC #### [facility] [address] [place] [address] Dr. Joseph EdwardsHemoglobin (Bld) [Mass/Vol]13.6 g/tFNqzuwk79.0-16.0The [facility] HospitalComment on above:Performed By: #### CBC #### [facility] [address] [place] [address] Dr. Joseph Clarke #0.04 10e3/ulCritically high0.00-0.03[facility] Comment on above:Performed By: #### CBC #### [facility] [address] [place] [address] Dr. Joseph Clarke %0.5 %Normal0.0-0.5The [facility] HospitalComment on above: Performed By: #### CBC #### [facility] [address] [place] [address] Dr. Joseph Davis #2.5 103/ulNormal1.2-3.8The [facility] HospitalComment on above:Performed By: #### CBC #### [facility] [address] [place] [address] Dr. Joseph Muellerhocytes/100 WBC (Bld)28.1 %Cffpdm72.5-60.0The [facility] HospitalComment on above:Performed By: #### CBC #### [facility] [address] [place] [address] Dr. Joseph Hector DIFF REQNONormalThe [facility] HospitalComment on above: Performed By: #### CBC #### [facility] [address] [place] [address] Dr. Joseph Malik (RBC) [Entitic mass]32.0 rgUlpavk48.7-34.0The [facility] HospitalComment on above:Performed By: #### CBC #### [facility] [address] [place] [address] Dr. Joseph Black (RBC) [Mass/Vol]33.2 g/zUAmpetz30.9-35.2The [facility] HospitalCommclaren thumb region on above:Performed By: #### CBC #### [facility] [address] [place] [address] Dr. Joseph Bazzi (RBC) [Entitic vol]96.5 zUPzmzzi70.0-99.0The [facility] HospitalComment on above:Performed By: #### CBC #### [facility] [address] [place] [address] Dr. Joseph Delgado #0.5 103/ulNormal0.3-0.8The [facility] HospitalCommclaren thumb region on above:Performed By: #### CBC #### [facility] [address] [place] [address] Dr. Joseph Lopezocytes/100 WBC (Bld)6.2 %Normal1.7-12.0The [facility] Comment on above:Performed By: #### CBC #### [facility] [address] [place] [address] Dr. Joseph Ojeda #5.5 103/ulNormal1.4-6.5The [facility] HospitalComment on above:Performed By: #### CBC #### [facility] [address] [place] [address] Dr. Joseph Morrisonutrophils/100 WBC (Bld)62.9 %Jgvzgg45.0-75.0The [facility] HospitalComment on above:Performed By: #### CBC #### [facility] [address] [place] [address] Dr. Joseph Paiz mean volume (Bld) [Entitic vol]10.0 fLNormal9.5-13.5The [facility] HospitalComment on above:Performed By: #### CBC #### [facility] [address] [place] [address] Dr. Joseph DooleyT357 103/suFljixh791-205Rzu [facility] HospitalComment on above: Performed By: #### CBC #### [facility] [address] [place] [address] Dr. Joseph EdwardsRBC4.25 106/ulNormal4.20-5.40The [facility] HospitalComment on above:Performed By: #### CBC #### [facility] [address] [place] [address] Dr. Joseph EdwardsWBC8.8 103/ulNormal4.0-11.0The [facility] HospitalComment on above: Performed By: #### CBC #### [facility] [address] [place] [address] Dr. Joseph Niño T4on 85-71-7757Gnig T4 [Mass/Vol]0.96 ng/dLNormal0.76-1.46 The [facility] HospitalComment on above:Performed By: #### FT4 ####[facility] [address]xunfxzis[address] [place], [place] [address]Dr.Yilan Edwards GLYCOHEMOGLOBIN A1Con 72-04-5487GOR RECOMMENDATIONSEE SCCI Hospital LimaComment on above:Result Comment: ADA RECOMMENDED LIMIT 4.0 - 6.0 ADA THERAPEUTIC TARGET < 7.0 ACTION SUGGESTED > 7.0Performed By: #### A1C #### [facility] [address] [address] [address] Joseph EdwardsGlucose [Mass/Vol]111 mg/dLNoHarrison Community HospitalComment on above:Performed By: #### A1C #### [facility] [address] [address] [address] Joseph EdwardsHbA1c (Bld) [Mass fraction]5.5 %Normal4.5-6.2The [facility] HospitalComment on above:Performed By: #### A1C #### [facility] [address] [place] [address] Dr. Joseph EdwardsLIPID PROFILEon 95-00-4643KEZQ-HDL RATIO NORMSEE BELOWSelect Medical Cleveland Clinic Rehabilitation Hospital, BeachwoodComment on above:Result Comment: 3.3 - 4.4 LOW RISK 4.4 - 7.1 AVERAGE RISK 7.1 - 11.0 MODERATE RISK >11.0 HIGH RISKPerformed By: #### LIPID, CMP, TSH #### [facility] [address] [place] [address] Dr. Joseph EdwardsCholesterol [Mass/Vol]153 mg/dLNormal<=200The [facility] Comment on above:Performed By: #### LIPID, CMP, TSH #### [facility] [address] [address] [address] Joseph Mcfaddenesterol in HDL [Mass/Vol]66 mg/dLCritically rdvl09-01Grf [facility] HospitalComment on above:Performed By: #### LIPID, CMP, TSH #### [facility] [address] [address] [address] Joseph Mcfaddenesterol in LDL [Mass/Vol]71.0 mg/dLNoHarrison Community HospitalComment on above:Performed By: #### LIPID, CMP, TSH #### [facility] [address] [address] [address] Joseph EdwardsCholesterol.total/Cholesterol in HDL [Mass ratio]2.3 {ratio} NormalThe [facility]igh HospitalComment on above:Performed By: #### LIPID, CMP, TSH #### [facility] [address] [address] [address] Joseph Madden NORMAL> or = 60 mg/dl - LOW CARDIOVASCULAR RISK <40 mg/dl - HIGH CARDIOVASCULAR RISKSelect Medical Cleveland Clinic Rehabilitation Hospital, BeachwoodComment on above:Performed By: #### LIPID, CMP, TSH #### [facility] [address] [address] [address] Joseph EdwardsLDL CALC NORMALSEE BELOWSelect Medical Cleveland Clinic Rehabilitation Hospital, BeachwoodComment on above:Result Comment: <100 mg/dl OPTIMAL 100 - 129 mg/dl NEAR OR ABOVE OPTIMAL 130 - 159 mg/dl BORDERLINE HIGH 160 - 189 mg/dl HIGH >190 mg/dl VERY HIGH Performed By: #### LIPID, CMP, TSH #### [facility] [address] [place] [address] Dr. Joseph EdwardsTriglyceride [Mass/Vol]80 mg/dLNormal<=150The [facility] Comment on above:Performed By: #### LIPID, CMP, TSH #### [facility] [address] [place] [address] Dr. Joseph EdwardsVLDL CALC16.0 mg/dLNoHarrison Community HospitalComment on above: Performed By: #### LIPID, CMP, TSH #### [facility] [address] [place] [address] Dr. Joseph EdwardsPROF 14(COMP METB)on 60-90-6500Kbqrfkn [Mass/Vol]4.0 g/dLNormal 3.4-5.0The [facility] HospitalComment on above:Performed By: #### LIPID, CMP, TSH #### [facility] [address] [place] [address] Dr. Joseph EdwardsAlbumin/Globulin [Mass ratio]1.1 {ratio}NormalThe [facility] HospitalComment on above:Performed By: #### LIPID, CMP, TSH #### [facility] [address] [address] [address] Joseph Amin [Catalytic activity/Vol]89 U/KGbjrwn09-373Jgy [facility] Hospitalment on above:Performed By: #### LIPID, CMP, TSH #### [facility] [address] [address] [address] Joseph SpicerT [Catalytic activity/Vol]19 U/JQsheza32-40Kzn [facility] HospitalComment on above:Performed By: #### LIPID, CMP, TSH #### [facility] [address] [address] [address] Joseph De Leonon gap [Moles/Vol]11.3 mmol/LNormalThe [facility] Comment on above:Performed By: #### LIPID, CMP, TSH #### [facility] [address] [address] [address] Joseph EdwardsAST [Catalytic activity/Vol]12 U/LCritically pzj65-22Pfp [facility] HospitalComment on above:Performed By: #### LIPID, CMP, TSH #### [facility] [address] [address] [address] Joseph EdwardsBilirubin [Mass/Vol]1.3 mg/dLCritically high0.2-1.0The [facility] HospitalComment on above:Performed By: #### LIPID, CMP, TSH #### [facility] [address] [address] [address] Joseph EdwardsCalcium [Mass/Vol]8.9 mg/dLNormal8.5-10.1The [facility] Comment on above:Performed By: #### LIPID, CMP, TSH #### [facility] [address] [address] [address] Joseph EdwardsChloride [Moles/Vol]104 mmol/VLtoqoq29-975Yxf [facility] Comment on above:Performed By: #### LIPID, CMP, TSH #### [facility] [address] [address] [address] Joseph EdwardsCO2 [Moles/Vol]27.7 mmol/CEshqte71.0-32.0The [facility] Comment on above:Performed By: #### LIPID, CMP, TSH #### [facility] [address] [address] [address] Joseph EdwardsCreatinine [Mass/Vol]0.86 mg/dLNormal0.55-1.02Ad[facility] County HospitalComment on above:Performed By: #### LIPID, CMP, TSH #### [facility] [address] [address] [address] Joseph La-AF UKRAINIAN>60Normal>=60The [facility] HospitalComment on above:Performed By: #### LIPID, CMP, TSH #### [facility] [address] [place] [address] Dr. Joseph La-NON AF UKRAINIAN>60Normal>=60The [facility] HospitalComment on above:Performed By: #### LIPID, CMP, TSH #### [facility] [address] [place] [address] Dr. Joseph EdwardsGlobulin (S) [Mass/Vol]3.5 g/dLNormalThe [facility] HospitalComment on above:Performed By: #### LIPID, CMP, TSH #### [facility] [address] [place] [address] Dr. Joseph EdwardsGlucose [Mass/Vol]93 mg/oSIeomnt76-501GryAdams County Hospital Comment on above:Performed By: #### LIPID, CMP, TSH #### [facility] [address] [place] [address] Dr. Joseph EdwardsPotassium [Moles/Vol]4.0 mmol/LNormal3.5-5.1The [facility] Comment on above:Performed By: #### LIPID, CMP, TSH #### [facility] [address] [place] [address] Dr. Joseph EdwardsProtein [Mass/Vol]7.5 g/dLNormal6.4-8.2The [facility] Comment on above:Performed By: #### LIPID, CMP, TSH #### [facility] [address] [place] [address] Dr. Joseph EdwardsSodium [Moles/Vol]139 mmol/TKowjop653-437Xyl [facility] Comment on above:Performed By: #### LIPID, CMP, TSH #### [facility] [address] [address] [address] Joseph Renteria nitrogen [Mass/Vol]12.0 mg/dLNormal7.0-18.0The [facility] HospitalComment on above:Performed By: #### LIPID, CMP, TSH #### [facility] [address] [address] [address] Joseph Renteria nitrogen/Creatinine [Mass ratio]14.0 mg/mgNoalThe [facility] HospitalComment on above:Performed By: #### LIPID, CMP, TSH #### [facility] [address] [place] [address] Dr. Joseph Morales 36-80-6902CTA2.879 uIU/mLNormal0.358-3.740The [facility] HospitalComment on above:Performed By: #### LIPID, CMP, TSH #### [facility] [address] [place] [address] Dr. Joseph Fitzpatrick RANDOM W/MICROSCOPICon 39-62-0951PMIBHBSFIQEP SEENNormalNONE SEENAdams County HospitalComment on above:Performed By: #### UAMIC ####[facility] [address] [address]. Joseph Edwards Bilirubin Ql (U)NegativeNormalNEGATIVEThe [facility] HospitalComment on above: Performed By: #### UAMIC ####[facility] [address] [address]Dr. Joseph ChangCASTNONE SEENNormalNONE SEENAdams County HospitalComment on above:Performed By: #### UAMIC ####[facility] [address] [place], [place] [address]Dr. Joseph EdwardsClarity (U) CLEARNormalCLEARThe [facility] HospitalComment on above:Performed By: #### UAMIC ####[facility] [address] [place], [place] [address]Dr. Yilan ChangColor (U)LT. YELLOWNormalYELLOWMarion Hospital HospitalComment on above: Performed By: #### UAMIC ####[facility] Lpcsp[address] [place], [place] [address]Dr. Joseph ChangCrystals LM Nom (Urine sed)NONE SEEN NormalNONE SEENAdams County HospitalComment on above:Performed By: #### UAMIC ####[facility] Rnglmjriq[address] [place], [place] [address]Dr. Joseph ChangEpithelial cells LM Ql (Urine sed)FEWAbnormalNONE SEEN /RAREThe [facility] HospitalComment on above:Performed By: #### UAMIC ####[facility] [address] [place], [place] [address]Dr. Cherilan ChangGlucose Ql (U) NegativeNormalNEGATIVEAdams County HospitalComment on above:Performed By: #### UAMIC ####[facility] [address] [place], [place] [address]Dr. Joseph ChangHemoglobin Ql (U)TRACE-INTACTAbnormalNEGATIVEAdams County HospitalComment on above:Performed By: #### UAMIC ####[facility] Y[address] [place], [place] [address]Dr. Yiruba ChangKetones Ql (U) NegativeNormalNEGATIVEAdams County HospitalComment on above:Performed By: #### UAMIC ####[facility] [address]we[address] [place], [place] [address]Dr. Joseph ChangLEUKOCYTESNegativeNormalNEGATIVEMarion Hospital HospitalComment on above:Performed By: #### UAMIC ####[facility] Mmdpxkojem[address] [place], [place] [address]Dr. Joseph ChangMUCOUSNONE SEENNormalNONE SEENAdams County HospitalComment on above:Performed By: #### UAMIC ####[facility] Haygxrkxco[address] [place], [place] [address]Dr. Yilan ChangNitrite Ql (U) NegativeNormalNEGATIVEMarion Hospital HospitalComment on above:Performed By: #### UAMIC ####[facility] [address] [address]Dr. Joseph ChangpH (U)6.0 [pH]Normal5-9The [facility] HospitalComment on above:Performed By: #### UAMIC ####[facility] [address] [address]Dr. Cheriruba GdfkjYDN7-1Rnlper5-1Ifh [facility] Comment on above:Performed By: #### UAMIC ####[facility] [address] [address]Dr. Cheriruba EdwardsSPEC GRAVITY1.020Normal 1.005-<=1.025The [facility] HospitalComment on above:Performed By: #### UAMIC ####[facility] Giizmsynxs[address] [place], [place] [address]Dr. Joseph EdwardsUA PROTEINNegativeNormalNEGATIVE/ TRACEThe [facility] HospitalComment on above:Performed By: #### UAMIC ####[facility] Cujaksussz[address] [place], [place] [address]Dr. Joseph EdwardsUrobilinogen Qn (U)0.2 {Ijeoma'U}/dL Normal0.2 - 1.0The [facility] HospitalComment on above:Performed By: #### UAMIC ####[facility] Sakgfcqjdl[address] [place], [place] [address]Dr. Joseph ChangWBCNONE SEENNormalNONE SEENThe [facility] HospitalComment on above: Performed By: #### UAMIC ####[facility] Djxrernzik[address] [place], [place] [address]Dr. Joseph Edwards Vital Signs Date TimeVital SignValuePerforming CzcpwmysgGgmtzgti67-79-3289 17:47-0400Body wlttiy730.02 Stuart Craig BOIL OFF MACHINE OPERATOR CLOTH-C Work Phone: [facility]10-01-2025 17:47-0400 Body mass index (BMI) [Ratio]37.8 kg/m2Gabriela Craig BOIL OFF MACHINE OPERATOR CLOTH-C Work Phone: [facility]10-01-2025 17:47-0400 Body rgyhprfetjm49.5 [degF]Gabriela Aichholz BOIL OFF MACHINE OPERATOR CLOTH-C Work Phone: 1([phone])611-[address] [place], [place] [address]10-01-2025 17:47-0400 Body dsfyxr85.72 kgLisa Aichholz BOIL OFF MACHINE OPERATOR CLOTH-C Work Phone: 1([phone] [place], [place] [address]10-01-2025 17:47-0400 Diastolic blood gihgzfdx32 mm[Hg]Gabriela Aichholz BOIL OFF MACHINE OPERATOR CLOTH-C Work Phone: [phone]10-01-2025 17:47-0400 Heart rate83 /minLisa Aichholz BOIL OFF MACHINE OPERATOR CLOTH-C Work Phone: [phone] [place], [place] [address]10-01-2025 17:47-0400 Respiratory rate16 /minLisa Aichholz BOIL OFF MACHINE OPERATOR CLOTH-C Work Phone: 1(777)903-[address] [place], [place] [address]10-01-2025 17:47-0400 SaO2% (BldA) [Mass fraction]99 %Gabriela Aichholz BOIL OFF MACHINE OPERATOR CLOTH-C Work Phone: 1(032)240-[address] [place], [place] [address]10-01-2025 17:47-0400 Systolic blood ayvpyatb472 mm[Hg]Gabriela Aichholz BOIL OFF MACHINE OPERATOR CLOTH-C Work Phone: 1(803)752-[address] [place], [place] [address]608-18-2025 18:15-0400 Body mass index (BMI) [Ratio]38.16 kg/m2Lisa Aichholz BOIL OFF MACHINE OPERATOR CLOTH Work Phone: [facility]landRaturcneft86-93-9014 18:15-0400Body temperature 97.81 [degF]Gabriela Aichholz BOIL OFF MACHINE OPERATOR CLOTH Work Phone: [facility]landDbaclskdvh32-96-5634 18:15-0400Body .7 kg Gabriela Aichholz BOIL OFF MACHINE OPERATOR CLOTH Work Phone: [facility]landLdpxgkzofl51-31-3452 18:15-0400Diastolic blood uxfayyjn30 mm[Hg]Gabriela Aichholz BOIL OFF MACHINE OPERATOR CLOTH Work Phone: [facility]landVhgthaswvg39-03-5468 18:15-0400Heart rate75 /min Gabriela Gracyholz BOIL OFF MACHINE OPERATOR CLOTH Work Phone: [facility]landYuxvxuqrdm16-14-8402 18:15-6715PoM8% (BldA) [Mass fraction]99 %Gabriela Gracyholz BOIL OFF MACHINE OPERATOR CLOTH Work Phone: [facility]landTqbzkhrkmg56-53-0477 18:15-0400Systolic blood uaipxfoq599 mm[Hg]Gabriela Gracyholz BOIL OFF MACHINE OPERATOR CLOTH Work Phone: 1(275)519-[address] [place], [place] [address]Rfuqapxucy84-26-2270 12:02-0400Heart rate84 /min Gabriela Aichholz BOIL OFF MACHINE OPERATOR CLOTH Work Phone: [phone] [place], [place] [address]Trkqvcugoo12-65-8537 11:27-0400Body mass index (BMI) [Ratio]37.8 kg/m2Lisa Aichholz BOIL OFF MACHINE OPERATOR CLOTH Work Phone: 1(873)960-[address] [place], [place] [address]Xvqpxehwqs05-03-3892 11:27-0400Body temperature 98.49 [degF]Gabriela Budhholz BOIL OFF MACHINE OPERATOR CLOTH Work Phone: 1(077)403-[address] [place], [place] [address]Gncmypkbsk19-94-8896 11:27-0400Body xqknak25.8 kg Gabriela Budhholz BOIL OFF MACHINE OPERATOR CLOTH Work Phone: 1([phone] [place], [place] [address]Edzbxpsclz63-28-3102 11:27-0400Diastolic blood worajmfh81 mm[Hg]Gabriela Aichholz BOIL OFF MACHINE OPERATOR CLOTH Work Phone: [facility]landFrwgqgomaw20-09-5702 11:27-3344PzI9% (BldA) [Mass fraction]98 %Gabriela Budhholz BOIL OFF MACHINE OPERATOR CLOTH Work Phone: [facility]landNeecxvertr42-49-7883 11:27-0400Systolic blood snaymhog105 mm[Hg]Gabriela Aichholz BOIL OFF MACHINE OPERATOR CLOTH Work Phone: 1([phone] [place], [place] [address]Favqnuipqw36-69-2031 17:40-0400Body mass index (BMI) [Ratio]39.11 kg/m2Lisa Aichholz BOIL OFF MACHINE OPERATOR CLOTH Work Phone: [facility]landNlfwdhjxib07-69-7621 17:40-0400Body temperature 97.5 [degF]Gabriela Gracyholz BOIL OFF MACHINE OPERATOR CLOTH Work Phone: [facility]landHxefdexuym65-93-5712 17:40-0400Body mkmtyf948.15 kgLisa Gracyholz BOIL OFF MACHINE OPERATOR CLOTH Work Phone: [facility]landMughirleja05-15-5265 17:40-0400Diastolic blood gacgvxpp25 mm[Hg]Gabriela Gracyholz BOIL OFF MACHINE OPERATOR CLOTH Work Phone: [facility]landQtzjbcxsac74-36-7756 17:40-0400Heart rate75 /min Gabriela Budhholz BOIL OFF MACHINE OPERATOR CLOTH Work Phone: [facility]landBgnpjkxytf29-79-1778 17:40-0400Respiratory rate18 /minLisa Budhholz BOIL OFF MACHINE OPERATOR CLOTH Work Phone: [facility]landMwukfdtaon31-19-5213 17:40-4466QkN4% (BldA) [Mass fraction]98 %Gabriela Gracyholz BOIL OFF MACHINE OPERATOR CLOTH Work Phone: [facility]landCptjkoubel41-52-3351 17:40-0400Systolic blood rlrgkyat162 mm[Hg]Gabriela Gracyholz BOIL OFF MACHINE OPERATOR CLOTH Work Phone: [facility]landQflpjnzyma03-34-2091 17:32-0400Body mass index (BMI) [Ratio]39.89 kg/m2Lisa Gracyholz BOIL OFF MACHINE OPERATOR CLOTH Work Phone: [facility]landNfhwhcekhs85-71-7808 17:32-0400Body temperature 97.81 [degF]Gabriela Gracyholz BOIL OFF MACHINE OPERATOR CLOTH Work Phone: [facility]landValcjchcyi78-45-9569 17:32-0400Body tcsugq774.15 kgLisa Budhholz BOIL OFF MACHINE OPERATOR CLOTH Work Phone: [facility]landLtfsrtbsvj39-78-4806 17:32-0400Diastolic blood vdkbrucd06 mm[Hg]Gabriela Budhholz BOIL OFF MACHINE OPERATOR CLOTH Work Phone: [facility]landVsoimpwelg46-06-5063 17:32-0400Heart rate72 /min Gabriela Budhholz BOIL OFF MACHINE OPERATOR CLOTH Work Phone: [facility]landFnxkmflqgl10-56-4410 17:32-0400Respiratory rate18 /minGabriela Craig BOIL OFF MACHINE OPERATOR CLOTH Work Phone: [facility] NorthlandKvikpzyvvt82-56-1203 17:32-8981WhU4% (BldA) [Mass fraction]97 %Gabriela Craig BOIL OFF MACHINE OPERATOR CLOTH Work Phone: [facility]landBchgcqpbqm25-85-8498 17:32-0400Systolic blood kigyplbk458 mm[Hg]Gabriela Craig BOIL OFF MACHINE OPERATOR CLOTH Work Phone: [facility]landCfuphshizu18-68-6002 10:22-0400Body erhffs126 cm [address]03-27-2025 10:22-0400Body mass index (BMI) [Ratio] 38.97 kg/m[address]03-27-2025 10:22-0400Body ymqizb75.[address]03-20-2025 14:50-0400Body mhroyl088 cmMaryse Morejon GRAPE PICKER[employer]ELECTRIC ORGAN CHECKER Work Phone: [facility]03-20-2025 14:50-0400Body mass index (BMI) [Ratio]40.07 kg/e8JuvwpvdMaryse Morejon GRAPE PICKER-ELECTRIC ORGAN CHECKER Work Phone: [facility]03-20-2025 14:50-0400Body xpjcwy959.6 kgMaryse Morejon GRAPE PICKER-ELECTRIC ORGAN CHECKER Work Phone: [facility]03-20-2025 14:50-0400Diastolic blood ssxliedu38 mm[Hg]Maryse Wattsoll GRAPE PICKER-ELECTRIC ORGAN CHECKER Work Phone: [facility]03-20-2025 14:50-0400Heart rate 80 /minMaryse Morejon GRAPE PICKER-ELECTRIC ORGAN CHECKER Work Phone: [facility]03-20-2025 14:50-0400Systolic blood mm[Hg]Maryse Wattsoll GRAPE PICKER-ELECTRIC ORGAN CHECKER Work Phone: [facility]02-26-2025 17:12-0500Body mass index (BMI) [Ratio]39.79 kg/m2Gabriela Craig BOIL OFF MACHINE OPERATOR CLOTH Work Phone: [facility]landVjfwbirolp34-38-4015 17:12-0500Body temperature 99.19 [degF]Gabriela Craig BOIL OFF MACHINE OPERATOR CLOTH Work Phone: [facility]landYwkbrhrnne67-27-5561 17:12-0500Body .88 kgGabriela Craig BOIL OFF MACHINE OPERATOR CLOTH Work Phone: [facility]landRhzuaraqya89-33-8844 17:12-0500Diastolic blood mfvidaxe88 mm[Hg]Gabriela Craig BOIL OFF MACHINE OPERATOR CLOTH Work Phone: [facility]landVxgukiyfty09-82-1047 17:12-0500Heart rate88 /min Gabriela Craig BOIL OFF MACHINE OPERATOR CLOTH Work Phone: [facility]landXfgvcrwase85-49-2625 17:12-0500Respiratory rate18 /minGabriela Craig BOIL OFF MACHINE OPERATOR CLOTH Work Phone: [facility]landSbisqmvgko22-38-1596 17:12-9358HkT3% (BldA) [Mass fraction]97 %Gabriela Craig BOIL OFF MACHINE OPERATOR CLOTH Work Phone: [facility]landJssqpofqmh96-10-4136 17:12-0500Systolic blood mm[Hg]Gabriela Craig BOIL OFF MACHINE OPERATOR CLOTH Work Phone: [facility]landFcgugovtpn56-97-1181 14:49-0500Body mass index (BMI) [Ratio]39.47 kg/m2Nohemi TEE Work Phone: [facility]landXrdgtidevn02-47-3760 14:49-0500Body mkrihm950.06 kgNohemi TEE Work Phone: noSalem [facility] HospitalYjmovqgyge27-47-8065 14:49-0500Diastolic blood mm[Hg]Nohemi TEE Work Phone: noSalem [facility] HospitalHxpyofnoiw24-86-2879 14:49-0500Systolic blood mm[Hg]Nohemi TEE Work Phone: 1([phone] [place], [place] [address]Germqlqikf85-45-7036 10:55-0500Body mass index (BMI) [Ratio]38.28 kg/m2Nohemi Mcdonoughey PA Work Phone: [facility]landZdhpsewhmm43-57-5647 10:55-0500Body yslbtl59.03 kgNohemi Suarez PA Work Phone: [facility]landAqynbzqsra23-49-2862 10:55-0500Diastolic blood aiajejpl48 mm[Hg]Nohemi Mcdonoughey PA Work Phone: [facility]landNadsdolcjm10-78-2289 10:55-0500Systolic blood thybqzxb574 mm[Hg]Nohemi Mcdonoughey PA Work Phone: [facility]landUqsisypphe34-51-4644 17:35-0500Body ylloxd444 cm Gabriela Craig BOIL OFF MACHINE OPERATOR CLOTH Work Phone: [facility]landUwtmebdzmy89-16-0945 17:35-0500Body mass index (BMI) [Ratio]38.58 kg/m2Lisa Rafa BOIL OFF MACHINE OPERATOR CLOTH Work Phone: [facility]landUrrglgumkb53-96-4395 17:35-0500Body temperature 98.49 [degF]Gabriela Rafa BOIL OFF MACHINE OPERATOR CLOTH Work Phone: [facility]landCvyvvvqhlp15-95-3428 17:35-0500Body lebauc61.79 kgLisa Diaz BOIL OFF MACHINE OPERATOR CLOTH Work Phone: [facility]landRmievhtlmx21-55-9577 17:35-0500Diastolic blood pyifdjyr44 mm[Hg]Gabriela Rafa BOIL OFF MACHINE OPERATOR CLOTH Work Phone: [facility]landEzrjlgoyom95-72-3473 17:35-0500Heart rate68 /min Gabriela Diaz BOIL OFF MACHINE OPERATOR CLOTH Work Phone: [place] [address]Wsgqormpfv63-53-8454 17:35-0500Respiratory rate18 /minLisa Diaz BOIL OFF MACHINE OPERATOR CLOTH Work Phone: [place] [address]Xynrvofpsa75-54-2024 17:35-1440XaP6% (BldA) [Mass fraction]99 %Gabriela Rafa BOIL OFF MACHINE OPERATOR CLOTH Work Phone: [phone] 739-707541 Ayala StreetSwzchznxbf00-01-4797 17:35-0500Systolic blood batokghm476 mm[Hg]Gabriela Craig NP Work Phone: [facility]landMzedzvayhk17-75-8795 09:03-0500Body mass index (BMI) [Ratio]38.94 kg/c6Wmxxv Zackary DO Work Phone: NOSalem [facility] District HospitalJogcbgvwom46-99-4343 09:03-0500Body .7 kg Orlando Zackary DO Work Phone: [facility]landBqfzumdneg99-39-2803 09:03-0500Diastolic blood tytcynxl18 mm[Hg]Orlando Zackary DO Work Phone: [facility]landCtyfaggrqc39-66-5566 09:03-0500Systolic blood qqsryftl272 mm[Hg]Orlando Zackary DO Work Phone: [facility] NorthlandQhfijcfqpn65-35-7790 10:03-0400Body mass index (BMI) [Ratio]38.16 kg/m2Nohemi TEE Work Phone: [facility] NorthlandTpxlfggrhv40-67-9749 10:03-0400Body gatkpl95.7 kg Nohemi TEE Work Phone: [place] [address]Pmpdnrwxau41-46-9672 10:03-0400Diastolic blood uphctlxl25 mm[Hg]Nohemi TEE Work Phone: [place] [address]Vgwmmsufuu77-48-0673 10:03-0400Systolic blood lnzuusjj721 mm[Hg]Nohemi TEE Work Phone: [facility] Healthcare Encounters Encounter DateEncounter TypeCare ProviderFacilityStart: 83-20-9878xmdowbzgnsJITH J AICHHOLZProMedica Mercy San Juan Medical Centertart: 03-25-2025 End: 44-46-0522nshcfkhuaoZekhMichelle Craig NP-C Work Phone: [facility] Work Phone: Start: 03-25-2025 End: 81-30-5747Bchtgcq encounter procedureLisa J Aichholz BOIL OFF MACHINE OPERATOR CLOTH-C-[facility] Work Phone: Start: 02-09-2025 End: 84-22-6338Qvaejj outpatient visit 15 minutesLisa Aichholz BOIL OFF MACHINE OPERATOR CLOTH Work Phone: [facility] FMComment on above:Primary hypertension (Primary Dx); Morbid (severe) obesity due to excess calories (CMS-HCC); URI, acute; TachycardiaStart: 02-09-2025 End: 53-88-0401xyfcybjyucYOEQ AICHHOLZNot AvailableStart: 02-09-2025 End: 79-20-7934Pvdkvu flowsheetLisa Aichholz BOIL OFF MACHINE OPERATOR CLOTH Work Phone: NOFZ CWM FMStart: 02-09-2025 End: 82-11-5382Jgrnlj flowsheetLisa Aichholz BOIL OFF MACHINE OPERATOR CLOTH Work Phone: NOGL CWM FMStart: 02-09-2025 End: 06-00-1400Wlghkjmzk encounterLisa Aichholz BOIL OFF MACHINE OPERATOR CLOTH Work Phone: NOGR CWM FMStart: 01-29-2025 End: 37-62-3561Urixju flowsheetLisa Aichholz BOIL OFF MACHINE OPERATOR CLOTH Work Phone: [facility] FMStart: 01-29-2025 End: 62-40-1492Nlfyoi flowsheetLisa Aichholz BOIL OFF MACHINE OPERATOR CLOTH Work Phone: NOCF CWM FMStart: 01-29-2025 End: 97-93-8306Fagvwb outpatient visit 15 minutesLisa Aichholz BOIL OFF MACHINE OPERATOR CLOTH Work Phone: [facility] FMComment on above:Morbid (severe) obesity due to excess calories (CMS-HCC) (Primary Dx); Primary hypertension ; URI, acute; TachycardiaStart: 01-29-2025 End: 23-29-7162otxdijgvtxLONC AICHHOLZNot AvailableStart: 01-27-2025 End: 52-71-9554AzjgcpDlzo Aichholz BOIL OFF MACHINE OPERATOR CLOTH Work Phone: [facility] FMComment on above:Acute pharyngitis, unspecified etiology (Primary Dx); URI, acuteStart: 01-26-2025 End: 20-16-3034SwlwifLmst Aichholz BOIL OFF MACHINE OPERATOR CLOTH Work Phone: NOPO CWM FMComment on above:Morbid (severe) obesity due to excess calories ([facility])Start: 01-21-2025 End: 86-54-6994Lrawxt-up encounterFort Hamilton Hospital - EmergencyComment on above:SARS/FLU A+B/RSV by NAAT/Molecular ([employer] Tube)Start: 01-20-2025 End: 37-89-4254Mchcnmnjw department patient visitLI Angel FLANAGANKINDRED HOSPITAL SOUTH PHILADELPHIAKelinUniversity Hospitals [facility] HospitalStart: 01-19-2025 End: 31-89-5477Cvsqxcydn department patient visitLIBRIGHAM CITY COMMUNITY HOSPITALKelinUniversity Hospitals [facility] HospitalStart: 12-23-2024 End: 07-36-0963WottuvObeh Aichholz BOIL OFF MACHINE OPERATOR CLOTH Work Phone: [facility] FMComment on above:Bilateral lower extremity edemaStart: 12-22-2024 End: 77-41-6410Yymuzo outpatient visit 15 minutesGabriela Craig BOIL OFF MACHINE OPERATOR CLOTH Work Phone: noms CWM FMComment on above:Primary hypertension (Primary Dx); Morbid (severe) obesity due to excess calories ([facility])Start: 12-22-2024 End: 62-69-5884kxkgbdopzkMDYA AICHHOLZNot AvailableStart: 12-22-2024 End: 69-00-1374Mzddrr flowsheetGabriela Craig BOIL OFF MACHINE OPERATOR CLOTH Work Phone: [facility] FMStart: 12-22-2024 End: 44-56-4973Kylbyk flowsheetGabriela Craig BOIL OFF MACHINE OPERATOR CLOTH Work Phone: [facility] FMStart: 11-19-2024 End: 74-51-8152Aqhxlc outpatient visit 25 minutesGabriela Craig BOIL OFF MACHINE OPERATOR CLOTH Work Phone: [facility] FMComment on above:Primary hypertension (CMS/HCC) (Primary Dx); Morbid (severe) obesity due to excess calories (CMS/HCC); Herpes labialisStart: 11-19-2024 End: 02-76-1256krrxajiyhxNSKZ AICHHOLZNot AvailableStart: 11-19-2024 End: 17-65-7060Xijxka flowsheetGabriela Craig BOIL OFF MACHINE OPERATOR CLOTH Work Phone: [facility] FMStart: 11-19-2024 End: 63-30-3199Powbgc flowsheetGabriela Craig BOIL OFF MACHINE OPERATOR CLOTH Work Phone: [facility] FMStart: 09-26-2024 End: 63-23-8742Raswcpyorp and management of inpatientHospital Corporation of Americatart: 09-18-2024 End: 44-80-2916nclaqytotdYjn Pat Phone Call Provider [address] [place] [address] - [facility] AdmitStart: 09-18-2024 End: 67-02-7840bsnlicnmwoWTCF [facility] HospitalStart: 09-18-2024 End: 59-03-6335rqnhuxxjhaRBOCTsaile Health Center HospitalStart: 09-11-2024 End: 36-98-0371Brpxeh outpatient new 30 minutesMaryse Morejon [employer] Work Phone: [facility] General SurgeryComment on above: Abnormal CT scan, gastrointestinal tract (Primary Dx); ColitisStart: 09-11-2024 End: 82-98-3242hiiahvltgfRPYFEXK Noé MOREJONHighland District [facility] Start: 08-20-2024 End: 12-62-0788Ohuibp outpatient visit 25 minutesGabriela Craig BOIL OFF MACHINE OPERATOR CLOTH Work Phone: noms CWM FMComment on above:Colitis (Primary Dx); Morbid (severe) obesity due to excess calories (CMS/HCC); Body mass index (BMI) 36.0-36.9, adult; Primary hypertension (CMS/HCC); Bilateral lower extremity edema; Flu-like symptoms; Acute non-recurrent maxillary sinusitis; Liver lesionStart: 08-20-2024 End: 25-07-9718xhfmuclebdTZGP [facility]ITALZNot AvailableStart: 08-20-2024 End: 74-30-2663Evuwvw flowsheetLisa Aicholz BOIL OFF MACHINE OPERATOR CLOTH Work Phone: [facility] CWM FMStart: 08-20-2024 End: 67-60-7149Pzndpx flowsheetLisa [facility] Psych[facility] Centerholz BOIL OFF MACHINE OPERATOR CLOTH Work Phone: [facility] CWM FMStart: 08-13-2024 End: 31-61-7687Sjijyy follow up visit related to original pxNohemi TEE Work Phone: [facility] BCP OBComment on above:Postoperative follow-up; ColitisStart: 08-13-2024 End: 96-28-2282dezhaalxgkQKC RAMEYNot AvailableStart: 08-13-2024 End: 33-54-1360Flxptu flowsJess Suarez PA Work Phone: [facility] BCP OBStart: 08-13-2024 End: 83-56-4447Dtnbxu flowsheetNohemi Suarez PA Work Phone: [facility] BCP OBStart: 08-09-2024 End: 51-70-2264Gmujqyuaz department patient visitRADHATsaile Health Center HospitalStart: 07-09-2024 End: 49-48-9081Nsjbce flowsJess Suarez PA Work Phone: [facility] BCP OBStart: 07-09-2024 End: 92-37-7894Kyjnlz flowsheetAmy Tolleson PA Work Phone: [facility] BCP OBStart: 07-09-2024 End: 23-40-7041tohgvjfsqkFRZ RAMEYNot AvailableStart: 07-09-2024 End: 43-26-7228Hxxhwd follow up visit related to original pxNohemi Suarez PA Work Phone: NOKU BCP OBComment on above:Postoperative follow-up Start: 07-03-2024 End: 18-77-1877Fpmmzizzx Result EncounterGeneric External Data ProviderNOMS External Department UnsolicitedStart: 07-03-2024 End: 44-28-1660Jlpeuztdz Result EncounterGeneric External Data ProviderNOMS External Department UnsolicitedStart: 07-02-2024 End: 03-95-5718Lcnmtgrmp Result EncounterGeneric External Data ProviderNOMS External Department UnsolicitedStart: 07-02-2024 End: 94-86-7797Epshfzhkp Result EncounterGeneric External Data ProviderNOMS External Department UnsolicitedStart: 07-02-2024 End: 40-32-2939qeyquhvpibUdpig FaHighland District Hospital Ctr Work Phone: Start: 07-02-2024 End: 17-11-9431Iunwwxtz ReferredCorey Zackary DO Work Phone: [facility] HospStart: 06-23-2024 End: 94-87-0567Nmujxg outpatient visit 15 minutesLisa Rafa BOIL OFF MACHINE OPERATOR CLOTH Work Phone: noms CWM FMComment on above:Primary hypertension (CMS/HCC) (Primary Dx); Bilateral lower extremity edema; Obesity (BMI 30-39.9)Start: 06-23-2024 End: 80-78-5612dsyvncsfuyUPIZ AICHHOLZNot AvailableStart: 06-20-2024 End: 33-63-3428Lbhaakadr Result EncounterGeneric External Data ProviderNOMS External Department UnsolicitedStart: 06-20-2024 End: 83-59-8896Waebkfnnz Result EncounterGeneric External Data ProviderNOMS External Department UnsolicitedStart: 06-13-2024 End: 59-00-1194JlaisuLhaf Budhyariel BOIL OFF MACHINE OPERATOR CLOTH Work Phone: noms CWM FMComment on above:Primary hypertension (CMS/HCC)Start: 06-05-2024 End: 22-25-2937Dcrhao flowsheetCorey Zackary DO Work Phone: [facility] BCP OBStart: 06-05-2024 End: 16-89-2204Nfhbxv flowsheetCorey Zackary [employer] Work Phone: noms BCP OBStart: 06-05-2024 End: 84-85-1091Jmtxzd outpatient visit 15 minutesCorey Zackary DO Work Phone: noms BCP OBComment on above:Preop examination; Menorrhagia with regular cycle; Pelvic pain in female; Dyspareunia in female; DysmenorrheaStart: 06-05-2024 End: 32-47-1490Lnvpnwecrcqze examination doneCorey Zackary DO Work Phone: [facility] Work Phone: Start: 06-05-2024 End: 80-32-0931akgshvlhzkYBCIL FAZIONot AvailableStart: 05-14-2024 End: 60-78-6710Zbsvvqezp encounterLisa Rafa BOIL OFF MACHINE OPERATOR CLOTH Work Phone: [facility] FMStart: 02-20-2024 End: 10-54-9290Yoqutz flowsheetNohemi TEE Work Phone: [facility] BCP OBStart: 02-20-2024 End: 80-79-5388Jptqcrqtr Result EncounterGeneric External Data ProviderNOMS External Department UnsolicitedStart: 02-20-2024 End: 74-75-2961Ufjaivoyd Result EncounterGeneric External Data ProviderNOMS External Department UnsolicitedStart: 02-20-2024 End: 92-61-4124Qgitiea encounter procedureNohemi TEE Work Phone: [facility] Work Phone: Start: 02-20-2024 End: 31-49-9983Lsdnihik preventive med est patient 18-39 yrsNohemi TEE Work Phone: noms BCP OBComment on above:Well woman exam with routine gynecological examStart: 02-20-2024 End: 21-66-9357zzpajpfnfdVFV Gideon AvailableStart: 94-06-4813Adzphdaxp encounterMichelmanjinder TEE Work Phone: [facility]inary SurgeonsStart: 07-26-2022 End: 25-14-4644edqkdhpjsrOEH GABRIELA CRAIGFacility:W5Pmgua: 07-08-2022 End: 08-61-5141vbwzsqkosoGOB GABRIELA RAFAFacility:W5Qxgds: 03-15-2022 End: 59-23-2306qrserzqlqoVZQ GABRIELA RAFAFacility:C6Nlksu: 02-21-2022 End: 78-19-9390nilnotsfrwOHP GABRIELA RAFAFacility:W4Aujrp: 08-02-2016 End: 57-16-9678SioduwmpdiCHPCG NAGARAJAFacility:[facility] Procedures DateProcedureProcedure DetailPerforming ClinicianStart: 95-72-8633WOOVMO COVID-19/FLUGabriela Craig BOIL OFF MACHINE OPERATOR CLOTH Work Phone: Start: 87-23-7688YZZ CBC WITH AUTO DIFFCorey Zackary DO Work Phone: Start: 12-66-2573CJP CBC WITH AUTO DIFFCorey Zackary DO Work Phone: Start: 09-18-0765YQP CBC WITH AUTO DIFFCorey Zackary DO Work Phone: Start: 79-40-7062GJE 12-LEADCorey Zackary DO Work Phone: Start: 16-75-3255XWM,APTIMA HPV,AGE GDLNAmy Daniela TEE Work Phone: Start: 95-04-7051Cvojvoffovo observation [Identifier] in Cervix by Cyto stainGabriela Craig BOIL OFF MACHINE OPERATOR CLOTH Work Phone: Plan of Treatment DateCare ActivityDetailAuthorStart: 94-29-6449Doduyayyk for malignant neoplasm of cervixNOMS HealthcareStart: 18-39-1849DCtM,Tdap and Td Vaccines (3 - Td or Tdap)DTaP,Tdap and Td Vaccines (3 - Td or Tdap)[facility] SystemStart: 14-43-4166Asdwp BMI ScreeningAdult BMI ScreeningProMedica Health SystemStart: 32-17-6787Ojkkmmm ScreeningTobacco ScreeningToledo Hospital Health SystemStart: 28-31-3549Rjbjn BMI ScreeningAdult BMI ScreeningKnox Community Hospitalca [facility] SystemStart: 17-03-1008Sgjrgzp ScreeningTobacco ScreeningWVUMedicine Barnesville Hospital SystemStart: 72-78-0143Uqkpc BMI ScreeningAdult BMI ScreeningWVUMedicine Barnesville Hospital SystemStart: 15-00-6169Fhywpkl ScreeningTobacco ScreeningToledo Hospital Health SystemStart: 03-25-2025 End: 48-54-2001Rcnxdas encounter eejosawlj58/01/2025 5:30 PM EDT Office Visit [facility] [address] [place] [address] Gabriela Craig, RASHAAD [address] [place] [address] [facility] FMStart: 67-46-1453Ykdajojiq vaccinationSAN JUAN HOSPITAL HealthcareStart: 02-11-2025 End: 78-56-9336Rmydcih encounter /20/2025 6:30 PM EDT Office Visit [facility] [address] [place] [address] Gabriela Craig, BOIL 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 MACHINE OPERATOR CLOTH [address] [place] [address] [facility] FMStart: 02-09-2025 End: 06-72-8821Nrvmxll encounter procedureNOMS CWM FMComment on above:Morbid (severe) obesity due to excess calories (CMS-HCC) (Primary Dx); Primary hypertensionStart: 01-29-2025 End: 22-94-0508Gvpiqcd encounter procedureNOMS CWM FMComment on above:Morbid (severe) obesity due to excess calories (CMS-HCC) (Primary Dx)Start: 01-19-2025 End: 83-45-4195Wbzrhjk encounter detyemdxg90/28/2025 7:00 PM EDT Office Visit [facility] [address] [place] [address] Gabriela Craig, RASHAAD [address] [place] [address] [facility] CWM FMStart: 12-22-2024 End: 83-09-9150Nwcgrcd encounter procedureNOMS CWM FMComment on above:Primary hypertension (Primary Dx); KEKE (obstructive sleep apnea); Morbid (severe) obesity due to excess calories (CMS-HCC)Start: 11-19-2024 End: 23-86-7019Ugmipew encounter procedureNOMS CWM FMComment on above:KEKE (obstructive sleep apnea) (Primary Dx); Primary hypertension (CMS/HCC); Morbid (severe) obesity due to excess calories (CMS/HCC)Start: 09-26-2024 End: 91-00-8263Aqcfctkmy to same day surgery ocapck3909/26/2024 10:45 AM EDT - 09/26/2024 11:15 AM EDT Surgery [facility] Surgery [address] [place] [address] Sherman Kaur MD [address] [place] [address] COLONOSCOPY DIAGNOSTIC / SCREENING [73302 (CPT )][facility]onComment on above:COLONOSCOPY DIAGNOSTIC / SCREENING [82598 (CPT )]Start: 09-26-2024 End: 12-67-2389Bsemdugrklx flx dx w/collj spec when pfrmdCOLONOSCOPY DIAGNOSTIC / SCREENING colitis 09/26/2024 10:45 AM EDTFREMONT SURGERYStart: 09-26-2024 Subsequent hospital visit by vqwpaslaq55/04/2025 10:45 AM EDT Hospital Encounter [facility] [address] [place], [place] [address] Sherman Kaur MD [address] [place] [place] [address] [facility] - SurgeryStart: 09-18-2024 End: 23-05-9963yqutgsohut28/27/2025 4:10 PM EDT Support Visit [facility] Admit [address] [place] [address] [facility] Pre AdmitStart: 09-18-2024 End: 96-11-5496Ffgaowu encounter /27/2025 1:45 PM EDT Appointment [facility] - MRI Imaging [address] [place] [phone] [phone] Hospitals [facility] - MRI ImagingStart: 08-20-2024 End: 63-57-0358Wcxeagk encounter procedureNOMS CWM FMComment on above:Primary hypertension (CMS/HCC) (Primary Dx); Morbid (severe) obesity due to excess calories (CMS/HCC); Body mass index (BMI) 36.0-36.9, adult; Bilateral lower extremity edemaStart: 08-20-2024 End: 23-25-0747DS Abdomen WO and W contrast IVMR abdomen w and wo contrast Imaging Routine Liver lesion Expected: 08/20/2024 (Approximate), Expires: 08/20/2025[facility] Work Phone: Comment on above:Expected: 08/20/2024 (Approximate), Expires: 08/20/2025Start: 04-38-6973Anhewkohi vaccinationInfluenza Vaccine (#1) [facility] HealthcareComment on above:Postponed from 02/24/2024 (Patient Refused) Start: 08-13-2024 End: 72-29-1426Rcxncqf encounter procedureNOMS [facility] OBComment on above:Arrived Start: 06-23-2024 End: 72-61-2374Etragmc encounter /30/2024 5:30 PM EST Office Visit [facility] [address] [place] [phone] Gabriela Craig NP [address] [place] [place] [address] [facility]Ray [facility] FMStart: 06-05-2024 End: 62-53-4673Ykferlb encounter procedureNOST. JO[facility]PH[facility] OBComment on above:Arrived Start: 97-78-7052Atcyc BMI ScreeningAdult BMI ScreeningWhite Hospital Start: 16-21-3292Duyugtt ScreeningTobacco ScreeningWVUMedicine Barnesville Hospital SystemStart: 68-80-5536Eokxhccib vaccinationSAN JUAN HOSPITAL HealthcareStart: 02-20-2024 End: 30-72-0116Xflccwp encounter oslhiqtbm49/28/2024 10:00 AM EDT Office Visit [facility] [address] [place] [phone] Nohemi Suarez PA [address] [place] [address] ArrivedNOST. JOSEPH'S [facility]OSPITAL OBComment on above:ArrivedStart: 02-23-2023 Influenza vaccinationInfluenza VaccineWVUMedicine Barnesville Hospital SystemStart: 2017 Screening for malignant neoplasm of cervixNOPA HealthcareStart: 2008 Screening for malignant neoplasm of cervixPap SmearSAN JUAN HOSPITAL HealthcareStart: 51-84-8858Nnndp BMI Follow Up PlanAdult BMI Follow Up PlanUNC Hospitals Hillsborough Campustart: 66-48-1381Hvdnqjbtud ScreeningDepression ScreeningWhite Hospital End: 28-25-2550GykiztackpzCytvorfaogl GI Routine Abnormal CT scan, gastrointestinal tract Colitis 1 Occurrences starting 09/11/2024 until 09/11/2025[facility] Work Phone: Comment on above:1 Occurrences starting 09/11/2024 until 09/11/2025ytology Cervical or vaginal smear or scraping studyPap Smear Pathology and Cytology Routine Well woman exam with routine gynecological exam Ordered: 02/20/2024[facility] Work Phone: comment on above:Ordered: 02/20/2024Human papilloma virus DNA [Presence] in Unspecified specimen by Probe with amplificationHPV DNA probe, amplified Microbiology Routine Well woman exam with routine gynecological exam Ordered: 02/20/2024[facility] NorthlandComment on above:Ordered: 02/20/2024 Immunizations Immunization DateImmunizationNotesCare HaruiildWadxazhi72-68-7189qlnthtu toxoid, reduced diphtheria toxoid, and acellular pertussis vaccine, adsorbedZina TEE Work Phone: [facility] Jnjjve78-61-3028lrszxcw toxoid, reduced diphtheria toxoid, and acellular pertussis vaccine, adsorbedNohemi TEE Work Phone: [facility] Payers DatePayer CategoryPayerPolicy [id number]-[id number] Care Other (unspecified)[facility] [place] [id number] 41-43-6178Tslyauo Health Insurance [id number]jgzcpj Health [id number] 2023Medicaid [id number] [id number] [id number] 2.16.840.1.387014.3.57[id number] 2.16.840.1.260861.3.57[id number] 2..840.1.953471.3.579.[id number] 2..840.1.354212.3.579.[id number] 2..840.1.765431.3.57[id number] 2.840.1.043542.3.57[id number] 2.840.1.008288.3.579.[id number] 2.840.1.999828.3.579.2.001760-02-9472Wecjlcb8632752 2.840.1.790055.3.579.[id number] 2.840.1.567086.3.57[id number] 2.840.1.456025.3.579.[id number] 2.840.1.874021.3.579.2.1[id number] 2.840.1.072692.3.579.2.517814-56-5427Vzfgcpb8478309 2.840.1.179748.3.579.2.843088-71-9709Smzttih4064437 2.840.1.876859.3.579.2.028638-59-9033Ykcmcfl631797571 2.840.1.153871.3.579.2.329066-35-8841Snxutrm467839646 2.840.1.533801.3.579.2.408854-84-8433Bfokrfl804827155 2.840.1.122900.3.579.2.[id number] 2.840.1.313921.3.579.[id number] 2.840.1.868764.3.579.2.[id number] 2.840.1.794131.3.579.2.741627-13-7422Esyezyx558628678 2.0.1.180218.3.579.2.200105-69-8737Gwnuvwz077541911 2.0.1.852631.3.579.[id number] [id number] 2.0.1.821727.3.579.2.531 Social History DateTypeDetailFacilityStart: 05-16-2023 End: 64-51-1626Rbivdtc smoking status NHISNever smoked tobaccoNOPA Healthcare Start: 05-16-2023 End: 12-53-9726Qdzwqhr use and exposureSmokeless tobacco non-userProNorthwest Medical Center Health SystemStart: 09-13-2023 End: 82-69-7266Wubxvnplh beverage intakeDeferNOMS HealthcareStart: 06-21-2023 End: 02-49-8386Fytaerx of Social functionNOMS HealthcareStart: 06-21-2023 End: 68-32-0951Jisytyddiuy, Afraid, Rape, and Kick questionnaire [HARK]NOMS HealthcareWithin the last year, have you been afraid of your partner or ex-partner?NoNOMS HealthcareDo you belong to any clubs or organizations such as pentecostalism groups, unions, fraternal or athletic groups, or school groups?YesNOMS HealthcareAre you now , , , , never or living with a partner?DivorcedNOMS HealthcareHow often to you have a drink containing alcohol?Monthly or lessNOMS HealthcareHow many standard drinks containing alcohol do you have on a typical day?1 or 2NOMS HealthcareHow often do you have 6 or more drinks on 1 occasion?NeverNOMS HealthcareHow hard is it for you to pay for the very basics like food, housing, medical care, and heating Not very hardNOMS HealthcareDo you feel stress - tense, restless, nervous, or anxious, or unable to sleep at night because yourmind is troubled all the time - these days [OSQ]Only a littleNOMS Healthcare(I/We) worried whether (my/our) food would run out before (I/we) got money to buy more.Never trueNOMS Healthcare Start: 71-94-5035Wv the past 12 months, has lack of transportation kept you from medical appointments or from getting medications?NoNOMS HealthcareStart: 41-31-9784Rzhgtuw CommentCaffeine: 2-3 cups/dayNOMS HealthcareStart: 1987 Sex assigned at birthNot on fileWVUMedicine Barnesville Hospital SystemTobacco smoking status NHISUnknown if ever smokedWexner Medical Center Work Phone: Start: 01-28-2015 End: 17-76-3564VdjNzhpfo (finding)[facility] Medical Centertart: 69-93-4475Kqn Assigned At BirthMercy Health Clermont Hospitaltart: 05-16-2023 End: 18-86-6350Ybcyclc intakeCurrent drinker of alcohol (finding)[facility] SystemStart: 33-08-8222Cwzgmvi CommentOccassBerwick Hospital Center System How often to you have a drink containing alcohol?2-4 times a monthNOMS HealthcareHow often do you have 6 or more drinks on 1 occasion?Less than monthly N[facility]S HealthcareDo you feel stress - tense, restless, nervous, or anxious, or unable to sleep at night because yourmind is troubled all the time - these days [OSQ]To some extentNOMS Healthcare Medical Equipment Procedure CodeEquipment CodeEquipment Original TextEquipment IdentifierDatesAlliancehealth [facility] Vn[facility] 8.6cm [facility] [id number] - Sna - [id number]: 12-03-2018 Functional Status BczeTozswafbmpCwgprnLxxttxwo49-83-8497Pqugv score [AUDIT-C]3 11/19/2024 5:02 PM EDT Mychart, GenericChildren's Mercy NorthlandKlxoqlsjjp98-49-2030Fnw often to you have a drink containing alcohol?2-4 times a month 11/19/2024 5:02 PM EDT Mychart, Generic 2-4 times a monthChildren's Mercy NorthlandZujimurpjn47-41-2121Lnt many standard drinks containing alcohol do you have on a typical day?1 or 2 11/19/2024 5:02 PM EDT Mychart, Generic 1 or 2NOMS Srmumnmkmh35-44-6189Hkl often do you have 6 or more drinks on 1 occasion?Less than monthly 11/19/2024 5:02 PM EDT Mychart, Generic Less than monthlyChildren's Mercy Northland Clinical Notes 05-16-2023 to 02-09-2025 Note Date & KdipWigoFgitafek82-36-8917 History of Present illness Narrative* Gabriela Craig NP - 02/09/2025 6:40 PM EDTAssociated Problem(s): Tachycardia No current sxs, turned in holter 01/29/25 Is not taking b adriane * Gabriela Craig NP - 02/09/2025 6:40 PM EDTAssociated Problem(s): Abnormal weight gain Has completed month #3 of adipex with 15 pounds total lost Will prescribe month #4 Fu in 4 weeks Keep up the good work with diet and exercise habits * Gabriela Craig NP - 02/09/2025 6:39 PM EDTAssociated Problem(s): URI, acute Resolved Post fatigue, which may be also related to fibro from being sick Recommend adding a OTC multi vitamin as well * COMFORT CABELLO - 02/09/2025 6:20 PM EDT Very fatigue * Gabriela Craig NP - 02/09/2025 6:20 PM EDT Images from the original note were not included. Stacy Klein is a 39 y.o. female presents with chief complaint of Weight Check HPI: Here for recheck: still with fatigue, and occ dyspnea with climbing steps. No cough, fever, wheeze,no chest pain She did turn in holter monitor on 01/29/25 has not heard anything from that. She continues with adipex as well no acute side effects from this SUBJECTIVE: MEDICATIONS: Current Outpatient Medications Medication Instructions [...] breakfast triamcinolone (Kenalog) 0.1 % cream ALLERGIES: Allergies Allergen Reactions Erythromycin Anaphylaxis Other Reaction(s): Hives Penicillins Anaphylaxis Other Reaction(s): Hives, Skin Rashes Zithromax [Azithromycin] Prednisone Palpitations Other Reaction(s): Comments: tachycardia REVIEW OF SYMPTOMS: Review of Systems Constitutional: Positive for fatigue. Negative for appetite change, chills and fever. HENT: Negative for congestion, ear pain and sore throat. Eyes: Negative for pain, discharge, redness and visual disturbance. Respiratory: Negative for cough, shortness of breath and wheezing. Cardiovascular: Negative for chest pain, palpitations and leg swelling. Gastrointestinal: Negative for abdominal pain, blood in stool, constipation, diarrhea, nausea and vomiting. Genitourinary: Negative for difficulty urinating, dysuria and frequency. Musculoskeletal: Negative for arthralgias, back pain, joint swelling and myalgias. Skin: Negative for rash and wound. Neurological: Negative for dizziness, tremors, seizures, syncope and headaches. Psychiatric/Behavioral: Negative for behavioral problems, self-injury and suicidal ideas. The patient is not nervous/anxious. Hematological: Does not bruise/bleed easily. Endocrine: Negative for polydipsia, polyphagia and polyuria. Allergic/Immunologic: Negative for environmental allergies and food allergies. PAST MEDICAL HISTORY Past Medical History: Diagnosis Date Abdominal [...] Lung nodule Menometrorrhagia 08/16/2023 Recurrent cold sores Past Surgical History: Procedure Laterality Date ABDOMINAL HERNIA REPAIR 12/03/2018 BREAST LUMPECTOMY Left 02/2019 Not malignant CHOLECYSTECTOMY 06/2018 CYSTOSCOPY W/ RETROGRADES Bilateral 01/31/2021 Bilateral retrograde pyelogrmas, urethral dilation GANGLION CYST EXCISION Left hand HM MAMMOGRAPHY 11/27/2018 bx of left breast PAP SMEAR 11/14/2017 negative HI LAP,CHOLECYSTECTOMY 2019 TUBAL LIGATION family history includes Breast cancer in her maternal grandmother; Cancer in her maternal grandmother; Heart disease in her mother; Lung cancer in her mother; No Known Problems in her father. OBJECTIVE: Visit Vitals BP 104/78 (BP Location: Left arm, Patient Position: Sitting, BP Cuff Size: Adult long) Pulse 75 Temp 97.8 F (Temporal) Wt 215 lb 6.4 oz SpO2 99% BMI 38.16 kg/m Smoking Status Never BSA 2.08 m Physical Exam Vitals and nursing note reviewed. Constitutional: General: She is not in acute distress. Appearance: Normal appearance. She is obese. She is not ill-appearing. HENT: Head: Normocephalic and atraumatic. Right Ear: Tympanic membrane, ear canal and external ear normal. Left Ear: Tympanic membrane, ear canal and external ear normal. Nose: Nose normal. No congestion or rhinorrhea. Mouth/Throat: Mouth: Mucous membranes are moist. Pharynx: No oropharyngeal exudate or posterior oropharyngeal erythema. Eyes: Extraocular Movements: Extraocular movements intact. Conjunctiva/sclera: Conjunctivae normal. Cardiovascular: Rate and Rhythm: Normal rate and regular rhythm. Pulses: Normal pulses. Heart sounds: Normal heart sounds. No murmur heard. Pulmonary: Effort: Pulmonary effort is normal. Breath sounds: Normal breath sounds. No wheezing or rhonchi. Abdominal: General: Bowel sounds are normal. There is no distension. Palpations: Abdomen is soft. There is no mass. Tenderness: There is no abdominal tenderness. Musculoskeletal: General: Normal range of motion. Cervical back: Normal range of motion and neck supple. Right lower leg: No edema. Left lower leg: No edema. Lymphadenopathy: Cervical: No cervical adenopathy. Skin: General: Skin is warm and dry. Capillary Refill: Capillary refill takes 2 to 3 seconds. Findings: No rash. Neurological: General: No focal deficit present. Mental Status: She is alert and oriented to person, place, and time. Psychiatric: Mood and Affect: Mood normal. Behavior: Behavior normal. Thought Content: Thought content normal. Judgment: Judgment normal. ASSESSMENT AND PLAN: No follow-ups on file. Problem List Items Addressed This Visit HTN (hypertension) Please check blood pressure daily and record DASH diet Limit caffeine Take medication as directed Contact office if chest pain, pressure, dizziness, shortness of breath, swelling legs Recommend slow position changes Current meds: hydrochlorothiazide, lisinpril Morbid (severe) obesity due to excess calories (CMS-HCC) - Primary Discussed with patient their BMI (actual, verses recommended). We have also discussed lifestyle modifications: attempts to perform physical activity as chronic conditions allow, also to monitor dietary intake: increasing protein/fruits/veggies and lowering carb intake (unless contraindicated). Limit sodas, juices, and sugary drinks. Pt meets qualifications of OAC 4731-04-28 for weight loss. BMI>30 or >27 with comorbid conditions. Notify office with any symptoms of chest pain, dyspnea, heart palpitations, or any anxiety symptoms. F/U in 4 weeks to document weight loss. Increase physical activity as tolerated, and lower caloric intake to 1600 calories daily if no contraindications Months completed of adipex: 2 Starting weight: 225 Current: 215 Relevant Medications phentermine (Adipex-P) 37.5 MG tablet URI, acute Resolved Post fatigue, which may be also related to fibro from being sick Recommend adding a OTC multi vitamin as well Tachycardia No current sxs, turned in holter 01/29/25 Is not taking b adriane * Gabriela Craig NP - 02/09/2025 7:47 AM EDTAssociated Problem(s): HTN (hypertension) Please check blood pressure daily and record DASH diet Limit caffeine Take medication as directed Contact office if chest pain, pressure, dizziness, shortness of breath, swelling legs Recommend slow position changes Current meds: hydrochlorothiazide, lisinpril * Gabriela Craig NP - 02/09/2025 7:46 AM EDTAssociated Problem(s): Morbid (severe) obesity due to excess calories ([facility]) Discussed with patient their BMI (actual, verses recommended). We have also discussed lifestyle modifications: attempts to perform physical activity as chronic conditions allow, also to monitor dietary intake: increasing protein/fruits/veggies and lowering carb intake (unless contraindicated). Limit sodas, juices, and sugary drinks. Pt meets qualifications of OAC 4731-04-28 for weight loss. BMI>30 or >27 with comorbid conditions. Notify office with any symptoms of chest pain, dyspnea, heart palpitations, or any anxiety symptoms. F/U in 4 weeks to document weight loss. Increase physical activity as tolerated, and lower caloric intake to 1600 calories daily if no contraindications Months completed of adipex: 2 Starting weight: 225 Current: 215 documented in this encounterChildren[id number] Telephone encounter Note* Telephone Encounter - Gabriela Craig NP - 02/09/2025 6:36 PM EDT [facility] She turned in holter monitor around 01/29/25 has not heard anything is the report finalized? [place] [facility] [id number] Miscellaneous Notes* Telephone Encounter - Gabriela Craig NP - 02/09/2025 6:36 PM EDT [facility] She turned in holter monitor around 01/29/25 has not heard anything is the report finalized? [place] documented in this encounterChildren[facility] [id number] History of Present illness Narrative* Gabriela Craig NP - 01/29/2025 12:02 PM EDTAssociated Problem(s): Tachycardia No current sxs, turned in holter today Is not taking b adriane * Gabriela Craig NP - 01/29/2025 12:02 PM EDTAssociated Problem(s): URI, acute Does appear to be getting better with change to doxy She is non toxic in appearance, no resp distress I would recommend adding nasal steroid and antihistamine as well Keep fu for 02/09/25 * Gabriela Craig NP - 01/29/2025 12:00 PM EDTAssociated Problem(s): HTN (hypertension) Please check blood pressure daily and record DASH diet Limit caffeine Take medication as directed Contact office if chest pain, pressure, dizziness, shortness of breath, swelling legs Recommend slow position changes Current meds: hydrochlorothiazide, lisinpril * COMFORT CABELLO - 01/29/2025 11:30 AM EDT Still SOB, pain between shoulder blades, she did just return heart monitor today after wearing for 2 days, pt is feeling better, pt states she does feel the mucus is breaking up in her chest- howeverpt is not coughing the mucus out, blurry vision, 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 Stacy Klein is a 39 y.o. female presents with chief complaint of Hospital Follow-up HPI: 2 ER visits: First visit: racing heart, given script for b adriane and heart monitor, she did not start the b adriane, turned in the monitor today Second visit: given atb I did speak to her 2 days ago we started her on doxy, she is feeling much better, no fever, still wcough but is better. She does report she is feeling better SUBJECTIVE: MEDICATIONS: Current Outpatient Medications Medication Instructions albuterol HFA 90 mcg/act inhaler 2 puffs, Inhalation, Every 6 hours PRN cholecalciferol (VITAMIN D-3) 25 mcg, Daily cyanocobalamin (VITAMIN B-12) 1,000 mcg, Daily doxycycline (VIBRA-TABS) 100 mg, Oral, 2 times daily, Take with a full glass of water and do not lie down for at least 30 minutes after. hydroCHLOROthiazide (HYDRODiuril) 12.5 MG tablet May take [...] breakfast triamcinolone (Kenalog) 0.1 % cream ALLERGIES: Allergies Allergen Reactions Erythromycin Anaphylaxis Other Reaction(s): Hives Penicillins Anaphylaxis Other Reaction(s): Hives, Skin Rashes Zithromax [Azithromycin] Prednisone Palpitations Other Reaction(s): Comments: tachycardia REVIEW OF SYMPTOMS: Review of Systems Constitutional: Negative for appetite change, chills and fever. HENT: Negative for congestion, ear pain and sore throat. Eyes: Negative for pain, discharge, redness and visual disturbance. Respiratory: Positive for cough and shortness of breath. Negative for wheezing. Cardiovascular: Negative for chest pain, palpitations and leg swelling. Gastrointestinal: Negative for abdominal pain, blood in stool, constipation, diarrhea, nausea and vomiting. Genitourinary: Negative for difficulty urinating, dysuria and frequency. Musculoskeletal: Negative for arthralgias, back pain, joint swelling and myalgias. Skin: Negative for rash and wound. Neurological: Negative for dizziness, tremors, seizures, syncope and headaches. Psychiatric/Behavioral: Negative for behavioral problems, self-injury and suicidal ideas. The patient is not nervous/anxious. Hematological: Does not bruise/bleed easily. Endocrine: Negative for polydipsia, polyphagia and polyuria. Allergic/Immunologic: Negative for environmental allergies and food allergies. PAST MEDICAL HISTORY Past Medical History: Diagnosis Date Abdominal [...] Lung nodule Menometrorrhagia 08/16/2023 Recurrent cold sores Past Surgical History: Procedure Laterality Date ABDOMINAL HERNIA REPAIR 12/03/2018 BREAST LUMPECTOMY Left 02/2019 Not malignant CHOLECYSTECTOMY 06/2018 CYSTOSCOPY W/ RETROGRADES Bilateral 01/31/2021 Bilateral retrograde pyelogrmas, urethral dilation GANGLION CYST EXCISION Left hand MAMMOGRAPHY 11/27/2018 bx of left breast PAP SMEAR 11/14/2017 negative HI LAP,CHOLECYSTECTOMY 2019 TUBAL LIGATION family history includes Breast cancer in her maternal grandmother; Cancer in her maternal grandmother; Heart disease in her mother; Lung cancer in her mother; No Known Problems in her father. OBJECTIVE: Visit Vitals BP 112/82 (BP Location: Left arm, Patient Position: Sitting, BP Cuff Size: Adult long) Pulse 84 Temp 98.5 F (Temporal) Wt 213 lb 6.4 oz SpO2 98% BMI 37.80 kg/m Smoking Status Never BSA 2.07 m Physical Exam Vitals and nursing note reviewed. Constitutional: General: She is not in acute distress. Appearance: Normal appearance. HENT: Head: Normocephalic and atraumatic. Right Ear: Tympanic membrane, ear canal and external ear normal. Left Ear: Tympanic membrane, ear canal and external ear normal. Ears: Comments: TM's dull Nose: Congestion and rhinorrhea present. Mouth/Throat: Mouth: Mucous membranes are moist. Pharynx: No oropharyngeal exudate or posterior oropharyngeal erythema. Eyes: Extraocular Movements: Extraocular movements intact. Conjunctiva/sclera: Conjunctivae normal. Cardiovascular: Rate and Rhythm: Normal rate and regular rhythm. Pulses: Normal pulses. Heart sounds: Normal heart sounds. No murmur heard. Pulmonary: Effort: Pulmonary effort is normal. Breath sounds: Normal breath sounds. No wheezing, rhonchi or rales. Abdominal: General: Bowel sounds are normal. There is no distension. Palpations: Abdomen is soft. There is no mass. Tenderness: There is no abdominal tenderness. Musculoskeletal: General: Normal range of motion. Cervical back: Normal range of motion and neck supple. Right lower leg: No edema. Left lower leg: No edema. Lymphadenopathy: Cervical: No cervical adenopathy. Skin: General: Skin is warm and dry. Capillary Refill: Capillary refill takes 2 to 3 seconds. Findings: No rash. Neurological: General: No focal deficit present. Mental Status: She is alert and oriented to person, place, and time. Psychiatric: Mood and Affect: Mood normal. Behavior: Behavior normal. Thought Content: Thought content normal. Judgment: Judgment normal. ASSESSMENT AND PLAN: No follow-ups on file. Problem List Items Addressed This Visit HTN (hypertension) Please check blood pressure daily and record DASH diet Limit caffeine Take medication as directed Contact office if chest pain, pressure, dizziness, shortness of breath, swelling legs Recommend slow position changes Current meds: hydrochlorothiazide, lisinpril Morbid (severe) obesity due to excess calories ([facility]) - Primary Discussed with patient their BMI (actual, verses recommended). We have also discussed lifestyle modifications: attempts to perform physical activity as chronic conditions allow, also to monitor dietary intake: increasing protein/fruits/veggies and lowering carb intake (unless contraindicated). Limit sodas, juices, and sugary drinks. Pt meets qualifications of OAC 4731-04-28 for weight loss. BMI>30 or >27 with comorbid conditions. Notify office with any symptoms of chest pain, dyspnea, heart palpitations, or any anxiety symptoms. F/U in 4 weeks to document weight loss. Increase physical activity as tolerated, and lower caloric intake to 1600 calories daily if no contraindications Months completed of adipex: 2 Starting weight: 225 Current: 213 URI, acute Does appear to be getting better with change to doxy She is non toxic in appearance, no resp distress I would recommend adding nasal steroid and antihistamine as well Keep fu for 02/09/25 Tachycardia No current sxs, turned in holter today Is not taking b adriane * Gabriela Craig NP - 01/29/2025 6:27 AM EDTAssociated Problem(s): Morbid (severe) obesity due to excess calories ([facility]) Discussed with patient their BMI (actual, verses recommended). We have also discussed lifestyle modifications: attempts to perform physical activity as chronic conditions allow, also to monitor dietary intake: increasing protein/fruits/veggies and lowering carb intake (unless contraindicated). Limit sodas, juices, and sugary drinks. Pt meets qualifications of OAC 4731-04-28 for weight loss. BMI>30 or >27 with comorbid conditions. Notify office with any symptoms of chest pain, dyspnea, heart palpitations, or any anxiety symptoms. F/U in 4 weeks to document weight loss. Increase physical activity as tolerated, and lower caloric intake to 1600 calories daily if no contraindications Months completed of adipex: 2 Starting weight: 225 Current: 213 documented in this encounterChildren's [facility]cy [id number] History of Present illness Narrative* Gabriela Craig NP - 12/22/2024 5:30 PM EDT Images from the original note were not included. Stacy Klein is a 39 y.o. female presents with chief complaint of Hypertension HPI: Adipex; tolerating well, no acute side effects Hypertension This is a chronic problem. The current episode started more than 1 year ago. The problem is unchanged. The problem is controlled. Pertinent negatives include no chest pain, headaches, palpitations, peripheral edema or shortness of breath. There are no associated agents to hypertension. Risk factorsfor coronary artery disease include obesity. SUBJECTIVE: MEDICATIONS: Current Outpatient Medications Medication Instructions [...] lisinopril 10 mg, Oral, Every 24 hours phentermine (ADIPEX-P) 37.5 mg, Oral, Daily before breakfast triamcinolone (Kenalog) 0.1 % cream ALLERGIES: Allergies Allergen Reactions Erythromycin Anaphylaxis Other Reaction(s): Hives Penicillins Anaphylaxis Other Reaction(s): Hives, Skin Rashes Zithromax [Azithromycin] Prednisone Palpitations Other Reaction(s): Comments: tachycardia REVIEW OF SYMPTOMS: Review of Systems Constitutional: Negative for appetite change, chills and fever. HENT: Negative for congestion, ear pain and sore throat. Eyes: Negative for pain, discharge, redness and visual disturbance. Respiratory: Negative for cough, shortness of breath and wheezing. Cardiovascular: Negative for chest pain, palpitations and leg swelling. Gastrointestinal: Negative for abdominal pain, blood in stool, constipation, diarrhea, nausea and vomiting. Genitourinary: Negative for difficulty urinating, dysuria and frequency. Musculoskeletal: Negative for arthralgias, back pain, joint swelling and myalgias. Skin: Negative for rash and wound. Neurological: Negative for dizziness, tremors, seizures, syncope and headaches. Psychiatric/Behavioral: Negative for behavioral problems, self-injury and suicidal ideas. The patient is not nervous/anxious. Hematological: Does not bruise/bleed easily. Endocrine: Negative for polydipsia, polyphagia and polyuria. Allergic/Immunologic: Negative for environmental allergies and food allergies. PAST MEDICAL HISTORY Past Medical History: Diagnosis Date Abdominal [...] Lung nodule Menometrorrhagia 08/16/2023 Recurrent cold sores Past Surgical History: Procedure Laterality Date ABDOMINAL HERNIA REPAIR 12/03/2018 BREAST LUMPECTOMY Left 02/2019 Not malignant CHOLECYSTECTOMY 06/2018 CYSTOSCOPY W/ RETROGRADES Bilateral 01/31/2021 Bilateral retrograde pyelogrmas, urethral dilation GANGLION CYST EXCISION Left hand HM MAMMOGRAPHY 11/27/2018 bx of left breast PAP SMEAR 11/14/2017 negative HI LAP,CHOLECYSTECTOMY 2019 TUBAL LIGATION family history includes Breast cancer in her maternal grandmother; Cancer in her maternal grandmother; Heart disease in her mother; Lung cancer in her mother; No Known Problems in her father. OBJECTIVE: Visit Vitals BP 120/80 (BP Location: Left arm, Patient Position: Sitting, BP Cuff Size: Adult long) Pulse 75 Temp 97.5 F (Temporal) Resp 18 Wt 220 lb 12.8 oz SpO2 98% BMI 39.11 kg/m Smoking Status Never BSA 2.11 m Physical Exam Vitals and nursing note reviewed. Constitutional: General: She is not in acute distress. Appearance: Normal appearance. HENT: Head: Normocephalic and atraumatic. Right Ear: External ear normal. Left Ear: External ear normal. Nose: Nose normal. Mouth/Throat: Mouth: Mucous membranes are moist. Eyes: Extraocular Movements: Extraocular movements intact. Conjunctiva/sclera: Conjunctivae normal. Cardiovascular: Rate and Rhythm: Normal rate and regular rhythm. Pulses: Normal pulses. Heart sounds: Normal heart sounds. Pulmonary: Effort: Pulmonary effort is normal. Breath sounds: Normal breath sounds. Abdominal: General: Bowel sounds are normal. There is no distension. Palpations: Abdomen is soft. There is no mass. Tenderness: There is no abdominal tenderness. Musculoskeletal: General: Normal range of motion. Cervical back: Normal range of motion and neck supple. Right lower leg: No edema. Left lower leg: No edema. Skin: General: Skin is warm and dry. Capillary Refill: Capillary refill takes 2 to 3 seconds. Findings: No rash. Neurological: General: No focal deficit present. Mental Status: She is alert and oriented to person, place, and time. Psychiatric: Mood and Affect: Mood normal. Behavior: Behavior normal. Thought Content: Thought content normal. Judgment: Judgment normal. ASSESSMENT AND PLAN: No follow-ups on file. Problem List Items Addressed This Visit HTN (hypertension) - Primary Please check blood pressure daily and record DASH diet Limit caffeine Take medication as directed Contact office if chest pain, pressure, dizziness, shortness of breath, swelling legs Recommend slow position changes Current meds: hydrochlorothiazide, lisinpril Morbid (severe) obesity due to excess calories ([facility]) Discussed with patient their BMI (actual, verses recommended). We have also discussed lifestyle modifications: attempts to perform physical activity as chronic conditions allow, also to monitor dietary intake: increasing protein/fruits/veggies and lowering carb intake (unless contraindicated). Limit sodas, juices, and sugary drinks. Pt meets qualifications of OAC 4731-04-28 for weight loss. BMI>30 or >27 with comorbid conditions. Notify office with any symptoms of chest pain, dyspnea, heart palpitations, or any anxiety symptoms. F/U in 4 weeks to document weight loss. Increase physical activity as tolerated, and lower caloric intake to 1600 calories daily if no contraindications Months completed of adipex: 1 Starting weight: 225 Current: 220 Relevant Medications phentermine (Adipex-P) 37.5 MG tablet * Gabriela Craig NP - 12/22/2024 7:48 AM EDTAssociated Problem(s): Morbid (severe) obesity due to excess calories ([facility]) Discussed with patient their BMI (actual, verses recommended). We have also discussed lifestyle modifications: attempts to perform physical activity as chronic conditions allow, also to monitor dietary intake: increasing protein/fruits/veggies and lowering carb intake (unless contraindicated). Limit sodas, juices, and sugary drinks. Pt meets qualifications of [facility] 4731-04-28 for weight loss. BMI>30 or >27 with comorbid conditions. Notify office with any symptoms of chest pain, dyspnea, heart palpitations, or any anxiety symptoms. F/U in 4 weeks to document weight loss. Increase physical activity as tolerated, and lower caloric intake to 1600 calories daily if no contraindications Months completed of adipex: 1 Starting weight: 225 Current: 220 * Gabriela Craig NP - 12/22/2024 7:46 AM EDTAssociated Problem(s): KEKE (obstructive sleep apnea) You have a diagnosis of obstructive sleep apnea. It is recommended that you wear your PAP device any time while in bed sleeping. Not using the PAP device can increase your risk of elevated/uncontrolled high blood pressure, atrial fibrillation, heart attack, stroke, or sudden . Compliance with PAP: How many hours of use per night: Do you feel more refreshed in the morning: Company that supplies your machine and tubing/filters etc: Doctor that manages your KEKE: * Gabriela Craig NP - 12/22/2024 7:46 AM EDTAssociated Problem(s): HTN (hypertension) Please check blood pressure daily and record DASH diet Limit caffeine Take medication as directed Contact office if chest pain, pressure, dizziness, shortness of breath, swelling legs Recommend slow position changes Current meds: hydrochlorothiazide, lisinpril documented in this encounterChildren's Mercy [id number] History of Present illness Narrative* Gabriela Craig NP - 11/19/2024 5:20 PM EDT Images from the original note were not included. Stacy Klein is a 39 y.o. female presents with chief complaint of Hypertension HPI: Had colonoscopy for colitis, no polyps BM: few times a week, strain, no blood. This is not a change in pattern for bowel movement. Hypertension This is a chronic problem. The current episode started more than 1 year ago. The problem is unchanged. The problem is controlled. Pertinent negatives include no blurred vision, chest pain, headaches,palpitations, peripheral edema or shortness of breath. There are no associated agents to hypertension. Risk factors for coronary artery disease include obesity. Past treatments include diuretics and TOLU inhibitors. The current treatment provides significant improvement. There are no compliance problems. SUBJECTIVE: MEDICATIONS: Current Outpatient Medications Medication Instructions [...] lisinopril 10 mg, Oral, Every 24 hours phentermine (ADIPEX-P) 37.5 mg, Oral, Daily before breakfast triamcinolone (Kenalog) 0.1 % cream valACYclovir (VALTREX) 2,000 mg, Oral, 2 times daily ALLERGIES: Allergies Allergen Reactions Erythromycin Anaphylaxis Other Reaction(s): Hives Penicillins Anaphylaxis Other Reaction(s): Hives, Skin Rashes Zithromax [Azithromycin] Prednisone Palpitations Other Reaction(s): Comments: tachycardia REVIEW OF SYMPTOMS: Review of Systems Constitutional: Negative for appetite change, chills and fever. HENT: Negative for congestion, ear pain and sore throat. Eyes: Negative for blurred vision, pain, discharge, redness and visual disturbance. Respiratory: Negative for cough, shortness of breath and wheezing. Cardiovascular: Negative for chest pain, palpitations and leg swelling. Gastrointestinal: Negative for abdominal pain, blood in stool, constipation, diarrhea, nausea and vomiting. Genitourinary: Negative for difficulty urinating, dysuria and frequency. Musculoskeletal: Negative for arthralgias, back pain, joint swelling and myalgias. Skin: Negative for rash and wound. Neurological: Negative for dizziness, tremors, seizures, syncope and headaches. Psychiatric/Behavioral: Negative for behavioral problems, self-injury and suicidal ideas. The patient is not nervous/anxious. Hematological: Does not bruise/bleed easily. Endocrine: Negative for polydipsia, polyphagia and polyuria. Allergic/Immunologic: Negative for environmental allergies and food allergies. PAST MEDICAL HISTORY Past Medical History: Diagnosis Date Abdominal [...] Lung nodule Menometrorrhagia 08/16/2023 Recurrent cold sores Past Surgical History: Procedure Laterality Date ABDOMINAL HERNIA REPAIR 12/03/2018 BREAST LUMPECTOMY Left 02/2019 Not malignant CHOLECYSTECTOMY 06/2018 CYSTOSCOPY W/ RETROGRADES Bilateral 01/31/2021 Bilateral retrograde pyelogrmas, urethral dilation GANGLION CYST EXCISION Left hand MAMMOGRAPHY 11/27/2018 bx of left breast PAP SMEAR 11/14/2017 negative HI LAP,CHOLECYSTECTOMY 2019 TUBAL LIGATION family history includes Breast cancer in her maternal grandmother; Cancer in her maternal grandmother; Heart disease in her mother; Lung cancer in her mother; No Known Problems in her father. OBJECTIVE: Visit Vitals BP 106/76 (BP Location: Left arm, Patient Position: Sitting, BP Cuff Size: Adult long) Pulse 72 Temp 97.8 F (Temporal) Resp 18 Wt 225 lb 3.2 oz SpO2 97% BMI 39.89 kg/m Smoking Status Never BSA 2.13 m Physical Exam Vitals and nursing note reviewed. Constitutional: General: She is not in acute distress. Appearance: Normal appearance. HENT: Head: Normocephalic and atraumatic. Right Ear: External ear normal. Left Ear: External ear normal. Nose: Nose normal. Mouth/Throat: Mouth: Mucous membranes are moist. Eyes: Extraocular Movements: Extraocular movements intact. Conjunctiva/sclera: Conjunctivae normal. Cardiovascular: Rate and Rhythm: Normal rate and regular rhythm. Pulses: Normal pulses. Heart sounds: Normal heart sounds. Pulmonary: Effort: Pulmonary effort is normal. Breath sounds: Normal breath sounds. Abdominal: General: Bowel sounds are normal. There is no distension. Palpations: Abdomen is soft. There is no mass. Tenderness: There is no abdominal tenderness. Musculoskeletal: General: Normal range of motion. Cervical back: Normal range of motion and neck supple. Skin: General: Skin is warm and dry. Capillary Refill: Capillary refill takes 2 to 3 seconds. Findings: No rash. Neurological: General: No focal deficit present. Mental Status: She is alert and oriented to person, place, and time. Psychiatric: Mood and Affect: Mood normal. Behavior: Behavior normal. Thought Content: Thought content normal. Judgment: Judgment normal. ASSESSMENT AND PLAN: Follow up in about 4 weeks (around 12/17/2024) for Recheck. Problem List Items Addressed This Visit HTN (hypertension) (CMS/HCC) - Primary Please check blood pressure daily and record DASH diet Limit caffeine Take medication as directed Contact office if chest pain, pressure, dizziness, shortness of breath, swelling legs Recommend slow position changes Current meds: hydrochlorothiazide, lisinpril Relevant Medications hydroCHLOROthiazide (HYDRODiuril) 25 MG tablet lisinopril 10 MG tablet Morbid (severe) obesity due to excess calories (CMS/HCC) Discussed with patient their BMI (actual, verses recommended). We have also discussed lifestyle modifications: attempts to perform physical activity as chronic conditions allow, also to monitor dietary intake: increasing protein/fruits/veggies and lowering carb intake (unless contraindicated). Limit sodas, juices, and sugary drinks. Pt meets qualifications of OAC 4731-04-28 for weight loss. BMI>30 or >27 with comorbid conditions. Notify office with any symptoms of chest pain, dyspnea, heart palpitations, or any anxiety symptoms. F/U in 4 weeks to document weight loss. Increase physical activity as tolerated, and lower caloric intake to 1600 calories daily if no contraindications Relevant Medications phentermine (Adipex-P) 37.5 MG tablet Herpes labialis Relevant Medications valACYclovir (Valtrex) 1 g tablet * Gabriela Craig NP - 11/19/2024 7:29 AM EDTAssociated Problem(s): Morbid (severe) obesity due to excess calories (CMS/HCC) Discussed with patient their BMI (actual, verses recommended). We have also discussed lifestyle modifications: attempts to perform physical activity as chronic conditions allow, also to monitor dietary intake: increasing protein/fruits/veggies and lowering carb intake (unless contraindicated). Limit sodas, juices, and sugary drinks. Pt meets qualifications of OAC 4731-04-28 for weight loss. BMI>30 or >27 with comorbid conditions. Notify office with any symptoms of chest pain, dyspnea, heart palpitations, or any anxiety symptoms. F/U in 4 weeks to document weight loss. Increase physical activity as tolerated, and lower caloric intake to 1600 calories daily if no contraindications * Gabriela Craig NP - 11/19/2024 7:28 AM EDTAssociated Problem(s): HTN (hypertension) (CMS/HCC) Please check blood pressure daily and record DASH diet Limit caffeine Take medication as directed Contact office if chest pain, pressure, dizziness, shortness of breath, swelling legs Recommend slow position changes Current meds: hydrochlorothiazide, lisinpril * Gabriela Craig NP - 11/19/2024 7:28 AM EDTAssociated Problem(s): KEKE (obstructive sleep apnea) You have a diagnosis of obstructive sleep apnea. It is recommended that you wear your PAP device any time while in bed sleeping. Not using the PAP device can increase your risk of elevated/uncontrolled high blood pressure, atrial fibrillation, heart attack, stroke, or sudden . Compliance with PAP: How many hours of use per night: Do you feel more refreshed in the morning: Company that supplies your machine and tubing/filters etc: Doctor that manages your KEKE: documented in this [facility]05-28-2025 Instructions* Patient Instructions* Gabriela Craig NP - 11/19/2024 5:20 PM EDT Adipex: once a day, 1600 calories daily Exercise: 45 mins, 5 days a week Look into restarted WW documented in this [facility]03-27-2025 Nurse Note* Perioperative Nursing Note - Sara Roberts RN - 09/18/2024 10:22 AM EDT Preoperative Education Checklist- General Surgery date: 09/26/24 Surgery time: 1045a Arrival time: 845a 1. Bring a photo ID and your insurance card with you the day of surgery. You will check in at the main lobby of the [facility]- registration desk is straight ahead as soon as you walk in. Tell them you are here for surgery. 2. If you have a Living Will/Durable Power of [facility] that is not on file here, please bring a copy the day of surgery. 3. Please shower/bathe the night before surgery with the provided soap or wipes. Do not shower the morning of surgery- you will do use wipes when you arrive here at the hospital before getting into your surgical gown. Do not shave the area of your procedure for 2 days prior to your surgery. 4. NO powder, lotion, perfume/cologne, aftershave, make-up, deodorant, or hair products after you have bathed. 5. NO nail montenegrin/acrylic on at least one finger. If you are having a hand, wrist or foot surgery then all nail montenegrin and artificial/acrylic nails must be removed from that hand or foot. 6. Avoid ALL Aspirin and non-steroidal anti-inflammatory drugs and certain vitamins (Ibuprofen, Advil, Aleve, Excedrin, Meloxicam, Celebrex, fish/krill oil, etc.) for 7 days prior to surgery as instructed by your surgeon and/or your prescribing doctor. Tylenol IS ALLOWED. If you are on Ticlid, Xarelto, Eliquis, Pradaxa, Plavix or Coumadin, please check with your prescribing doctor for instructions for when to stop them. 7. If you use an inhaler, continue to use it routinely. 8. Nothing to eat or drink (not even water, gum, mints, or hard candy!) AFTER midnight prior to your surgery. 9. Take only medications that you are instructed to on the morning of surgery with a TINY SIP OF WATER. 10. Choose a responsible adult that will be able to drive you home when you are discharged from your hospital stay for your surgery and can stay with you in your home for 24 hours after your procedure. You must NOT drive any vehicle or operate any machinery for 24 hours after surgery. 11. When you dress for your appointment, please wear loose fitting clothing that is appropriate to accommodate your surgical area procedure. BRING WITH YOU ANY DEVICES YOU MAY NEED: RUBEN hose, ice machine, sling/swath, brace or special shoe, oversized zip-up or button up shirt, CPAP machine if staying overnight. 12. Do NOT wear jewelry, watches, or any piercings or metal for surgery- leave these valuables and money at home. 13. Do NOT wear contact lenses for surgery- glasses are okay if needed. 14. The anesthesiologist will talk with you the day of surgery and will ask you to sign a Consent Form. 15. Refrain from smoking or any type of tobacco use for at least 8 hours and marijuana for 24 hoursprior to arrival for your surgery. 16. If a GREEN BLOOD band is given to you, please bring it with you for the day of surgery. 17. Notify your surgeon if you develop any illness before your surgery. 18. If you are staying overnight, please DO NOT BRING your home medications with you. 19. If you have any questions prior to surgery, please call the Preadmission Testing office at [phone], Mon.-Fri. 7 a.m.-3 p.m. Leave a voicemail if needed. Pre-Surgery Instructions: Medication Instructions albuterol (PROVENTIL HFA;VENTOLIN HFA) 90 mcg/actuation inhaler Take morning of procedure if needed cholecalciferol 1,000 units tablet Stop taking 0 days prior to procedure cyanocobalamin, vitamin B-12, (VITAMIN B-12 ORAL) Stop taking 0 days prior to procedure hydroCHLOROthiazide (HYDRODIURIL) 25 mg tablet Stop taking 0 days prior to procedure lisinopriL (PRINIVIL,ZESTRIL) 10 mg tablet Take morning of procedure [employer]03-27-2025 Miscellaneous Notes* Perioperative Nursing Note - Sara Roberts RN - 09/18/2024 10:22 AM EDT Preoperative Education Checklist- General Surgery date: 09/26/24 Surgery time: 1045a Arrival time: 845a 1. Bring a photo ID and your insurance card with you the day of surgery. You will check in at the main lobby of the [facility]- registration desk is straight ahead as soon as you walk in. Tell them you are here for surgery. 2. If you have a Living Will/Durable Power of [facility] that is not on file here, please bring a copy the day of surgery. 3. Please shower/bathe the night before surgery with the provided soap or wipes. Do not shower the morning of surgery- you will do use wipes when you arrive here at the hospital before getting into your surgical gown. Do not shave the area of your procedure for 2 days prior to your surgery. 4. NO powder, lotion, perfume/cologne, aftershave, make-up, deodorant, or hair products after you have bathed. 5. NO nail montenegrin/acrylic on at least one finger. If you are having a hand, wrist or foot surgery then all nail montenegrin and artificial/acrylic nails must be removed from that hand or foot. 6. Avoid ALL Aspirin and non-steroidal anti-inflammatory drugs and certain vitamins (Ibuprofen, Advil, Aleve, Excedrin, Meloxicam, Celebrex, fish/krill oil, etc.) for 7 days prior to surgery as instructed by your surgeon and/or your prescribing doctor. Tylenol IS ALLOWED. If you are on Ticlid, Xarelto, Eliquis, Pradaxa, Plavix or Coumadin, please check with your prescribing doctor for instructions for when to stop them. 7. If you use an inhaler, continue to use it routinely. 8. Nothing to eat or drink (not even water, gum, mints, or hard candy!) AFTER midnight prior to your surgery. 9. Take only medications that you are instructed to on the morning of surgery with a TINY SIP OF WATER. 10. Choose a responsible adult that will be able to drive you home when you are discharged from your hospital stay for your surgery and can stay with you in your home for 24 hours after your procedure. You must NOT drive any vehicle or operate any machinery for 24 hours after surgery. 11. When you dress for your appointment, please wear loose fitting clothing that is appropriate to accommodate your surgical area procedure. BRING WITH YOU ANY DEVICES YOU MAY NEED: RUBEN hose, ice machine, sling/swath, brace or special shoe, oversized zip-up or button up shirt, CPAP machine if staying overnight. 12. Do NOT wear jewelry, watches, or any piercings or metal for surgery- leave these valuables and money at home. 13. Do NOT wear contact lenses for surgery- glasses are okay if needed. 14. The anesthesiologist will talk with you the day of surgery and will ask you to sign a Consent Form. 15. Refrain from smoking or any type of tobacco use for at least 8 hours and marijuana for 24 hoursprior to arrival for your surgery. 16. If a GREEN BLOOD band is given to you, please bring it with you for the day of surgery. 17. Notify your surgeon if you develop any illness before your surgery. 18. If you are staying overnight, please DO NOT BRING your home medications with you. 19. If you have any questions prior to surgery, please call the Preadmission Testing office at [phone], Mon.-Fri. 7 a.m.-3 p.m. Leave a voicemail if needed. Pre-Surgery Instructions: Medication Instructions albuterol (PROVENTIL HFA;VENTOLIN HFA) 90 mcg/actuation inhaler Take morning of procedure if needed cholecalciferol 1,000 units tablet Stop taking 0 days prior to procedure cyanocobalamin, vitamin B-12, (VITAMIN B-12 ORAL) Stop taking 0 days prior to procedure hydroCHLOROthiazide (HYDRODIURIL) 25 mg tablet Stop taking 0 days prior to procedure lisinopriL (PRINIVIL,ZESTRIL) 10 mg tablet Take morning of procedure [facility] History of Present illness Narrative* Maryse Morejon, [employer]GAN CHECKER - 09/11/2024 3:00 PM EDT Images from the original note were not included. Chief Complaint: Colitis History of Present Illness Stacy Klein is a 39 y.o. female who presents to the office after being seen in the ED on 08/09/2024 for abdominal pain, constipation and rectal bleeding. CT abdomen and pelvis revealed diffuse wall thickening of the sigmoid colon concerning for colitis. She was discharged home with Cipro and Flagyl. She is feeling better after this. No further bleeding. She still reports abdominal cramping which mostly resolves after she has a bowel movement. She states her stools are either hard or loose. She also reports bowel urgency. She has never had a colonoscopy. There is no family history of IBD. She had hysterectomy at the beginning of June. Review of Systems Constitutional: Negative for fever and unexpected weight change. HENT: Negative for trouble swallowing. Respiratory: Negative for shortness of breath. Cardiovascular: Negative for chest pain. Gastrointestinal: Positive for diarrhea and constipation. Negative for abdominal pain and blood in stool. Cramping, bowel urgency Genitourinary: Negative for dysuria and difficulty urinating. Musculoskeletal: Negative for gait problem. Skin: Negative for rash and wound. Neurological: Negative for dizziness, weakness and light-headedness. Hematological: Does not bruise/bleed easily. Psychiatric/Behavioral: Negative for confusion. Past Medical History: Diagnosis Date History of partial hysterectomy HTN (hypertension) Hypothyroid Kidney stone PONV (postoperative nausea and vomiting) Urinary tract infection Past Surgical History: Procedure Laterality Date CHOLECYSTECTOMY CYSTOSCOPY N/A 01/31/2021 Performed by Gregory Brown MD at [facility] CYSTOSCOPY RETROGRADE PYELOGRAM [facility] SOLUTION Bilateral 01/31/2021 Performed by Gregory Brown MD at [facility] EXCISION MASS AXILLARY Left 03/11/2019 Performed by Gregory Lundy DO at [facility] HAND SURGERY LASER ABLATION 02/2023 Uterine ablation REPAIR HERNIA VENTRAL INCISIONAL MESH N/A 12/03/2018 Performed by Gregory Lundy DO at [facility] TUBAL LIGATION WISDOM TOOTH EXTRACTION Allergies Allergen Reactions Erythromycin Hives Penicillins Hives Prednisone Tachycardia Current Outpatient Medications: albuterol (PROVENTIL HFA;VENTOLIN HFA) 90 mcg/actuation inhaler, Inhale 2 puffs every 6 (six) hoursas needed., Disp: , Rfl: cholecalciferol 1,000 units tablet, Take 1 tablet (1,000 Units total) by mouth in the morning., Disp: , Rfl: cyanocobalamin, vitamin B-12, (VITAMIN B-12 ORAL), Take 1 tablet by mouth in the morning., Disp: , Rfl: hydroCHLOROthiazide (HYDRODIURIL) 25 mg tablet, Take 1 tablet (25 mg total) by mouth daily., Disp: , Rfl: lisinopriL (PRINIVIL,ZESTRIL) 10 mg tablet, Take 1 tablet (10 mg total) by mouth in the morning., Disp: , Rfl: peg 3350-sod sulf,[id number] 178.7-7.3-0.5 gram recon soln, Take 1 kit by mouth once daily for 1 dose. Please see instructional sheet given by physicians office., Disp: 1 each, Rfl: 0 Social History Socioeconomic History Marital status: Spouse name: Not on file Number of children: Not on file Years of education: Not on file Highest education level: Not on file Occupational History Not on file Tobacco Use Smoking status: Never Smokeless tobacco: Never Vaping Use Vaping status: Never Used Substance and Sexual Activity Alcohol use: Yes Comment: Occassional Drug use: No Sexual activity: Yes Partners: Male control/protection: I.U.D., Surgical Other Topics Concern Not on file Social History Narrative Not on file Social Drivers of Health Financial Resource Strain: Low Risk (06/21/2023) Received from [facility] Overall Financial Resource Strain (CARDIA) Difficulty of Paying Living Expenses: Not very hard Food Insecurity: No Food Insecurity (09/11/2024) Hunger Screening Food Insecurity - Worry: Never True Food Insecurity - Inability: Never True Transportation Needs: No Transportation Needs (06/21/2023) Received from [facility] PRAPARE - Transportation Lack of Transportation (Medical): No Lack of Transportation (Non-Medical): No Physical Activity: Sufficiently Active (06/21/2023) Received from [facility] Exercise Vital Sign Days of Exercise per Week: 4 days Minutes of Exercise per Session: 40 min Stress: No Stress Concern Present (06/21/2023) Received from [facility] [employer] [place] [employer] Occupational Health - Occupational Stress Questionnaire Feeling of Stress : Only a little Social Connections: Moderately Isolated (06/21/2023) Received from [facility] Social Connection and Isolation Panel [NHANES] Frequency of Communication with Friends and Family: More than three times a week Frequency of Social Gatherings with Friends and Family: Three times a week Attends Voodoo Services: Never Active Member of Clubs or Organizations: Yes Attends Club or Organization Meetings: More than 4 times per year Marital Status: Interpersonal Safety: Not At Risk (06/21/2023) Received from [facility] Humiliation, Afraid, Rape, and Kick questionnaire Fear of Current or Ex-Partner: No Emotionally Abused: No Physically Abused: No Sexually Abused: No Housing Instability: Low Risk (06/21/2023) Received from [facility] Housing Stability Vital Sign Unable to Pay for Housing in the Last Year: No Number of Places Lived in the Last Year: 1 Unstable Housing in the Last Year: No Family History Problem Relation Age of Onset Lung cancer Mother Melanoma Mother No Known Problems Father Wilm's tumor Sister Hypertension Brother Breast cancer Maternal Grandmother Objective Physical Exam Constitutional: General: She is not in acute distress. Appearance: Normal appearance. She is not ill-appearing. HENT: Head: Normocephalic and atraumatic. Mouth/Throat: Mouth: Mucous membranes are moist. Eyes: Pupils: Pupils are equal, round, and reactive to light. Cardiovascular: Rate and Rhythm: Normal rate. Pulmonary: Effort: Pulmonary effort is normal. No respiratory distress. Abdominal: General: There is no distension. Palpations: Abdomen is soft. Tenderness: There is no abdominal tenderness. There is no guarding. Comments: Nontender, states abdomen is sore Musculoskeletal: General: Normal range of motion. Skin: General: Skin is warm and dry. Neurological: Mental Status: She is alert and oriented to person, place, and time. Mental status is at baseline. Vital Signs: Blood pressure 125/75, pulse 80, height 160 cm (5' 3 ), weight 102.6 kg (226 lb 3.2 oz). Respiratory Source: No data recorded Admission Weight: Weight: 102.6 kg (226 lb 3.2 oz) Labs Lab Results Component Value Date WBC 8.3 08/09/2024 HGB 12.9 08/09/2024 HCT 38.2 08/09/2024 MCV 95 08/09/2024 PLT 382 08/09/2024 Lab Results Component Value Date GLU 109 (H) 08/09/2024 CALCIUM 9.1 08/09/2024 K 3.6 08/09/2024 CO2 27 08/09/2024 CL 103 08/09/2024 BUN 11 08/09/2024 CREATININE 0.91 08/09/2024 No results found for: AMYLASE No results found for: LIPASE Lab Results Component Value Date ALT 17 08/09/2024 AST 15 08/09/2024 ALKPHOS 77 08/09/2024 No results found for: INR , PROTIME Imaging CT abdomen and pelvis 08/09/2024: IMPRESSION: * Diffuse wall thickening involving the sigmoid colon, concerning for colitis. Consider direct visualization with colonoscopy after treatment. * 1.8 cm hypodense lesion within the hepatic dome, likely a hemangioma. Consider CT or MRI liver protocol for definitive characterization. * Ventral hernia defect within the lower abdominal wall containing fat. * 3 mm and 2 mm calcifications within the left upper renal pole likely related to nonobstructive renal calculi. Assessment Sigmoid colitis seen on CT scan Liver lesion; follow up MRI ordered per PCP Plan Schedule colonoscopy. Evaluation included: Preparing to see the patient (e.g., review of tests) Obtaining and/or reviewing separately obtained history Performing a medically appropriate examination and/or evaluation Counseling and educating the patient/family/caregiver Referring and communicating with other health day care home provider Abnormal CT scan, gastrointestinal tract [R93.3] MARGARETH CHO [facility] General Surgery [place] This note was created with the assistance of a speech recognition program. While intending to generate a timely document that accurately reflects the content of the visit, no guarantee can be provided that every grammatical or spelling mistake has been or will be identified or corrected. Thank you for your understanding. MARGARETH Cho 09/11/24 1528 documented in this [facility]25 History of Present illness Narrative* Gabriela Craig NP - 08/20/2024 6:03 PM ESTAssociated Problem(s): Acute non-recurrent maxillary sinusitis Sxs appear to be quite concentrated over the left maxillary/eye area, there is fluid left TM only Will treat with doxy, can also trial nasal irrigation as instructed Fu if not better * Gabriela Craig NP - 08/20/2024 6:02 PM ESTAssociated Problem(s): Flu-like symptoms Suspect that pt did have influenza and is too late to demonstrate positive test Fluids, rest * Gabriela Craig NP - 08/20/2024 6:00 PM ESTAssociated Problem(s): Liver lesion 1.8 hyperdense lesion hepatic dome, 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, consider MRI liver protocal for definitive characterization * COMFORT CABELLO - 08/20/2024 5:30 PM EST Sinus problems started on Sunday. Pt had a low grade fever of 101 on Sunday and Sunday. Pt symptoms also included headaches, dizziness, scratchy throat, coughing mucus, runny/stuffy, pressure on left side of face, had teeth pain, sob, tightness in the chest, body aches and pains, chills, and sweats, fatigue. Pt was in er on 08/09 for constipation: she stated she had an infection in her colon she was on atb and then two days before she finished she started getting sick and having a fever * Gabriela Craig NP - 08/20/2024 5:30 PM EST Images from the original note were not included. Stacy Klein is a 39 y.o. female presents with chief complaint of Hypertension HPI: Sinus problems started on Sunday. Pt had a low grade fever of 101 on Sunday and Sunday. Pt symptoms also included headaches, dizziness, scratchy throat, coughing mucus, runny/stuffy, pressure on left side of face, had teeth pain, sob, tightness in the chest, body aches and pains, chills, and sweats, fatigue. Pt was in er on 08/09 for constipation: she stated she had an infection in her colon she was on atb and then two days before she finished she started getting sick and having a fever see [facility] ER notes and CT scan/labs for HPI and treatment. No pain now, bowels are moving well Hypertension This is a chronic problem. The current episode started more than 1 year ago. The problem is unchanged. The problem is controlled. Associated symptoms include shortness of breath. Pertinent negatives include no chest pain, headaches or palpitations. There are no associated agents to hypertension. Risk factors for coronary artery disease include obesity. Past treatments include TOLU inhibitors and diuretics. The current treatment provides significant improvement. There are no compliance problems. Flu Symptoms This is a new problem. The current episode started in the past 7 days. The problem occurs daily. The problem has been unchanged. Associated symptoms include congestion, coughing and a sore throat. Pertinent negatives include no abdominal pain, arthralgias, chest pain, chills, fever, headaches, joint swelling, myalgias, nausea, rash or vomiting. Nothing aggravates the symptoms. She has tried nothing for the symptoms. SUBJECTIVE: MEDICATIONS: Current Outpatient Medications Medication Instructions albuterol HFA 90 mcg/act inhaler 2 puffs, Inhalation, Every 6 hours PRN doxycycline (VIBRA-TABS) 100 mg, Oral, 2 times daily, Take with a full glass of water and do not lie down for at least 30 minutes after. hydroCHLOROthiazide (HYDRODiuril) 12.5 MG tablet May take dose 1 pill up to three times per week for swelling in legs hydroCHLOROthiazide (HYDRODIURIL) 25 mg, Oral, Daily HYDROcodone-acetaminophen (Riggins) 5-325 MG tablet ibuprofen 800 MG tablet lisinopril 10 mg, Oral, Every 24 hours ondansetron ODT (Zofran-ODT) 4 MG disintegrating tablet valACYclovir (Valtrex) 1 g tablet ALLERGIES: Allergies Allergen Reactions Erythromycin Anaphylaxis Other Reaction(s): Hives Penicillins Anaphylaxis Other Reaction(s): Hives, Skin Rashes Zithromax [Azithromycin] Prednisone Palpitations Other Reaction(s): Comments: tachycardia REVIEW OF SYMPTOMS: Review of Systems Constitutional: Negative for appetite change, chills and fever. HENT: Positive for congestion and sore throat. Negative for ear pain. Eyes: Negative for pain, discharge, redness and visual disturbance. Respiratory: Positive for cough and shortness of breath. Negative for wheezing. Cardiovascular: Negative for chest pain, palpitations and leg swelling. Gastrointestinal: Negative for abdominal pain, blood in stool, constipation, diarrhea, nausea and vomiting. Genitourinary: Negative for difficulty urinating, dysuria and frequency. Musculoskeletal: Negative for arthralgias, back pain, joint swelling and myalgias. Skin: Negative for rash and wound. Neurological: Negative for dizziness, tremors, seizures, syncope and headaches. Psychiatric/Behavioral: Negative for behavioral problems, self-injury and suicidal ideas. The patient is not nervous/anxious. Hematological: Does not bruise/bleed easily. Endocrine: Negative for polydipsia, polyphagia and polyuria. Allergic/Immunologic: Negative for environmental allergies and food allergies. PAST MEDICAL HISTORY Past Medical History: Diagnosis Date Abdominal [...] Lung nodule Menometrorrhagia 08/16/2023 Recurrent cold sores Past Surgical History: Procedure Laterality Date ABDOMINAL HERNIA REPAIR 12/03/2018 BREAST LUMPECTOMY Left 02/2019 Not malignant CHOLECYSTECTOMY 06/2018 CYSTOSCOPY W/ RETROGRADES Bilateral 01/31/2021 Bilateral retrograde pyelogrmas, urethral dilation GANGLION CYST EXCISION Left hand HM MAMMOGRAPHY 11/27/2018 bx of left breast PAP SMEAR 11/14/2017 negative HI LAP,CHOLECYSTECTOMY 2018 TUBAL LIGATION family history includes Breast cancer in her maternal grandmother; Cancer in her maternal grandmother; Heart disease in her mother; Lung cancer in her mother; No Known Problems in her father. OBJECTIVE: Visit Vitals BP 108/80 (BP Location: Left arm, Patient Position: Sitting, BP Cuff Size: Adult long) Pulse 88 Temp 99.2 F (Temporal) Resp 18 Wt 224 lb 9.6 oz SpO2 97% BMI 39.79 kg/m Smoking Status Never BSA 2.13 m Physical Exam Vitals and nursing note reviewed. Constitutional: General: She is not in acute distress. Appearance: Normal appearance. HENT: Head: Normocephalic and atraumatic. Right Ear: Tympanic membrane, ear canal and external ear normal. Left Ear: Ear canal and external ear normal. Ears: Comments: Clear fluid left TM Nose: Congestion present. Comments: Sinus pressure left max/frontal Mouth/Throat: Mouth: Mucous membranes are moist. Pharynx: No oropharyngeal exudate or posterior oropharyngeal erythema. Eyes: Extraocular Movements: Extraocular movements intact. Conjunctiva/sclera: Conjunctivae normal. Cardiovascular: Rate and Rhythm: Normal rate and regular rhythm. Pulses: Normal pulses. Heart sounds: Normal heart sounds. Pulmonary: Effort: Pulmonary effort is normal. No respiratory distress. Breath sounds: Normal breath sounds. No stridor. No wheezing or rhonchi. Abdominal: General: Bowel sounds are normal. There is no distension. Palpations: Abdomen is soft. There is no mass. Tenderness: There is no abdominal tenderness. There is no rebound. Comments: Post op incisions healed no s/s infection Musculoskeletal: General: Normal range of motion. Cervical back: Normal range of motion and neck supple. Right lower leg: No edema. Left lower leg: No edema. Lymphadenopathy: Cervical: Cervical adenopathy present. Skin: General: Skin is warm and dry. Capillary Refill: Capillary refill takes 2 to 3 seconds. Findings: No rash. Neurological: General: No focal deficit present. Mental Status: She is alert and oriented to person, place, and time. Psychiatric: Mood and Affect: Mood normal. Behavior: Behavior normal. Thought Content: Thought content normal. Judgment: Judgment normal. ASSESSMENT AND PLAN: Follow up in about 3 months (around 11/17/2024) for Recheck. Problem List Items Addressed This Visit HTN (hypertension) (CMS/HCC) - Primary Please check blood pressure daily and record DASH diet Limit caffeine Take medication as directed Contact office if chest pain, pressure, dizziness, shortness of breath, swelling legs Recommend slow position changes Current meds: hydrochlorothiazide, lisinpril Body mass index (BMI) 36.0-36.9, adult Bilateral lower extremity edema Prn hydrochlorothiazide dose takes 1-2 times per week Morbid (severe) obesity due to excess calories (CMS/HCC) Discussed with patient their BMI (actual, verses recommended). We have also discussed lifestyle modifications: attempts to perform physical activity as chronic conditions allow, also to monitor dietary intake: increasing protein/fruits/veggies and lowering carb intake (unless contraindicated). Limit sodas, juices, and sugary drinks. Flu-like symptoms Suspect that pt did have influenza and is too late to demonstrate positive test Fluids, rest Relevant Medications albuterol HFA 90 mcg/act inhaler Other Relevant Orders STATUS COVID-19/FLU (Completed) Colitis At [facility] Er, had CT scan Sent home on cipro and flagyl, has finished them feeling better No NVD, bowels are moving well CT scan does demonstrate diffuse long segment wall thickening in the sigmoid colon Colonoscopy is recommended Has seen grillis in the past, would like to see him Relevant Orders Ambulatory referral to General Surgery Acute non-recurrent maxillary sinusitis Sxs appear to be quite concentrated over the left maxillary/eye area, there is fluid left TM only Will treat with doxy, can also trial nasal irrigation as instructed Fu if not better Relevant Medications doxycycline (Vibra-Tabs) 100 MG tablet Liver lesion 1.8 hyperdense lesion hepatic dome, 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, consider MRI liver protocal for definitive characterization Relevant Orders MR abdomen w and wo contrast * Gabriela Craig NP - 08/20/2024 5:28 PM ESTAssociated Problem(s): Colitis At [facility], had CT scan Sent home on cipro and flagyl, has finished them feeling better No NVD, bowels are moving well CT scan does demonstrate diffuse long segment wall thickening in the sigmoid colon Colonoscopy is recommended Has seen ismaelelis in the past, would like to see him * Gabriela Craig NP - 08/20/2024 7:44 AM ESTAssociated Problem(s): Morbid (severe) obesity due to excess calories (CMS/HCC) Discussed with patient their BMI (actual, verses recommended). We have also discussed lifestyle modifications: attempts to perform physical activity as chronic conditions allow, also to monitor dietary intake: increasing protein/fruits/veggies and lowering carb intake (unless contraindicated). Limit sodas, juices, and sugary drinks. * Gabriela Craig NP - 08/20/2024 7:43 AM ESTAssociated Problem(s): Bilateral lower extremity edema Prn hydrochlorothiazide dose takes 1-2 times per week * Gabriela Craig NP - 08/20/2024 7:43 AM ESTAssociated Problem(s): HTN (hypertension) (CMS/HCC) Please check blood pressure daily and record DASH diet Limit caffeine Take medication as directed Contact office if chest pain, pressure, dizziness, shortness of breath, swelling legs Recommend slow position changes Current meds: hydrochlorothiazide, lisinpril documented in this [facility]02-26-2025 Instructions* Patient Instructions* Gabriela Craig NP - 08/20/2024 5:30 PM EST Thickening in colon: I will refer you to Dr Lundy for colonscopy Liver lesion: will get an MRI abd with and without contrast at [facility] Sinus: doxycyclie 100mg twice a day for 7 days, fluids, rest, may trial nasal irrigations as well Will also give albuterol inhaler for shortness of breath feeling, if not better when complete atb, call office documented in this [facility]02-19-2025 History of Present illness Narrative* RANDAL Mackay - 08/13/2024 2:20 PM EST Reason for Appointment: Patient ID: Stacy Klein is a 39 y.o. female who presents for Post-op Visit Patient presents today for 6 week [facility] Post Op Follow Up appointment. MEDICATIONS Current Outpatient Medications Medication Instructions albuterol HFA 90 mcg/act inhaler ciprofloxacin (Cipro) 500 MG tablet hydroCHLOROthiazide (HYDRODiuril) 12.5 MG tablet May take dose 1 pill up to three times per week for swelling in legs hydroCHLOROthiazide (HYDRODIURIL) 25 mg, Oral, Daily lisinopril 10 mg, Oral, Every 24 hours metroNIDAZOLE (FLAGYL) 500 mg, 3 times daily valACYclovir (Valtrex) 1 g tablet ALLERGIES Allergies [...] of left breast PAP SMEAR 11/14/2017 negative HI LAP,CHOLECYSTECTOMY 2019 TUBAL LIGATION REVIEW OF SYSTEMS Review of Systems: Review of Systems Constitutional: Negative. HENT: Negative. Eyes: Negative. Respiratory: Negative. Cardiovascular: Negative. Gastrointestinal: Negative. Genitourinary: Negative. Musculoskeletal: Negative. Skin: Negative. Neurological: Negative. All [...] nursing note reviewed. Exam conducted with a concrete mixer truck driver present. Vitals: Estimated body mass index is 39.47 kg/m as calculated from the following: Height as of 24: 5' 3 . Weight as of this encounter: 222 lb 12.8 oz. BP: 120/82 No LMP recorded. ASSESSMENT & PLAN ICD-10-CM 1. Postoperative follow-up Z09 Post Op Follow Up: Patient presents today for a 6 week postop check following a Da Sarmad assisted Laparoscopic Hysterectomy. Surgery execution and pathology results were discussed in great detail with the patient. Pelvic exam was performed and vaginal cuff was noted as healing well. Sutures were present and removed with ring forceps. Patient has been instructed to sustain from sexual intercourse for one more week. All other restrictions have otherwise been lifted. Patient to return to work 08/25/2024. Patient is oncourse of treatment for Colitis which went to ER for this. Follow Up: Patient is to return in 1 year for annual exam unless needed otherwise. Documented by Teresita Singer LPN on behalf of: RANDAL Mackay documented in this encounterChildren's Mercy [id number] History of Present illness Narrative* RANDAL Mackay - 07/09/2024 10:40 AM EST Images from the original note were not included. Reason for Appointment: Patient ID: Stacy Klein is a 38 y.o. female who presents for Post-op Visit Patient presents today for 1 Week Post Op Follow Up appointment. MEDICATIONS Current Outpatient Medications Medication Instructions albuterol HFA 90 mcg/act inhaler hydroCHLOROthiazide (HYDRODiuril) 12.5 MG tablet May take dose 1 pill up to three times per week for swelling in legs hydroCHLOROthiazide (HYDRODIURIL) 25 mg, Oral, Daily lisinopril 10 mg, Oral, Every 24 hours valACYclovir (Valtrex) 1 g tablet ALLERGIES Allergies [...] of left breast PAP SMEAR 11/14/2017 negative HI LAP,CHOLECYSTECTOMY 2019 TUBAL LIGATION REVIEW OF SYSTEMS Review of Systems: Review of Systems Constitutional: Negative. HENT: Negative. Eyes: Negative. Respiratory: Negative. Cardiovascular: Negative. Gastrointestinal: Negative. Genitourinary: Negative. Musculoskeletal: Negative. Skin: Negative. Neurological: Negative. All other systems reviewed and are negative. Hematological: Negative. Endocrine: Negative. Allergic/Immunologic: Negative. OBJECTIVE Objective: Physical Exam Constitutional: Appearance: Normal appearance. HENT: Head: Normocephalic. Nose: Nose normal. Mouth/Throat: Mouth: Mucous membranes are moist. Cardiovascular: Rate and Rhythm: Normal rate. Pulmonary: Effort: Pulmonary effort is normal. Abdominal: General: Bowel sounds are normal. Palpations: Abdomen is soft. Comments: Incisions healing well, steristrips in place Musculoskeletal: General: Normal range of motion. Cervical back: Normal range of motion. Neurological: General: No focal deficit present. Mental Status: She is alert. Skin: General: Skin is warm and dry. Psychiatric: Mood and Affect: Mood normal. Vitals and nursing note reviewed. Exam conducted with a concrete mixer truck driver present. Vitals: Estimated body mass index is 38.28 kg/m as calculated from the following: Height as of 24: 5' 3 . Weight as of this encounter: 216 lb 1.9 oz. BP: 112/80 No LMP recorded. ASSESSMENT & PLAN ICD-10-CM 1. Postoperative follow-up Z09 Post Op Follow Up: Patient presents today for a one week postop check after having a Da Sarmad assisted Laparoscopic Hysterectomy which was converted to YADI with partial bilateral tubal ligation with cystoscopy. Patientis doing well but has minor complaints of pain. Incisions has been noted as healing well with no signs and symptoms of infection. Follow Up: Patient is to return in 5 weeks for 6 week post operative evaluation Documented by RANDAL Mackay on behalf of: RANDAL Mackay documented in this encounterChildren's Mercy [id number] History of Present illness Narrative* Gabriela Craig NP - 06/23/2024 6:00 PM ESTAssociated Problem(s): Bilateral lower extremity edema Prn hydrochlorothiazide dose takes 1-2 times per week * Gabriela Craig NP - 06/23/2024 5:47 PM ESTAssociated Problem(s): Obesity (BMI 30-39.9) Discussed with patient their BMI (actual, verses recommended). We have also discussed lifestyle modifications: attempts to perform physical activity as chronic conditions allow, also to monitor dietary intake: increasing protein/fruits/veggies and lowering carb intake (unless contraindicated). Limit sodas, juices, and sugary drinks. * COMFORT CABELLO - 06/23/2024 5:30 PM EST Pt is scheduled for the 8th for a hysterectomy * Gabriela Craig NP - 06/23/2024 5:30 PM EST Images from the original note were not included. Stacy Klein is a 38 y.o. female presents with chief complaint of Hypertension HPI: Hypertension This is a chronic problem. The current episode started more than 1 year ago. The problem is unchanged. The problem is controlled. Pertinent negatives include no blurred vision, chest pain, headaches,orthopnea, palpitations, peripheral edema or shortness of breath. There are no associated agents tohypertension. Risk factors for coronary artery disease include obesity. Past treatments include TOLU inhibitors and diuretics. The current treatment provides significant improvement. There are no compliance problems. There is no history of kidney disease, CAD/[place], CVA, left ventricular hypertrophy orPVD. SUBJECTIVE: MEDICATIONS: Current Outpatient Medications Medication Instructions albuterol HFA 90 mcg/act inhaler hydroCHLOROthiazide (HYDRODiuril) 12.5 MG tablet May take dose 1 pill up to three times per week for swelling in legs hydroCHLOROthiazide (HYDRODIURIL) 25 mg, Oral, Daily lisinopril 10 mg, Oral, Every 24 hours valACYclovir (Valtrex) 1 g tablet ALLERGIES: Allergies Allergen Reactions Erythromycin Anaphylaxis Other Reaction(s): Hives Penicillins Anaphylaxis Other Reaction(s): Hives, Skin Rashes Zithromax [Azithromycin] Prednisone Palpitations Other Reaction(s): Comments: tachycardia REVIEW OF SYMPTOMS: Review of Systems Constitutional: Negative for appetite change, chills and fever. HENT: Negative for congestion, ear pain and sore throat. Eyes: Negative for blurred vision, pain, discharge, redness and visual disturbance. Respiratory: Negative for cough, shortness of breath and wheezing. Cardiovascular: Negative for chest pain, palpitations, orthopnea and leg swelling. Gastrointestinal: Negative for abdominal pain, blood in stool, constipation, diarrhea, nausea and vomiting. Genitourinary: Positive for menstrual problem. Negative for difficulty urinating, dysuria and frequency. Musculoskeletal: Negative for arthralgias, back pain, joint swelling and myalgias. Skin: Negative for rash and wound. Neurological: Negative for dizziness, tremors, seizures, syncope and headaches. Psychiatric/Behavioral: Negative for behavioral problems, self-injury and suicidal ideas. The patient is not nervous/anxious. Hematological: Does not bruise/bleed easily. Endocrine: Negative for polydipsia, polyphagia and polyuria. Allergic/Immunologic: Negative for environmental allergies and food allergies. PAST MEDICAL HISTORY Past Medical History: Diagnosis Date Abdominal [...] Lung nodule Menometrorrhagia 08/16/2023 Recurrent cold sores Past Surgical History: Procedure Laterality Date ABDOMINAL HERNIA REPAIR 12/03/2018 BREAST LUMPECTOMY Left 02/2019 Not malignant CHOLECYSTECTOMY 06/2018 CYSTOSCOPY W/ RETROGRADES Bilateral 01/31/2021 Bilateral retrograde pyelogrmas, urethral dilation GANGLION CYST EXCISION Left hand HM MAMMOGRAPHY 11/27/2018 bx of left breast PAP SMEAR 11/14/2017 negative HI LAP,CHOLECYSTECTOMY 2018 TUBAL LIGATION family history includes Breast cancer in her maternal grandmother; Cancer in her maternal grandmother; Heart disease in her mother; Lung cancer in her mother; No Known Problems in her father. OBJECTIVE: Visit Vitals BP 108/76 (BP Location: Left arm, Patient Position: Sitting, BP Cuff Size: Adult long) Pulse 68 Temp 98.5 F (Temporal) Resp 18 Ht 5' 3 Wt 217 lb 12.8 oz SpO2 99% BMI 38.58 kg/m Smoking Status Never BSA 2.1 m Physical Exam Vitals and nursing note reviewed. Constitutional: General: She is not in acute distress. Appearance: Normal appearance. HENT: Head: Normocephalic and atraumatic. Right Ear: External ear normal. Left Ear: External ear normal. Nose: Nose normal. Mouth/Throat: Mouth: Mucous membranes are moist. Eyes: Extraocular Movements: Extraocular movements intact. Conjunctiva/sclera: Conjunctivae normal. Cardiovascular: Rate and Rhythm: Normal rate and regular rhythm. Pulses: Normal pulses. Heart sounds: Normal heart sounds. Pulmonary: Effort: Pulmonary effort is normal. Breath sounds: Normal breath sounds. Abdominal: General: Bowel sounds are normal. There is no distension. Palpations: Abdomen is soft. There is no mass. Tenderness: There is no abdominal tenderness. Musculoskeletal: General: Normal range of motion. Cervical back: Normal range of motion and neck supple. Skin: General: Skin is warm and dry. Capillary Refill: Capillary refill takes 2 to 3 seconds. Findings: No rash. Neurological: General: No focal deficit present. Mental Status: She is alert and oriented to person, place, and time. Psychiatric: Mood and Affect: Mood normal. Behavior: Behavior normal. Thought Content: Thought content normal. Judgment: Judgment normal. ASSESSMENT AND PLAN: No follow-ups on file. Problem List Items Addressed This Visit HTN (hypertension) (CMS/HCC) - Primary Please check blood pressure daily and record DASH diet Limit caffeine Take medication as directed Contact office if chest pain, pressure, dizziness, shortness of breath, swelling legs Recommend slow position changes Current meds: hydrochlorothiazide, lisinpril Relevant Medications lisinopril 10 MG tablet hydroCHLOROthiazide (HYDRODiuril) 25 MG tablet Obesity (BMI 30-39.9) Discussed with patient their BMI (actual, verses recommended). We have also discussed lifestyle modifications: attempts to perform physical activity as chronic conditions allow, also to monitor dietary intake: increasing protein/fruits/veggies and lowering carb intake (unless contraindicated). Limit sodas, juices, and sugary drinks. Bilateral lower extremity edema Prn hydrochlorothiazide dose takes 1-2 times per week Relevant Medications hydroCHLOROthiazide (HYDRODiuril) 12.5 MG tablet * Gabriela Craig NP - 06/23/2024 7:38 AM ESTAssociated Problem(s): HTN (hypertension) (CMS/HCC) Please check blood pressure daily and record DASH diet Limit caffeine Take medication as directed Contact office if chest pain, pressure, dizziness, shortness of breath, swelling legs Recommend slow position changes Current meds: hydrochlorothiazide, lisinpril * Gabriela Craig NP - 06/23/2024 7:37 AM ESTAssociated Problem(s): KEKE (obstructive sleep apnea) You have a diagnosis of obstructive sleep apnea. It is recommended that you wear your PAP device any time while in bed sleeping. Not using the PAP device can increase your risk of elevated/uncontrolled high blood pressure, atrial fibrillation, heart attack, stroke, or sudden . documented in this encounterChildren's Mercy [id number] History of Present illness Narrative* Ritu Donahue - 06/05/2024 8:40 AM EST Reason for Appointment: Patient ID: Stacy Klein is a 38 y.o. female who presents for Pre-op Visit Patient presents today for Pre Op appointment. Patient is scheduled to undergo Da Sarmad assisted Laparoscopic Hysterectomy, possible exploratory laparotomy, possible BSO, possible cystoscopy on 07/02/[address] Raymundo at [facility]. MEDICATIONS Current Outpatient Medications Medication Instructions [...] of left breast PAP SMEAR 11/14/2017 negative HI LAP,CHOLECYSTECTOMY 2019 TUBAL LIGATION REVIEW OF SYSTEMS [...] nursing note reviewed. Exam conducted with a concrete mixer truck driver present. Vitals: Estimated body mass index is 38.94 kg/m as calculated from the following: Height as of 10/25/23: 5' 3 . Weight as of this [...] Patient will undergo Da Sarmad assisted Laparoscopic H ysterectomy, possible exploratory laparotomy, possible BSO, possible cystoscopy on 07/02/2024. Surgical consents were signed, mmc was reviewed, and patient is to proceed to [facility] OR. Follow Up: Patient is to follow up at 1 & 6 weeks post operative to assess proper healing and recovery from procedure. Documented by Radha Ferrera LPN on behalf of: Orlando Raymundo DO documented in this encounterChildren's Mercy [id number] Telephone encounter Note* Telephone Encounter - Gabriela Craig NP - 05/14/2024 6:55 PM EST Needs scheduled an appt for her chronic conditions and blood pressure [place] [facility] [id number] Miscellaneous Notes* Telephone Encounter - Gabriela Craig NP - 05/14/2024 6:55 PM EST Needs scheduled an appt for her chronic conditions and blood pressure [place] documented in this [facility]08-28-2024 History of Present illness Narrative* RANDAL Mackay - 02/20/2024 10:00 AM EDT Reason for Appointment: Patient ID: Stacy Klein is a 38 y.o. female who [...] (hypertension) (CMS/HCC) 05/21/2023 Seasonal allergies 05/21/2023 Hypothyroid ([facility]) 05/21/2023 Mass of axillary tail of left [...] of left breast PAP SMEAR 11/14/2017 negative HI LAP,CHOLECYSTECTOMY 2019 TUBAL LIGATION REVIEW OF SYSTEMS [...] nursing note reviewed. Exam conducted with a concrete mixer truck driver present. Vitals: Estimated body mass index is 38.16 kg/m as calculated from the following: Height as of 10/25/23: 5' 3 . Weight as of this [...] behalf of: RANDAL Mackay documented in this encounterChildren's Mercy [id number] Miscellaneous Notes* Telephone Encounter - RANDAL Benitez - 05/16/2023 4:42 PM EST Please schedule her for cystoscopy/bilateral retrograde pyelograms/possible biopsy/U of M instillation under MAC anesthesia with Dr. Brown in [place]. Diagnosis: Gross hematuria * Telephone Encounter - Elizabeth Dominguez - 05/16/2023 4:42 PM EST LMOM 05/24/2023 @ 351PM * Telephone Encounter - Elizabeth Dominguez - 05/16/2023 4:42 PM EST Lmom 07/06/2023 @ 338pm * Telephone Encounter - Elizabeth Dominguez - 05/16/2023 4:42 PM EST Pt has not returned messages to schedule * Telephone Encounter - RANDAL Benitez - 05/16/2023 4:42 PM EST Please send a letter. If she still does not respond, send a certified letter. Thank you * Telephone Encounter - Elizabeth Dominguez - 05/16/2023 4:42 PM EST Letter mailed 07/27/2023 Faxed to pcp [facility] Tele[facility]* Telephone Encounter - RANDAL Benitez - 05/16/2023 4:42 PM EST Please schedule her for cystoscopy/bilateral retrograde pyelograms/possible biopsy/U of M instillation under MAC anesthesia with Dr. Brown in [place]. Diagnosis: Gross hematuria [facility]11-22-2023 Telephone encounter Note* Telephone Encounter - Elizabeth Dominguez - 05/16/2023 4:42 PM EST LMOM 05/24/2023 @ 351PM [facility] Telephone encounter Note* Telephone Encounter - Elizabeth Dominguez - 05/16/2023 4:42 PM EST Lmom 07/06/2023 @ 338pm [facility]-20[facility] Telephone encounter Note* Telephone Encounter - Elizabeth Dominguez - 05/16/2023 4:42 PM EST Pt has not returned messages to schedule [facility]11-22-2023 Telephone encounter Note* Telephone Encounter - RANDAL Benitez - 05/16/2023 4:42 PM EST Please send a letter. If she still does not respond, send a certified letter. Thank you [facility]11-22-2023 Telephone encounter Note* Telephone Encounter - Elizabeth Dominguez - 05/16/2023 4:42 PM EST Letter mailed 07/27/2023 [facility]* Diagnosis Hematuria, gross- Primary Gross hematuria [...] in female Dysmenorrhea documented in this encounter [facility] HealthcareEvaluation note* Diagnosis Well woman exam with routine gynecological exam Routine gynecological examination documented in this encounter [facility] HealthcareEvaluation note* Diagnosis Hematuria, gross- Primary Gross [...] essential hypertension [facility] Diagnosis Hematuria, gross- Primary Gross [...] weight gain Obesity (BMI 30-39.9) Primary hypertension (CMS/HCC)- Primary Unspecified essential hypertension Bilateral lower extremity edema Obesity (BMI 30-39.9) documented in this encounter [facility]Evaluation noteNo assessment information availableW[facility] Work Phone: Evaluation note* Diagnosis Hematuria, gross- Primary Gross hematuria [...] weight gain Obesity (BMI 30-39.9) Primary hypertension (CMS/HCC)- Primary Unspecified essential hypertension Bilateral lower extremity edema Obesity (BMI 30-39.9) Postoperative follow-up Follow-up examination, following unspecified surgery documented in this encounter [facility]* Diagnosis Hematuria, gross- Primary Gross [...] weight gain Obesity (BMI 30-39.9) Primary hypertension (CMS/HCC)- Primary Unspecified essential hypertension Bilateral lower extremity edema Obesity (BMI 30-39.9) Postoperative follow-up Follow-up examination, following unspecified surgery Colitis Other and unspecified noninfectious gastroenteritis and colitis documented in this encounter [facility]* Diagnosis Hematuria, gross- Primary Gross [...] weight gain Obesity (BMI 30-39.9) Primary hypertension (CMS/HCC)- Primary Unspecified essential hypertension Bilateral lower extremity edema Obesity (BMI 30-39.9) Colitis- Primary Other and unspecified noninfectious gastroenteritis and colitis Morbid (severe) obesity due to excess calories (CMS/HCC) Body mass index (BMI) 36.0-36.9, adult Primary hypertension (CMS/HCC) Unspecified essential hypertension Bilateral lower extremity edema Flu-like symptoms Acute non-recurrent maxillary sinusitis Liver lesion Other specified disorders of liver documented in this encounter [facility]* Diagnosis Kidney stone- Primary Calculus of kidney Hematuria, gross Gross hematuria Hematuria, gross- Primary Gross hematuria Abnormal CT scan, gastrointestinal tract- Primary Colitis Other and unspecified noninfectious gastroenteritis and colitis [facility] Diagnosis Hematuria, gross- Primary Gross hematuria [...] weight gain Obesity (BMI 30-39.9) Primary hypertension (CMS/HCC)- Primary Unspecified essential hypertension Bilateral lower extremity edema Obesity (BMI 30-39.9) Colitis- Primary Other and unspecified noninfectious gastroenteritis and colitis Morbid (severe) obesity due to excess calories (CMS/HCC) Body mass index (BMI) 36.0-36.9, adult Primary hypertension (CMS/HCC) Unspecified essential hypertension Bilateral lower extremity edema Flu-like symptoms Acute non-recurrent maxillary sinusitis Liver lesion Other specified disorders of liver Primary hypertension (CMS/HCC)- Primary Unspecified essential hypertension Morbid (severe) obesity due to excess calories (CMS/HCC) Herpes labialis Herpes simplex without mention of complication documented in this encounter [facility]Evaluation note* Diagnosis Hematuria, gross- Primary Gross hematuria Obesity (BMI 30-39.9) Primary hypertension Unspecified essential hypertension Inflammatory polyarthropathy (HCC) Unspecified inflammatory polyarthropathy Abnormal weight gain- Primary Obesity (BMI 30-39.9) Bilateral lower extremity edema- Primary Primary hypertension Unspecified essential hypertension Obesity (BMI 30-39.9) Abnormal weight gain Primary hypertension- Primary Unspecified essential hypertension Bilateral lower extremity edema Abnormal weight gain Obesity (BMI 30-39.9) Primary hypertension- Primary Unspecified essential hypertension Bilateral lower extremity edema Obesity (BMI 30-39.9) Colitis- Primary Other and unspecified noninfectious gastroenteritis and colitis Morbid (severe) obesity due to excess calories (CMS-HCC) Body mass index (BMI) 36.0-36.9, adult Primary hypertension Unspecified essential hypertension Bilateral lower extremity edema Flu-like symptoms Acute non-recurrent maxillary sinusitis Liver lesion Other specified disorders of liver Primary hypertension- Primary Unspecified essential hypertension Morbid (severe) obesity due to excess calories (CMS-HCC) Herpes labialis Herpes simplex without mention of complication Primary hypertension- Primary Unspecified essential hypertension Morbid (severe) obesity due to excess calories (CMS-HCC) documented in this encounter [facility]Evaluation [facility]* Diagnosis Hematuria, gross- Primary Gross hematuria Obesity (BMI 30-39.9) Primary hypertension Unspecified essential hypertension Inflammatory polyarthropathy (HCC) Unspecified inflammatory polyarthropathy Abnormal weight gain- Primary Obesity (BMI 30-39.9) Bilateral lower extremity edema- Primary Primary hypertension Unspecified essential hypertension Obesity (BMI 30-39.9) Abnormal weight gain Primary hypertension- Primary Unspecified essential hypertension Bilateral lower extremity edema Abnormal weight gain Obesity (BMI 30-39.9) Primary hypertension- Primary Unspecified essential hypertension Bilateral lower extremity edema Obesity (BMI 30-39.9) Colitis- Primary Other and unspecified noninfectious gastroenteritis and colitis Morbid (severe) obesity due to excess calories (CMS-HCC) Body mass index (BMI) 36.0-36.9, adult Primary hypertension Unspecified essential hypertension Bilateral lower extremity edema Flu-like symptoms Acute non-recurrent maxillary sinusitis Liver lesion Other specified disorders of liver Primary hypertension- Primary Unspecified essential hypertension Morbid (severe) obesity due to excess calories (CMS-HCC) Herpes labialis Herpes simplex without mention of complication Primary hypertension- Primary Unspecified essential hypertension Morbid (severe) obesity due to excess calories (CMS-HCC) Bilateral lower extremity edema documented in this encounter [facility] HealthcareEvaluation note* Diagnosis Hematuria, gross- Primary Gross hematuria Obesity (BMI 30-39.9) Primary hypertension Unspecified essential hypertension Inflammatory polyarthropathy (HCC) Unspecified inflammatory polyarthropathy Abnormal weight gain- Primary Obesity (BMI 30-39.9) Bilateral lower extremity edema- Primary Primary hypertension Unspecified essential hypertension Obesity (BMI 30-39.9) Abnormal weight gain Primary hypertension- Primary Unspecified essential hypertension Bilateral lower extremity edema Abnormal weight gain Obesity (BMI 30-39.9) Primary hypertension- Primary Unspecified essential hypertension Bilateral lower extremity edema Obesity (BMI 30-39.9) Colitis- Primary Other and unspecified noninfectious gastroenteritis and colitis Morbid (severe) obesity due to excess calories (CMS-HCC) Body mass index (BMI) 36.0-36.9, adult Primary hypertension Unspecified essential hypertension Bilateral lower extremity edema Flu-like symptoms Acute non-recurrent maxillary sinusitis Liver lesion Other specified disorders of liver Primary hypertension- Primary Unspecified essential hypertension Morbid (severe) obesity due to excess calories (CMS-HCC) Herpes labialis Herpes simplex without mention of complication Primary hypertension- Primary Unspecified essential hypertension Morbid (severe) obesity due to excess calories (CMS-HCC) Morbid (severe) obesity due to excess calories (CMS-HCC) documented in this encounter [facility] note* Diagnosis Hematuria, gross- Primary Gross hematuria Obesity (BMI 30-39.9) Primary hypertension Unspecified essential hypertension Inflammatory polyarthropathy (HCC) Unspecified inflammatory polyarthropathy Abnormal weight gain- Primary Obesity (BMI 30-39.9) Bilateral lower extremity edema- Primary Primary hypertension Unspecified essential hypertension Obesity (BMI 30-39.9) Abnormal weight gain Primary hypertension- Primary Unspecified essential hypertension Bilateral lower extremity edema Abnormal weight gain Obesity (BMI 30-39.9) Primary hypertension- Primary Unspecified essential hypertension Bilateral lower extremity edema Obesity (BMI 30-39.9) Colitis- Primary Other and unspecified noninfectious gastroenteritis and colitis Morbid (severe) obesity due to excess calories (CMS-HCC) Body mass index (BMI) 36.0-36.9, adult Primary hypertension Unspecified essential hypertension Bilateral lower extremity edema Flu-like symptoms Acute non-recurrent maxillary sinusitis Liver lesion Other specified disorders of liver Primary hypertension- Primary Unspecified essential hypertension Morbid (severe) obesity due to excess calories (CMS-HCC) Herpes labialis Herpes simplex without mention of complication Primary hypertension- Primary Unspecified essential hypertension Morbid (severe) obesity due to excess calories (CMS-HCC) Acute pharyngitis, unspecified etiology- Primary URI, acute Acute upper respiratory infections of unspecified site documented in this encounter [facility] HealthcareEvaluation note* Diagnosis Hematuria, gross- Primary Gross hematuria Obesity (BMI 30-39.9) Primary hypertension Unspecified essential hypertension Inflammatory polyarthropathy (HCC) Unspecified inflammatory polyarthropathy Abnormal weight gain- Primary Obesity (BMI 30-39.9) Bilateral lower extremity edema- Primary Primary hypertension Unspecified essential hypertension Obesity (BMI 30-39.9) Abnormal weight gain Primary hypertension- Primary Unspecified essential hypertension Bilateral lower extremity edema Abnormal weight gain Obesity (BMI 30-39.9) Primary hypertension- Primary Unspecified essential hypertension Bilateral lower extremity edema Obesity (BMI 30-39.9) Colitis- Primary Other and unspecified noninfectious gastroenteritis and colitis Morbid (severe) obesity due to excess calories (CMS-HCC) Body mass index (BMI) 36.0-36.9, adult Primary hypertension Unspecified essential hypertension Bilateral lower extremity edema Flu-like symptoms Acute non-recurrent maxillary sinusitis Liver lesion Other specified disorders of liver Primary hypertension- Primary Unspecified essential hypertension Morbid (severe) obesity due to excess calories (CMS-HCC) Herpes labialis Herpes simplex without mention of complication Primary hypertension- Primary Unspecified essential hypertension Morbid (severe) obesity due to excess calories (CMS-HCC) Morbid (severe) obesity due to excess calories (CMS-HCC)- Primary Primary hypertension Unspecified essential hypertension URI, acute Acute upper respiratory infections of unspecified site Tachycardia Unspecified tachycardia documented in this encounter [facility] HealthcareEvaluation note* Diagnosis Hematuria, gross- Primary Gross hematuria Obesity (BMI 30-39.9) Primary hypertension Unspecified essential hypertension Inflammatory polyarthropathy (HCC) Unspecified inflammatory polyarthropathy Abnormal weight gain- Primary Obesity (BMI 30-39.9) Bilateral lower extremity edema- Primary Primary hypertension Unspecified essential hypertension Obesity (BMI 30-39.9) Abnormal weight gain Primary hypertension- Primary Unspecified essential hypertension Bilateral lower extremity edema Abnormal weight gain Obesity (BMI 30-39.9) Primary hypertension- Primary Unspecified essential hypertension Bilateral lower extremity edema Obesity (BMI 30-39.9) Colitis- Primary Other and unspecified noninfectious gastroenteritis and colitis Morbid (severe) obesity due to excess calories (CMS-HCC) Body mass index (BMI) 36.0-36.9, adult Primary hypertension Unspecified essential hypertension Bilateral lower extremity edema Flu-like symptoms Acute non-recurrent maxillary sinusitis Liver lesion Other specified disorders of liver Primary hypertension- Primary Unspecified essential hypertension Morbid (severe) obesity due to excess calories (CMS-HCC) Herpes labialis Herpes simplex without mention of complication Primary hypertension- Primary Unspecified essential hypertension Morbid (severe) obesity due to excess calories (CMS-HCC) Morbid (severe) obesity due to excess calories (CMS-HCC)- Primary Primary hypertension Unspecified essential hypertension URI, acute Acute upper respiratory infections of unspecified site Tachycardia Unspecified tachycardia Primary hypertension- Primary Unspecified essential hypertension Morbid (severe) obesity due to excess calories (CMS-HCC) URI, acute Acute upper respiratory infections of unspecified site Tachycardia Unspecified tachycardia [facility]* Diagnosis Onset Date Resolution Status Admit Date Edema of both lower extremities acuteOctober 2024 5:31pmFatigueacuteOctober 2024 5:31pmHypertension acuteOctober 2024 5:31pmHypothyroidismacuteOctober 2024 5:31pmObesity acuteOctober 2024 5:31pmTachycardiaacuteOctober 2024 5:31pm [facility] Work Phone: InstructionsNot on filedocumented in this encounter [facility] on filedocumented in this encounter [facility]ructionsNot on filedocumented in this encounter [facility]InstructionsNot on filedocumented in this encounter [facility] SystemReason for referral (narrative)No reason for referral information availableSouthview [facility] Center Work Phone: Summary Purpose Family History No Family History Records FoundNo Family History Records FoundNo Family History Records FoundNo Family History Records FoundNo Family History Records FoundNo Family History Records Found Advance Directives Advance Directive Response Recorded Date/ Time Advance Directives No July 31, 2024 8:34am Chief Complaint and Reason for Visit Chief Complaint Admit Date 6W March 25, 2025 5: 31pm Reason for Visit Admit Date Edema of both lower extremities March 25, 2025 5:31pm Fatigue March 25, 2025 5: 31pm Hypertension March 25, 2025 5: 31pm Hypothyroidism March 25, 2025 5: 31pm Obesity March 25, 2025 5: 31pm Tachycardia March 25, 2025 5: 31pm Additional Source Comments INFORMATION SOURCE (unrecogn ized section and content) DATE CREATED AUTHOR 12/17/2017 [facility] DATE CREATED AUTHOR AUTHOR'S ORGANIZ ATION 07/31/2022 [facility] DATE CREATED AUTHOR AUTHOR'S ORGANIZ ATION 08/02/2024 [facility] DATE CREATED AUTHOR AUTHOR'S ORGANIZ ATION 09/13/2024 [facility] DATE CREATED AUTHOR AUTHOR'S ORGANIZ ATION 02/11/2025 [facility] DATE CREATED AUTHOR AUTHOR'S ORGANIZ ATION 04/07/2025 [facility] Care Teams (unrecognized sec tion and content) Team MemberRelationshipSpecialtyStart DateEnd Date Philip Milligan MD [address] [place] [phone] PCP - GeneralFamily Medicine08/16/23Team MemberRelationshipSpecialtyStart DateEnd Date Philip Milligan MD [address] [place] [phone] PCP - GeneralFamily Medicine08/16/23Team MemberRelationshipSpecialtyStart DateEnd Date Philip Milligan MD [address] [place] [phone] PCP - GeneralFamily Medicine08/16/23Team MemberRelationshipSpecialtyStart DateEnd Date Philip Milligan MD [address] [place] [phone] PCP - GeneralFamily Medicine08/16/23Team MemberRelationshipSpecialtyStart DateEnd Date Philip Milligan MD [address] [place] [address] PCP - GeneralFamily Medicine08/16/23Team MemberRelationshipSpecialtyStart DateEnd Date Philip Milligan MD [address] [place] [address] PCP - GeneralFamily Medicine08/16/23Team MemberRelationshipSpecialtyStart DateEnd Date Philip Milligan MD [address] [place] [address] PCP - Generalmily Medicine08/16/23Team MemberRelationshipSpecialtyStart DateEnd Date Philip Milligan MD [address] [place] [address] PCP - Generalmily Medicine08/16/23Team MemberRelationshipSpecialtyStart DateEnd Date Philip Milligan MD [address] [place] [address] PCP - Generalmily Medicine08/16/23 Team Status: Inactive Member Role Status Dates Orlando Raymundo DO Attending Provider Active Start : July 02, 2024 End: July 02, 2024Team MemberRelationshipSpecialtyStart DateEnd Date Philip Milligan MD [address] [place] [phone] PCP - GeneralFamily Medicine08/16/23Team MemberRelationshipSpecialtyStart DateEnd Date Gabriela Craig, [employer] [address] [place] [address] PCP - GeneralNurse Practitioner12/27/20Team MemberRelationshipSpecialtyStart Date End Date Philip Milligan MD [address] [place] [address] PCP - GeneralFamily Medicine08/16/23Team MemberRelationshipSpecialtyStart DateEnd Date Philip Milligan MD [address] [place] [address] PCP - GeneralFamily Medicine08/16/23Team MemberRelationshipSpecialtyStart DateEnd Date Philip Milligan MD [address] [place] [address] PCP - GeneralFamily Medicine08/16/23Team MemberRelationshipSpecialtyStart DateEnd Date Philip Milligan MD [address] [place] [address] PCP - GeneralFamily Medicine08/16/23Team MemberRelationshipSpecialtyStart DateEnd Date Gabriela Craig APRN-ELECTRIC [employer] CHECKER PCP - GeneralNurse Practitioner12/27/20Team MemberRelationshipSpecialtyStart Date End Date Gabriela Craig APRN-ELECT[employer]IC [employer] CHECKER [address] [place] [address] PCP - GeneralNurse Practitioner09/15/24Team MemberRelationshipSpecialtyStart Date End Date Philip Milligan MD [address] [place] [address] PCP - Generalmily Medicine08/16/23Team MemberRelationshipSpecialtyStart DateEnd Date Philip Milligan MD [address] [place] [address] PCP - Generalmily Medicine08/16/23Team MemberRelationshipSpecialtyStart DateEnd Date Philip Milligan MD [address] [place] [address] [facility]/16/23Team MemberRelationshipSpecialtyStart DateEnd Date Philip Milligan MD [address] [place] [address] [facility] - [facility]08/16/23Team MemberRelationshipSpecialtyStart DateEnd Date Philip Milligan MD [address] [place] [address] PCP - Generalmily Medicine08/16/23Team MemberRelationshipSpecialtyStart DateEnd Date Philip Milligan MD [address] [place] [address] PCP - Generalmily Medicine08/16/23Team MemberRelationshipSpecialtyStart DateEnd Date Philip Milligan MD [address] [place] [address] PCP - GeneralFamily Medicine08/16/23Team MemberRelationshipSpecialtyStart DateEnd Date Philip Milligan MD [address] [place] [address] PCP - GeneralFamily Medicine08/16/23Team MemberRelationshipSpecialtyStart DateEnd Date Philip Milligan MD [address] [place] [address] PCP - Generalmily Medicine08/16/23Team MemberRelationshipSpecialtyStart DateEnd Date Philip Milligan MD [address] [place] [address] PCP - Generalmily Medicine08/16/23Team MemberRelationshipSpecialtyStart DateEnd Date Philip Milligan MD [address] [place] [address] PCP - Generalmily Medicine08/16/23Team MemberRelationshipSpecialtyStart DateEnd Date Gabriela Craig, GR[employer] P[employer]ER[facility] PCP - GeneralNurse Practitioner09/15/24 Team Status: Active Member Role Status Dates Gabriela Craig NP-Red Primary Care Provider Active Team Status: Inactive Member Role Status Dates Gabriela Craig NP-C Primary Care Provider Active Start: March 25, 2025 End: March 25, 2025Gabriela Craig NP-CAttending ProviderActiveStart: March 25, 2025 End: March 25, 2025Team MemberRelationshipSpecialtyStart DateEnd Date Philip Milligan MD PCP - GeneralFamily Medicine08/16/23 Reason for Visit (unrecogniz ed section and content) ReasonCommentsPre-op VisitReasonCommentsWell Women VisitReasonOnset DateComments Med [id number]onReasonCommentsPost-op VisitReason CommentsHypertensionReasonCommentsUlcerative ColitisColitis, referred by Gabriela Craig CNPSpecialtyDiagnoses / ProceduresReferred By ContactReferred To ContactGeneral Surgery Diagnoses Colitis Procedures HI OFFICE OUTPATIENT VISIT 60-74 MINS [facility] [id number] (SNOMED CT) - AMB REFERRAL TO GENERAL SURGERY Gabriela Craig APRN-[employer]IC [employer] CHECK[employer] [address] [place] [address] Phone: tel: fax: Gregory Lundy, DO [address] [place] [address] Phone: tel: fax: Referral IDStatusReasonStart DateExpiration DateVisits RequestedVisits [id number] DateCommentsMed Qhwmlt8212/23/2024ReasonOnset DateCommentsMed Arjvll1301/26/2025ReasonOnset Date CommentsMed Rjzibq8901/27/2025ReasonCommentsHospital Follow-upReasonCommentsWeight Check Goals (unrecognized section and content) Goals may be documented in a n alternate sectionNot on filedocumented as of this encounterNot on filedocumented as of this encounterNot on filedocumented as of this encounterNot on filedocumented as of this encounterGoals may be documented in an alternate section FOR RECORDS PERTAINING TO PATIENTS WHO ARE [...] BE BASED ON THE PRIMARY CLINICAL RECORDS. [facility] [employer] [facility]. provides no warranty or guarantee of the accuracy or completeness of information in this document.
--- OUTSIDE RECORDS SUMMARY | 2025-05-19 21:00 | XMS_ITS | Clinical Summary ---
Author Organization [facility] Address [id number] [address] [place] [address] Care Team Providers Care Oncology Rn Name Role Phone Gabriela Craig APRN-INSURANCE LAW SPECIALIST Primary Care Provider Allergies Active AllergyReactionsCriticalityNoted BzhxHgyvkwwoNopbxclzlbfaUrfuo95/15/2017 RvihcibjfwnNyvok79/15/9321EcwwbgddqsJwllzgcgkjv02/15/2017 Medications MedicationSigDispense QuantityRefillsLast FilledStart DateEnd DateStatus hydroCHLOROthiazide (HYDRODIURIL) 25 mg tablet Take 1 tablet (25 mg total) by mouth daily.Active lisinopriL (PRINIVIL,ZESTRIL) 10 mg tablet Take 1 tablet (10 mg total) by mouth in the morning.Active cholecalciferol 1,000 units tablet Take 1 tablet (1,000 Units total) by mouth in the morning.Active cyanocobalamin, vitamin B-12, (VITAMIN B-12 ORAL) Take 1 tablet by mouth in the morning.Active Active Problems ProblemNoted DateDiagnosed DateHematuria, gross12/29/2020 Overview (05/16/2023): ====05/16/23==== recurrent gross hematuria. Recent noncontrast CT negative. Cultures negative. She agrees to renal ultrasound, fish, cytology, and cystoscopy/bilateral retrograde pyelograms/possible biopsy/U of M instillation ==== 12/29/2020 ==== acute onset gross hematuria as well as bilateral back discomfort. Unknown etiology. Pain was enough to bring her to the ER. Hematuria last about [address] scan noncontrast while she was symptomatic demonstrated only a very small punctate nonobstructing stone. No other pathology of note. Urinalysis was negative for infection as well. Plan: Unclear etiology as to what is going on. Certainly cannot explain hematuria with back discomfort. To that end would be randle to complete hematuria evaluation. CT urogram. Cystoscopy urine for cytology. Assessment & Plan (05/16/2023 4:48 PM EST): I will notify her of the results of the testing through [facility]. Assessment & Plan (12/29/2020 4:23 PM EDT): We reviewed today than any abnormality of the urinary tract including cancer, medical renal disease, infection, calculi, bleeding the diathesis, idiopathic, benign familial, BPH, or congenital anomaly could account for hematuria, and hence the importance of evaluation. The patient understands that all studies ordered must be completed in order to fully evaluate the urinary system. The patient acknowledges this and agrees. Encounters DateTypeDepartmentCare WpglPztzatekzql70/13/2025Travelfrom Last 3 Months Immunizations ImmunizationAdministration DatesNext RjeSdce4401/06/2017 Family History Medical HistoryRelationNameCommentsHypertensionBrotherNo Known ProblemsFather Breast cancerMaternal GrandmotherLung cancerMotherMelanomaMotherWilm's tumor SisterRelationNameStatusCommentsBrotherFatherAliveMaternal GrandmotherDeceased MotherDeceasedSisterAlive Social History Tobacco UseTypesPacks/DayYears UsedDateSmoking Tobacco: NeverSmokeless Tobacco: Never Tobacco Cessation:Counseling Given: Not Answered Alcohol UseStandard Drinks/WeekCommentsYes0 (1 standard drink = 0.6 oz pure alcohol)OccassionalChildcareAnswerDate LbuxbpzxAbdsjdmkgJrybgge41/31/2019 EmploymentAnswerDate ApqhytttRrmctmofvxOdvzfsk17/31/2019Hunger ScreeningAnswer Date RecordedWithin the past 12 months we worried whether our food would run out before we got money to buy more.Never True01/20/2025Within the past 12 months the food we bought just didn't last and we didn't have money to get more.Never True01/20/2025Purpose - LifeAnswerDate RecordedPurpose and direction in life Mmajjtg40/11/2021CommentsNoSex and Gender InformationValueDate Recorded Sex Assigned at BirthNot on fileLegal HldGkowyl16/06/2015 11:36 AM EDTGender IdentityNot on fileSexual OrientationNot on file Last Filed Vital Signs Vital SignReadingTime TakenCommentsBlood Zjdjwjld366/69001/20/2025 3:30 PM EDT Rbpkn938801/20/2025 2:45 PM EWWNrybcbnxrym06.7 ??C (98.1 ??F)01/20/2025 1:44 PM EDTRespiratory Aqyn144801/20/2025 2:45 PM EDTOxygen Bkudoquzyj86%01/20/2025 3:30 PM EDTInhaled Oxygen Concentration--Fsikfk307.6 kg (224 lb)01/20/2025 1:44 PM YXDGlxtli590 cm (5' 3 )01/20/2025 1:44 PM EDTBody Mass Index39.68001/20/2025 1:44 PM EDT Plan of Treatment Health MaintenanceDue DateLast DoneCommentsDepression Czfyvpaxj73/17/2000Adult BMI Follow Up Plan2005Influenza Finhhko8602/23/2025dult BMI Screening Tobacco Sxqrveqyj79DTaP,Tdap and Td Vaccines (3 - Td or Tdap), 11/05/2014Pap Smear02/19/2027 02/20/2024 Medical Devices ImplantedTypeAreaManufacturerDevice IdentifierShelf Expiration DateModel / Serial / LotMesh Pco Vntrl Ptch 8.6cm Rpl [id number] - Sna - [id number] Implanted:Qty: 1 on 12/03/2018 [facility]: AbdomenMEDTRONIC [id number] / NA / [id number] Procedures Procedure NamePriorityDate/TimeAssociated DiagnosisCommentsTHYROID ANTIBODIES INCLUDES TPO AND YLBVUbglgvl65/13/2025 9:34 AM EDT Localized edema Hypothyroidism, unspecified Other fatigue Obesity, unspecified XOOIFWCwnfbtc53/13/2025 9:34 AM EDT Localized edema Hypothyroidism, unspecified Other fatigue Obesity, unspecified VITAMIN U26Finniae82/13/2025 9:34 AM EDT Localized edema Hypothyroidism, unspecified Other fatigue Obesity, unspecified LRWJXyrxgds67/13/2025 9:34 AM EDT Localized edema Hypothyroidism, unspecified Other fatigue Obesity, unspecified AWVMMRLETtpsujf18/13/2025 9:34 AM EDT Localized edema Hypothyroidism, unspecified Other fatigue Obesity, unspecified ERYTHROCYTE SEDIMENTATION RATE (ESR)Rkaipzz4304/06/2025 9:34 AM EDT Localized edema Hypothyroidism, unspecified Other fatigue Obesity, unspecified CBC WITH AUTO DNXSPGBKFIDDHskqliq72/13/2025 9:34 AM EDT Localized edema Hypothyroidism, unspecified Other fatigue Obesity, unspecified LIVER OPJOXJdcruhg64/13/2025 9:34 AM EDT Localized edema Hypothyroidism, unspecified Other fatigue Obesity, unspecified BASIC METABOLIC ABXQYLinjwcj01/13/2025 9:34 AM EDT Localized edema Hypothyroidism, unspecified Other fatigue Obesity, unspecified T3, QCFJYwssbhw76/13/2025 9:34 AM EDT Localized edema Hypothyroidism, unspecified Other fatigue Obesity, unspecified THYROID PROFILE INCLUDES TSH NF2Jcspppq97/13/2025 9:34 AM EDT Localized edema Hypothyroidism, unspecified Other fatigue Obesity, unspecified DEXDHPPPZHugymgo30/13/2025 9:34 AM EDT Localized edema Hypothyroidism, unspecified Other fatigue Obesity, unspecified from Last 3 Months Results * (ABNORMAL) Thyroid antibodies includes TPO and TGAB (04/06/2025 9:34 AM EDT) ComponentValueRef RangeTest MethodAnalysis TimePerformed AtPathologist SignatureTHYROPEROXIDASE AB<1<10 IU/mL04/06/2025 2:40 PM [facility] LABORATORYTHYROGLOBULIN AB5(H)<4 IU/mL04/06/2025 2:40 PM [facility] LABORATORYSpecimen (Source)Anatomical Location / Laterality Collection Method / VolumeCollection TimeReceived TimeBloodVenous blood / UnknownVenipuncture / Bnztokr3204/06/2025 9:34 AM EDT1 9:34 AM EDT Narrative Authorizing ProviderResult TypeResult StatusLisa Angel Farrellyariel JOURNALISTOneRoomRate.comLAB BLOOD ORDERABLESFinal ResultPerforming OrganizationAddressCity/State/ZIP CodePhone Number [facility] [place] [address], * Erythrocyte Sedimentation Rate (ESR) (04/06/2025 9:34 AM EDT)ComponentValueRef RangeTest MethodAnalysis TimePerformed AtPathologist SignatureESR, Erythrocyte Sedimentation Kqoz639 - 20 mm/h1 2:07 PM [facility] LABORATORYSpecimen (Source)Anatomical Location / LateralityCollection Method / VolumeCollection TimeReceived TimeBloodVenous blood / UnknownVenipuncture / Bdygrie8104/06/2025 9:34 AM EDT1 9:34 AM EDT Narrative Authorizing ProviderResult TypeResult StatusLisa Angel Craig JOURNALIST-TellMiLAB BLOOD ORDERABLESFinal ResultPerforming OrganizationAddressCity/State/ZIP CodePhone Number [facility] [place] [address], * Thyroid profile includes TSH FT4 (04/06/2025 9:34 AM EDT)ComponentValueRef RangeTest MethodAnalysis TimePerformed AtPathologist SignatureFREE T40.950.61 - 1.60 ng/dL04/06/2025 2:29 PM [facility] LABORATORYTSH1.39 0.49 - 4.67 uIU/mL04/06/2025 2:29 PM [facility] Specimen (Source)Anatomical Location / LateralityCollection Method / Volume Collection TimeReceived TimeBloodVenous blood / UnknownVenipuncture / Unknown 04/06/2025 9:34 AM EDT1 9:34 AM EDT Narrative Authorizing ProviderResult TypeResult StatusGabriela Craig JOURNALIST-CNPLAB BLOOD ORDERABLESFinal ResultPerforming OrganizationAddressCity/State/ZIP CodePhone Number [facility] [address] [place] [address], * (ABNORMAL) CBC auto differential (04/06/2025 9:34 AM EDT)ComponentValueRef RangeTest MethodAnalysis TimePerformed AtPathologist SignatureWBC9.74 - 11 x10E9/L1 1:28 PM [facility] LABORATORYRBC Count3.96 3.8 - 5.2 X10E12/L1 1:28 PM [facility] Pwzeooxvxt68.611.7 - 15.5 g/dL04/06/2025 1:28 PM [facility] EFLNYYYZEZEhydkbgdhz41.535 - 47 %04/06/2025 1:28 PM [facility] CPANOUSYYJHXR1830 - 100 fL04/06/2025 1:28 PM [facility] EWYDICNOHILHR45.827 - 34 pg04/06/2025 1:28 PM [facility] MAMIAAJQHHSLPG92.632 - 36 g/dL04/06/2025 1:28 PM [facility] CFJVHVJREWRBV52.411.5 - 15 %04/06/2025 1:28 PM [facility] LABORATORYPlatelet Nwfeb468469 - 450 X10E9/L1 1:[address] [address]ATORYMPV8.27 - 12 fL04/06/2025 1:28 PM [facility] LABOR[facility]ORYNeutrophils %71.5%04/06/2025 1:28 PM [facility]OR[facility]ORYLymphocytes %20.9%04/06/2025 1:28 PM [facility]OR[facility]ORYMonocytes %5.9%04/06/2025 1:28 PM [facility]ORYEosinophils %0.9%04/06/2025 1:28 PM [facility] LABORATORYBasophils %0.8%04/06/2025 1:28 PM [facility] LABORATORYNeutrophils Absolute (A)6.9(H)1.5 - 6.6 10*3/uL 04/06/2025 1:28 PM [facility] LABORATORYLymphocytes Absolute 2.01.0 - 3.5 10*3/uL04/06/2025 1:28 PM [facility] Monocytes Absolute0.60.0 - 0.9 10*3/uL04/06/2025 1:28 PM [facility] LABORATORYEosinophils Absolute0.10.0 - 0.4 10*3/uL04/06/2025 1:28 PM [facility] LABORATORYBasophils Absolute0.10.0 - 0.2 10*3/uL 04/06/2025 1:28 PM [facility] LABORATORYDifferential Type AUTOMATED PYMWOKVGIEXX74/13/2025 1:28 PM [facility] LABORATORYSpecimen (Source)Anatomical Location / LateralityCollection Method / VolumeCollection TimeReceived TimeBloodVenous blood / UnknownVenipuncture / Ebtihtx2804/06/2025 9:34 AM EDT1 9:34 AM EDT Narrative Authorizing ProviderResult TypeResult StatusLisa Angel Craig JOURNALIST-CNPLAB BLOOD ORDERABLESFinal ResultPerforming OrganizationAddressCity/State/ZIP CodePhone Number [facility] [address] [place] [address], * T3, free (04/06/2025 9:34 AM EDT)ComponentValueRef RangeTest MethodAnalysis TimePerformed AtPathologist SignatureFREE T32.972.50 - 3.90 pg/mL04/06/2025 2:21 PM [facility] LABORATORYSpecimen (Source)Anatomical Location / LateralityCollection Method / VolumeCollection TimeReceived Time BloodVenous blood / UnknownVenipuncture / Fzjymjo5104/06/2025 9:34 AM EDT 04/06/2025 9:34 AM EDT Narrative Authorizing ProviderResult TypeResult StatusLisa Angel Craig [facility] BLOOD ORDERABLESFinal ResultPerforming OrganizationAddressCity/State/ZIP CodePhone Number [facility] [address] [address] [place] [address], * Magnesium (04/06/2025 9:34 AM EDT)ComponentValueRef RangeTest MethodAnalysis TimePerformed AtPathologist SignatureMAGNESIUM2.01.8 - 2.6 mg/dL04/06/2025 2:14 PM [facility] LABORATORYSpecimen (Source)Anatomical Location / LateralityCollection Method / VolumeCollection TimeReceived Time BloodVenous blood / UnknownVenipuncture / Wdspcyc9504/06/2025 9:34 AM EDT 04/06/2025 9:34 AM EDT Narrative Authorizing ProviderResult TypeResult StatusLisa Angel Craig [facility] BLOOD ORDERABLESFinal ResultPerforming OrganizationAddressCity/State/ZIP CodePhone Number [facility] [address] [place] [address], * Iron (04/06/2025 9:34 AM EDT)ComponentValueRef RangeTest MethodAnalysis Time Performed AtPathologist GtllmscnnPPJI1568 - 170 ug/dL04/06/2025 2:[address] [facility]YSpecimen (Source)Anatomical Location / LateralityCollection Method / VolumeCollection TimeReceived TimeBloodVenous blood / UnknownVenipuncture / Dwhiaun0904/06/2025 9:34 AM EDT1 9:34 AM EDT Narrative Authorizing ProviderResult TypeResult StatusLisa J Rafa JOURNALIST-CNPLAB BLOOD ORDERABLESFinal ResultPerforming OrganizationAddressCity/State/ZIP CodePhone Number [facility] [address] [place] [address], * Folate (04/06/2025 9:34 AM EDT)ComponentValueRef RangeTest MethodAnalysis Time Performed AtPathologist SignatureFOLIC ACID9.2>5.8 ng/mL04/06/2025 2:[address] [facility]ATORYSpecimen (Source)Anatomical Location / LateralityCollection Method / VolumeCollection TimeReceived TimeBloodVenous blood / UnknownVenipuncture / Zizixlh8404/06/2025 9:34 AM EDT1 9:34 AM EDT Narrative Authorizing ProviderResult TypeResult StatusLisa J Rafa JOURNALIST-CNPLAB BLOOD ORDERABLESFinal ResultPerforming OrganizationAddressCity/State/ZIP CodePhone Number [facility] [address] [place] [address], * Ferritin (04/06/2025 9:34 AM EDT)ComponentValueRef RangeTest MethodAnalysis TimePerformed AtPathologist NgzhmjioyZRVGWCBD58212 - 307 ng/mL04/06/2025 2:27 PM [facility] LABORATORYSpecimen (Source)Anatomical Location / LateralityCollection Method / VolumeCollection TimeReceived TimeBloodVenous blood / UnknownVenipuncture / Mtrhwhy8004/06/2025 9:34 AM EDT1 9:34 AM EDT Narrative Authorizing ProviderResult TypeResult StatusLisa J Rafa JOURNALIST-CNPLAB BLOOD ORDERABLESFinal ResultPerforming OrganizationAddressCity/State/ZIP CodePhone Number [facility] [address] [place] [address] [address] [place] [address], * Vitamin B12 (04/06/2025 9:34 AM EDT)ComponentValueRef RangeTest MethodAnalysis TimePerformed AtPathologist SignatureVITAMIN [id number] - 914 pg/mL04/06/2025 2:34 PM [facility] LABORATORYSpecimen (Source)Anatomical Location / LateralityCollection Method / VolumeCollection TimeReceived Time BloodVenous blood / UnknownVenipuncture / Qtnimqp7304/06/2025 9:34 AM EDT 04/06/2025 9:34 AM EDT Narrative Authorizing ProviderResult TypeResult StatusLisa J Budyariel JOURNALIST-CNPLAB BLOOD ORDERABLESFinal ResultPerforming OrganizationAddressCity/State/ZIP CodePhone Number [facility] [address] [place] [address], * Liver panel (04/06/2025 9:34 AM EDT)ComponentValueRef RangeTest MethodAnalysis TimePerformed AtPathologist SignatureTOTAL PROTEIN7.16.0 - 8.0 g/dL04/06/2025 2:14 PM [facility] LABORATORYALBUMIN4.13.2 - 5.3 g/dL 04/06/2025 2:14 PM [facility] LABORATORYBILIRUBIN,TOTAL0.50.3 - 1.2 mg/dL04/06/2025 2:14 PM [facility] LABORATORYALKALINE ZKORMAZHPXE2854 - 130 U/L1 2:14 PM [facility] KJABZITDCGCKO27<=41 U/L1 2:14 PM [facility] VCOZDTKRJSAJA15<=31 U/L1 2:14 PM [facility] LABORATORYBILIRUBIN,DIRECT0.1<=0.4 mg/dL04/06/2025 2:14 PM [facility] LABORATORYSpecimen (Source)Anatomical Location / LateralityCollection Method / VolumeCollection TimeReceived TimeBloodVenous blood / Unknown Venipuncture / Nwmtjnp3104/06/2025 9:34 AM EDT1 9:34 AM EDT Narrative Authorizing ProviderResult TypeResult StatusLisa Angel Craig JOURNALIST-CNPLAB BLOOD ORDERABLESFinal ResultPerforming OrganizationAddressCity/State/ZIP CodePhone Number [facility] [address] [place] [address], * (ABNORMAL) Basic Metabolic Panel (04/06/2025 9:34 AM EDT)ComponentValueRef RangeTest MethodAnalysis TimePerformed AtPathologist YbiaftutrJNXMUC537475 - 146 mmol/L1 2:14 PM [facility] LABORATORYPOTASSIUM 3.63.5 - 5.0 mmol/L1 2:14 PM [facility] TANRESMY51498 - 109 mmol/L1 2:14 PM [facility] LABORATORYCARBON COKJOOM0394 - 32 mmol/L1 2:14 PM [facility] LABORATORYANION GAP65 - 15 mmol/L1 2:14 PM [facility] LABORATORYBLOOD UREA VAXDAJMQ169 - 23 mg/dL04/06/2025 2:14 PM [facility] LABORATORYCREATININE0.820.40 - 1.00 mg/dL 04/06/2025 2:14 PM [facility] LABORATORYComment:METHOD TRACEABLE TO IDMS PKHIANRKOXBKVHB195(H)65 - 99 mg/dL04/06/2025 2:[address] [facility] [address] LAB[facility]ATORYCALCIUM9.58.5 - 10.5 mg/dL04/06/2025 2:14 PM [facility]ORYEGFR Non-Race Dependent>90>=60 ml/min/1.73sq.m1 2:14 PM [facility] Comment: Reported eGFR is based on the CKD-EPI 2020 equation that does not use a race coefficient. Specimen (Source)Anatomical Location / LateralityCollection Method / Volume Collection TimeReceived TimeBloodVenous blood / UnknownVenipuncture / Unknown 04/06/2025 9:34 AM EDT1 9:34 AM EDT Narrative Authorizing ProviderResult TypeResult StatusLisa Angel Craig JOURNALIST-CNPLAB BLOOD ORDERABLESFinal ResultPerforming OrganizationAddressCity/State/ZIP CodePhone Number [facility] [address] [place] [address], [place] [phone] from Last 3 Months Insurance Care Teams Team MemberRelationshipSpecialtyStart DateEnd Date Gabriela Craig, JOURNALIST-INSURANCE LAW SPECIALIST PCP - GeneralNherlinda Practitioner09/15/24
--- OUTSIDE RECORDS SUMMARY | 2025-05-19 21:00 | XMS_ITS | Encounter Summary ---
Author Organization [facility] Address [address] [place] [address] Care Team Providers Care Aviation Maintenance Technician Name Role Phone Philip Milligan MD Primary Care Provider [phone] Encounter Details DateTypeDepartmentCare Team (Latest Contact Info)Ewoyoechniw40/19/2025amboo flowsheet [facility] [address] [place] [address] Shani Dunaway MD [address] [place] [address] Social History Tobacco UseTypesPacks/DayYears UsedDateSmoking Tobacco: NeverSmokeless Tobacco: NeverAlcohol UseStandard Drinks/WeekCommentsDefer0 (1 standard drink = 0.6 oz pure alcohol)Caffeine: 2-3 cups/kbxH9628 Health LiteracyAnswerDate RecordedHow often do you need [...] Twice a week11/19/2024How often do you attend worship or church services?1 to 4 times per year11/19/2024Do you belong to any clubs or organizations such as worship groups, unions, [employer] or athletic groups, or school groups?Yes 11/19/2024How often do you attend meetings of the clubs or organizations you belong to?More than 4 times per year11/19/2024re you , , , , never , or living with a partner?Cqdhgaij27/28/2025 AUDIT-CAnswerDate RecordedQ1: How often do you have a drink containing alcohol? 2-4 times a month11/19/2024Q2: How many drinks containing alcohol do you have on a typical day when you are drinking?1 or Q3: How often do you have six or more drinks on one occasion?Less than xyqfawi6911/19/2024Overall Financial Resource Strain (CARDIA)AnswerDate RecordedHow hard is it for you to pay for the very basics like food, housing, medical care, and heating?Not hard at all 11/19/2024[facility] [place] [facility] Occupational Health - Occupational Stress QuestionnaireAnswerDate RecordedDo you feel stress - tense, restless, nervous, or anxious, or unable to sleep at night because yourmind is troubled all the time - these days?To some bbqicv6011/19/2024Exercise Vital SignAnswerDate Recorded On average, how many [...] steady place to sleep or slept in ashelter (including now)?No06/21/2023Housing Stability Vital SignAnswerDate RecordedIn the last 12 months, was there a time when you were not able to pay the mortgage or rent on time?No11/19/2024Number of Times Moved in the Last YearNot on file11/19/2024t any time in the past 12 months, were you homeless or living in a senior living (including now)?No11/19/2024 CommentsUnknownSex and Gender InformationValueDate RecordedSex Assigned at BirthNot on fileLegal PxpSqufxd42/15/2023 8:28 PM EDTGender IdentityNot on fileSexual OrientationNot on filedocumented as of this encounter Plan of Treatment DateTypeDepartmentCare Team (Latest Contact Info)Bintktzqgxu38/18/2026 3:00 PM ESTOffice Visit [facility] [address] [place] [id number] Shani Dunaway MD [address] [place] [address] documented as of this encounter Visit Diagnoses Not on filedocumented in this encounter Care Teams Team MemberRelationshipSpecialtyStart DateEnd Date Philip Milligan MD [address] [place] [phone] PCP - GeneralFadcly Medicine08/16/23documented as of this encounter
--- OUTSIDE RECORDS SUMMARY | 2025-05-19 21:00 | XMS_ITS | Clinical Summary ---
Author Organization [facility] Address [address] [place] [address] Care Team Providers [employer] Name Role Phone Philip Milligan MD Primary Care Provider [phone] Allergies Active AllergyReactionsCriticalityNoted DateCommentsErythromycinAnaphylaxisHigh 01/06/2017 Other Reaction(s): Hives RfuxvpowdzhSrwmpasmfmvHgni41/24/2017 Other Reaction(s): Hives, Skin Rashes QwhotsjdvwAezkiwjdbfgmKny23/24/2017 Other Reaction(s): Comments: tachycardia Xmjgeqneatit52/03/2023 Medications MedicationSigDispense QuantityRefillsLast FilledStart DateEnd DateStatus ibuprofen 800 MG tablet 5Active albuterol HFA 90 mcg/act inhaler Indications:Flu-like symptomsInhale 2 puffs every 6 (six) hours if needed for wheezing or shortness of breath 18 g 5Active hydroCHLOROthiazide (HYDRODiuril) 25 MG tablet Indications:Primary hypertensionTake 1 tablet (25 mg) by mouth Daily 90 tablet 5Active lisinopril 10 MG tablet Indications:Primary hypertensionTake 1 tablet (10 mg) by mouth 1 (one) time each day at the same time 90 tablet 5Active triamcinolone (Kenalog) 0.1 % cream 5Active cyanocobalamin (Vitamin B-12) 1000 MCG tablet Take 1,000 mcg by mouth DailyActive cholecalciferol (Vitamin D-3) 25 MCG tablet Take 25 mcg by mouth DailyActive hydroCHLOROthiazide (HYDRODiuril) 12.5 MG tablet Indications:Bilateral lower extremity edemaMay take dose 1 pill up to three times per week for swelling in legsMay take dose 1 pill up to three times per week for swelling in legs 12 tablet 5Active metoprolol succinate XL (Toprol-XL) 25 MG 24 hr tablet Take 12.5 mg by mouth in the morning.5Active phentermine (Adipex-P) 37.5 MG tablet Indications:Morbid (severe) obesity due to excess calories ([facility])Take 1 tablet (37.5 mg) by mouth in the morning. Take before meals. 30 tablet 5Active Active Problems ProblemNoted DateDiagnosed VsjwMpisyhmilzc71/07/2025 Assessment & Plan (02/09/2025 6:40 PM EDT): No current sxs, turned in holter 01/29/25 Is not taking b adriane Assessment & Plan (01/29/2025 12:02 PM EDT): No current sxs, turned in holter today Is not taking b adriane Pharyngitis, acute01/27/2025URI, acute01/27/2025 Assessment & Plan (02/09/2025 6:39 PM EDT): Resolved Post fatigue, which may be also related to fibro from being sick Recommend adding a OTC multi vitamin as well Assessment & Plan (01/29/2025 12:02 PM EDT): Does appear to be getting better with change to doxy She is non toxic in appearance, no resp distress I would recommend adding nasal steroid and antihistamine as well Keep fu for 02/09/25 Herpes iydxdnkr19/28/2025Morbid (severe) obesity due to excess calories 08/20/2024 Assessment & Plan (02/09/2025 6:38 PM EDT): Discussed with patient their BMI (actual, verses [...] adipex: 2 Starting weight: 225 Current: 215 Assessment & Plan (01/29/2025 12:01 PM EDT): Discussed with patient their BMI (actual, verses [...] adipex: 2 Starting weight: 225 Current: 213 Assessment & Plan (12/22/2024 5:54 PM EDT): Discussed with patient their BMI (actual, verses [...] adipex: 1 Starting weight: 225 Current: 220 Assessment & Plan (11/19/2024 5:59 PM EDT): Discussed with patient their BMI (actual, verses [...] to 1600 calories daily if no contraindications Assessment & Plan (08/20/2024 7:44 AM EST): Discussed with patient their BMI (actual, verses recommended). We have also discussed lifestyle modifications: attempts to perform physical activity as chronic conditions allow, also to monitor dietary intake: increasing protein/fruits/veggies and lowering carb intake (unless contraindicated). Limit sodas, juices, and sugary drinks. Flu-like rxivvbda55/26/2025 Assessment & Plan (08/20/2024 6:02 PM EST): Suspect that pt did have influenza and is too late to demonstrate positive test Fluids, rest Kijktrx1508/20/2024 Assessment & Plan (08/20/2024 5:58 PM EST): At [facility], had CT scan Sent home on cipro and flagyl, has finished them feeling better No NVD, bowels are moving well CT scan does demonstrate diffuse long segment wall thickening in the sigmoid colon Colonoscopy is recommended Has seen mulu in the past, would like to see him Acute non-recurrent maxillary pgfujiffs12/26/2025 Assessment & Plan (08/20/2024 6:03 PM EST): Sxs appear to be quite concentrated over the left maxillary/eye area, there is fluid left TM only Will treat with doxy, can also trial nasal irrigation as instructed Fu if not better Liver mteowr9208/20/2024 Assessment & Plan (08/20/2024 6:00 PM EST): 1.8 hyperdense lesion hepatic dome, 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, consider MRI liver protocal for definitive characterization Kidney stone08/16/20233743Iroqbtqqhwymdpvk09/22/2024Environmental and seasonal qqaaksntr45/22/2024ilateral lower extremity edema08/16/2023 Assessment & Plan (08/20/2024 7:43 AM EST): Prn hydrochlorothiazide dose takes 1-2 times per week Assessment & Plan (06/23/2024 6:00 PM EST): Prn hydrochlorothiazide dose takes 1-2 times per week Assessment & Plan (09/13/2023 6:27 PM EDT): Blood pressure has been doing well with use of lisinopril as well as hydrochlorothiazide But will give a 12.5mg to take no more than 3 times week for swelling to feet- reports since last visit has only used the extra dose of hydrochlorothiazide twice Assessment & Plan (08/16/2023 7:00 PM EST): Blood pressure has been doing well with use of lisinopril as well as hydrochlorothiazide But will give a 12.5mg to take no more than 3 times week for swelling to feet Abnormal weight gain06/28/2023 Assessment & Plan (02/09/2025 6:40 PM EDT): Has completed month #3 of adipex with 15 pounds total lost Will prescribe month #4 Fu in 4 weeks Keep up the good work with diet and exercise habits Assessment & Plan (09/13/2023 6:28 PM EDT): Has completed month #3 of adipex with 15 pounds total lost Will prescribe month #4 Fu in 4 weeks Keep up the good work with diet and exercise habits Assessment & Plan (06/28/2023 5:59 PM EST): Has completed month #1 of adipex with 9 pounds lost Will prescribe month #2 Fu in 4 weeks Keep up the good work with diet and exercise habits Calculus of gallbladder with acute on chronic cholecystitis without obstruction 05/21/2023Inflammatory cbxzagejelffqoo86/27/2023rimary fibromyalgia syndrome 05/21/2023HTN (hypertension)05/21/2023 Assessment & Plan (02/09/2025 7:47 AM EDT): Please check blood pressure daily and record DASH diet Limit caffeine Take medication as directed Contact office if chest pain, pressure, dizziness, shortness of breath, swelling legs Recommend slow position changes Current meds: hydrochlorothiazide, lisinpril Assessment & Plan (01/29/2025 12:00 PM EDT): Please check blood pressure daily and record DASH diet Limit caffeine Take medication as directed Contact office if chest pain, pressure, dizziness, shortness of breath, swelling legs Recommend slow position changes Current meds: hydrochlorothiazide, lisinpril Assessment & Plan (12/22/2024 7:46 AM EDT): Please check blood pressure daily and record DASH diet Limit caffeine Take medication as directed Contact office if chest pain, pressure, dizziness, shortness of breath, swelling legs Recommend slow position changes Current meds: hydrochlorothiazide, lisinpril Assessment & Plan (11/19/2024 7:28 AM EDT): Please check blood pressure daily and record DASH diet Limit caffeine Take medication as directed Contact office if chest pain, pressure, dizziness, shortness of breath, swelling legs Recommend slow position changes Current meds: hydrochlorothiazide, lisinpril Assessment & Plan (08/20/2024 7:43 AM EST): Please check blood pressure daily and record DASH diet Limit caffeine Take medication as directed Contact office if chest pain, pressure, dizziness, shortness of breath, swelling legs Recommend slow position changes Current meds: hydrochlorothiazide, lisinpril Assessment & Plan (06/23/2024 7:38 AM EST): Please check blood pressure daily and record DASH diet Limit caffeine Take medication as directed Contact office if chest pain, pressure, dizziness, shortness of breath, swelling legs Recommend slow position changes Current meds: hydrochlorothiazide, lisinpril Assessment & Plan (09/13/2023 6:27 PM EDT): Values are stable with use of adipex No changes in dose Assessment & Plan (05/21/2023 6:46 PM EST): Stable at this time no changes in dose Will monitor while taking adipex Seasonal vuwhoszqh85/27/1177Yketjslqqnf72/27/2023Mass of axillary tail of left txvnfw4505/21/2023Lung theovz4405/21/2023OSA (obstructive sleep apnea)05/21/2023 Assessment & Plan (12/22/2024 7:46 AM EDT): You have a diagnosis of obstructive sleep [...] tubing/filters etc: Doctor that manages your KEKE: Assessment & Plan (11/19/2024 7:28 AM EDT): You have a diagnosis of obstructive sleep [...] tubing/filters etc: Doctor that manages your KEKE: Assessment & Plan (06/23/2024 7:37 AM EST): You have a diagnosis of obstructive sleep apnea. It is recommended that you wear your PAP device any time while in bed sleeping. Not using the PAP device can increase your risk of elevated/uncontrolled high blood pressure, atrial fibrillation, heart attack, stroke, or sudden . H/O cold sores05/21/2023ody mass index (BMI) 36.0-36.9, adult05/21/2023 Assessment & Plan (06/23/2024 5:47 PM EST): Discussed with patient their BMI (actual, verses recommended). We have also discussed lifestyle modifications: attempts to perform physical activity as chronic conditions allow, also to monitor dietary intake: increasing protein/fruits/veggies and lowering carb intake (unless contraindicated). Limit sodas, juices, and sugary drinks. Assessment & Plan (09/13/2023 6:28 PM EDT): Continue with adipex 1600 calorie diet, exercise OARRS reviewed Fu in 4 weeks for a recheck Assessment & Plan (05/21/2023 6:42 PM EST): Will start adipex, has taken before and done well 1600 calorie diet, exercise OARRS reviewed Fu in 4 weeks for a recheck Hematuria, gross12/29/2020 Overview (05/21/2023): ==== 12/29/2020 ==== acute onset gross hematuria as well as bilateral back discomfort. Unknown etiology. Pain was enough to bring her to the ER. Hematuria last about [address] scan noncontrast while she was symptomatic demonstrated only evert small punctate nonobstructing stone. No other pathology of note. Urinalysis was negative for infection as well. Plan: Unclear etiology as to what is going on. Certainly cannot explain hematuria with back discomfort. To that end would be randle to complete hematuria evaluation. CT urogram. Cystoscopy urine for cytology. Last Assessment & Plan: Formatting of this note might be different fromthe original. We reviewed today than any abnormality of the urinary tract including cancer, medicalrenal disease, infection, calculi, bleeding the diathesis, idiopathic, benign familial, BPH, or congenital anomaly could account for hematuria, and hence the importance of evaluation. The patient understands that all studies ordered must be completed in order to fully evaluate the urinary system. The patient acknowledges this and agrees. Assessment & Plan (05/21/2023 6:43 PM EST): Saw urology, is going to have US, then a scope Has not had any bleeding since 3 weeks Continue with urology for work up Derangement of knee03/07/2014Low back pain03/07/2014Joint pain03/04/2014 Encounters DateTypeDepartmentCare TltwFepwrzemnne14/19/2025 3:10 PM ESTOffice Visit [facility] [address] [place] [address] Shani Dunaway MD Nonspecific abnormal results of thyroid function study (Primary Dx); Primary emcwagonvbjt73/19/2025amboo flowsheet [facility] [address] [place] [address] Shani Dunaway MD 02/16/2025Orders Only [facility] [address] [facility] [place] [address] Gabriela Craig NP from Last 3 Months Immunizations ImmunizationAdministration DatesNext SwuWqdz4501/06/2017,11/05/2014 Family History Medical HistoryRelationNameCommentsNo Known ProblemsFatherBreast cancerMaternal GrandmotherCancerMaternal GrandmotherHeart diseaseMotherLung cancerMother RelationNameStatusCommentsFatherAliveMaternal GrandmotherMotherDeceased Social History Tobacco UseTypesPacks/DayYears UsedDateSmoking Tobacco: NeverSmokeless Tobacco: Never Tobacco Cessation:Counseling Given: No Alcohol UseStandard Drinks/WeekCommentsDefer0 (1 standard drink = 0.6 oz pure alcohol)Caffeine: 2-3 cups/[id number] Health LiteracyAnswerDate RecordedHow often do you need to have someone help you when you read instructions, pamphlets, or other written material from your doctor or pharmacy?Never11/19/2024Humiliation, Afraid, Rape, and Kick questionnaireAnswerDate RecordedWithin the last year, have you been afraid of your partner or ex-partner?No11/19/2024Within the last year, have you been humiliated or emotionally abused in other ways by your partner or ex-partner?No11/19/2024Within the last year, have you been kicked, hit, slapped, or otherwise physically hurt by your partner or ex-partner?No 11/19/2024Within the last year, have you been raped or forced to have any kind of sexual activity by your partner or ex-partner?No11/19/2024Social Connection and Isolation PanelAnswerDate RecordedIn a typical week, how many times do you talk on the phone with family, friends, or neighbors?Three times a week 11/19/2024How often do you get together with friends or relatives?Twice a week 11/19/2024How often do you attend methodist or hindu services?1 to 4 times per year11/19/2024Do you belong to any clubs or organizations such as methodist groups, unions, fraternal or athletic groups, or school groups?Yes11/19/2024How often do you attend meetings of the clubs or organizations you belong to?More than 4 times per year11/19/2024re you , , , , never , or living with a partner?Rhtzolqy82/28/2025UDIT-CAnswerDate Recorded Q1: How often do you have a drink containing alcohol?2-4 times a month11/19/2024 Q2: How many drinks containing alcohol do you have on a typical day when you are drinking?1 or Q3: How often do you have six or more drinks on one occasion?Less than ythpsmu5111/19/2024Overall Financial Resource Strain (CARDIA) AnswerDate RecordedHow hard is it for you to pay for the very basics like food, housing, medical care, and heating?Not hard at all11/19/2024[facility] [place] [facility] Occup[facility] - Occupational Stress QuestionnaireAnswerDate RecordedDo you feel stress - tense, restless, nervous, or anxious, or unable to sleep at night because yourmind is troubled all the time - these days?To some jxjbfb1911/19/2024 Exercise Vital SignAnswerDate RecordedOn average, how many days per week do you engage in moderate to strenuous exercise (like a brisk walk)?3 days11/19/2024On average, how many minutes do you engage in exercise at this level?60 min 11/19/2024Hunger Vital SignAnswerDate RecordedWithin the past 12 months, you worried that your food would run out before you got the money to buymore.Never true11/19/2024Within the past 12 months, the food you bought just didn't last and you didn't have money to get more.Never true11/19/2024PRAPARE - TransportationAnswerDate RecordedIn the past 12 months, has lack of transportation kept you from medical appointments or from getting medications?No 11/19/2024In the past 12 months, has lack of transportation kept you from meetings, work, or from getting things needed for daily living?No11/19/2024 Housing Stability Vital SignAnswerDate RecordedIn the last 12 months, was there a time when you were not able to pay the mortgage or rent on time?No06/21/2023In the last 12 months, how many places have you lived?In the last 12 months, was there a time when you did not have a steady place to sleep or slept in [facility] (including now)?No06/21/2023Housing Stability Vital SignAnswerDate RecordedIn the last 12 months, was there a time when you were not able to pay the mortgage or rent on time?No11/19/2024Number of Times Moved in the Last Year Not on file11/19/2024t any time in the past 12 months, were you homeless or living in a fdc (including now)?No11/19/2024CommentsUnknownSex and Gender InformationValueDate RecordedSex Assigned at BirthNot on fileLegal Sex Tdxuqv7609/06/2022 8:28 PM EDTGender IdentityNot on fileSexual OrientationNot on file Last Filed Vital Signs Vital SignReadingTime TakenCommentsBlood Mbgkkaoo007/7005/13/2025 2:56 PM EST Qcqfh009705/13/2025 2:56 PM BMJBtsuwnkgqve14.6 ??C (97.8 ??F)02/09/2025 6:15 PM EDTRespiratory Tkzu577407/13/2024 2:56 PM ESTOxygen Mprilpglns49%05/13/2025 2:56 PM ESTInhaled Oxygen Concentration--Iqsbwc01.5 kg (215 lb)05/13/2025 2:56 PM EST Gerdqf030 cm (5' 3 )05/13/2025 2:56 PM ESTBody Mass Index38.0905/13/2025 2:56 PM EST Plan of Treatment DateTypeDepartmentCare Team (Latest Contact Info)Zzfssqvogxy63/18/2026 3:00 PM ESTOffice Visit [facility] [address] [place] [address] Shani Dunaway MD [address] [place] [address] Procedures Procedure NamePriorityDate/TimeAssociated DiagnosisCommentsCARD HOLTER MONITOR OYZVZUCNBYdhacit08/25/2025 7:59 AM EDTfrom Last 3 Months Results * CARD HOLTER MONITOR RECORDING (02/16/2025 7:59 AM EDT)Anatomical Region LateralityModalityRadiographic Imaging Narrative Authorizing ProviderResult TypeResult StatusLisa Aichaven behavioral healthcareneel NPIMG XR PROCEDURES Final Result from Last 3 Months Insurance Care Teams Team MemberRelationshipSpecialtyStart DateEnd Date Philip Milligan MD [address] [place] [id number] [facility] - [facility] Medicine08/16/23
--- OUTSIDE RECORDS SUMMARY | 2025-05-19 21:01 | XMS_ITS | Patient Health Record ---
Author Organization [facility] vices Address [address] [id number] Care Team Providers Care Corporate Ethics Officer Name Role Phone Madhu Alfredo Unavailable [phone] Maryse Sapp Unavailable [phone] Allergies Allergen (clinical drug ingredient) Drug/Non Drug Allergy documented on EMR Reaction Allergy Type Onset Date Status erythromycin Erythromycin Hives Drug Allergy 01/06/2017 Active penicillin G Penicillin G Potassium Skin Rashes Drug Allergy 07/18/2016 Active predniSONEComments: tachycardiaDrug Csgwjiz7607/18/2016ActiveSubstance with penicillin structure and antibacterial mechanism of action (substance) PenicillinsHivesDrug Ioxfdfq8901/06/2017Active Reason For Referral No Information Medications Medication SIG (Take, Route, Frequency, Duration) Notes Start Date End Date Status hydroCHLOROthiazide 12.5 MG Tablet Oral; Duration: 28 Days as needed ActivehydroCHLOROthiazide 25 MG TabletOral; Duration: 30 DaysActiveLisinopril 10 MG TabletOral; Duration: 30 DaysActivehydroCHLOROthiazide 12.5 MG TabletOral; Duration: 28 DaysNot-Taking/PRN Social History Tobacco Use: Social History Observation Description Date Details (start date - stop date) Never Smoker NA - NA Sex Assigned At : Social History Observation Description Sex Assigned At Female Social History Tobacco Use:Social InfoQuestionAnswerNotesTobacco Control (Standard)Tobacco use: NonsmokerAdditional Findings: Tobacco non-userCurrent nonsmokerSection Notes: Nutrition counseling focusin g on a low sodium and low sugar diet discussed with the patient, as well as appropriate weekly exercise and increased activity as tolerated to work towards a more optimal body mass index for improved overall health. Problems Problem Type SNOMED Code ICD Code Onset Dates Problem Status W/U Status Risk Notes Problem Obese class II ([id number]) BMI 37.0 -37.9, adult (Z68.37) ActiveconfirmedProblemTinea pedis (1912669)Tinea pedis (B35.3)Activeconfirmed ProblemPalpitations (93331648)Palpitations (R00.2)Activeconfirmed Comment:symptomatic.. with bradycardia prior to racing heartrate.,Problem Ganglion of joint (09984491)Ganglion cyst of wrist (727.41) (727.41)Active confirmedComment:right wrist base of 2nd and 3rd metacarpals on dorsal surface., ProblemDepression screening (997638061)Screening for depression (Z13.31)Active confirmedDescription:Depression screeningProblemFatigue (71658625)Fatigue (R53.83)Activeconfirmed Comment:not sleep deprived..Does get up 1-2 times at night.. cramping or to go to the bathroom. More muscle fatigue and muscle pain. Refer back to rheumatology., ProblemHypothyroidism (44674259)Hypothyroidism (E03.9)Activeconfirmed Comment:will check a TSH now... Did feel much better on the med this time., ProblemAcute bacterial sinusitis (25478497)Acute bacterial sinusitis (J01.90) Activeconfirmed Comment:rowena tto er last week got abx bactrim only. no steroid no predniseon allergic to it .. on meds now symptoms resolved and helping feel a new person. h/o atopy w otc meds helps acc to chart. refill meloxicam. levaquin no more severe cough and facial swelling b/l., ProblemElevated blood pressure (82612038)Elevated BP (796.2)Activeconfirmed Comment:History of eleveted BP/ HTN. Not been a problem since delivery.. Will observe for now.. No need to start any meds at this time.. Occ. BP checks at home.. Consider an exercsie program to build up the strength.., ProblemNeedle stick injury of finger (412674144)Needle stick injury of finger (S61.239A)Activeconfirmed Comment:reccomend folowup in 6 months for HepC, HIV and hepatits B. Gave info on our policy about needlesticks., ProblemJoint pain (76946942)Joint pain (M25.50)Activeconfirmed Comment:pain has improved, with mild pain persisting to hips and knees pt is currently advised to contact rheumatology and notify of current status, discuss tx plan/recommendations with OB first encouraged routine physical activity, adequate hydration FU with OB as scheduled, ProblemAcute sinusitis (81876334)Acute infection of nasal sinus (J01.90) 06/09/2008Problem resolvedconfirmedDescription:Acute sinusitisProblemPosterior rhinorrhea (51352216)PND (post-nasal drip) (R09.82)06/30/2008Problem resolved confirmedDescription:Postnasal dripProblemAcute upper respiratory infection (90297828)Acute upper respiratory infection (J06.9)05/18/2008Problem resolved confirmedProblemRhinitis, allergic (477.) (477)06/30/2008Problem resolved confirmed Vital Signs Heart Rate 83 /min 12/12/2024 Height-cm160.02 cm12/12/2024lood pressure eohtjwyzr97 mm Hg12/12/2024Weight-kg 95.26 kg12/12/20245869Gqfdsb48.00 in12/12/2024lood pressure ejmnukez173 mm Hg 12/12/20240904Diryfq271 lbs12/12/2024BMI37.2 kg/m212/12/2024 Encounters Encounter Location Date Provider Diagnosis [facility] [address], [place] [id number] 06/09/2024 Maryse Sapp Dental caries into dentine K02.62 and Encounter for dental examination and cleaning with abnormal findings Z01.21 [facility] [address] [place] [id number] 11/10/2024 Maryse Sapp Dental caries into dentine K02.62 [facility] [address] [place] [id number] 11/19/2024 Maryse Sapp Encounter for dent al examination and cleaning with abnormal findings Z01.21 and Dental caries into dentine K02.62 [facility] [address] [place] [id number] 12/12/2024 Maryse Sapp BMI 37.0-37.9, dagmar lt Z68.37 ; Dietary counseling Z71.3 ; Exercise counseling Z71.82 ; Encounter for screening for dental disorders Z13.84 and Encounter for dental examination and cleaning without abnormal findings Z01.20 Assessments Encounter Date Diagnosis (ICD Code) Assessment Notes Treatment Notes Treatment Clinical Notes Section Notes 06/09/2024 Dental caries into dentine (ICD- 10 - K02.62) 11/10/2024Dental caries into dentine (ICD-10 - K02.62)11/19/2024Encounter for dental examination and cleaning with abnormal findings (ICD-10 - Z01.21) 12/12/2024MI 37.0-37.9, adult (ICD-10 - Z68.37)12/12/2024Dietary counseling (ICD-10 - Z71.3)06/09/2024Encounter for dental examination and cleaning with abnormal findings (ICD-10 - Z01.21)11/19/2024Dental caries into dentine (ICD-10 - K02.62)12/12/2024Exercise counseling (ICD-10 - Z71.82)12/12/2024Encounter for screening for dental disorders (ICD-10 - Z13.84)12/12/2024Encounter for dental examination and cleaning without abnormal findings (ICD-10 - Z01.20) Plan Of Treatment Next Appt Details Provider Name:Maryse Sapp , 07/17/2025 03:00:00 PM, [facility] [place], [place], [id number], Insurance Providers Payer Name Payer Address Payer Phone Subscriber Number Group Number Insured Name Patient Relationship to Insured Coverage Start Date Coverage End Date [facility] [address] [place] [address] [id number] Emily Klein Self - patient is the insured 3 [facility] [address] [address] [place] [id number], JodySelf - patient is the [id number] 2024edicChildren's [place] after Mehul Elias [address] [place], [place] [id number], JodySelf - patient is the [id number] 2022 Medical (General) History Medical History History ICD Code Fibromyalgia, ProblemStatus: Active, , Hypertension, ProblemStatus: Active, ,Hypothyroidism, ProblemStatus: Active, , Joint Problems, ProblemStatus: Active, ,MEDICAL: No history of significant medical diseases, ProblemStatus: Inactive, ,Surgical History Surgery Date(Month/Year) hand surgery, COMMENTS: gang lion cyst left hand, ProblemStatus: Active,
== END 2025-05-19 20:54 | disposition home or self-care (01) ==
PROVIDERS: PCP Nurse Practitioner; Visit Provider Nurse Practitioner
DX: G47.33 Obstructive sleep apnea (adult) (pediatric) (principal)
CPT/HCPCS: 95810